=== PATIENT | female | born 1970 | race Caucasian/White ===

== ENCOUNTER 2018-02-02 15:11 | Emergency (ER) | payer BC ==
[~2018-02-02] VITALS: Ht 172.7 cm; Wt 107.0 kg
[2018-02-02] MEDS ORDERED: OMEPRAZOLE20 MG PO (16:21)
[2018-02-02] MEDS ORDERED: COZAAR50 MG PO (16:22)
[2018-02-02] MEDS ORDERED: KEFLEX500 MG PO (19:37)
== END 2018-02-02 19:57 | disposition home or self-care (01) ==
LOC: ED 15:11
PROC: 0H97XZZ Drainage of Abdomen Skin, External Approach (ICD-10-PCS; principal; 2018-02-02)
DX: L02.211 Cutaneous abscess of abdominal wall (principal)
CPT/HCPCS: 10060; 99282

== ENCOUNTER 2018-02-04 07:16 | Emergency (ER) | payer BC ==
[~2018-02-04] VITALS: Ht 172.7 cm; Wt 107.0 kg
--- OUTSIDE RECORDS SUMMARY | ~2018-02-04 | XMS | Encounter Summary ---
Demographics + + + | Address | [address] | | | [place] [address] | + + + | Home Phone | | + + + | Preferred Language | Unknown | + + + | Marital Status | | + + + | Baptist Affiliation | Unknown | + + + | Race | Unknown | + + + | Ethnic Group | Unknown | + + + Author + + + | Author | [facility] | | | and [place] | + + + | Organization | [facility] | | | and [place] | + + + | Address | Unknown | + + + | Phone | Unavailable | + + + Support + + + + + | Name | Relationship | Address | Phone | + + + + + | Tam Lou | ECON | [address] | | | | | [place] [address] | | + + + + + | Cristal Yu | ECON | Unknown | | + + + + + Care Team Providers + +------+ + | Care Third Steel Pourer Name | Role | Phone | + +------+ + | Pcp, Prov Inactive | PCP | | + +------+ + Reason for Visit Auth/Cert +--------+--------+ + + + + | Status | Reason | Specialty | Diagnoses / | Referred By | Referred To | | | | | Procedures | Contact | Contact | +--------+--------+ + + + + | | | | Diagnoses | | | | | | | | | | | | | | INCARCERATED | | | | | | | VENTRAL | | | | | | | HERNIA | | | | | | | Recurrent | | | | | | | incisional | | | | | | | hernia with | | | | | | | incarceratio | | | | | | | n | | | | | | | Procedures | | | | | | | REPAIR | | | | | | | HERNIA | | | | | | | VENTRAL | | | +--------+--------+ + + + + Encounter Details +--------+---------+ + + + | Date | Type | Department | Care Team | Description | +--------+---------+ + + + | 12/21/ | Surgery | [facility] | Miguel Angel Burks MD | ILEOCOLIC RESECTION; | | 2018 | | [facility] | [address] | IMPLANTATION OF | | | | [address] | [place] [address] | BIOLOGIC MESH; | | | | [place] | [phone] | PLACEMENT OF VAC | | | | [address] | | | | | | [phone] | | | +--------+---------+ + + + Social History + + [...] on file | | + + + as of this encounter Last Filed Vital Signs + + + + | Vital Sign | Reading | Time Taken | + + + + | Blood Pressure | 132/80 | 12/25/2017 0800 PDT | + + + + | Pulse | 88 | 12/25/2017 1106 PDT | + + + + | Temperature | 36.8 C (98.2 F) | 12/25/2017 08 PDT | + + + + | Respiratory Rate | 18 | 12/25/20171105 PDT | + + + + | Oxygen Saturation | 83% | 12/25/20171105 PDT | + + + + | Inhaled Oxygen | - | - | | Concentration | | | + + + + | Weight | 115 kg (253 lb 8.5 | 12/21/2017199 PDT | | | oz) | | + + + + | Height | 172.7 cm (5' 8") | 12/21/2017 0200 PDT | + + + + | Body Mass Index | 38.55 | 12/21/2017 0200 PDT | + + + + in this encounter Discharge Summaries Usama Almodovar MD - 12/25/2017 1759 PDTFormatting of this note may be different fr om the original. [facility] Surgery Discharge Summary Patient Name: Katie Lou Patient : 1970 PCP: Prov Inactive Pcp Date of Admission: 12/21/2017 Date of Discharge: 12/25/2017 Primary Discharge Dx: Recurrent incisional hernia with incarceration Secondary Discharge Dx(s): Active Hospital Problems Diagnosis Recurrent incisional hernia with incarceration Acute pulmonary insufficiency following nonthoracic surgery Obesity Hypertension Resolved Hospital Problems Diagnosis No resolved problems to display. Procedures: Repair of incarcerated, multiply recurrent incisional hernia Ileocolic resection including 18 inches of ileum and cecum Implantation of biologic mesh Application of VAC dressing Hospital Course: Uneventfull hospital course. Patient improved without complication. Patient recovered well from procedure. She has a subcutaneous drain in place that will rasheeda in there until seen in Dr. Burks's office in 2 weeks. She also has an incision that was draine d with a wound vac for 5 days and then transitioned to dry dressings prior to discharge. She was discharged home with home assist in stable condition and with all of her questions answ ered to her satisfaction. Condition on Discharge: Improved Discharge Medications: Discharge Medications New Medications Details benzonatate 100 mg capsule Notes to patient: Not given. Take 1 capsule by mouth 3 times daily as needed for Cough. aka: TESSALON nicotine 14 mg/24 hr Notes to patient: Last dose 11/10 at 9:53am. Place 1 patch onto the skin Daily as needed for Nicotine Craving. aka: NICODERM oxyCODONE 5 mg tablet Notes to patient: Last dose 12/25 at 13:25pm. Take 1-3 tablets by mouth every 4 hours as needed for Pain. aka: ROXICODONE Unchanged Medications Details LOSARTAN POTASSIUM PO Notes to patient: Last dose 12/25 at 9:01am. Take 25 mg by mouth Daily. omeprazole 20 mg Tbec Notes to patient: Not given. 1 TABLET by mouth twice daily-LAST REFILL NEED VISIT and LABS aka: priLOSEC PROAIR HFA 90 mcg/puff inhaler Generic drug: albuterol Notes to patient: Last dose 12/21 at 8:03am. 2 puffs every 4-6 hours as needed for asthma Follow-Up: 1. Follow up with Dr. Burks in 2 weeks for wound check and post-op visit.. Electronically Signed by: Usama Almodovar MD, 12/25/2017 17:59 [facility] Associated attestation - Pancho Auguste MD - 12/26/2017 0843 PDTI have seen, interviewed a nd examined the patient. I have reviewed the above note and agree with the assessment and plan as outlined. Any exceptions to that assessment and plan are outlined here. Assessment entered late due to affect down time. Patient seen on date of resident note. Patient is doing well, tolerating diet with good pain control. Discharge home Pancho Auguste MD 12/26/2017 8:43 in this encounter Discharge Instructions The following attachments cannot be sent through Care Everywhere.Abdomen: Incision Care (En glish)Post Op Wound Check, General (Macedonian)in this encounter Medications at Time of Discharge + + +---------+---------+ + + | Medication | Sig. | Disp. | Refills | Start | End Date | | | | | | Date | | + + +---------+---------+ + + | albuterol (PROAIR | 2 puffs every 4-6 | | | 04/23/20 | | | HFA) 90 mcg/puff | hours as needed for | | | 11 | | | inhaler | asthma | | | | | + + +---------+---------+ + + | benzonatate | Take 1 capsule by | 30 | 0 | 12/26/19 | | | (TESSALON) 100 mg | mouth 3 times daily | capsule | | 18 | | | capsule | as needed for Cough. | | | | | + + +---------+---------+ + + | LOSARTAN POTASSIUM | Take 25 mg by mouth | | | | | | PO | Daily. | | | | | + + +---------+---------+ + + | nicotine | Place 1 patch onto | 21 | 0 | 12/26/19 | | | (NICODERM) 14 mg/24 | the skin Daily as | patch | | 18 | | | hr | needed for Nicotine | | | | | | | Craving. | | | | | + + +---------+---------+ + + | omeprazole | 1 TABLET by mouth | | | 04/23/20 | | | (PRILOSEC) 20 mg | twice daily-LAST | | | 12 | | | TBEC | REFILL NEED VISIT | | | | | | | and LABS | | | | | + + +---------+---------+ + + | oxyCODONE | Take 1-3 tablets by | 30 | 0 | 12/26/19 | | | (ROXICODONE) 5 mg | mouth every 4 hours | tablet | | 18 | | | tablet | as needed for Pain. | | | | | + + +---------+---------+ + + as of this encounter Progress Notes Marimar Montenegro, PAINTER HELPER - 12/25/2017 1424 PDTPt DC'd home with [facility] to follow for wound care. Zack rey to transport. Liberty Castorena, RT - 12/25/2017 1117 PDTFormatting of this note may be d ifferent from the original. 12/25/17 1107 Oxygen Therapy Home O2 eval performed? yes Resting on RA (%) 84 Resting on O2 (%)(add L/Min in comment) 93 (on 2L) Exercising on O2 (%)(add L/Min in comment) 94 (on 4L) Pt requiring 2L at rest and 4L with activity (walked all the way around 7S floor. Electronically signed by: Liberty Castorena, RT 12/25/2017 11:18 Bharti Parker RN - 12/25/2017 0922 PDTFormatting of this note may be different from the original. [facility] Wound, Ostomy, & Continence Nursing Note Date of Admission: 12/21/2017 Hospital Day #: LOS: 4 days Procedure: Procedure(s): ILEOCOLIC RESECTION; IMPLANTATION OF BIOLOGIC MESH; PLACEMENT OF VAC PLACEMENT OF VAC IMPLANTATION OF BIOLOIC MESH Procedure date: 12/21/2017 Principal Problem: Recurrent incisional hernia with incarceration Active Problems: Obesity Hypertension Assessment/Evaluation/Interventions: Orders received from Dr. Almodovar for wound VAC dressi ng to be removed and gauze dressing to be applied for patient's discharge today. Removed VAC dressing-base is pink and moist, edges are open-incision is partially open with intermitten t sutures. Elo-wound is intact. Applied gauze island dressing to wound. Primary RN asked me to teach the patient about her CARITO drain. I provided education regarding the milking or stri pping of the tubing, emptying the collection bottle and how to keep the bottle squeezed whil e replacing the drain cover. I also changed the dressing surrounding the tubing with new fen estrated gauze and transparent dressing. I answered any questions they had regarding frequen cy of changing the dressings. Wound VAC was discontinued. 12/25/17 0900 Visit Information Visit Type Discharge Wound 12/23/17 transverse abdomen Placement Date: 12/23/17 Orientation: transverse Location: abdomen Type: (c) Wound WDL WDL Dressing Appearance moist drainage Base pink;moist Periwound Area intact Edges open Dressing gauze (island gauze dressing applied) Negative Pressure discontinued Sponges Removed (Negative Pressure Wound Therapy) 4 Visit Summary Discipline Providing Treatment WOCN Next Wound/Ostomy Visit Date (Pt D/C 12/25) Pertinent labs/data: Lab Results Component Value Date ALBUMIN 2.7 (L) 12/20/2017 TOTALPROTEIN 6.4 (L) 12/20/2017 WBC 13.0 (H) 12/22/2017 HCT 41.7 12/22/2017 HGB 13.0 12/22/2017 Body mass index is 38.55 kg/m. Etiology: Surgical wound Treatment Plan: 1. Wound VAC D/C. 2. Gauze island dressing applied to abdominal wound. 3. CARITO drain dressing changed. 4. Education regarding the above provided to patient and family. Electronically signed by: BLAIR CobianN, RN, CWCN Wound and Ostomy Dept Clair Castro, ELEVATED WORK PLATFORM OPERATOR - 12/24/2017 0555 PDTFormatting of this note may be different from the original. RESPIRATORY PROTOCOL Admitting Diagnosis: INCARCERATED VENTRAL HERNIA Recurrent incisional hernia with incarceration Foundry Molder: None Respiratory History: Asthma Allergies: Allergies Allergen Reactions Sulfa Antibiotics Rash Smoking Hx: Social History Substance Use Topics Smoking status: Current Every Day Smoker Packs/day: 0.50 Years: 25.00 Types: Cigarettes Smokeless tobacco: Never Used Alcohol use Yes Comment: Rare Home Regimen: O2: N/A SVN: N/A MDI: Albuterol Q4 prn CPAP/BiPAP: N/A Home Care Co: None RE-ASSESSMENT Severity Class: 3 Mental Status: Alert Activity Level: Ambulatory with Assistance CHEST EXAM Breath Sounds: Clear and Decreased Resp: 18 Pulse: 80 Rhythm/Pattern (Respiratory): unlabored, no shortness of breath reported SpO2: 93 % on 3 Lpm SECRETIONS: Cough Effectiveness: Good: Amount: None Color: N/A Consistency: N/A Suctioning Needed: No I.S. Pred: IS Predicted Level (mL) : 2600 (30% predicted = 780) Act: IS Level (mL) : 2000 Adequate Breath Hold:Yes ABG: No ABG Chest X-Ray: No CXR CARE PLAN Oxygen Therapy Current Therapy: Keep SpO2 > 90% Change to: No change Respiratory Medication Current Therapy: Duoneb Q 4 hours while awake Change to: No change Bronchial Hygiene Current Therapy: Encourage cough & deep breathing Change to: No change Lung Volume Expansion Current Therapy: IS x 10 Q hour while awake Change to: No change DISPOSITION: Changes Made per Patient Assessment and Plan to reassess patient in 72 hours o r as needed Kell, Liberty E, RT - 12/24/2017 1304 PDTTook patient off EtCO2 monitor; pt not on BONDED STRUCTURES REPAIRER. Electronically signed by: Liberty Castorena, 12/24/2017 13:05 Marimar Montenegro PAINTER HELPER - 12/24/2017 1225 PDTPer rounds, pt may need wound care post DC. Sticky note placed on chart requesting MD enter order if so. Usama Almodovar MD - 12/24/2017 0850 PDTFormatting of this note may be different fr om the original. [facility] General Surgery/Trauma Team Progress Note Admission date: 12/21/2017 2:40 Date of : 1970 Hospital Day: 4 DATE/TIME: 12/24/2017 8:50 History of Present Illness: Katie Granado a 47 y.o.femalewho is Hospital Day: 4F ollowing incarcerated, recurrent incisional hernia. Principal Problem: Recurrent incisional hernia with incarceration Active Problems: Obesity Hypertension Many many years ago she had an umbilical hernia repair. This failed and she had a chronic incisional hernia. This was repaired electively in [place] November 14. On November 15 she had a cough and felt a pop with recurrence of her hernia. She was taken to surgery there and the mesh was removed and a primary repair performed. 2 days following that operation she e viscerated and was taken back to surgery for another repair which was done bilaterally. Nelda page spent a few days in the ICU due to difficulty with ventilation postoperatively but raya barber was discharged. She was seen by a surgeon back in [place] last week with another failur e of her repair and a palpable hernia. The decision was made not to treat it the given her recent history. She then was traveling to [place] and developed another incarcerated herni a with pain and nausea. She was seen by a surgeon there who felt the best operation for he r would be a retro-rectus repair with Stratticewhich was not available at [facility] small hospit [facility]. She has some family in [place] and requested transfer here. On 12/21 she underwent repai r of her incarcerated hernia along with resection of 18 inches of ileum and cecum with impla ntation of biologic mesh. She tolerated the procedure well and has a wound vac in place. Procedures 12/21/17: Repair of incarcerated, multiply recurrent incisional hernia Ileocolic resection including 18 inches of ileum and cecum Implantation of biologic mesh Application of VAC dressing 24 Hour Interval History POD3: The patient is examined. The chart is reviewed. Pain is adequately controlled. She d oes not complain of nausea. Wound vac being changed, minimal serous drainage with good heal ing. Minimal appetite, but taking liquids OK. Denies BM, passing gas. Anxious for discharge planning. Objective Temp: 36.3 C (97.3 F) BP: 151/86 Pulse: 69 Resp: 14 SpO2: 92 % on Min/Max Temp past 24 hours:Temp Av.6 C (97.9 F) Min: 36.3 C (97.3 F) Max: 3 7 C (98.6 F) Intake/Output Summary (Last 24 hours) at 12/24/17 0850 Last data filed at 12/24/17 0535 Gross per 24 hour Intake 2934 ml Output 2140 ml Net 794 ml Wt. Admission: Weight: 115 kg (253 lb 8.5 oz) Wt. Current: Weight: 115 kg (253 lb 8.5 o z) Physical Exam General: Alert, resting comfortably in bed, NAD Cardiovascular:Palpable radial pulse, regular rate and rhythm, no m/r/g. Respiratory:Breathing comfortably on 3L NC. Lungs CTAB Abdomen:Obese, hypoactive bowel tones, nondistended, mild generalized tenderness. RUQ CARITO drain w/ small amount of SS drainage. Central wound vac in place without surrounding erythem a. Psych:Normal mood, affect, behavior. Recent Labs No recent labs. Medications have been reviewed. Please refer to the MAR for details. Antibiotic(s)/duration: None DVT Prophylaxis: SCDs GI Prophylaxis: Pepcid Nutrition: Full liquid diet IMPRESSION / PLAN: 1. Repair of incarcerated, recurrent incisional hernia. Progressing well. Anticipate return of bowel function soon. Good use of IS. -Adv diet to general as tolerated 2. Hypoxia, mild intermittent -Likely secondary to chronic asthma -RT following -Breathing comfortably on 3L NC -Would like to trial pt off O2 resting/walking to anticipate home O2 needs 3. Hypertension -Post-op SBP 180s, treated with IV labetalol 10mg with good effect. BP in good control now. -Cont home HTN meds 4. Smoking cessation referral 5. PT/OT to see, appreciate recommendations 6. Dispo: home or adult foster home TBD based on therapy rec's Electronically Signed by: Usama Almodovar MD, 12/24/2017 8:50 [facility] from 7am-5pm (hospital employees only) Associated attestation - Pancho Auguste MD - 12/24/2017 1521 PDTI have seen, interviewed a nd examined the patient. I have reviewed the above note and agree with the assessment and plan as outlined. Any exceptions to that assessment and plan are outlined here. Patient is progressing well and transitioning to oral diet and oral medications. Continue drain at discharge. Will discuss with Dr. Burks the wound VAC management Pancho Auguste MD 12/24/2017 15:21 Best, Maday Klein RN - 12/23/2017 1259 PDTFormatting of this note may be different from the original. [facility] Wound, Ostomy, & Continence Nursing Note Date of Admission: 12/21/2017 Hospital Day #: LOS: 2 days Procedure: Procedure(s): ILEOCOLIC RESECTION; IMPLANTATION OF BIOLOGIC MESH; PLACEMENT OF VAC PLACEMENT OF VAC IMPLANTATION OF BIOLOIC MESH Procedure date: 12/21/2017 Principal Problem: Recurrent incisional hernia with incarceration Active Problems: Obesity Hypertension Assessment/Evaluation: Transverse abdominal incision w/ sutures in the center. Wound base isn't visible but measurements are 0.4cm x 16.5cm x 7cm. VAC dressing changed and 3 "ana" wrapped w/ Mepitel one and placed into the openings. -125mmHg continuous sx achieved w/o dif ficulty. D/C plans being determined. Will f/u for next VAC change on Sat. Pertinent labs/data: Lab Results Component Value Date ALBUMIN 2.7 (L) 12/20/2017 TOTALPROTEIN 6.4 (L) 12/20/2017 WBC 13.0 (H) 12/22/2017 HCT 41.7 12/22/2017 HGB 13.0 12/22/2017 Body mass index is 38.55 kg/m. Consent for Photo The patient was advised that digital photos will be taken today of Katie Lou.The patie nt verbally consented to having these photos taken for purposes of documenting his/her condi tion. The patient understands that the images will be stored in their medical record. Treatment Plan: 1. VAC change Wed 2. D/C plans pending. Electronically signed by: Maday Arndt RN, CWOCN Wound and Ostomy Services DATE/TIME: 12/23/2017 13:37 Marimar Montenegro MSW - 12/23/2017 1135 PDTPer d/c planning meeting, blue no d/c needs.sUama Almodovar MD - 12/23/2017 0902 PDTFormatting of this note may be different from the o riginal. [facility] General Surgery/Trauma Team Progress Note Admission date: 12/21/2017 2:40 Date of : 1970 Hospital Day: 3 DATE/TIME: 12/23/2017 9:02 History of Present Illness: Katie Lou is a 47 y.o. female who is Hospital Day: 2 Follo wing incarcerated, recurrent incisional hernia. Principal Problem: Recurrent incisional hernia with incarceration Active Problems: Obesity Hypertension Many many years ago she had an umbilical hernia repair. This failed and she had a chronic incisional hernia. This was repaired electively in [place] November 14. On November 15 she had a cough and felt a pop with recurrence of her hernia. She was taken to surgery there and the mesh was removed and a primary repair performed. 2 days following that operation she e viscerated and was taken back to surgery for another repair which was done bilaterally. Nelda page spent a few days in the ICU due to difficulty with ventilation postoperatively but raya barber was discharged. She was seen by a surgeon back in [place] last week with another failur e of her repair and a palpable hernia. The decision was made not to treat it the given her recent history. She then was traveling to [place] and developed another incarcerated herni a with pain and nausea. She was seen by a surgeon there who felt the best operation for he r would be a retro-rectus repair with Stratticewhich was not available at his small hospit ak. She has some family in [place] and requested transfer here. On 12/21 she underwent repai r of her incarcerated hernia along with resection of 18 inches of ileum and cecum with impla ntation of biologic mesh. She tolerated the procedure well and has a wound vac in place. Procedures 12/21/17: Repair of incarcerated, multiply recurrent incisional hernia Ileocolic resection including 18 inches of ileum and cecum Implantation of biologic mesh Application of VAC dressing 24 Hour Interval History POD2: The patient is examined. The chart is reviewed. Pain is adequately controlled. She d oes not complain of nausea. Wound vac being changed, minimal serous drainage with good heal ing. Minimal appetite, but taking liquids OK. Denies BM, flatus. Objective Temp: 36.6 C (97.8 F) BP: 136/74 Pulse: 89 Resp: 20 SpO2: 96 % on Min/Max Temp past 24 hours:Temp Av.6 C (97.9 F) Min: 36.2 C (97.1 F) Max: 3 7.3 C (99.1 F) Intake/Output Summary (Last 24 hours) at 12/23/17 0902 Last data filed at 12/23/17 0600 Gross per 24 hour Intake 2702 ml Output 105 ml Net 2597 ml Wt. Admission: Weight: 115 kg (253 lb 8.5 oz) Wt. Current: Weight: 115 kg (253 lb 8.5 o z) Physical Exam General: Alert, resting comfortably in bed, NAD Cardiovascular: Palpable radial pulse, regular rate and rhythm, no m/r/g. Respiratory: Breathing comfortably on 4L NC. Some scattered wheezes in R lung pedersen. L shaila g pedersen CTA Abdomen: Obese, hypoactive bowel tones, nondistended, mild generalized tenderness. RUQ drai n w/ small amount of blood. Central wound vac in place without surrounding erythema, 150cc i n 48hrs Psych: Normal mood, affect, behavior. Recent Labs No new labs today. IMPRESSION / PLAN: 1. Repair of incarcerated, recurrent incisional hernia. Progressing well. Anticipate return of bowel function soon. Discussed use of IS. DC IVF when adequate intake of liquid diet 2. Hypoxia, mild intermittent -Likely secondary to chronic asthma -RT following -Breathing comfortably on 3-4L NC 3. Hypertension -Post-op SBP 180s, treated with IV labetalol 10mg with good effect -Cont home HTN meds 4. Smoking cessation referral 5. PT/OT to see, appreciate recommendations 6. Dispo: home or adult foster home TBD based on therapy rec's Electronically Signed by: Usama Almodovar MD, 12/23/2017 9:02 [facility] from 7am-5pm (hospital employees only) Associated attestation - Pancho Auguste MD - 12/23/2017 1423 PDTI have seen, interviewed a nd examined the patient. I have reviewed the above note and agree with the assessment and plan as outlined. Any exceptions to that assessment and plan are outlined here. Doing well, but still early in the postoperative period. Minimal evidence of bowel functio n. Drain with serosanguineous output. Wound VAC without surrounding erythema. Pancho Auguste MD 12/23/2017 14:21 Carlos Farr, ELEVATED WORK PLATFORM OPERATOR - 12/22/2017 2259 PDTPt did not tolerate cpap with nasal mask on lo west pressure of 4 cmh2o, stated too much pressure. Also refused to try full face mask. Elec tronically signed by: Carlos Farr RRT 12/22/2017 23:00 Usama Almodovar MD - 12/22/2017 0824 PDTFormatting of this note may be different fr om the original. [facility] General Surgery/Trauma Team Progress Note Admission date: 12/21/2017 2:40 Date of : 1970 Hospital Day: 2 DATE/TIME: 12/22/2017 8:24 History of Present Illness: Katie Lou is a 47 y.o. female who is Hospital Day: 2 Follo wing incarcerated, recurrent incisional hernia. Principal Problem: Recurrent incisional hernia with incarceration Active Problems: Obesity Hypertension Many many years ago she had an umbilical hernia repair. This failed and she had a chronic incisional hernia. This was repaired electively in [place] on November 14. On November 15 she had a c ough and felt a pop with recurrence of her hernia. She was taken to surgery there and the m esh was removed and a primary repair performed. 2 days following that operation she eviscer ated and was taken back to surgery for another repair which was done bilaterally. She spent a few days in the ICU due to difficulty with ventilation postoperatively but eventually was discharged. She was seen by a surgeon back in [place] last week with another failure of her repair and a palpable hernia. The decision was made not to treat it the given her recent h istory. She then was traveling to [place] and developed another incarcerated hernia with jose antonio n and nausea. She was seen by a surgeon there who felt the best operation for her would be a retro-rectus repair with Strattice which was not available at [facility]. She has some family in [place] and requested transfer here. On 12/21 she underwent repair of her inca rcerated hernia along with resection of 18 inches of ileum and cecum with implantation of bi ologic mesh. She tolerated the procedure well and has a wound vac in place. Procedures 12/21/17: Repair of incarcerated, multiply recurrent incisional hernia Ileocolic resection including 18 inches of ileum and cecum Implantation of biologic mesh Application of VAC dressing 24 Hour Interval History POD1: The patient is examined. The chart is reviewed. Pain is adequately controlled. She d oes not complain of nausea. She is tolerating her full liquid diet. She denies return of roger wel function and denies flatus. She is on stool softeners. Objective Temp: 36.3 C (97.3 F) BP: 157/86 Pulse: 75 Resp: 11 SpO2: 92 % on Min/Max Temp past 24 hours:Temp Av.1 C (97 F) Min: 35.6 C (96.1 F) Max: 36. 6 C (97.9 F) Intake/Output Summary (Last 24 hours) at 12/22/17 0824 Last data filed at 12/22/17 0550 Gross per 24 hour Intake 3381 ml Output 1075 ml Net 2306 ml Wt. Admission: Weight: 115 kg (253 lb 8.5 oz) Wt. Current: Weight: 115 kg (253 lb 8.5 o z) Physical Exam General: Alert, resting comfortably in bed, NAD Cardiovascular: Palpable radial pulse, regular rate and rhythm, no m/r/g. Respiratory: Breathing comfortably on 4L NC. Some scattered wheezes in R lung pedersen. L shaila g pedersen CTA Abdomen: Obese, hypoactive bowel tones, nondistended, mild generalized tenderness. RUQ drai n w/ small amount of blood. Central wound vac in place without surrounding erythema. Psych: Normal mood, affect, behavior. Recent Labs Recent Labs Lab 12/22/1731712/20/171923 WBC 13.0* 11.0* HGB 13.0 13.2 HCT 41.7 43.2 PLT 274 282 Recent Labs Lab 12/22/1731712/20/171923 NA 142 136 K 4.3 3.3 CL 109 100 CO2 31* 31 BUN 11 13 CREA 0.77 1.10 GLU 104* 137* No results for input(s): BNP in the last 168 hours. Invalid input(s): CKTOTAL, TROPONINI, CKMBINDEX IMPRESSION / PLAN: 1. Repair of incarcerated, recurrent incisional hernia. Progressing well. Anticipate return of bowel function soon. Discussed use of IS. DC IVF when adequate intake of liquid diet 2. Hypoxia, mild intermittent -Likely secondary to chronic asthma -RT following -Breathing comfortably on 3-4L NC 3. Hypertension -Post-op SBP 180s, treated with IV labetalol 10mg with good effect -Cont home HTN meds 4. Smoking cessation referral 5. Dispo: home or adult foster home TBD Electronically Signed by: Usama Almodovar MD, 12/22/2017 8:24 [facility] from 7am-5pm (hospital employees only) Associated attestation - Gil Shaffer MD - 12/22/20171923 PDTI have seen, interviewed and examined the patient. I have reviewed the above note and agree with the assessment and plan as outlined. Any exceptions to that assessment and plan are outlined here. Pain complaints of improved significantly today. She has a ileus as expected. Working o n out of bed mobilization to help her pulmonary issues. MD Arvind Boyd, Emile Gonzalez RN - 12/21/2017 0631 PDTPt admitted to floor at 0330, came via [facility] from [facility]. Here for lower abd pain/biological mess placement (s/p 3 recent failed hernia repairs). Pt A&Ox4. Ra, denies SOB, n/v. Denies pain at rest, pain only with coughing. Rt side PIV no t patent on admission, pt reports discomfort at site. IV therapy consulted. Electronically s igned by: Emile Samuels RN 12/21/2017 6:44 Aixa Mendoza RN - 12/21/2017 0259 PDTAdmission screen completed by Solange Kruse Report handoff given to 7 [place] RN Imer Narvaez RN has completed admission flow sheet except for shift assessment, fall risk, marga assessment. Solange FISCHER has also completed N/A Information for admission documentation was received from patient Patient is A+Oin this encounter Plan of Treatment + +--------+ + + | Name | Priori | Associated Diagnoses | Order Schedule | | | ty | | | + +--------+ + + | Referral to Home Health - | Routin | Recurrent | Ordered: 12/25/2017 | | OUTPATIENT | e | incisional hernia | | | | | with incarceration | | + +--------+ + + | Referral to Home Health - | Routin | Recurrent | Ordered: 12/25/2017 | | OUTPATIENT | e | incisional hernia | | | | | with incarceration | | + +--------+ + + as of this encounter Procedures + +--------+ + + + | [...] for this | | | e | 2058 PDT | | procedure are in the [...] this | | PANEL | e | 8 PDT | | procedure are in the | | | | | | results section. | + +--------+ + + + | POC GLUCOSE | Routin | 12/21/2017 | | Results for this | | | e | 2000 PDT | | procedure are in the [...] | | + +--------+ + + + in this encounter Results POC Glucose (12/25/201737) + + + + + | Component | Value | Ref Range | Performed At | + + + + + | Glucose, POC | 107 (H)Comment: | 65 - 99 mg/dL | [facility] | | | Performed by [facility] [address] | | [facility] | | | [place] [place] | | [facility]ICAL [facility]ENTER | | | [address] | | LABORATORY | | | | | RADHA | + + + + + + + | Specimen | + + | Blood | + + + + + + + | Performing | Address | City/State/Zipcode | Phone Number | | Organization | | | | + + + + + | [facility] | [address] | [place] [address] | | | [facility] | | | | | LABORATORY CERNER | | | | + + + + + POC Glucose (12/24/20172057) + + + + + | Component | Value | Ref Range | Performed At | + + + + + | Glucose, POC | 147 (H)Comment: | 65 - 99 mg/dL | [facility] | | | Performed by Debi Healy | | [facility] | | | [address] [place] | | [facility] | | | [address] | | LABORATORY | | | | | CERNER | + + + + + + + | Specimen | + + | Blood | + + + + + + + | Performing | Address | City/State/Zipcode | Phone Number | | Organization | | | | + + + + + | [facility] | [address] | [place] [address] | | | [facility] | | | | | LABORATORY CERNER | | | | + + + + + POC Glucose (12/24/2017 1727) + + + + + | Component | Value | Ref Range | Performed At | + + + + + | Glucose, POC | 110 (H)Comment: | 65 - 99 mg/dL | [facility] | | | Performed by [facility] [address] | | [facility] | | | [address], [place] | | MEDICAL CENTER | | | [address] | | LABORATORY | | | | | CERNER | + + + + + + + | Specimen | + + | Blood | + + + + + + + | Performing | Address | City/State/Zipcode | Phone Number | | Organization | | | | + + + + + | [facility] | [address] | [place] [address] | | | [facility] | | | | | NAVEEN GARCIA | | | | + + + + + POC Glucose (12/24/2017 1157) + + + +-------- ---------+ | Component | Value | Ref Range | Perform ed At | + + + +-------- ---------+ | Glucose, POC | 95Comment: Performed by | 65 - 99 mg/dL | [facility] | | | [facility] [address], | | [facility] | | | [place] [address] | | [facility] | | |Performed by [facility] [address], [place] [address] | | LABORAT ORAdrián | | | | | CERNER | + + + +-------- ---------+ + + | Specimen | + + | Blood | + + + + + + + | Performing | Address | City/State/Zipcode | Phone Number | | Organization | | | | + + + + + | [facility] | [address] | [place] [address] | | | [facility] | | | | | LABORATORY CERNER | | | | + + + + + POC Glucose (12/24/201714) + + + + + | Component | Value | Ref Range | Performed At | + + + + + | Glucose, POC | 108 (H)Comment: | 65 - 99 mg/dL | [facility] | | | Performed by [facility] [address] | | [facility] | | | [address], [place] | | [facility] | | | [address] | | LABORATORY | | | | | CERNER | + + + + + + + | Specimen | + + | Blood | + + + + + + + | Performing | Address | City/State/Zipcode | Phone Number | | Organization | | | | + + + + + | [facility] | [address] | [place] [address] | | | [facility] | | | | | LABORATORY RADHA | | | | + + + + + POC Glucose (12/23/20172106) + + + + + | Component | Value | Ref Range | Performed At | + + + + + | Glucose, POC | 118 (H)Comment: | 65 - 99 mg/dL | [facility] | | | Performed by [facility] [address] | | [facility] | | | [address], [place], [place] | | MEDICAL CENTER | | | [address] | | LABORATORY | | | | | CERNER | + + + + + + + | Specimen | + + | Blood | + + + + + + + | Performing | Address | City/State/Zipcode | Phone Number | | Organization | | | | + + + + + | [facility] | [address] | [place] [address] | | | [facility] | | | | | LABORATORY CERNER | | | | + + + + + POC Glucose (12/23/20171810) + + + +-------- ---------+ | Component | Value | Ref Range | Perform ed At | + + + +-------- ---------+ | Glucose, POC | 92Comment: Performed by | 65 - 99 mg/dL | [facility] | | | [facility] [address], | | [facility] | | | [place] [address] | | [facility] | | |Performed by [facility] [address], [place] [address] | | SURJ[facility]AT CHACHA | | | | | CERNER | + + + +-------- ---------+ + + | Specimen | + + | Blood | + + + + + + + | Performing | Address | City/State/Zipcode | Phone Number | | Organization | | | | + + + + + | [facility] | [address] | [place] [address] | | | [facility] | | | | | LABORATORY CERNER | | | | + + + + + POC Glucose (12/23/2017 1157) + + + +-------- ---------+ | Component | Value | Ref Range | Perform ed At | + + + +-------- ---------+ | Glucose, POC | 99Comment: Performed by | 65 - 99 mg/dL | [facility] | | | [facility] [address], | | [facility] | | | [place] [address] | | MEDICAL CENTER | | |Performed by [facility] [address], [place], [place] | | LABORAT ORY | | | | | CERNER | + + + +-------- ---------+ + + | Specimen | + + | Blood | + + + + + + + | Performing | Address | City/State/Zipcode | Phone Number | | Organization | | | | + + + + + | [facility] | [address] | [place] [address] | | | [facility] | | | | | LABORATORY RADHA | | | | + + + + + POC Glucose (12/23/201738) + + + +-------- ---------+ | Component | Value | Ref Range | Perform ed At | + + + +-------- ---------+ | Glucose, POC | 92Comment: Performed by | 65 - 99 mg/dL | [facility] | | | [facility] [address], | | [facility] | | | [place] [address] | | MEDICAL CENTER | | |Performed by [facility] [address], [place] [address] | | LABORAT ORY | | | | | CERNER | + + + +-------- ---------+ + + | Specimen | + + | Blood | + + + + + + + | Performing | Address | City/State/Zipcode | Phone Number | | Organization | | | | + + + + + | [facility] | [address] | [place] [address] | | | [facility] | | | | | LABORATORY CERNER | | | | + + + + + POC Glucose (12/22/20172122) + + + + + | Component | Value | Ref Range | Performed At | + + + + + | Glucose, POC | 113 (H)Comment: | 65 - 99 mg/dL | [facility] | | | Performed by [facility] [address] | | [facility] | | | [address] [place] | | MEDICAL CENTER | | | [address] | | LABORATORY | | | | | BRIANANER | + + + + + + + | Specimen | + + | Blood | + + + + + + + | Performing | Address | City/State/Zipcode | Phone Number | | Organization | | | | + + + + + | [facility] | [address] | [place] [address] | | | [facility] | | | | | LABORATORY CERFRANC | | | | + + + + + POC Glucose (12/22/2017 1732) + + + + + | Component | Value | Ref Range | Performed At | + + + + + | Glucose, POC | 100 (H)Comment: | 65 - 99 mg/dL | [facility] | | | Performed by [facility] [address] | | [facility] | | | [place] | | [facility] | | | [address] | | LABORATORY | | | | | CERNER | + + + + + + + | Specimen | + + | Blood | + + + + + + + | Performing | Address | City/State/Zipcode | Phone Number | | Organization | | | | + + + + + | [facility] | [address] | [place], [place] | | | [facility] | | | | | LABORATORY CERNER | | | | + + + + + POC Glucose (12/22/2017 1200) + + + +-------- ---------+ | Component | Value | Ref Range | Perform ed At | + + + +-------- ---------+ | Glucose, POC | 92Comment: Performed by | 65 - 99 mg/dL | [facility] | | | [facility] [address], | | [facility] | | | [place], [place] | | [facility] | | |Performed by [facility] [address], [place], [place] | | LABORAT ORAdrián | | | | | CERNER | + + + +-------- ---------+ + + | Specimen | + + | Blood | + + + + + + + | Performing | Address | City/State/Zipcode | Phone Number | | Organization | | | | + + + + + | [facility] | [address] | [place] [address] | | | [facility] | | | | | NAVEEN GARCIA | | | | + + + + + POC Glucose (12/22/201745) + + + +-------- ---------+ | Component | Value | Ref Range | Perform ed At | + + + +-------- ---------+ | Glucose, POC | 91Comment: Performed by | 65 - 99 mg/dL | [facility] | | | [facility] [address], | | [facility] | | | [place] [address] | | [facility] | | |Performed by [facility] [address], [place] [address] | | LABORAT ORY | | | | | CERNER | + + + +-------- ---------+ + + | Specimen | + + | Blood | + + + + + + + | Performing | Address | City/State/Zipcode | Phone Number | | Organization | | | | + + + + + | [facility] | [address] | [place] [address] | | | [facility] | | | | | LABORATORY CERNER | | | | + + + + + Basic Metabolic Panel (12/22/2017317) + + + + + | Component | Value | Ref Range | Performed At | + + + + + | NA | 142 | 135 - 145 mmol/L | [facility] | | | | | [facility] [...] | 91Comment: eGFR<60 | >=90 mL/min/1.73m2 | [facility] | | | consistent with impaired | | [facility] | | | kidney | | [facility] | | | function.Performed by | | LABORATORY | | | [facility] [address], | | [place] | | | [place] [address] | | | + + + + + + + | Specimen | + + | Blood | + + + + + + + | Performing | Address | City/State/Zipcode | Phone Number | | Organization | | | | + + + + + | [facility] | [address] | [place] [address] | | | [facility] | | | | | LABORATORY CERNER | | | | + + + + + CBC no Differential (12/22/2017317) + + + +--- + | Component | Value | Ref Range | Pe rformed At | + + + +--- + | WBC | 13.0 (H) | 3.8 - 11.0 K/uL | [facility] | | | | | [facility] | | | | | [facility] | | | | | [place] | | | | | CE RNER | + + + +--- + | RBC | 5.18 (H) | 3.70 - 5.10 M/uL | [facility] | | | | | [facility] | | | | | [facility] | | | | | [place] | | | | | CE RNER | + + + +--- + | Hgb | 13.0 | 11.3 - 15.5 g/dL | [facility] | | | | | [facility] | | | | | [facility] | | | | | [place] [facility] | | | | | CE RNER | + + + +--- + | Hct | 41.7 | 34.0 - 46.0 % | [facility] | | | | | [facility] | | | | | [facility] | | | | | [place] | | | | | CE RNER | + + + +--- + | MCV | 80.5 | 80.0 - 100.0 fL | [facility] | | | | | [facility] | | | | | [facility] | | | | | [place] | | | | | CE RNER | + + + +--- + | MCH | 25.2 (L) | 27.0 - 34.0 pg | [facility] | | | | | [facility] | | | | | [facility] | | | | | [place] | | | | | CE RNER | + + + +--- + | MCHC | 31.2 (L) | 32.0 - 35.5 g/dL | [facility] | | | | | [facility] | | | | | [facility] | | | | | [place] | | | | | CE RNER | + + + +--- + | RDW-CV | 17.5 (H) | 11.0 - 15.5 % | [facility] | | | | | [facility] | | | | | [facility] | | | | | [place] | | | | | CE RNER | + + + +--- + | Platelet Count | 274 | 150 - 400 K/uL | [facility] | | | | | [facility] | | | | | [facility] | | | | | [place] | | | | | CE RNER | + + + +--- + | MPV | 9.4Comment: Performed | 7.5 - 11.2 fL | [facility] | | | by [facility] [address] | | [facility] | | | [place] [address] | | [facility] | | |Performed by [facility] [address], [place] [address] | | [place] | | | | | CE RNER | + + + +--- + + + | Specimen | + + | Blood | + + + + + + + | Performing | Address | City/State/Zipcode | Phone Number | | Organization | | | | + + + + + | [facility] | [address] | [place] [address] | | | [facility] | | | | | LABORATORY BRIANANER | | | | + + + + + POC Glucose (12/21/20172000) + + + + + | Component | Value | Ref Range | Performed At | + + + + + | Glucose, POC | 122 (H)Comment: | 65 - 99 mg/dL | [facility] | | | Performed by [facility] [address] | | [facility] | | | [address], [place] | | MEDICAL CENTER | | | [address] | | LABORATORY | | | | | CERNER | + + + + + + + | Specimen | + + | Blood | + + + + + + + | Performing | Address | City/State/Zipcode | Phone Number | | Organization | | | | + + + + + | [facility] | [address] | [place] [address] | | | [facility] | | | | | LABORATORY CERFRANC | | | | + + + + + POC Glucose (12/21/2017 1812) + + + + + | Component | Value | Ref Range | Performed At | + + + + + | Glucose, POC | 133 (H)Comment: | 65 - 99 mg/dL | [facility] | | | Performed by [facility] Nataly Healy | | [facility] | | | [place] | | [facility] | | | [address] | | LABORATORY | | | | | CERNER | + + + + + + + | Specimen | + + | Blood | + + + + + + + | Performing | Address | City/State/Zipcode | Phone Number | | Organization | | | | + + + + + | [facility] | [address] | [place] [address] | | | [facility] | | | | | LABORATORY CERNER | | | | + + + + + POC Glucose (12/21/2017 1223) + + + + + | Component | Value | Ref Range | Performed At | + + + + + | Glucose, POC | 123 (H)Comment: | 65 - 99 mg/dL | [facility] | | | Performed by [facility] [address] | | [facility] | | | [address], [place] | | MEDICAL CENTER | | | [address] | | LABORATORY | | | | | CERNER | + + + + + + + | Specimen | + + | Blood | + + + + + + + | Performing | Address | City/State/Zipcode | Phone Number | | Organization | | | | + + + + + | [facility] | [address] | [place] [address] | | | [facility] | | | | | LABORATORY RAHDA | | | | + + + + + Tissue Request For Pathology (12/21/2017 0936) + + + | Narrative | Performed At | + + + | | [facility] | | KATIE LOU | [place] | | L : | [facility] | | 1970 AGE: 47 years | LABORATORY | | SEX: Female MRN: | RADHA | | [id number] Acct: [id number] | | | [id number] Location: [facility]; 724; | | | 724-02 Case | | | #: [id number] Ordering: | | | MIGUEL ANGEL BURKS MD | | | W Client: [facility] | | | [facility] Copy | | | To: Printed: 12/24/2017 12:59 | | | PDT | | | SURGICAL PATHOLOGY FINAL | | | REPORTCollected: Receiv | | | ed: Responsible | | | Pathologist:12/21/2017 09:36 PDT 12/21/2017 | | | 10:01 PDT VIGNESH LIVNIGSTON | | | DIAGNOSIS:Ileocolic resection: | | [...] 12/24/2017 12:59 pmPerforming | | | Location: [facility], | | | [facility] [place] [address]YKWADZJ:The clinical and surgical history of a | | | multiply recurring incisional hernia is noted. The histologic | | | findings noted above are compatible with hernia related changes.GROSS | | | DESCRIPTION:The specimen labeled and designated "Dasha- ileocolic | | | resection" is received [...] colonic margin; "A3-A4" random | | | senior outside sales representative sections of small bowel wall.MS/[id number] | | | DESCRIPTION: | | | [...] + + | Performing | Address | City/State/[facility] | Phone Number | | Organization | | | | + + + + + | [facility] | [address] | [place] [address] | | | [facility] | | | | | LABORATORY RADHA | | | | + + + + + ECG 12 lead (12/21/2017802) + + + | Narrative | Performed At | + + + | HEART RATE:77 | [facility] | | bpmRR Interval:779 msAtrial Rate:77 msP-R Interval:180 msP | [facility] | | Duration:184 msP Horizontal [place]:20 degP Front [place]:67 degQ Onset:508 | | | msQRSD Interval:82 msQT Interval:392 msQTcB:444 msQTcF:426 msQRS | | | Horizontal [place]:-33 degQRS [place]:29 degI-40 Horizontal [place]:-2 degI-40 | | | Front [place]:30 degT-40 Horizontal [place]:-48 degT-40 Front [place]:26 degT | | | Horizontal [place]:59 degT Wave [place]:64 degS-T Horizontal [place]:75 degS-T | | | Front [place]:72 degSeverity:- NORMAL ECG -INTERP:SINUS | | | RHYTHMElectronically signed by: Juan Antonio CASTILLO 12-21-2017 15:31:08 | | |QT Interval:392 ms | | |QTcB:444 ms | | |QTcF:426 ms | | |QRS Horizontal [place]:-33 deg | | |QRS [place]:29 deg | | |I-40 Horizontal [place]:-2 deg | | |I-40 Front [place]:30 deg | | |T-40 Horizontal [place]:-48 deg | | |T-40 Front [place]:26 deg | | |T Horizontal [place]:59 deg | | |T Wave [place]:64 deg | | |S-T Horizontal [place]:75 deg | | |S-T Front [place]:72 deg | | |Severity:- NORMAL ECG - | | |INTERP:SINUS RHYTHM | | |Electronically signed by: Juan Antonio CASTILLO 12-21-2017 15:31:08 | | + + + + + + + + | Performing | Address | City/State/Zipcode | Phone Number | | Organization | | | | + + + + + | [facility] | [address] | [place] [address] | [phone] | + + + + + in this encounter Visit Diagnoses Not on filein this encounter Admitting Diagnoses + + | Diagnosis | + + | INCARCERATED VENTRAL HERNIA | + + | Recurrent incisional hernia with incarceration | + + Administered Medications + +--------+ +-------+------+------+ | Medication Order | MAR | Action | Dose | Rate | Site | | | Action | Date | | | | + +--------+ +-------+------+------+ | albuterol-ipratropium (DUONEB) | Given | | 3 mLs | | | | 2.5-0.5 mg/3 mL nebulizer | | 8 19:49 | | | | | solution 3 mL 3 mL, | | PDT | | | | | Nebulization, EVERY 4 HOURS WHILE | | | | | | | AWAKE, First dose on 12/22/17 | | | | | | | at 0915 | | | | | | + +--------+ +-------+------+------+ +-------+ +-------+---+---+ | Given | | 3 mLs | | | | | 8 3:32 | | | | | | PDT | | | | +-------+ +-------+---+---+ | Given | | 3 mLs | | | | | 8 7:33 | | | | | | PDT | | | | +-------+ +-------+---+---+ + +---+ | | | + +---+ | dextrose 50% injection 12.5 g | | | 12.5 g, Intravenous, PRN, Low | | | Blood Sugar, Starting 12/21/17 | | | at 1342 | | + +---+ | | | + +---+ + +-------+ +--------+---+---+ | docusate sodium (COLACE) | Given | | 100 mg | | | | capsule 100 mg 100 mg, Oral, 2 | | 8 9:56 | | | | | TIMES DAILY PRN, Constipation, | | PDT | | | | | Starting 12/21/17 at 0621, | | | | | | | First line agent for constipation | | | | | | + +-------+ +--------+---+---+ +---+---+ | | | +---+---+ + +-------+ +-------+---+---+ | famotidine (PEPCID) tablet 20 | Given | | 20 mg | | | | mg 20 mg, Oral, 2 TIMES DAILY, | | 8 21:24 | | | | | First dose on 12/24/17 at | | PDT | | | | | 2130, Interchanged from IV | | | | | | | formulation to PO per P&T | | | | | | | protocol. | | | | | | + +-------+ +-------+---+---+ +-------+ +-------+---+---+ | Given | | 20 mg | | | | | 8 9:01 | | | | | | PDT | | | | +-------+ +-------+---+---+ +---+---+ | | | +---+---+ + +-------+ +--------+---+---+ | HYDROmorphone (DILAUDID) | Given | 12/22/2017 | 0.5 mg | | | | injection 0.25-1 mg 0.25-1 mg, | | 4:45 | | | | | Intravenous, EVERY 2 HOURS PRN, | | PDT | | | | | Pain, Starting 12/21/17 at | | | | | | | 0621, Slow IV push, not faster | | | | | | | than 0.3 mg/minute. If | | | | | | | ineffective or not tolerated and | | | | | | | unable to take oral opioid - | | | | | | | contact ordering provider | | | | | | + +-------+ +--------+---+---+ +-------+ +--------+---+---+ | Given | 12/22/2017 | 0.5 mg | | | | | 6:43 | | | | | | PDT | | | | +-------+ +--------+---+---+ | Given | 12/22/2017 | 0.5 mg | | | | | 8:23 | | | | | | PDT | | | | +-------+ +--------+---+---+ +---+---+ | | | +---+---+ + +-------+ +-------+---+---+ | labetalol (TRANDATE) 5 mg/mL | Given | 12/21/2017 | 10 mg | | | | injection 10 mg 10 mg, | | 20:09 | | | | | Intravenous, EVERY 4 HOURS PRN, | | PDT | | | | | Give for SBP > 160 mm Hg. Hold | | | | | | | for SBP < 90 mm Hg or HR < 60 | | | | | | | BPM., Starting 12/21/17 at | | | | | | | 0621, May repeat dose x 1 after | | | | | | | 10 minutes. | | | | | | + +-------+ +-------+---+---+ +-------+ +-------+---+---+ | Given | 12/22/2017 | 10 mg | | | | | 0:37 | | | | | | PDT | | | | +-------+ +-------+---+---+ | Given | 12/22/2017 | 10 mg | | | | | 15:54 | | | | | | PDT | | | | +-------+ +-------+---+---+ +---+---+ | | | +---+---+ + +---------+ +---------+-------+---+ | lactated ringers (LR) infusion | New Bag | 12/22/2017 | 100 mLs | 100 | | | at 100 mL/hr, Intravenous, | | 23:58 | | mL/hr | | | CONTINUOUS, Starting 12/21/17 | | PDT | | | | | at 0645 | | | | | | + +---------+ +---------+-------+---+ +---------+ +---+-------+---+ | New Bag | 12/23/2017 | | 100 | | | | 13:22 | | mL/hr | | | | PDT | | | | +---------+ +---+-------+---+ | New Bag | | | 100 | | | | 8 0:34 | | mL/hr | | | | PDT | | | | +---------+ +---+-------+---+ +---+---+ | | | +---+---+ + +-------+ +-------+---+---+ | losartan (COZAAR) tablet 25 mg | Given | 12/23/2017 | 25 mg | | | | 25 mg, Oral, DAILY, First dose | | 8:35 | | | | | on 12/21/17 at 1545 | | PDT | | | | + +-------+ +-------+---+---+ +-------+ +-------+---+---+ | Given | | 25 mg | | | | | 8 9:56 | | | | | | PDT | | | | +-------+ +-------+---+---+ | Given | | 25 mg | | | | | 8 9:01 | | | | | | PDT | | | | +-------+ +-------+---+---+ +---+---+ | | | +---+---+ + +-------+ +------+---+---+ | morphine injection 2-8 mg 2-8 | Given | 12/23/2017 | 6 mg | | | | mg, Intravenous, EVERY 2 HOURS | | 6:52 | | | | | PRN, Pain, Starting 12/21/17 at | | PDT | | | | | 0621, Slow IV push, not faster | | | | | | | than 2 mg/minute. If ineffective | | | | | | | or not tolerated, use | | | | | | | hydromorphone IV if ordered | | | | | | + +-------+ +------+---+---+ +-------+ +------+---+---+ | Given | 12/23/2017 | 4 mg | | | | | 10:35 | | | | | | PDT | | | | +-------+ +------+---+---+ | Given | 12/23/2017 | 4 mg | | | | | 18:23 | | | | | | PDT | | | | +-------+ +------+---+---+ +---+---+ | | | +---+---+ + +---------+ +---------+---+ + | nicotine (NICODERM) 14 mg/24 hr | Patch | | 1 patch | | Arm-Left | | 1 patch 1 patch, Transdermal, | Applied | 8 9:53 | | | Lower | | DAILY PRN, Nicotine Craving, | | PDT | | | | | Starting 12/22/17 at 1331 | | | | | | + +---------+ +---------+---+ + +---+---+ | | | +---+---+ + +---------+ +---------+---+ + | nicotine (NICODERM) 7 mg/24 hr | Patch | 12/22/2017 | 1 patch | | Arm-Left | | 1 patch 1 patch, Transdermal, | Applied | 13:47 | | | Upper | | DAILY PRN, Nicotine Craving, | | PDT | | | | | Starting 12/22/17 at 1331 | | | | | | + +---------+ +---------+---+ + + + +---------+---+ + | Patch Applied | 12/23/2017 | 1 patch | | Deltoid- | | | 13:26 | | | Right | | | PDT | | | | + + +---------+---+ + +---+---+ | | | +---+---+ + +-------+ +------+---+---+ | ondansetron (ZOFRAN) injection | Given | 12/21/2017 | 4 mg | | | | 4 mg 4 mg, Intravenous, EVERY 6 | | 23:41 | | | | | HOURS PRN, Nausea, Vomiting, | | PDT | | | | | Starting 12/21/17 at 0621, | | | | | | | First line agent Use PO option | | | | | | | unless NPO status or unable to | | | | | | | tolerate. | | | | | | + +-------+ +------+---+---+ +---+---+ | | | +---+---+ + +-------+ +-------+---+---+ | oxyCODONE (ROXICODONE) tablet | Given | | 10 mg | | | | 5-20 mg 5-20 mg, Oral, EVERY 4 | | 8 4:38 | | | | | HOURS PRN, Pain, Starting Sun | | PDT | | | | | 12/22/17 at 0803 | | | | | | + +-------+ +-------+---+---+ +-------+ +-------+---+---+ | Given | | 15 mg | | | | | 8 9:01 | | | | | | PDT | | | | +-------+ +-------+---+---+ | Given | | 15 mg | | | | | 8 13:25 | | | | | | PDT | | | | +-------+ +-------+---+---+ +---+---+ | | | +---+---+ + +-------+ +------+---+---+ | polyethylene glycol (MIRALAX) | Given | | 17 g | | | | powder 17 g 17 g, Oral, DAILY | | 8 5:12 | | | | | PRN, Constipation, Starting Sat | | PDT | | | | | 12/21/17 at 0621, If docusate and | | | | | | | senna ineffective or not ordered | | | | | | + +-------+ +------+---+---+ +---+---+ | | | +---+---+ + +-------+ +--------+---+---+ | senna (SENOKOT) tablet 8.6 mg | Given | 12/23/2017 | 8.6 mg | | | | 8.6 mg, Oral, 2 TIMES DAILY PRN, | | 21:32 | | | | | Constipation, Starting 12/21/17 | | PDT | | | | | at 0621, If docusate ineffective | | | | | | | or not ordered | | | | | | + +-------+ +--------+---+---+ +-------+ +--------+---+---+ | Given | | 8.6 mg | | | | | 8 9:56 | | | | | | PDT | | | | +-------+ +--------+---+---+ +---+---+ | | | +---+---+ in this encounter
--- OUTSIDE RECORDS SUMMARY | ~2018-02-04 | XMS | Encounter Summary ---
Demographics + + + | Address | [address] | | | [place] [address] | + + + | Home Phone | | + + + | Preferred Language | Unknown | + + + | Marital Status | | + + + | Latter-Day Affiliation | Unknown | + + + | Race | Unknown | + + + | Ethnic Group | Unknown | + + + Author + + + | Author | [facility] | | | and [place] | + + + | Organization | [facility] | | | and [place] | + + + | Address | Unknown | + + + | Phone | Unavailable | + + + Support + + + + + | Name | Relationship | Address | Phone | + + + + + | Tam Lou | ECON | [address] | | | | | [place] [address] | | + + + + + | Cristal Yu | ECON | Unknown | | + + + + + Care Team Providers + +------+ + | Care Assistant Winemaker Name | Role | Phone | + +------+ + | Pcp, Prov Inactive | PCP | | + +------+ + Encounter Details +--------+ + + + + | Date | Type | Department | Care Team | Description | +--------+ + + + + | 01/09/ | Home Care | [facility] | Marva Sifuentes, | CASE COMMUNICATION | | 2017 | Visit | [address] | [place] | | | | | [place], [place] | | | | | | [address] | | | | | | [phone] | | | +--------+ + + + [...] + + + as of this encounter Plan of Treatment Not on fileas of this encounter Visit Diagnoses Not on filein this encounter"
--- OUTSIDE RECORDS SUMMARY | ~2018-02-04 | XMS | Encounter Summary ---
Demographics + + + | Address | [address] | | | [place] [address] | + + + | Home Phone | | + + + | Preferred Language | Unknown | + + + | Marital Status | | + + + | Yarsanism Affiliation | Unknown | + + + | Race | Unknown | + + + | Ethnic Group | Unknown | + + + Author + + + | Author | [facility] | | | and [place] | + + + | Organization | [facility] | | | and [place] | + + + | Address | Unknown | + + + | Phone | Unavailable | + + + Support + + + + + | Name | Relationship | Address | Phone | + + + + + | Tam Lou | ECON | [address] | | | | | [place] [address] | | + + + + + | Cristal Yu | ECON | Unknown | | + + + + + Care Team Providers + +------+ + | Care Pesticide Control Inspector Name | Role | Phone | + [...] [address] | [place] [address] | [employer]; | | | | [place], [place] | [phone] | PLACEMENT OF VAC | | | | [address] | | | | | | [phone] | | | +--------+---------+ + + + [...] may be different fr om the original. [facility] Surgery Discharge Summary Patient Name: Katie [...] Signed by: Usama Almodovar MD, 12/25/2017 17:59 [facility] Associated attestation - Pancho Auguste MD - [...] Care (En glish)Post Op Wound Check, General (Syriac)in this encounter Medications at Time of Discharge [...] of this encounter Progress Notes Marimar Montenegro, PITCH FILLER - 12/25/2017 1424 PDTPt DC'd home with [...] note may be different from the original. [facility] Wound, Ostomy, & Continence Nursing Note Date [...] [facility] Wound and Ostomy Dept Clair Castro, FUR BLOWER OPERATOR - 12/24/2017 0315 PDTFormatting of this note may be different from the original. 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 Electronically signed by: Liberty Castorena, 12/24/2017 13:05 Marimar Montenegro PITCH FILLER - 12/24/2017 1225 PDTPer rounds, pt may need wound care post DC. Sticky note placed on chart requesting MD enter order if so. Usama Almodovar MD - 12/24/2017 0850 PDTFormatting of this note may be different fr om the original. [facility] General Surgery/Trauma Team Progress Note Admission [...] incisional hernia. This was repaired electively [place] November 14. On November 15 she had [...] was seen by a surgeon back in [place] last week with another failur e of her repair and a palpable hernia. The decision was made not to treat it the given her recent history. She then was traveling to [place] and developed another incarcerated herni a with pain and nausea. She was seen by a surgeon there who felt the best operation for he r would be a retro-rectus repair with Stratticewhich was not available at his small hospit ma. She has some family in [place] and requested transfer here. On 12/21 she [...] Signed by: Usama Almodovar MD, 12/24/2017 8:50 [facility] from 7am-5pm (hospital employees only) Associated attestation [...] management Pancho Auguste MD 12/24/2017 15:21 Best, Maady Klein RN - 12/23/2017 1259 PDTFormatting of this note may be different from the original. [facility] Wound, Ostomy, & Continence Nursing Note Date [...] PDTPer d/c planning meeting, blue no d/c needs.Usama Almodovar MD - 12/23/2017 0902 PDTFormatting of this note may be different from the o riginal. [facility] General Surgery/Trauma Team Progress Note Admission [...] incisional hernia. This was repaired electively [place] November 14. On November 15 she had [...] was seen by a surgeon back in [place] last week with another failur e of her repair and a palpable hernia. The decision was made not to treat it the given her recent history. She then was traveling to [place] and developed another incarcerated herni a with pain and nausea. She was seen by a surgeon there who felt the best operation for he r would be a retro-rectus repair with Stratticewhich was not available at his small hospit ma. She has some family in [place] and requested transfer here. On 12/21 she [...] Signed by: Usama Almodovar MD, 12/23/2017 9:02 [facility] from 7am-5pm (hospital employees only) Associated attestation [...] Pancho Auguste MD 12/23/2017 14:21 Carlos Farr, FUR BLOWER OPERATOR - 12/22/2017 2259 PDTPt did not tolerate cpap with nasal mask on lo west pressure of 4 cmh2o, stated too much pressure. Also refused to try full face mask. Elec tronically signed by: Carlos Farr RRT 12/22/2017 23:00 Usama Almodovar MD - 12/22/2017 0824 PDTFormatting of this note may be different fr om the original. [facility] General Surgery/Trauma Team Progress Note Admission [...] incisional hernia. This was repaired electively in [place] on November 14. On November 15 she [...] was seen by a surgeon back in [place] last week with another failure of her repair and a palpable hernia. The decision was made not to treat it the given her recent h istory. She then was traveling to [place] and developed another incarcerated hernia with jose antonio n and nausea. She was seen by a surgeon there who felt the best operation for her would be a retro-rectus repair with Strattice which was not available at his small hospital. She has some family in [place] and requested transfer here. On 12/21 she [...] Signed by: Usama Almodovar MD, 12/22/2017 8:24 [facility] from 7am-5pm (hospital employees only) Associated attestation [...] admitted to floor at 0330, came via [facility] from [facility]. Here for lower abd pain/biological mess placement [...] Solange Kruse Report handoff given to 7 [place] RN Imer Narvaez RN has completed admission [...] | [facility] | | | Performed by [facility] [address] | | [facility] | | | [address] [place] | | MEDICAL CENTER | | | [address] | | LABORATORY | | | | | RADHA | + + + + + + + | Specimen | + + | Blood | + + + + + + + | Performing | Address | City/State/Zipcode | Phone Number | | Organization | | | | + + + + + | [facility] | [address] | [place] [address] | | | [facility] | | | | | [...] | [facility] | | | [address] [place], [place] | | [facility] | | | [address] | | LABORATORY | | | | | CERNER | + + + + + + + | Specimen | + + | Blood | + + + + + + + | Performing | Address | City/State/Zipcode | Phone Number | | Organization | | | | + + + + + | [facility] | [address] | [place] [address] | | | [facility] | | | | | LABORATORY CERNER | | | | + + + + + POC Glucose (12/24/2017 1727) + + + + + | Component | Value | Ref Range | Performed At | + + + + + | Glucose, POC | 110 (H)Comment: | 65 - 99 mg/dL | [facility] | | | Performed by [facility] [address] | | [facility] | | | [address], [place] | | MEDICAL CENTER | | | [address] | | LABORATORY | | | | | CERNER | + + + + + + + | Specimen | + + | Blood | + + + + + + + | Performing | Address | City/State/Zipcode | Phone Number | | Organization | | | | + + + + + | [facility] | [address] | [place] [address] | | | [facility] | | | | | NAVEEN GARCIA | | | | + + + + + POC Glucose (12/24/2017 1157) + + + +-------- ---------+ | Component | Value | Ref Range | Perform ed At | + + + +-------- ---------+ | Glucose, POC | 95Comment: Performed by | 65 - 99 mg/dL | [facility] | | | [facility] [address], | | [facility] | | | [place] [address] | | [facility] | | |Performed by [facility] [address], [place] [address] | | LABORAT ORAdrián | | | [...] [address] | [place] [address] | | | [facility] | | | | | LABORATORY CERNER | | | | + + + + + POC Glucose (12/24/201714) + + + + + | Component | Value | Ref Range | Performed At | + + + + + | Glucose, POC | 108 (H)Comment: | 65 - 99 mg/dL | JTE | | | Performed by [facility] [address] | | [facility] | | | [address], [place] | | [facility] | | | [address] | | LABORATORY | | | | | CERNER | + + + + + + + | Specimen | + + | Blood | + + + + + + + | Performing | Address | City/State/Zipcode | Phone Number | | Organization | | | | + + + + + | [facility] | [address] | [place] [address] | | | [facility] | | | | | LABORATORY RADHA | | | | + + + + + POC Glucose (12/23/20172106) + + + + + | Component | Value | Ref Range | Performed At | + + + + + | Glucose, POC | 118 (H)Comment: | 65 - 99 mg/dL | [facility] | | | Performed by [facility] [address] | | [facility] | | | [address], [place], [place] | | MEDICAL CENTER | | | [address] | | LABORATORY | | | | | CERNER | + + + + + + + | Specimen | + + | Blood | + + + + + + + | Performing | Address | City/State/Zipcode | Phone Number | | Organization | | | | + + + + + | [facility] | [address] | [place] [address] | | | [facility] | [...] mg/dL | [facility] | | | [facility] [address], | | [facility] | | | [place] [address] | | [facility] | | |Performed by [facility] [address], [place] [address] | | [facility]HA | | | | | CERNER | + + + +-------- ---------+ + + | Specimen | + + | Blood | + + + + + + + | Performing | Address | City/State/Zipcode | Phone Number | | Organization | | | | + + + + + | [facility] | [address] | [place] [address] | | | [facility] | | | | | LABORATORY CERNER | | | | + + + + + POC Glucose (12/23/2017 1157) + + + +-------- ---------+ | Component | Value | Ref Range | Perform ed At | + + + +-------- ---------+ | Glucose, POC | 99Comment: Performed by | 65 - 99 mg/dL | [facility] | | | [facility] [address], | | [facility] | | | [place] [address] | | MEDICAL CENTER | | |Performed by [facility] [address], [place], [place] | | LABORAT ORY | | [...] SACR[facility] | [address] | [place] [address] | | | [facility] | [...] mg/dL | [facility] | | | [facility] [address], | | [facility] | | | [place] [address] | | MEDICAL CENTER | | |Performed by [facility] [address], [place] [address] | | LABORAT ORY | | | | | CERNER | + + + +-------- ---------+ + + | Specimen | + + | Blood | + + + + + + + | Performing | Address | City/State/Zipcode | Phone Number | | Organization | | | | + + + + + | [facility] | [address] | [place] [address] | | | [facility] | | | | | LABORATORY CERNER | | | | + + + + + POC Glucose (12/22/20172122) + + + + + | Component | Value | Ref Range | Performed At | + + + + + | Glucose, POC | 113 (H)Comment: | 65 - 99 mg/dL | [facility] | | | Performed by [facility] [address] | | [facility] | | | [address] [place] | | MEDICAL CENTER | | | [address] | | LABORATORY | | | | | BRI[place]NER | + + + + + + + | Specimen | + + | Blood | + + + + + + + | Performing | Address | City/State/Zipcode | Phone Number | | Organization | | | | + + + + + | [facility] | [address] | [place] [address] | | | [facility] | [...] | [facility] | | | Performed by [facility] [address] | | [facility] | | | [place] | | [facility] | | | [address] | | LABORATORY | | | | | CERNER | + + + + + + + | Specimen | + + | Blood | + + + + + + + | Performing | Address | City/State/Zipcode | Phone Number | | Organization | | | | + + + + + | [facility] | [address] | [place], [place] | | | [facility] | | | | | LABORATORY CERNER | | | | + + + + + POC Glucose (12/22/2017 1200) + + + +-------- ---------+ | Component | Value | Ref Range | Perform ed At | + + + +-------- ---------+ | Glucose, POC | 92Comment: Performed by | 65 - 99 mg/dL | [facility] | | | [facility] [address], | | [facility] | | | [place], [place] | | [facility] | | |Performed by [facility] [address], [place], [place] | | LABORAT ORAdrián | | | | | CERNER | + + + +-------- ---------+ + + | Specimen | + + | Blood | + + + + + + + | Performing | Address | City/State/Zipcode | Phone Number | | Organization | | | | + + + + + | [facility] | [address] | [place] [address] | | | [facility] | | | | | NAVEEN GARCIA | | | | + + + + + POC Glucose (12/22/201745) + + + +-------- ---------+ | Component | Value | Ref Range | Perform ed At | + + + +-------- ---------+ | Glucose, POC | 91Comment: Performed by | 65 - 99 mg/dL | [facility] | | | [facility] [address], | | [facility] | | | [place] [address] | | [facility] | | |Performed by [facility] [address], [place] [address] | | LABORAT ORY | | | | | CERNER | + + + +-------- ---------+ + + | Specimen | + + | Blood | + + + + + + + | Performing | Address | City/State/Zipcode | Phone Number | | Organization | | | | + + + + + | [facility] | [address] | [place] [address] | | | [facility] | | | | | LABORATORY CERNER [...] HEART | | | kidney | | [facility] | | | function.Performed by | | LABORATORY | | | [facility] [address], | | [place] | | | [place] [address] | | | + + + + + + + | Specimen | + + | Blood | + + + + + + + | Performing | Address | City/State/Zipcode | Phone Number | | Organization | | | | + + + + + | [facility] | [address] | [place] [address] | | | [facility] | | | | | LABORATORY CERNER | | | | + + + + + CBC no Differential (12/22/2017317) + + + +--- + | Component | Value | Ref Range | Pe rformed At | + + + +--- + | WBC | 13.0 (H) | 3.8 - 11.0 K/uL | [facility] | | | | | [facility] | | | | | [facility] | | | | | [facility] | | | | | CE RNER | + + + +--- + | RBC | 5.18 (H) | 3.70 - 5.10 M/uL | [facility] | | | | | [facility] | | | | | [facility] | | | | | [facility] | | | | | CE R[facility] | + + + +--- + | Hgb | 13.0 | 11.3 - 15.5 g/dL | [facility] | | | | | [facility] | | | | | [facility] | | | | | [facility] | | | | | CE R[facility] | + + + +--- + | Hct | 41.7 | 34.0 - 46.0 % | [facility] | | | | | [facility] | | | | | [facility] | | | | | [facility] | | | | | CE R[facility] | + + + +--- + | MCV | 80.5 | 80.0 - 100.0 fL | [facility] | | | | | [facility] | | | | | [facility] | | | | | [facility] | | | | | CE RNER | + + + +--- + | MCH | 25.2 (L) | 27.0 - 34.0 pg | [facility] | | | | | [facility] | | | | | [facility] | | | | | [facility] | | | | | CE RNER | + + + +--- + | MCHC | 31.2 (L) | 32.0 - 35.5 g/dL | [facility] | | | | | [facility] | | | | | [facility] | | | | | [facility] | | | | | CE RNER | + + + +--- + | RDW-CV | 17.5 (H) | 11.0 - 15.5 % | [facility] | | | | | [facility] | | | | | [facility] | | | | | [facility] | | | | | CE RNER | + + + +--- + | Platelet Count | 274 | 150 - 400 K/uL | [facility] | | | | | [facility] | | | | | [facility] | | | | | [facility] | | | | | CE RNER | + + + +--- + | MPV | 9.4Comment: Performed | 7.5 - 11.2 fL | [facility] | | | by [facility] [address] | | [facility] | | | [place] [address] | | [facility] | | |Performed by [facility] [address], [place] [address] | | [facility] | | | | | CE RNER | + + + +--- + + + | Specimen | + + | Blood | + + + + + + + | Performing | Address | City/State/Zipcode | Phone Number | | Organization | | | | + + + + + | [facility] | [address] | [place] [address] | | | [facility] | | | | | LABORATORY [place] | | | | + + + + + POC Glucose (12/21/20172000) + + + + + | Component | Value | Ref Range | Performed At | + + + + + | Glucose, POC | 122 (H)Comment: | 65 - 99 mg/dL | [facility] | | | Performed by [facility] [address] | | [facility] | | | [address], [place] | | MEDICAL CENTER | | | [address] | | LABORATORY | | | | | CERNER | + + + + + + + | Specimen | + + | Blood | + + + + + + + | Performing | Address | City/State/Zipcode | Phone Number | | Organization | | | | + + + + + | [facility] | [address] | [place] [address] | | | [facility] | [...] | [facility] | | | Performed by [facility] [address] | | [facility] | | | [place] | | [facility] | | | [address] | | LABORATORY | | | | | CERNER | + + + + + + + | Specimen | + + | Blood | + + + + + + + | Performing | Address | City/State/Zipcode | Phone Number | | Organization | | | | + + + + + | [facility] | [address] | [place] [address] | | | [facility] | | | | | LABORATORY CERNER | | | | + + + + + POC Glucose (12/21/2017 1223) + + + + + | Component | Value | Ref Range | Performed At | + + + + + | Glucose, POC | 123 (H)Comment: | 65 - 99 mg/dL | [facility] | | | Performed by [facility] [address] | | [facility] | | | [address], [place] | | MEDICAL CENTER | | | [address] | | LABORATORY | | | | | CERNER | + + + + + + + | Specimen | + + | Blood | + + + + + + + | Performing | Address | City/State/Zipcode | Phone Number | | Organization | | | | + + + + + | [facility] | [address] | [place] [address] | | | [facility] | | | | | LABORATORY RADHA | | | | + + + + + Tissue Request For Pathology (12/21/2017 0936) + + + | Narrative | Performed At | + + + | | [facility] | | KATIE LOU | [place] | | L : | [facility] | | 1970 AGE: 47 years | LABORATORY | | SEX: Female MRN: | RADHA | | [id number] Acct: [id number] | | | [id number] Location: [facility]; 724; | | | 724-02 Case | | | #: [id number] Ordering: | | | MIGUEL ANGEL BURKS MD | | | W Client: [facility] | | | [facility] Copy | | | To: Printed: 12/24/2017 [...] 12/24/2017 12:59 pmPerforming | | | Location: [facility], | | | [facility] [address]HJFSUQS:The clinical and surgical history of a | [...] colonic margin; "A3-A4" random | | | entry level account representative sections of small bowel wall.MS/SH07MICROSCOPIC | [...] + + | Performing | Address | City/State/[facility] | Phone Number | | Organization | | | | + + + + + | [facility] | [address] | [place] [address] | | | [facility] | | | | | LABORATORY RADHA | | | | + + + + + ECG 12 lead (12/21/2017802) + + + | Narrative | Performed At | + + + | HEART RATE:77 | [facility] | | bpmRR Interval:779 msAtrial Rate:77 msP-R Interval:180 msP | TRACEMASTER | | Duration:184 msP Horizontal [place]:20 degP Front [place]:67 degQ Onset:508 | | | msQRSD Interval:82 msQT Interval:392 msQTcB:444 msQTcF:426 msQRS | | | Horizontal [place]:-33 degQRS [place]:29 degI-40 Horizontal [place]:-2 degI-40 | | | Front [place]:30 degT-40 Horizontal [place]:-48 degT-40 Front [place]:26 degT | | | Horizontal [place]:59 degT Wave [place]:64 degS-T Horizontal [place]:75 degS-T | | | Front [place]:72 degSeverity:- NORMAL ECG -INTERP:SINUS | | | RHYTHMElectronically signed by: Juan Antonio CASTILLO 12-21-2017 15:31:08 | | |QT Interval:392 ms | | |QTcB:444 ms | | |QTcF:426 ms | | |QRS Horizontal Cumma[place]id:-33 deg | | |QRS [place]:29 deg | | |I-40 Horizontal [place]:-2 deg | | |I-40 Front [place]:30 deg | | |T-40 Horizontal [place]:-48 deg | | |T-40 Front [place]:26 deg | | |T Horizontal [place]:59 deg | | |T Wave [place]:64 deg | | |S-T Horizontal [place]:75 deg | | |S-T Front [place]:72 deg | | |Severity:- NORMAL ECG - | | |INTERP:SINUS RHYTHM | | |Electronically signed by: Juan Antonio CASTILLO 12-21-2017 15:31:08 | | + + + + + + + + | Performing | Address | City/State/Zipcode | Phone Number | | Organization | | | | + + + + + | [facility] | [address] | [place] [address] | [phone] | + + + + + in [...]
--- OUTSIDE RECORDS SUMMARY | ~2018-02-04 | XMS | Encounter Summary ---
Demographics + + + | Address | [address] | | | [place] [address] | + + + | Home Phone [...] + | Author | [facility] | | | and [place] | + + + | Organization | [facility] | | | and [place] | + + + | Address | Unknown | + + + | Phone | Unavailable | + + + Support + + + + + | Name | Relationship | Address | Phone | + + + + + | Tam Lou | ECON | [address] | | | | | [place] [address] | | + + + + + | Cristal Yu | ECON | Unknown | | + + + + + Care Team Providers + +------+ + | Care University Internship Name | Role | Phone | + +------+ + | Pcp, Prov Inactive | PCP | | + +------+ + Encounter Details +--------+ + + + + | Date | Type | Department | Care Team | Description | +--------+ + + + + | 01/07/ | Home Care | [facility] | Payal Smith, | SN DISCHARGE ([place]) | | 2018 | Visit | [address] | [facility] | | | | | [place], [place] | | | | | | [address] | | | | | | [phone] | | | +--------+ + + + [...] + + + + | Pulse | - | - | + + + + | Temperature | 36.9 C (98.5 F) | 01/07/2018 1000 PDT | + + + + | Respiratory Rate | 18 | 01/07/2018 1000 PDT | + + + + | Oxygen Saturation | - | - | + + + + | Inhaled Oxygen | - | - | | Concentration | | | + + + + | Weight | - | - | + + + + | Height | - | - | + + + + | Body Mass Index | - | - | + + + + in this encounter Plan of Treatment Not on fileas of this encounter Visit Diagnoses Not on filein this encounter"
--- OUTSIDE RECORDS SUMMARY | ~2018-02-04 | XMS | Encounter Summary ---
Demographics + + + | Address | [address] | | | [place] [address] | + + + | Home Phone | | + + + | Preferred Language | Unknown | + + + | Marital Status | | + + + | Congregation Affiliation | Unknown | + + + | Race | Unknown | + + + | Ethnic Group | Unknown | + + + Author + + + | Author | [facility] | | | and [place] | + + + | Organization | [facility] | | | and [place] | + + + | Address | Unknown | + + + | Phone | Unavailable | + + + Support + + + + + | Name | Relationship | Address | Phone | + + + + + | Tam Lou | ECON | [address] | | | | | [place] [address] | | + + + + + | Cristal Yu | ECON | Unknown | | + + + + + Care Team Providers + +------+ + | Care Torch Cutter Name | Role | Phone | + +------+ + | Pcp, Prov Inactive | PCP | | + +------+ + Encounter Details +--------+ + + + + | Date | Type | Department | Care Team | Description | +--------+ + + + + | 12/26/ | Home Care | [facility] | Marva Sifuentes, | CASE COMMUNICATION | | 2018 | Visit | [address] | [facility] | | | | | [place], [place] | | | | | | [address] | | | | | | [phone] | | | +--------+ + + + [...]
--- OUTSIDE RECORDS SUMMARY | ~2018-02-04 | XMS | Encounter Summary ---
Demographics + + + | Address | [address] | | | [place] [address] | + + + | Home Phone | | + + + | Preferred Language | Unknown | + + + | Marital Status | | + + + | Pentecostal Affiliation | Unknown | + + + | Race | Unknown | + + + | Ethnic Group | Unknown | + + + Author + + + | Author | [facility] | | | and [place] | + + + | Organization | [facility] | | | and [place] | + + + | Address | Unknown | + + + | Phone | Unavailable | + + + Support + + + + + | Name | Relationship | Address | Phone | + + + + + | Tam Lou | ECON | [address] | | | | | [place] [address] | | + + + + + | Cristal Yu | ECON | Unknown | | + + + + + Care Team Providers + +------+ + | Care Unemployment Insurance Director Name | Role | Phone | + +------+ + | Pcp, Prov Inactive | PCP | | + +------+ + Encounter Details +--------+ + + + + | Date | Type | Department | Care Team | Description | +--------+ + + + + | 01/04/ | Home Care | [facility] | Marva Sifuentes, | SN REPEAT VISIT | | 2018 | Visit | [address] | RN | | | | | [place] | | | | | | [address] | | | | | | [phone] | | | +--------+ + + + [...] + + + | Blood Pressure | 138/84 | 01/04/2018 1400 PDT | + + + + | Pulse | 88 | 01/04/20181399 PDT | + + + + | Temperature | 98.9 C (210 F) | 01/04/20181399 PDT | + + + + | Respiratory Rate | 16 | 01/04/20181399 PDT | + + + + | [...]
--- OUTSIDE RECORDS SUMMARY | ~2018-02-04 | XMS | Encounter Summary ---
Demographics + + + | Address | [address] | | | [place] [address] | + + + | Home Phone | | + + + | Preferred Language | Unknown | + + + | Marital Status | | + + + | Christian Affiliation | Unknown | + + + | Race | Unknown | + + + | Ethnic Group | Unknown | + + + Author + + + | Author | [facility] | | | and [place] | + + + | Organization | [facility] | | | and [place] | + + + | Address | Unknown | + + + | Phone | Unavailable | + + + Support + + + + + | Name | Relationship | Address | Phone | + + + + + | Tam Lou | ECON | [address] | | | | | [place] [address] | | + + + + + | Cristal Yu | ECON | Unknown | | + + + + + Care Team Providers + +------+ + | Care Assistant Women'S Basketball Coach Name | Role | Phone | + [...] | [place] | | | | | [place], [place] | | | | | | [address] | | | | | | [phone] | | | +--------+ + + + [...]
--- OUTSIDE RECORDS SUMMARY | ~2018-02-04 | XMS | Encounter Summary ---
Demographics + + + | Address | [address] | | | [place] [address] | + + + | Home Phone | | + + + | Preferred Language | Unknown | + + + | Marital Status | | + + + | Cheondoism Affiliation | Unknown | + + + | Race | Unknown | + + + | Ethnic Group | Unknown | + + + Author + + + | Author | [facility] | | | and [place] | + + + | Organization | [facility] | | | and [place] | + + + | Address | Unknown | + + + | Phone | Unavailable | + + + Support + + + + + | Name | Relationship | Address | Phone | + + + + + | Tam Lou | ECON | [address] | | | | | [place] [address] | | + + + + + | Cristal Yu | ECON | Unknown | | + + + + + Care Team Providers + +------+ + | Care Communication Electronic Technician Name | Role | Phone | + [...] + + + + | 12/21/ | Anesthesia | [facility]EN[facility] SERRANO | [place], | | | 2018 | Event | [facility] | 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 | | | | | OP [address] | | | | | | [place] | | | | | | [address] | | | | | | [phone] | | | +--------+ + + + + Anesthesia Record + + + + + | Procedure Name | Responsible | Anesthesia Start | Anesthesia Stop Time | | | Anesthesiologist | Time | | + + + + + | ILEOCOLIC RESECTION; | Arlyn Sutherland, | 12/21/17 0803 | 12/21/17 1057 | | IMPLANTATION OF | MD | | | | BIOLOGIC MESH; | | | | | PLACEMENT OF VAC | | | | | (N/A Abdomen) | | | | + + + + + +----+---+ + + | Da | T | Event | Comment | | te | i | | | | | m | | | | | e | | | +----+---+ + + | 07 | 0 | An Checkout | Pre-use anesthesia machine/equipment checkout. | | /0 | 7 | | | | 7/ | 3 | | | | 20 | 0 | | | | 18 | | | | +----+---+ + + | | 0 | An Start | Reassessment prior to anesthesia induction/procedure. | | | 8 | | | | | 0 | | | | | 3 | | | +----+---+ + + | | 0 | Preoxygenat | | | | 8 | ed | | | | 1 | | | | | 1 | | | +----+---+ + + | | 0 | An | | | | 8 | Induction | | | | 1 | | | | | 3 | | | +----+---+ + + | | 0 | An | | | | 8 | Intubation | | | | 1 | | | | | 9 | | | +----+---+ + + | | 0 | Pre-Procedu | | | | 8 | ral Timeout | | | | 3 | Completed | | | | 1 | | | +----+---+ + + | | 0 | Mcintosh | | | | 8 | 43-degrees | | | | 3 | | | | | 1 | | | +----+---+ + + | | 0 | First | | | | 8 | Inc/Proc St | | | | 3 | | | | | 3 | | | +----+---+ + + | | 0 | Quick Note | Recruitment breaths | | | 9 | | | | | 0 | | | | | 9 | | | +----+---+ + + | | 0 | Quick Note | ETT suctioned | | | 9 | | | | | 1 | | | | | 7 | | | +----+---+ + + | | 0 | Quick Note | ETT suctioned | | | 9 | | | | | 4 | | | | | 3 | | | +----+---+ + + | | 1 | Mcintosh off | | | | 0 | | | | | 3 | | | | | 3 | | | +----+---+ + + | | 1 | AN No | TOF 4/4 with sustained tetanus. | | | 0 | Residual | | | | 4 | NMB | | | | 5 | | | +----+---+ + + | | 1 | Breathing | | | | 0 | Spontaneous | | | | 4 | ly | | | | 5 | | | +----+---+ + + | | 1 | Oropharynx | | | | 0 | Suctioned | | | | 4 | | | | | 5 | | | +----+---+ + + | | 1 | Extubated | | | | 0 | Awake | | | | 4 | | | | | 5 | | | +----+---+ + + | | 1 | An Stop | Patient handed off to recovery nurse. | | | 5 | | | | | 7 | | | +----+---+ + + +------+ | Meds | +------+ + + + | Name | Total | + + + | fentaNYL injection (2 mL) | 250 mcg | + + + | lidocaine 2% | 100 mg | + + + | propofol (DIPRIVAN) injection | 500 mg | | (bolus) (20 mL) | | + + + | rocuronium | 70 mg | + + + | dexamethasone | 8 mg | + + + | ondansetron | 4 mg | + + + | ketctzvg00 mg/mL | 60 mg | + + + | ceFAZolin | 3 g | + + + | sugammadex (2 mL vial) | 250 mg | + + + | albuterol MDI | 4 puff | + + + | HYDROmorphone | 3.5 mg | + + + | lidocaine 4% | 4 mL | + + + | LR (Infusion) | 1,500 mL | + + + + + | Name | + + | N2O Flow Rate (L/Min) | + + | O2 Flow Rate (L/Min) | + + | Insp O2 | + + | Exp N2O | + + | Exp SEV | + + | Air Flow Rate (L/Min) | + + + + | No blood administrations on file. | + + +--------+ + + + | Type | Details | Placement | Removal | +--------+ + + + | Drain/ | 12/21/17; 1019; #1; Right; upper; | 12/21/17 1019 by | | | Device | abdomen; collapsible closed | Elena Bello RN | | | Site | device; 19 FR | | | +--------+ + + + | Drain/ | 12/21/17; 1030; #2; other (see | 12/21/17 1030 by | | | Device | comments) (MEDIAL TRANSVERSE); | Elena Bello RN | | | Site | abdomen; evacuation tube; WOUND | | | | | VAC | | | +--------+ + + + | Periph | 12/20/17; 6; Right; | 12/20/171925 by | 12/23/17 0013 by | | eral | Antecubital; [id number] | Deobrah Cat RN | Deloris Hsieh, | | IV | catheter system; 20 gauge; | | Respiratory Practitioner | | | Hematology, Chemistry; 0; site | | | | | symptomatic; 12/23/17; 0013 | | | +--------+ + + + | Periph | 12/21/17; 817 (created via | 12/21/17817 by | 12/24/171899 by | | eral | procedure documentation); Right; | Arlyn Sutherland, | Ainsley Spears RN | | IV | Wrist; 18 gauge; other (see | MD | | | | comments) (not present at start | | | | | of shift. Pt stated fell | | | | | out,previous RN removed.); | | | | | 12/24/17; 1899 | | | +--------+ + + + | Airway | Placement Date: 12/21/17; | 12/21/17818 by | 12/21/17 104 by | | | Placement Time: 818 (created via | Tom Cortez CRNA | Tom Cortez CRNA | | | procedure documentation); Mask | | | | | Ventilation: EZ; Airway Grade: 1; | | | | | Successful Technique: video | | | | | scope; Laryngoscope Blade Size: | | | | | 3; Attempts: 1; Airway Type: | | | | | endotracheal; Size: 7; Airway | | | | | Tube Secured At: 21; Trauma: | | | | | none; Other Equipment: stylette; | | | | | Placement Check: exhaled CO2 | | | | | detection device, video | | | | | laryngoscope, bilateral chest | | | | | rise, breath sounds equal | | | | | bilaterally; Removal Date: | | | | | 12/21/17; Removal Time: 1045 | | | +--------+ + + + | Urethr | 12/21/17; 0825; indicated due to | 12/21/17 0825 by | 12/24/17 0700 by | | al | specific surgical procedure; All | Elena Bello RN | Hansa Gregory RN | | Cathet | elements; All elements; All | | | | er | elements; indwelling double lumen | | | | | catheter; latex; 16; None; 1; 5; | | | | | 10; other (see comments) | | | | | (patient under general | | | | | anesthesia); drainage bag to | | | | | dependent drainage; urethral | | | | | catheter removed, tubing intact, | | | | | per protocol/policy; removed | | | | | without difficulty.check void; | | | | | 12/24/17; 0700 | | | +--------+ + + + | Incisi | 12/21/17; 1059; abdomen; changed | 12/21/17 1059 by | 12/23/17 0000 by | | on | to different LDA type; 12/23/17 | Elena Bello RN | Maday Arndt RN | +--------+ + + + in this encounter Social History + + + +--------+------+ | [...] Treatment Not on fileas of this encounter Results Anesthesia Airway Note (12/21/2017 0830) + + [...] Electronically Signed by: | | | Tom Cortez, | | | SWATHI Jolly | | | date/time: 12/21/2017 8:30 | | + + + + + | Procedure Note | + + | Tom Cortez CRNA - 12/21/2017 0830 PDT Anesthesia Airway Placement12/21/2017 [...] provider: TOM CORTEZElectronically Signed by: Tom | | SWATHI Cortez date/time: 12/21/2017 8:30 | |Attempts: 1 | [...] | | | | |Electronically Signed by: SWATHI Galindo date/time: 8:30 | | | + + Anesthesia Peripheral IV Note (12/21/2017 0818) + + + | Narrative | Performed At | + + + | Tmo Cortez CRNA 12/21/2017 8:18 Intravenous Line | [...] ARLYN SUTHERLAND | | ALEJANDRAElectronically Signed by: SWATHI Galindo date/time: | | 12/21/2017 8:18 | |patient was: under GA | |Side: right | |Vein location: wrist | |Size: 18 g | |Localization technique: landmark | |Securement: transparent dressing | |Placed by: ARLYN SUTHERLAND | | | | | |Electronically Signed by: SWATHI Galindo date/time: 12/21/2017 8:18 | + ------+ in this encounter Visit Diagnoses Not on filein this encounter Administered Medications + +--------+ +---------+------+------+ | Medication Order | MAR | Action | Dose | Rate | Site | | | Action | Date | | | | + +--------+ +---------+------+------+ | albuterol 90 mcg/puff inhaler | Given | 12/21/2017 | 4 puffs | | | | Inhalation, PRN, Shortness of | | 8:03 | | | | | Breath, Starting 12/21/17 at | | PDT | | | | | 0803, Anesthesia Intra-op | | | | | | + +--------+ +---------+------+------+ +---+---+ | | | +---+---+ + +-------+ +-----+---+---+ | ceFAZolin (ANCEF, KEFZOL) | Given | 12/21/2017 | 3 g | | | | injection Intravenous, PRN, | | 8:28 | | | | | Starting 12/21/17 at 0828, | | PDT | | | | | Anesthesia Intra-op | | | | | | + +-------+ +-----+---+---+ +---+---+ | | | +---+---+ + +-------+ +------+---+---+ | dexamethasone (DECADRON) 10 | Given | 12/21/2017 | 8 mg | | | | mg/mL injection Intravenous, | | 8:28 | | | | | PRN, Starting 12/21/17 at 0828, | | PDT | | | | | Anesthesia Intra-op | | | | | | + +-------+ +------+---+---+ +---+---+ | | | +---+---+ + +-------+ +--------+---+---+ | fentaNYL (PF) injection | Given | 12/21/2017 | 25 mcg | | | | Intravenous, PRN, Pain, Starting | | 8:54 | | | | | 12/21/17 at 0808, Anesthesia | | PDT | | | | | Intra-op | | | | | | + +-------+ +--------+---+---+ +-------+ +--------+---+---+ | Given | 12/21/2017 | 25 mcg | | | | | 8:59 | | | | | | PDT | | | | +-------+ +--------+---+---+ | Given | 12/21/2017 | 50 mcg | | | | | 9:01 | | | | | | PDT | | | | +-------+ +--------+---+---+ +---+---+ | | | +---+---+ + +-------+ +---------+---+---+ | HYDROmorphone (DILAUDID) 2 | Given | 12/21/2017 | 0.25 mg | | | | mg/mL injection Intravenous, | | 10:09 | | | | | PRN, Pain, Starting 12/21/17 at | | PDT | | | | | 0903, Anesthesia Intra-op | | | | | | + +-------+ +---------+---+---+ +-------+ +---------+---+---+ | Given | 12/21/2017 | 0.25 mg | | | | | 10:29 | | | | | | PDT | | | | +-------+ +---------+---+---+ | Given | 12/21/2017 | 0.5 mg | | | | | 10:51 | | | | | | PDT | | | | +-------+ +---------+---+---+ +---+---+ | | | +---+---+ + +-------+ +-------+---+---+ | ketamine 10 mg/mL injection | Given | 12/21/2017 | 35 mg | | | | Intravenous, PRN, Starting Sat | | 8:20 | | | | | 12/21/17 at 0820, Anesthesia | | PDT | | | | | Intra-op | | | | | | + +-------+ +-------+---+---+ +-------+ +-------+---+---+ | Given | 12/21/2017 | 25 mg | | | | | 9:22 | | | | | | PDT | | | | +-------+ +-------+---+---+ +---+---+ | | | +---+---+ + +---------+ +---+---+---+ | lactated ringers (LR) infusion | New Bag | 12/21/2017 | | | | | Intravenous, CONTINUOUS PRN, | | 8:03 | | | | | Starting 12/21/17 at 0803, | | PDT | | | | | Anesthesia Intra-op | | | | | | + +---------+ +---+---+---+ +---------+ +---+---+---+ | New Bag | 12/21/2017 | | | | | | 9:31 | | | | | | PDT | | | | +---------+ +---+---+---+ +---+---+ | | | +---+---+ + +-------+ +--------+---+---+ | lidocaine (PF) 2% injection | Given | 12/21/2017 | 100 mg | | | | Intravenous, PRN, Starting Sat | | 8:13 | | | | | 12/21/17 at 0813, Anesthesia | | PDT | | | | | Intra-op | | | | | | + +-------+ +--------+---+---+ +---+---+ | | | +---+---+ + +-------+ +-------+---+---+ | lidocaine (PF) 4% injection | Given | 12/21/2017 | 4 mLs | | | | PRN, Starting 12/21/17 at 0819, | | 8:19 | | | | | Anesthesia Intra-op | | PDT | | | | + +-------+ +-------+---+---+ +---+---+ | | | +---+---+ + +-------+ +------+---+---+ | ondansetron (ZOFRAN) injection | Given | 12/21/2017 | 4 mg | | | | Intravenous, PRN, Nausea, | | 10:20 | | | | | Vomiting, Starting 12/21/17 at | | PDT | | | | | 1020, Anesthesia Intra-op | | | | | | + +-------+ +------+---+---+ +---+---+ | | | +---+---+ + +-------+ +-------+---+---+ | propofol (DIPRIVAN) injection | Given | 12/21/2017 | 50 mg | | | | Intravenous, PRN, Starting Sat | | 10:20 | | | | | 12/21/17 at 0813, Anesthesia | | PDT | | | | | Intra-op | | | | | | + +-------+ +-------+---+---+ +-------+ +-------+---+---+ | Given | 12/21/2017 | 50 mg | | | | | 10:25 | | | | | | PDT | | | | +-------+ +-------+---+---+ | Given | 12/21/2017 | 50 mg | | | | | 10:31 | | | | | | PDT | | | | +-------+ +-------+---+---+ +---+---+ | | | +---+---+ + +-------+ +-------+---+---+ | rocuronium (ZEMURON) injection | Given | 12/21/2017 | 10 mg | | | | Intravenous, PRN, Ventilator | | 9:01 | | | | | Dyssynchrony, Starting 12/21/17 | | PDT | | | | | at 0813, Anesthesia Intra-op | | | | | | + +-------+ +-------+---+---+ +-------+ +------+---+---+ | Given | 12/21/2017 | 5 mg | | | | | 9:42 | | | | | | PDT | | | | +-------+ +------+---+---+ | Given | 12/21/2017 | 5 mg | | | | | 10:09 | | | | | | PDT | | | | +-------+ +------+---+---+ +---+---+ | | | +---+---+ + +-------+ +--------+---+---+ | sugammadex (BRIDION) injection | Given | 12/21/2017 | 250 mg | | | | Intravenous, PRN, Starting Sat | | 10:39 | | | | | 12/21/17 at 1039, Anesthesia | | PDT | | | | | Intra-op | | | | | | + +-------+ +--------+---+---+ +---+---+ | | | +---+---+ in this encounter"
--- OUTSIDE RECORDS SUMMARY | ~2018-02-04 | XMS | Encounter Summary ---
Demographics + + + | Address | [address] | | | [place] [address] | + + + | Home Phone | | + + + | Preferred Language | Unknown | + + + | Marital Status | | + + + | Restoration Affiliation | Unknown | + + + | Race | Unknown | + + + | Ethnic Group | Unknown | + + + Author + + + | Author | [facility] | | | and [place] | + + + | Organization | [facility] | | | and [place] | + + + | Address | Unknown | + + + | Phone | Unavailable | + + + Support + + + + + | Name | Relationship | Address | Phone | + + + + + | Tam Lou | ECON | [address] | | | | | [place] [address] | | + + + + + | Cristal Yu | ECON | Unknown | | + + + + + Care Team Providers + +------+ + | Care Summer Child Caregiver Name | Role | Phone | + +------+ + | Pcp, Prov Inactive | PCP | | + +------+ + Encounter Details +--------+ + + + + | Date | Type | Department | Care Team | Description | +--------+ + + + + | 01/03/ | Home Care | [facility] | Marva Sifuentes, | SN REPEAT VISIT | | 2018 | Visit | [address] | RN | | | | | [place] | | | | | | [address] | | | | | | [phone] | | | +--------+ + + + [...] + + + | Blood Pressure | 138/70 | 01/03/20181499 PDT | + + + + | Pulse | 74 | 01/03/2018 1500 PDT | + + + + | Temperature | 98.8 C (209.8 F) | 01/03/20181499 PDT | + + + + | Respiratory Rate | 16 | 01/03/20181499 PDT | + + + + | [...] 1500 PDT | + + + + in this encounter Plan of Treatment Not on fileas of this encounter Visit Diagnoses Not on filein this encounter"
--- OUTSIDE RECORDS SUMMARY | ~2018-02-04 | XMS | Encounter Summary ---
Demographics + + + | Address | [address] | | | [place] [address] | + + + | Home Phone | | + + + | Preferred Language | Unknown | + + + | Marital Status | | + + + | Mormon Affiliation | Unknown | + + + | Race | Unknown | + + + | Ethnic Group | Unknown | + + + Author + + + | Author | [facility] | | | and [place] | + + + | Organization | [facility] | | | and [place] | + + + | Address | Unknown | + + + | Phone | Unavailable | + + + Support + + + + + | Name | Relationship | Address | Phone | + + + + + | Tam Lou | ECON | [address] | | | | | [place] [address] | | + + + + + | Cristal Yu | ECON | Unknown | | + + + + + Care Team Providers + +------+ + | Care Mobile Manager Name | Role | Phone | + +------+ + | Pcp, Prov Inactive | PCP | | + +------+ + Encounter Details +--------+ + + + + | Date | Type | Department | Care Team | Description | +--------+ + + + + | 12/31/ | Home Care | [facility] | Marva Sifuentes, | TELEPHONE ENCOUNTER | | 2018 | Visit | [address] | [place] | | | | | [place], [place] | | | | | | [address] | | | | | | [phone] | | | +--------+ + + + [...]
--- OUTSIDE RECORDS SUMMARY | ~2018-02-04 | XMS | Encounter Summary ---
Demographics + + + | Address | [address] | | | [place] [address] | + + + | Home Phone | | + + + | Preferred Language | Unknown | + + + | Marital Status | | + + + | Druze Affiliation | Unknown | + + + | Race | Unknown | + + + | Ethnic Group | Unknown | + + + Author + + + | Author | [facility] | | | and [place] | + + + | Organization | [facility] | | | and [place] | + + + | Address | Unknown | + + + | Phone | Unavailable | + + + Support + + + + + | Name | Relationship | Address | Phone | + + + + + | Tam Lou | ECON | [address] | | | | | [place] [address] | | + + + + + | Cristal Yu | ECON | Unknown | | + + + + + Care Team Providers + +------+ + | Care Cleaning Maid Name | Role | Phone | + +------+ + | Pcp, Prov Inactive | PCP | | + +------+ + Encounter Details +--------+ + + + + | Date | Type | Department | Care Team | Description | +--------+ + + + + | 01/05/ | Home Care | [facility] | Marva Sifuentes, | SN REPEAT VISIT | | 2018 | Visit | [address] | RN | | | | | [place] | | | | | | [address] | | | | | | [phone] | | | +--------+ + + + [...] + | Blood Pressure | 132/80 | 01/05/20181429 PDT | + + + + | Pulse | 85 | 01/05/20181429 PDT | + + + + | Temperature | 98.1 C (208.6 F) | 01/05/20181429 PDT | + + + + | Respiratory Rate | 16 | 01/05/20181429 PDT | + + + + | [...]
--- OUTSIDE RECORDS SUMMARY | ~2018-02-04 | XMS | Clinical Summary ---
Demographics + + + | Address | [address] | | | [place] [address] | + + + | Home Phone [...] + | Author | [facility] | | | and [place] | + + + | Organization | 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 Student | | +--------+ +---+ + + [...] | | 2017 | Encounter | | BLUEPRINTING AND PHOTOCOPY SUPERVISOR | infection, initial | | | | [...] | + +-------+--------+ +--------+--------+--------+ | Xgrft Strtce [id number] Frm - | Graft | N/A: | ALLERGAN - | | 07/17/ | [id number] | | [id number]: Qty: 1 on | | Abdome | [...] | | | KATIE | | | [id number] | | | [id number] | | | Securi | | | [...] | | | 2018 | | | [place] | | | | | | Region [...] | | | 2018 | | | [place] | | | | | | Region [...] | | al 1 | | | [place] | | | | | | Region [...] | | | EBRA | | | [id number] | | | [id number] | | | This | | | [...] Visits | | | | | | [place] | | | | | | Region [...] | | | 2018 | | | [place] | | | | | | Region [...] | | | [place] | | | [facility], | | | [place] - | [...] | BRENDA | | | Performed by [facility] [address] | | [facility] | | | [address] [place] | | [facility] | | | [address] | | LABORATORY | | | | | RADHA | + + + + + + + | Specimen | + + | Blood | + + + + + + + | Performing | Address | City/State/Zipcode | Phone Number | | Organization | | | | + + + + + | BRENDA SERRANO | [address] | [place] [address] | | | [facility] | | | | | LABORATORY [...] (H) | 3.8 - 11.0 K/uL | [facility] | | | | | [facility] | | | | | [facility] | | | | | [facility] | | | | | [place] | + + + +--- + | RBC | 5.18 (H) | 3.70 - 5.10 M/uL | [facility] | | | | | [facility] | | | | | [facility] | | | | | [facility] | | | | | [facility] | + + + +--- + | Hgb | 13.0 | 11.3 - 15.5 g/dL | [facility] | | | | | [facility] | | | | | [facility] | | | | | [facility] | | | | | [facility] | + + + +--- + | Hct | 41.7 | 34.0 - 46.0 % | [facility] | | | | | [facility] | | | | | [facility] | | | | | [facility] | | | | | [place] | + + + +--- + | MCV | 80.5 | 80.0 - 100.0 fL | [facility] | | | | | [facility] | | | | | [facility] | | | | | [facility] | | | | | [facility] | + + + +--- + | MCH | 25.2 (L) | 27.0 - 34.0 pg | [facility] | | | | | [facility] | | | | | [facility] | | | | | [facility] | | | | | [facility] | + + + +--- + | MCHC | 31.2 (L) | 32.0 - 35.5 g/dL | [facility] | | | | | [facility] | | | | | [facility] | | | | | [facility] | | | | | [place] [facility] | + + + +--- + | RDW-CV | 17.5 (H) | 11.0 - 15.5 % | [facility] | | | | | [facility] | | | | | [facility] | | | | | [facility] | | | | | [facility] | + + + +--- + | Platelet Count | 274 | 150 - 400 K/uL | [facility] | | | | | [facility] | | | | | [facility] | | | | | [facility] | | | | | [facility] | + + + +--- + | MPV | 9.4Comment: Performed | 7.5 - 11.2 fL | [facility] | | | by [facility] [address], | | [facility] | | | [place] [address] | | [facility] | | |Performed by [facility] [address], [place] [address] | | [facility] | | | | | [place] | + + + +--- + + + | Specimen | + + | Blood | + + + + + + + | Performing | Address | City/State/Zipcode | Phone Number | | Organization | | | | + + + + + | BRENDA SERRANO | [address] | [place] [address] | | | [facility] | | | | | LABORATORY [...] by | | LABORATORY | | | [facility] [address], | | [place] | | | [place] [address] | | | + + + + + + + | Specimen | + + | Blood | + + + + + + + | Performing | Address | City/State/Zipcode | Phone Number | | Organization | | | | + + + + + | BRENDA SERRANO | [address] | [place] [address] | | | [facility] | | | | | NAVEEN GARCIA | | | | + + + + + Tissue Request For Pathology (12/21/201736) + + + | Narrative | Performed At | + + + | | [facility] | | KATIE LOU | [place] | | L : | [facility] | | 1970 AGE: 47 years | LABORATORY | | SEX: Female MRN: | RADHA | | [id number] Acct: [id number] | | | [id number] Location: [facility]; 724; | | | 724-02 Case | | | #: [id number] Ordering: | | | MIGUEL ANGEL BURKS MD | | | W Client: [facility] | | | [facility] Copy [...] 12/24/2017 12:59 pmPerforming | | | Location: [facility], | | | [facility] [id number]:The clinical and surgical history of a | [...] colonic margin; "A3-A4" random | | | promotions representative sections of small bowel wall.ND/SH07MICROSCOPIC | | | DESCRIPTION: | | | [...] + + | BRENDA SERRANO | [address] | [place] [address] | | | [facility] | | | | | LABORATORY [...] Note | + + | Tom Cortez RESIDENTIAL SOLAR SALES CONSULTANT - 12/21/2017 0830 PDT Anesthesia Airway Placement12/21/2017 [...] | ALEJANDRAElectronically Signed by: Tom Cortez CRNA [facility] date/time: | | 12/21/2017 8:18 | |patient was: under GA | |Side: right | |Vein location: wrist | |Size: 18 g | |Localization technique: landmark | |Securement: transparent dressing | |Placed by: ARLYN SUTHERLAND | | | | | |Electronically Signed by: Tom Cortez CRNA [facility] date/time: 12/21/2017 8:18 | + ------+ ECG 12 lead (12/21/2017 0803) + + + | Narrative | Performed At | + + + | HEART RATE:77 | [facility] | | bpmRR Interval:779 msAtrial Rate:77 msP-R Interval:180 msP | TRACEMASTER | | Duration:184 msP Horizontal Picher:20 degP Front Picher:67 degQ Onset:508 | | | msQRSD Interval:82 msQT Interval:392 msQTcB:444 msQTcF:426 msQRS | | | Horizontal Picher:-33 degQRS Picher:29 degI-40 Horizontal Picher:-2 degI-40 | | | Front Picher:30 degT-40 Horizontal Picher:-48 degT-40 Front Picher:26 degT | | | Horizontal Picher:59 degT Wave Picher:64 degS-T Horizontal Picher:75 degS-T | | | Front Picher:72 degSeverity:- NORMAL ECG -INTERP:SINUS | | | RHYTHMElectronically signed by: Juan Antonio CASTILLO 12-21-2017 15:31:08 | | |QT Interval:392 ms | | |QTcB:444 ms | | |QTcF:426 ms | | |QRS Horizontal Picher:-33 deg | | |QRS Picher:29 deg | | |I-40 Horizontal Picher:-2 deg | | |I-40 Front Picher:30 deg | | |T-40 Horizontal Picher:-48 deg | | |T-40 Front Picher:26 deg | | |T Horizontal Picher:59 deg | | |T Wave Picher:64 deg | | |S-T Horizontal Picher:75 deg | | |S-T Front Picher:72 deg | | |Severity:- NORMAL ECG - | | |INTERP:SINUS RHYTHM | | |Electronically signed by: Juan Antonio CASTILLO 12-21-2017 15:31:08 | | + + + + + + + + | Performing | Address | City/State/Zipcode | Phone Number | | Organization | | | | + + + + + | [facility] | [address] | [place] [address] | [phone] | + + + + + CT [...] + + | [facility] | [address] | [place] [address] | [phone] | | HOSPITAL LABORATORY | | | [...] + + | [facility] | [address] | [place] [address] | [phone] | | HOSPITAL LABORATORY | | | [...] >=60 mL/min/1.73m2 | [facility] | | [facility] | GLOMERULAR FILTRATION | | HOSPITAL | | | RATE,ESTIMATED mL/min | | LABORATORY | | | /1.97j6Bzgn than 60 | | | | | [...] + + | [facility] | [address] | [place] [address] | [phone] | | HOSPITAL LABORATORY | | | [...] +-------+--------+ +------+-------+---------+ | BCBS | BCBS | [id number] | PPO | | | | | [...] | Self | [birth year] | Home: | [address] | | | al/Fam | | 1969 | [phone] | [place] | | | [place] | | | [phone] | [phone] | + +--------+ +--------+ + + | KATIE LOU | Person | Self | [birth year] | Home: | [address] | | | al/Fam | | 1970 | [phone] | [place] | | | [place] | | | [phone] | [phone] | + +--------+ +--------+ + +
--- OUTSIDE RECORDS SUMMARY | ~2018-02-04 | XMS | Encounter Summary ---
Demographics + + + | Address | [address] | | | [place] [address] | + + + | Home Phone | | + + + | Preferred Language | Unknown | + + + | Marital Status | | + + + | Oriental Orthodox Affiliation | Unknown | + + + | Race | Unknown | + + + | Ethnic Group | Unknown | + + + Author + + + | Author | [facility] | | | and [place] | + + + | Organization | [facility] | | | and [place] | + + + | Address | Unknown | + + + | Phone | Unavailable | + + + Support + + + + + | Name | Relationship | Address | Phone | + + + + + | Tam Lou | ECON | [address] | | | | | [place] [address] | | + + + + + | Cristal Yu | ECON | Unknown | | + + + + + Care Team Providers + +------+ + | Care Public Safety Teacher Name | Role | Phone | + +------+ + | Pcp, Prov Inactive | PCP | | + +------+ + Encounter Details +--------+ + + + + | Date | Type | Department | Care Team | Description | +--------+ + + + + | 01/03/ | Home Care | [facility] | Marva Sifuentes, | CASE COMMUNICATION | | 2017 | Visit | [address] | [place] | | | | | [place], [place] | | | | | | [address] | | | | | | [phone] | | | +--------+ + + + [...]
--- OUTSIDE RECORDS SUMMARY | ~2018-02-04 | XMS | Encounter Summary ---
Demographics + + + | Address | [address] | | | [place] [address] | + + + | Home Phone | | + + + | Preferred Language | Unknown | + + + | Marital Status | | + + + | Protestant Affiliation | Unknown | + + + | Race | Unknown | + + + | Ethnic Group | Unknown | + + + Author + + + | Author | [facility] | | | and [place] | + + + | Organization | [facility] | | | and [place] | + + + | Address | Unknown | + + + | Phone | Unavailable | + + + Support + + + + + | Name | Relationship | Address | Phone | + + + + + | Tam Lou | ECON | [address] | | | | | [place] [address] | | + + + + + | Cristal Yu | ECON | Unknown | | + + + + + Care Team Providers + +------+ + | Care Welfare Investigator Name | Role | Phone | + +------+ + | Pcp, Prov Inactive | PCP | | + +------+ + Encounter Details +--------+ + + + + | Date | Type | Department | Care Team | Description | +--------+ + + + + | 01/05/ | Home Care | [facility] | Marva Sifuentes, | SN REPEAT VISIT | | 2018 | Visit | [address] | RN | | | | | [place] | | | | | | [address] | | | | | | [phone] | | | +--------+ + + + [...]
--- OUTSIDE RECORDS SUMMARY | ~2018-02-04 | XMS | Encounter Summary ---
Demographics + + + | Address | [address] | | | [place] [address] | + + + | Home Phone | | + + + | Preferred Language | Unknown | + + + | Marital Status | | + + + | Yazdanism Affiliation | Unknown | + + + | Race | Unknown | + + + | Ethnic Group | Unknown | + + + Author + + + | Author | [facility] | | | and [place] | + + + | Organization | [facility] | | | and [place] | + + + | Address | Unknown | + + + | Phone | Unavailable | + + + Support + + + + + | Name | Relationship | Address | Phone | + + + + + | Tam Lou | ECON | [address] | | | | | [place] [address] | | + + + + + | Cristal Yu | ECON | Unknown | | + + + + + Care Team Providers + +------+ + | Care Housekeeping Coordinator Name | Role | Phone | + +------+ + | Pcp, Prov Inactive | PCP | | + +------+ + Encounter Details +--------+ + + + + | Date | Type | Department | Care Team | Description | +--------+ + + + + | 12/28/ | Home Care | [facility] [place] | Maxine Pruitt RN | CASE COMMUNICATION | | 2018 | Visit | [address] | | | | | | [place], [place] | | | | | | [address] | | | | | | [phone] | | | +--------+ + + + [...]
--- OUTSIDE RECORDS SUMMARY | ~2018-02-04 | XMS | Encounter Summary ---
Demographics + + + | Address | [address] | | | [place] [address] | + + + | Home Phone | | + + + | Preferred Language | Unknown | + + + | Marital Status | | + + + | Faith Affiliation | Unknown | + + + | Race | Unknown | + + + | Ethnic Group | Unknown | + + + Author + + + | Author | [facility] | | | and [place] | + + + | Organization | [facility] | | | and [place] | + + + | Address | Unknown | + + + | Phone | Unavailable | + + + Support + + + + + | Name | Relationship | Address | Phone | + + + + + | Tam Lou | ECON | [address] | | | | | [place] [address] | | + + + + + | Cristal Yu | ECON | Unknown | | + + + + + Care Team Providers + +------+ + | Care Link Machine Operator Name | Role | Phone | + +------+ + | Pcp, Prov Inactive | PCP | | + +------+ + Reason for Visit Home Health Care (Routine) +--------+ + + + + + | Status | Reason | Specialty | Diagnoses / | Referred By | Referred To | | | | | Procedures | Contact | Contact | +--------+ + + + + + | Closed | Specialty | Home Health | Diagnoses | Gutkarleee, | Prov Hh | | | Services | Services | Recurrent | Sriram Samuel, | [place] [address] | | | Required | | incisional | PA-C [address] | | | | | hernia with | [address] | [place] | | | | | incarceratio | [place], | [place] | | | | | n | [place] [address] | [address] | | | | | | Phone: | Phone: | | | | | | [phone] | [phone] | | | | | | Fax: | Fax: | | | | | | [phone] | [phone] | +--------+ + + + + + Encounter Details +--------+ + + + + | Date | Type | Department | Care Team | Description | +--------+ + + + + | 12/26/ | Home Care | [facility] [place] | Sriram Saldaña | SN SOC (OASIS) | | 2018 | Visit | [address] | VINI Samuel [address] | | | | | [place], [place] | [place] | | | | | [address] | [place] [address] | | | | | [phone] | [phone] | | | | | | | | | | | | Marva Sifuentes, | | | | | | RN | | +--------+ + [...] + + + | Blood Pressure | 148/82 | 12/26/20171099 PDT | + + + + | Pulse | 83 | 12/26/20171099 PDT | + + + + | Temperature | 36.4 C (97.5 F) | 12/26/20171099 PDT | + + + + | Respiratory Rate | 16 | 12/26/20171099 PDT | + + + + | Oxygen Saturation | - | - | + + + + | Inhaled Oxygen | - | - | | Concentration | | | + + + + | Weight | 116.1 kg (256 lb) | 12/26/20171099 PDT | + + + + | Height | 171.5 cm (5' 7.5") | 12/26/20171099 PDT | + + + + | Body Mass Index | 39.5 | 12/26/20171099 PDT | + + + + in this encounter Plan of Treatment Not on fileas of this encounter Visit Diagnoses Not on filein this encounter
--- OUTSIDE RECORDS SUMMARY | ~2018-02-04 | XMS | Encounter Summary ---
Demographics + + + | Address | [address] | | | [place] [address] | + + + | Home Phone | | + + + | Preferred Language | Unknown | + + + | Marital Status | | + + + | Mandaen Affiliation | Unknown | + + + | Race | Unknown | + + + | Ethnic Group | Unknown | + + + Author + + + | Author | [facility] | | | and [place] | + + + | Organization | [facility] | | | and [place] | + + + | Address | Unknown | + + + | Phone | Unavailable | + + + Support + + + + + | Name | Relationship | Address | Phone | + + + + + | Tam Lou | ECON | [address] | | | | | [place] [address] | | + + + + + | Cristal Yu | ECON | Unknown | | + + + + + Care Team Providers + +------+ + | Care Factory Manager Name | Role | Phone | + +------+ + | Pcp, Prov Inactive | PCP | | + +------+ + Encounter Details +--------+ + + + + | Date | Type | Department | Care Team | Description | +--------+ + + + + | 01/03/ | Home Care | [facility] | Marva Sifuentes, | SN REPEAT VISIT | | 2018 | Visit | [address] | RN | | | | | [place] | | | | | | [address] | | | | | | [phone] | | | +--------+ + + + [...]
--- OUTSIDE RECORDS SUMMARY | ~2018-02-04 | XMS | Encounter Summary ---
Demographics + + + | Address | [address] | | | [place] [address] | + + + | Home Phone | | + + + | Preferred Language | Unknown | + + + | Marital Status | | + + + | Zoroastrian Affiliation | Unknown | + + + | Race | Unknown | + + + | Ethnic Group | Unknown | + + + Author + + + | Author | [facility] | | | and [place] | + + + | Organization | [facility] | | | and [place] | + + + | Address | Unknown | + + + | Phone | Unavailable | + + + Support + + + + + | Name | Relationship | Address | Phone | + + + + + | Tam Lou | ECON | [address] | | | | | [place] [address] | | + + + + + | Cristal Yu | ECON | Unknown | | + + + + + Care Team Providers + +------+ + | Care Order Control Clerk Blood Bank Name | Role | Phone | + +------+ + | Pcp, Prov Inactive | PCP | | + +------+ + Encounter Details +--------+ + + + + | Date | Type | Department | Care Team | Description | +--------+ + + + + | 12/21/ | Procedure | [facility] | | | | 2018 | Pass | [facility] | | | | | | OP [address] | | | | | | [place] | | | | | | [address] | | | | | | [phone] | | | +--------+ + + + [...]
--- OUTSIDE RECORDS SUMMARY | ~2018-02-04 | XMS | Encounter Summary ---
Demographics + + + | Address | [address] | | | [place] [address] | + + + | Home Phone | | + + + | Preferred Language | Unknown | + + + | Marital Status | | + + + | Samaritan Affiliation | Unknown | + + + | Race | Unknown | + + + | Ethnic Group | Unknown | + + + Author + + + | Author | [facility] | | | and [place] | + + + | Organization | [facility] | | | and [place] | + + + | Address | Unknown | + + + | Phone | Unavailable | + + + Support + + + + + | Name | Relationship | Address | Phone | + + + + + | Tam Lou | ECON | [address] | | | | | [place] [address] | | + + + + + | Cristal Yu | ECON | Unknown | | + + + + + Care Team Providers + +------+ + | Care Financial Report Service Sales Agent Name | Role | Phone | + [...] Event | [facility] | GIS COORDINATOR Student | | | | | OP [address] | | | | | | [place] | | | | | | [address] | | | | | | [phone] | | | +--------+ + + + [...] +----+---+ + + | | 0 | Wellington | | | | 8 | 43-degrees [...] +----+---+ + + | | 1 | [place] off | | | | 0 | [...] 4 mg | + + + | [id number] mg/mL | 60 mg | + + [...] 0013 by | | eral | Antecubital; [id number] | Deborah Cat RN | Deloris Hsieh, | | IV | catheter system; 20 gauge; | | Measurement Psychologist | | | Hematology, Chemistry; 0; site [...]
--- OUTSIDE RECORDS SUMMARY | ~2018-02-04 | XMS | Encounter Summary ---
Demographics + + + | Address | [address] | | | [place] [address] | + + + | Home Phone | | + + + | Preferred Language | Unknown | + + + | Marital Status | | + + + | Taoist Affiliation | Unknown | + + + | Race | Unknown | + + + | Ethnic Group | Unknown | + + + Author + + + | Author | [facility] | | | and [place] | + + + | Organization | [facility] | | | and [place] | + + + | Address | Unknown | + + + | Phone | Unavailable | + + + Support + + + + + | Name | Relationship | Address | Phone | + + + + + | Tam Lou | ECON | [address] | | | | | [place] [address] | | + + + + + | Cristal Yu | ECON | Unknown | | + + + + + Care Team Providers + +------+ + | Care Document Restorer Name | Role | Phone | + [...] + + | 11/26/ | Hospital | [place] | Jaye Vigil, | Postoperative | | 2018 | Encounter | [facility] | ASSISTANT OFFICE MANAGER [address] | infection, initial | | | | [address] | [place] [address] | encounter (Primary | | | | [place], | [phone] | Dx) | | | | [place] [address] | | | | | | [phone] | | | +--------+ + + + + Social History + + + +--------+------+ | Tobacco Use | Types | Packs/Day | Years | Date | | | | | Used | | + + + +--------+------+ | Current Every Day | Cigarettes | 0.5 | 25 | | | Smoker | | | | | + + + +--------+------+ + + + | Sex Assigned at | Date Recorded | | | | + + + | Not on file | | + + + as of this encounter Last Filed Vital Signs + + + + | Vital Sign | Reading | Time Taken | + + + + | Blood Pressure | 146/91 | 11/26/2017926 PDT | + + + + | Pulse | 75 | 11/26/2017926 PDT | + + + + | Temperature | 36.5 C (97.7 F) | 11/26/2017926 PDT | + + + + | Respiratory Rate | 24 | 11/26/2017926 PDT | + + + + | Oxygen Saturation | 96% | 11/26/2017926 PDT | + + + + | Inhaled Oxygen | - | - | | Concentration | | | + + + + | Weight | 122.5 kg (270 lb) | 11/26/2017926 PDT | + + + + | Height | - | - | + + + + | Body Mass Index | 41.05 | 11/26/2017 0927 PDT | + + + + in this encounter Discharge Instructions Jaye Vigil NP - 11/26/2017Go to: [facility] Reason for referral to ED: post op infection Labs done: none Labs pending: none Medications given: none Method of travel: none in this encounter Medications at Time of Discharge + + +-------+---------+ + + | Medication | Sig. | Disp. | Refills | Start | End Date | | | | | | Date | | + + +-------+---------+ + + | albuterol (PROAIR | 2 puffs every 4-6 | | | 04/23/20 | | | HFA) 90 mcg/puff | hours as needed for | | | 11 | | | inhaler | asthma | | | | | + + +-------+---------+ + + | LOSARTAN POTASSIUM | Take 25 mg by mouth | | | | | | PO | Daily. | | | | | + + +-------+---------+ + + | omeprazole | 1 TABLET by mouth | | | 04/23/20 | | | (PRILOSEC) 20 mg | twice daily-LAST | | | 12 | | | TBEC | REFILL NEED VISIT | | | | | | | and LABS | | | | | + + +-------+---------+ + + | clotrimazole | Apply topically 2 | | | | | | (LOTRIMIN) 1% | times daily. | | | | 8 | | external solution | | | | | | + + +-------+---------+ + + | docusate sodium | Take 100 mg by mouth | | | | | | (COLACE) 100 mg | 2 times daily. | | | | 8 | | capsule | | | | | | + + +-------+---------+ + + | ferrous sulfate | Take 325 mg by mouth | | | | | | 325 mg tablet | 2 times daily (with | | | | 8 | | | breakfast & | | | | | | | dinner). | | | | | + + +-------+---------+ + + | fluticasone | two inhalations | | | 05/04/20 | | | (FLOVENT HFA) 110 | twice daily; rinse | | | 10 | 8 | | mcg/puff inhaler | mouth after each | | | | | | | treatment | | | | | + + +-------+---------+ + + | | 1 TABLET BY MOUTH | | | 02/27/20 | | | hydrochlorothiazide | DAILY FOR BP-LAST | | | 12 | 8 | | 25 mg tablet | REFILL NEED VISIT | | | | | | | and LABS | | | | | + + +-------+---------+ + + | hydrocortisone 1% | Apply to rash twice | | | 09/07/19 | | | cream | daily | | | 12 | 8 | + + +-------+---------+ + + | indomethacin | Take 25 mg by mouth | | | | | | (INDOCIN) 25 mg | 3 times daily (with | | | | 8 | | capsule | meals). | | | | | + + +-------+---------+ + + | melatonin 5 mg | Take 5 mg by mouth | | | | | | tablet | nightly. | | | | 8 | + + +-------+---------+ + + | metoprolol (TOPROL | 1 tablet by mouth | | | 09/17/19 | | | XL) 100 MG 24 hr | daily-Replaces | | | 12 | 8 | | tablet | Propranolol | | | | | + + +-------+---------+ + + | tiZANidine | Take 4 mg by mouth | | | | | | (ZANAFLEX) 4 mg | every 6 hours as | | | | 8 | | tablet | needed. | | | | | + + +-------+---------+ + + | zolpidem (AMBIEN) | Take 10 mg by mouth | | | 04/23/20 | | | 10 mg tablet | nightly as needed. | | | 11 | 8 | + + +-------+---------+ + + as of this encounter Plan of Treatment + +--------+ + + | Name | Priori | Associated Diagnoses | Date/Time | | | ty | | | + +--------+ + + | ED INFORMATION EXCHANGE | Routin | | 11/26/201711 PDT | | | e | | | + +--------+ + + as of this encounter Procedures + +--------+ + + + | Procedure Name | Priori | Date/Time | Associated Diagnosis | Comments | | | ty | | | | + +--------+ + + + | ED INFORMATION | Routin | 11/26/2017 | | | | EXCHANGE | e | 0911 PDT | | | + +--------+ + + + +---+--------+ | | | | | Proced | | | ure | | | Note - | | | [place], | | | Lab In | | | | | | [facility] | | | n - | | | | | | 2017 | | | 911 | | | PDT | | | [...] | | | EBRA | | | [id number] | | | [id number] | | | This | | | [...] | | | 2018 | | | [place] | | | | | | Region [...] Visits | | | | | | [place] | | | [...] | [email or web address] | | | | +---+--------+ in this encounter Visit Diagnoses + + | Diagnosis | + + | Postoperative infection, initial encounter - Primary | + +"
--- OUTSIDE RECORDS SUMMARY | ~2018-02-04 | XMS | Encounter Summary ---
Demographics + + + | Address | [address] | | | [place] [address] | + + + | Home Phone | | + + + | Preferred Language | Unknown | + + + | Marital Status | | + + + | Taoist Affiliation | Unknown | + + + | Race | Unknown | + + + | Ethnic Group | Unknown | + + + Author + + + | Author | [facility] | | | and [place] | + + + | Organization | [facility] | | | and [place] | + + + | Address | Unknown | + + + | Phone | Unavailable | + + + Support + + + + + | Name | Relationship | Address | Phone | + + + + + | Tam Lou | ECON | [address] | | | | | [place] [address] | | + + + + + | Cristal Yu | ECON | Unknown | | + + + + + Care Team Providers + +------+ + | Care Tourist Agent Name | Role | Phone | [...] [address] | | | | | | [place], [place] | | | | | | [address] | | | | | | [phone] | | | +--------+ + + + [...]
--- OUTSIDE RECORDS SUMMARY | ~2018-02-04 | XMS | Encounter Summary ---
Demographics + + + | Address | [address] | | | [place] [address] | + + + | Home Phone | | + + + | Preferred Language | Unknown | + + + | Marital Status | | + + + | Roman Catholic Affiliation | Unknown | + + + | Race | Unknown | + + + | Ethnic Group | Unknown | + + + Author + + + | Author | [facility] | | | and [place] | + + + | Organization | [facility] | | | and [place] | + + + | Address | Unknown | + + + | Phone | Unavailable | + + + Support + + + + + | Name | Relationship | Address | Phone | + + + + + | Tam Lou | ECON | [address] | | | | | [place] [address] | | + + + + + | Cristal Yu | ECON | Unknown | | + + + + + Care Team Providers + +------+ + | Care Dairy Technologist Name | Role | Phone | + +------+ + | Pcp, Prov Inactive | PCP | | + +------+ + Encounter Details +--------+ + + + + | Date | Type | Department | Care Team | Description | +--------+ + + + + | 12/26/ | Home Care | [facility] | Marva Sifuentes, | CASE COMMUNICATION | | 2018 | Visit | [address] | [place] | | | | | [place], [place] | | | | | | [address] | | | | | | [phone] | | | +--------+ + + + [...]
--- OUTSIDE RECORDS SUMMARY | ~2018-02-04 | XMS | Encounter Summary ---
Demographics + + + | Address | [address] | | | [place] [address] | + + + | Home Phone | | + + + | Preferred Language | Unknown | + + + | Marital Status | | + + + | Religion Affiliation | Unknown | + + + | Race | Unknown | + + + | Ethnic Group | Unknown | + + + Author + + + | Author | [facility] | | | and [place] | + + + | Organization | [facility] | | | and [place] | + + + | Address | Unknown | + + + | Phone | Unavailable | + + + Support + + + + + | Name | Relationship | Address | Phone | + + + + + | Tam Lou | ECON | [address] | | | | | [place] [address] | | + + + + + | Cristal Yu | ECON | Unknown | | + + + + + Care Team Providers + +------+ + | Care Bank Teller Name | Role | Phone | + [...] Services | Recurrent | Sriram Samuel, | [place] [address] | | | Required | | incisional | PA-C [address] | | | | | hernia with | [address] | [place] | | | | | incarceratio | [place], | [place] | | | | | n | [place] | [address] | | | | | | Phone: | Phone: | | | | | | [phone] | [phone] | | | | | | Fax: | Fax: | | | | | | [phone] | [phone] | +--------+ + + + + + Evaluate & Treat (Routine) +--------+ + + + + + | Status | Reason | Specialty | Diagnoses / | Referred By | Referred To | | | | | Procedures | Contact | Contact | +--------+ + + + + + | Closed | Specialty | Home Health | Diagnoses | Scooby, | [facility] | | | Services | Services | Recurrent | Usama | [facility] | | | Required | | incisional | MD Jagdish | HEALTH [address] | | | | | hernia with | [address] | [facility] | | | | | incarceratio | AVE | [place] | | | | | n | [place], [place] | [place], [place] | | | | | | [address] | [address] | | | | | | Phone: | Phone: | | | | | | [phone] | [phone] | | | | | | Fax: | Fax: | | | | | | [phone] | [phone] | +--------+ + + + + + [...] + + | 12/21/ | Hospital | [facility] | Miguel Angel Burks MD | Recurrent incisional | | 2018 - | Encounter | [facility] | [address] | hernia with | | | | MEDICAL [address] | [place] [address] | incarceration | | 12/25/ | | Ave [place], [place] | [phone] | (Primary Dx); Acute | | 2018 | | [address] | | pulmonary | | | | [phone] | | insufficiency | | | | | | following | | | | | | nonthoracic surgery | | | | | | (HCC) | +--------+ + + + + Social [...] Temperature | 36.8 C (98.2 F) | 12/25/2017799 PDT | + + + + | [...] Height | 172.7 cm (5' 8") | 12/21/2017199 PDT | + + + + | Body Mass Index | 38.55 | 12/21/2017 0200 PDT | + + + + in this encounter Discharge Summaries Usama Almodovar MD - 12/25/2017 1759 PDTFormatting of this note may be different fr om the original. [facility] Surgery Discharge Summary Patient Name: [...] Signed by: Usama Almodovar MD, 12/25/2017 17:59 [facility] Associated attestation - Pancho Auguste MD - [...] Care (En glish)Post Op Wound Check, General (Estonian)in this encounter Medications at Time of Discharge [...] of this encounter Progress Notes Marimar Montenegro, SECURITY OFFICER SUPERVISOR - 12/25/2017 1424 PDTPt DC'd home with [...] around 7S floor. Electronically signed by: Liberty Castorena RT 12/25/2017 11:18 Bharti Parker RN - 12/25/2017 0922 PDTFormatting of this note may be different from the original. [facility] Wound, Ostomy, & Continence Nursing Note [...] family. Electronically signed by: PRAVEEN Cobian, RN, CWCN Wound and Ostomy Dept Clair Castro, MONUMENT ERECTOR - 12/24/2017 1335 PDTFormatting of this note may be different from the original. RESPIRATORY PROTOCOL Admitting Diagnosis: INCARCERATED VENTRAL HERNIA Recurrent incisional hernia with incarceration Disposal Man: None Respiratory History: Asthma Allergies: Allergies Allergen [...] 72 hours o r as needed Liberty Castorena, RT - 12/24/2017 1304 PDTTook patient off EtCO2 monitor; pt not on CLIENT SUPPORT MANAGER. Electronically signed by: Liberty Castorena, RT 12/24/2017 13:05 Marimar Montenegro SECURITY OFFICER SUPERVISOR - 12/24/2017 1225 PDTPer rounds, pt may need wound care post DC. Sticky note placed on chart requesting MD enter order if so. Usama Almodovar MD - 12/24/2017 0850 PDTFormatting of this note may be different fr om the original. [facility] General Surgery/Trauma Team Progress Note Admission [...] incisional hernia. [place] 15 she had [...] was seen by a surgeon back in [place] last week with another failur e of her repair and a palpable hernia. The decision was made not to treat it the given her recent history. She then was traveling to [place] and developed another incarcerated herni a with pain and nausea. She was seen by a surgeon there who felt the best operation for he r would be a retro-rectus repair with Stratticewhich was not available at his small hospit ct. She has some family in [place] and requested transfer here. On 12/21 she [...] Signed by: Usama Almodovar MD, 12/24/2017 8:50 [facility] from 7am-5pm (hospital employees only) Associated [...] note may be different from the original. [facility] Wound, Ostomy, & Continence Nursing Note [...] and Ostomy Services DATE/TIME: 12/23/2017 13:37 Marimar Montenegro, SECURITY OFFICER SUPERVISOR - 12/23/2017 1135 PDTPer d/c planning meeting, blue no d/c needs.Usama Almodovar MD - 12/23/2017 0902 PDTFormatting of this note may be different from the o riginal. [facility] General Surgery/Trauma Team Progress Note Admission [...] incisional hernia. [place]. On November 15 she had [...] was seen by a surgeon back in [place] last week with another failur e of her repair and a palpable hernia. The decision was made not to treat it the given her recent history. She then was traveling to [place] and developed another incarcerated herni a with pain and nausea. She was seen by a surgeon there who felt the best operation for he r would be a retro-rectus repair with Stratticewhich was not available at his small hospit ct. She has some family in [place] and requested transfer here. On 12/21 she [...] Signed by: Usama Almodovar MD, 12/23/2017 9:02 [facility] from 7am-5pm (hospital employees only) Associated [...] Pancho Auguste MD 12/23/2017 14:21 Carlos Farr, MONUMENT ERECTOR - 12/22/2017 1159 PDTPt did not tolerate cpap with nasal mask on lo west pressure of 4 cmh2o, stated too much pressure. Also refused to try full face mask. Elec tronically signed by: Carlos Farr RRT 12/22/2017 23:00 Usama Almodovra MD - 12/22/2017 0800 PDTFormatting of this note may be different fr om the original. [facility] General Surgery/Trauma Team Progress Note Admission [...] incisional hernia. This was repaired electively in [place] on November 14. On November 15 she [...] was seen by a surgeon back in [place] last week with another failure of her repair and a palpable hernia. The decision was made not to treat it the given her recent h istory. She then was traveling to [place] and developed another incarcerated hernia with jose antonio n and nausea. She was seen by a surgeon there who felt the best operation for her would be a retro-rectus repair with Strattice which was not available at his small hospital. She has some family in [place] and requested transfer here. On 12/21 she [...] affect, behavior. Recent Labs Recent Labs Lab 12/22/17 0318 12/20/17 192 WBC 13.0* 11.0* HGB 13.0 13.2 HCT 41.7 43.2 PLT 274 282 Recent Labs Lab 12/22/178 12/20/171923 NA 142 136 K 4.3 3.3 CL [...] Signed by: Usama Almodovar MD, 12/22/2017 8:24 [facility] from 7am-5pm (hospital employees only) Associated attestation - Gil Shaffer MD - 12/22/2017 1924 PDTI have seen, interviewed and examined the [...] admitted to floor at 0330, came via [facility] from [facility]. Here for lower abd pain/biological mess placement (s/p 3 recent failed hernia repairs). Pt A&Ox4. Ra, denies SOB, n/v. Denies pain at rest, pain only with coughing. Rt side PIV no t patent on admission, pt reports discomfort at site. IV therapy consulted. Electronically s igned by: Emile Samuels RN 12/21/2017 6:44 Aixa Mendoza RN - 12/21/2017 0259 PDTAdmission screen completed by Beeper AMADO CruzAixa Report handoff given to 7 Ward RN Imer Narvaez RN has completed admission [...] + in this encounter Results POC Glucose (12/25/2017 0837) + + + + + | Component | Value | Ref Range | Performed At | + + + + + | Glucose, POC | 107 (H)Comment: | 65 - 99 mg/dL | [facility] | | | Performed by [facility] [address] | | [facility] | | | [address] [place] | | [place] | | | [address] | | LABORATORY | | | | | CERNER | + + + + + + + | Specimen | + + | Blood | + + + + + + + | Performing | Address | City/State/Zipcode | Phone Number | | Organization | | | | + + + + + | [facility] | [address] | [place] [address] | | | [facility] | [...] | [facility] | | | Performed by [facility] [address] | | [facility] | | | [address] [place], [place] | | [facility] | | | [address] | | LABORATORY | | | | | [place] | + + + + + + + | Specimen | + + | Blood | + + + + + + + | Performing | Address | City/State/Zipcode | Phone Number | | Organization | | | | + + + + + | [facility] | [address] | [place] [address] | | | [facility] | | | | | LABORATORY [place] | | | | + + + + + POC Glucose (12/24/2017 1727) + + + + + | Component | Value | Ref Range | Performed At | + + + + + | Glucose, POC | 110 (H)Comment: | 65 - 99 mg/dL | [facility] | | | Performed by [facility] [address] | | [facility] | | | [address], [place] | | [facility] | | | [address] | | LABORATORY | | | | | CERNER | + + + + + + + | Specimen | + + | Blood | + + + + + + + | Performing | Address | City/State/Zipcode | Phone Number | | Organization | | | | + + + + + | [facility] | [address] | [place] [address] | | | [facility] | | | | | [place] | | | | + + + + + POC Glucose (12/24/2017 1157) + + + +-------- ---------+ | Component | Value | Ref Range | Perform ed At | + + + +-------- ---------+ | Glucose, POC | 95Comment: Performed by | 65 - 99 mg/dL | [facility] | | | [facility] [address], | | [facility] | | | [place] [address] | | [facility] | | |Performed by [facility] [address], [place] [address] | | LABORAT ORY | | | | | CERNER | + + + +-------- ---------+ + + | Specimen | + + | Blood | + + + + + + + | Performing | Address | City/State/Zipcode | Phone Number | | Organization | | | | + + + + + | [facility] | [address] | [place] [address] | | | [facility] | | | | | LABORATORY CERNER | | | | + + + + + POC Glucose (12/24/2017813) + + + + + | Component | Value | Ref Range | Performed At | + + + + + | Glucose, POC | 108 (H)Comment: | 65 - 99 mg/dL | [facility] | | | Performed by [facility] [address] | | [facility] | | | [address], [place] | | [facility] | | | [address] | | LABORATORY | | | | | CERNER | + + + + + + + | Specimen | + + | Blood | + + + + + + + | Performing | Address | City/State/Zipcode | Phone Number | | Organization | | | | + + + + + | [facility] | [address] | [place] [address] | | | [facility] | | | | | LABORATORY CERNER | | | | + + + + + POC Glucose (12/23/20172106) + + + + + | Component | Value | Ref Range | Performed At | + + + + + | Glucose, POC | 118 (H)Comment: | 65 - 99 mg/dL | [facility] | | | Performed by [facility] [address] | | [facility] | | | [address], [place] | | MEDICAL CENTER | | | [address] | | LABORATORY | | | | | [place] | + + + + + + + | Specimen | + + | Blood | + + + + + + + | Performing | Address | City/State/Zipcode | Phone Number | | Organization | | | | + + + + + | [facility] | [address] | [place] [address] | | | [facility] | | | | | LABORATORY [place] | | | | + + + + + POC Glucose (12/23/2017 1811) + + + +-------- ---------+ | Component | Value | Ref Range | Perform ed At | + + + +-------- ---------+ | Glucose, POC | 92Comment: Performed by | 65 - 99 mg/dL | [facility] | | | [facility] [address], | | [facility] | | | [place] [address] | | [facility] | | |Performed by [facility] [address], [place] [address] | | LABORAT ORAdrián | | | | | CERNER | + + + +-------- ---------+ + + | Specimen | + + | Blood | + + + + + + + | Performing | Address | City/State/Zipcode | Phone Number | | Organization | | | | + + + + + | [facility] | [address] | [place] [address] | | | [facility] | | | | | [place] | | | | + + + + + POC Glucose (12/23/2017 1157) + + + +-------- ---------+ | Component | Value | Ref Range | Perform ed At | + + + +-------- ---------+ | Glucose, POC | 99Comment: Performed by | 65 - 99 mg/dL | [facility] | | | [facility] [address], | | [facility] | | | [place], [place] | | [facility] | | |Performed by [facility] [address], [place], [place] | | LABORAT ORY | | | | | CERNER | + + + +-------- ---------+ + + | Specimen | + + | Blood | + + + + + + + | Performing | Address | City/State/Zipcode | Phone Number | | Organization | | | | + + + + + | [facility] | [address] | [place], [place] | | | [facility] | | | | | LABORATORY [place] | | | | + + + + + POC Glucose (12/23/2017837) + + + +-------- ---------+ | Component | Value | Ref Range | Perform ed At | + + + +-------- ---------+ | Glucose, POC | 92Comment: Performed by | 65 - 99 mg/dL | [facility] | | | [facility] [address], | | [facility] | | | [place] [address] | | [facility] | | |Performed by [facility] [address], [place] [address] | | SURJ[facility]AT CHACHA | | | | | CERNER | + + + +-------- ---------+ + + | Specimen | + + | Blood | + + + + + + + | Performing | Address | City/State/Zipcode | Phone Number | | Organization | | | | + + + + + | [facility] | [address] | [place] [address] | | | [facility] | | | | | LABORATORY CERNER | | | | + + + + + POC Glucose (12/22/20172122) + + + + + | Component | Value | Ref Range | Performed At | + + + + + | Glucose, POC | 113 (H)Comment: | 65 - 99 mg/dL | [facility] | | | Performed by [facility] [address] | | [facility] | | | [place] | | MEDICAL CENTER | | | [address] | | LABORATORY | | | | | [place] | + + + + + + + | Specimen | + + | Blood | + + + + + + + | Performing | Address | City/State/Zipcode | Phone Number | | Organization | | | | + + + + + | [facility] | [address] | [place] [address] | | | [facility] | | | | | LABORATORY [place] | | | | + + + + + POC Glucose (12/22/2017 1732) + + + + + | Component | Value | Ref Range | Performed At | + + + + + | Glucose, POC | 100 (H)Comment: | 65 - 99 mg/dL | [facility] | | | Performed by [facility] [address] | | [facility] | | | [place] | | [facility] | | | [address] | | LABORATORY | | | | | CERNER | + + + + + + + | Specimen | + + | Blood | + + + + + + + | Performing | Address | City/State/Zipcode | Phone Number | | Organization | | | | + + + + + | [facility] | [address] | [place] | | | [facility] | | | | | LABORATORY [place] | | | | + + + + + POC Glucose (12/22/2017 1200) + + + +-------- ---------+ | Component | Value | Ref Range | Perform ed At | + + + +-------- ---------+ | Glucose, POC | 92Comment: Performed by | 65 - 99 mg/dL | [facility] | | | [facility] [address], | | [facility] | | | [place] | | [facility] | | |Performed by [facility] [address], [place] | | [facility]EL [place] | | | | | [place] | + + + +-------- ---------+ + + | Specimen | + + | Blood | + + + + + + + | Performing | Address | City/State/Zipcode | Phone Number | | Organization | | | | + + + + + | [facility] | [address] | [place] [address] | | | [facility] | | | | | [place] | | | | + + + + + POC Glucose (12/22/2017844) + + + +-------- ---------+ | Component | Value | Ref Range | Perform ed At | + + + +-------- ---------+ | Glucose, POC | 91Comment: Performed by | 65 - 99 mg/dL | [facility] | | | [facility] [address], | | [facility] | | | [place] [address] | | [facility] | | |Performed by [facility] [address], [place] [address] | | LABORAT [place]Y | | | | | CERNER | + + + +-------- ---------+ + + | Specimen | + + | Blood | + + + + + + + | Performing | Address | City/State/Zipcode | Phone Number | | Organization | | | | + + + + + | [facility] | [address] | [place] [address] | | | HEART [facility] | | | | | LABORATORY [...] | 91Comment: eGFR<60 | >=90 mL/min/1.73m2 | JTE | | | consistent with impaired | | [facility] | | | kidney | | MEDICAL CENTER | | | function.Performed by | | LABORATORY | | | [facility] [address], | | [place] | | | [place] [address] | | | + + + + + + + | Specimen | + + | Blood | + + + + + + + | Performing | Address | City/State/Zipcode | Phone Number | | Organization | | | | + + + + + | [facility] | [address] | [place] [address] | | | [facility] | | | | | LABORATORY [place] | | | | + + + + + CBC no Differential (12/22/2017317) + + + +--- + | Component | Value | Ref Range | Pe rformed At | + + + +--- + | WBC | 13.0 (H) | 3.8 - 11.0 K/uL | [facility] | | | | | [facility] | | | | | [facility] | | | | | [facility] | | | | | CE RNER | + + + +--- + | RBC | 5.18 (H) | 3.70 - 5.10 M/uL | [facility] | | | | | [facility] | | | | | [facility] | | | | | [facility] | | | | | CE RNER | + + + +--- + | Hgb | 13.0 | 11.3 - 15.5 g/dL | [facility] | | | | | [facility] | | | | | [facility] | | | | | [facility] | | | | | CE RNER | + + + +--- + | Hct | 41.7 | 34.0 - 46.0 % | [facility] | | | | | [facility] | | | | | [facility] | | | | | [facility] | | | | | CE RNER | + + + +--- + | MCV | 80.5 | 80.0 - 100.0 fL | [facility] | | | | | [facility] | | | | | [facility] | | | | | [facility] | | | | | CE RNER | + + + +--- + | MCH | 25.2 (L) | 27.0 - 34.0 pg | [facility] | | | | | [facility] | | | | | [facility] | | | | | [facility] | | | | | CE RNER | + + + +--- + | MCHC | 31.2 (L) | 32.0 - 35.5 g/dL | [facility] | | | | | [facility] | | | | | [facility] | | | | | [facility] | | | | | CE RNER | + + + +--- + | RDW-CV | 17.5 (H) | 11.0 - 15.5 % | [facility] | | | | | [facility] | | | | | [facility] | | | | | [facility] | | | | | CE RNER | + + + +--- + | Platelet Count | 274 | 150 - 400 K/uL | [facility] | | | | | [facility] | | | | | [facility] | | | | | [facility] | | | | | CE RNER | + + + +--- + | MPV | 9.4Comment: Performed | 7.5 - 11.2 fL | [facility] | | | by [facility] [address], | | [facility] | | | [place] [address] | | [facility] | | |Performed by [facility] [address], [place] [address] | | [facility] | | | | | CE RNER | + + + +--- + + + | Specimen | + + | Blood | + + + + + + + | Performing | Address | City/State/Zipcode | Phone Number | | Organization | | | | + + + + + | [facility] | [address] | [place] [address] | | | [facility] | | | | | LABORATORY [place]ERN[place] | | | | + + + + + POC Glucose (12/21/20172000) + + + + + | Component | Value | Ref Range | Performed At | + + + + + | Glucose, POC | 122 (H)Comment: | 65 - 99 mg/dL | [facility] | | | Performed by [facility] [address] | | [facility] | | | [address], [place], [place] | | MEDICAL CENTER | | | [address] | | LABORATORY | | | | | RAD[place] | + + + + + + + | Specimen | + + | Blood | + + + + + + + | Performing | Address | City/State/Zipcode | Phone Number | | Organization | | | | + + + + + | [facility] | [address] | [place] [address] | | | [facility] | | | | | LABORATORY [place] | | | | + + + + + POC Glucose (12/21/20171811) + + + + + | Component | Value | Ref Range | Performed At | + + + + + | Glucose, POC | 133 (H)Comment: | 65 - 99 mg/dL | [facility] | | | Performed by [facility] [address] | | [facility] | | | [place] | | [facility] | | | [address] | | LABORATORY | | | | | CERNER | + + + + + + + | Specimen | + + | Blood | + + + + + + + | Performing | Address | City/State/Zipcode | Phone Number | | Organization | | | | + + + + + | [facility] | [address] | [place] [address] | | | [facility] | | | | | LABORATORY CERN[place] | | | | + + + + + POC Glucose (12/21/2017 1223) + + + + + | Component | Value | Ref Range | Performed At | + + + + + | Glucose, POC | 123 (H)Comment: | 65 - 99 mg/dL | [facility] | | | Performed by [facility] [address] | | [facility] | | | [address], [place] | | [facility] | | | [address] | | LABORATORY | | | | | CERNER | + + + + + + + | Specimen | + + | Blood | + + + + + + + | Performing | Address | City/State/Zipcode | Phone Number | | Organization | | | | + + + + + | [facility] | [address] | [place] [address] | | | [facility] | | | | | LABORATORY [place] | | | | + + + + + Tissue Request For Pathology (12/21/2017 0936) + + + | Narrative | Performed At | + + + | | [facility] | | KATIE LOU | [place] | | L : | [facility] | | 1970 AGE: 47 years | LABORATORY | | SEX: Female MRN: | RAD[facility] | | [id number] Acct: [id number] | | | [id number] Location: [facility]; 724; | | | 724-02 Case | | | #: [id number] Ordering: | | | MIGUEL ANGEL BURKS MD | | | W Client: [facility] | | | [facility] Copy | | | To: Printed: 12/24/2017 [...] 12/24/2017 12:59 pmPerforming | | | Location: [facility], | | | [facility] [address]OFAOANZ:The clinical and surgical history of a | [...] colonic margin; "A3-A4" random | | | ambulatory services representative sections of small bowel wall.MS/SH07MICROSCOPIC | [...] + + | BRENDA SERRANO | [address] | [place] [address] | | | [facility] | | | | | NAVEEN GARCIA | | | | + + + + + ECG 12 lead (12/21/2017802) + + + | Narrative | Performed At | + + + | HEART RATE:77 | [facility] | | bpmRR Interval:779 msAtrial Rate:77 msP-R Interval:180 msP | [facility] | | Duration:184 msP Horizontal Mccomb:20 degP Front Mccomb:67 degQ Onset:508 | | | msQRSD Interval:82 msQT Interval:392 msQTcB:444 msQTcF:426 msQRS | | | Horizontal Mccomb:-33 degQRS Mccomb:29 degI-40 Horizontal Mccomb:-2 degI-40 | | | Front Mccomb:30 degT-40 Horizontal Mccomb:-48 degT-40 Front Mccomb:26 degT | | | Horizontal Mccomb:59 degT Wave Mccomb:64 degS-T Horizontal Mccomb:75 degS-T | | | Front Mccomb:72 degSeverity:- NORMAL ECG -INTERP:SINUS | | | RHYTHMElectronically signed by: Juan Antonio CASTILLO 12-21-2017 15:31:08 | | |QT Interval:392 ms | | |QTcB:444 ms | | |QTcF:426 ms | | |QRS Horizontal Mccomb:-33 deg | | |QRS Mccomb:29 deg | | |I-40 Horizontal Mccomb:-2 deg | | |I-40 Front Mccomb:30 deg | | |T-40 Horizontal Mccomb:-48 deg | | |T-40 Front Mccomb:26 deg | | |T Horizontal Mccomb:59 deg | | |T Wave Mccomb:64 deg | | |S-T Horizontal Mccomb:75 deg | | |S-T Front Mccomb:72 deg | | |Severity:- NORMAL ECG - | | |INTERP:SINUS RHYTHM | | |Electronically signed by: Juan Antonio CASTILLO 12-21-2017 15:31:08 | | + + + + + + + + | Performing | Address | City/State/Zipcode | Phone Number | | Organization | | | | + + + + + | [facility] | [address] | [place] [address] | [phone] | + + + + + in this encounter Visit Diagnoses + + | Diagnosis | + + | Recurrent incisional hernia with incarceration - Primary | + + | Incisional hernia with obstruction | + + | Acute pulmonary insufficiency following nonthoracic surgery (HCC) | + + | Other pulmonary insufficiency, not elsewhere classified, following trauma and surgery | + + | Obesity | + + | Obesity, unspecified | + + | Hypertension | + + | Unspecified essential hypertension | + + Admitting Diagnoses + + | Diagnosis | [...] bisacodyl (DULCOLAX) EC tablet | Given | 12/21/2017 | 10 mg | | | | 10 mg 10 mg, Oral, EVERY 6 HOURS | | 23:36 | | | | | INTERVAL, First dose on Sun | | PDT | | | | | 12/22/17 at 0000, For 2 doses, Do | | | | | | | not cut or crush. | | | | | | + +-------+ +-------+---+---+ +-------+ +-------+---+---+ | Given | 12/22/2017 | 10 mg | | | | | 5:42 | | | | | | PDT [...] | famotidine (PEPCID) injection | Given | 12/22/2017 | 20 mg | | | | 20 mg 20 mg, Intravenous, 2 | | 20:29 | | | | | TIMES DAILY, First dose on Sat | | PDT | | | [...] | | | | | | | minutes. | | | | | | + +-------+ +-------+---+---+ +-------+ +-------+---+---+ | Given | 12/23/2017 | 20 mg | | | | | 8:39 | | | | | | PDT | | | | +-------+ +-------+---+---+ | Given | 12/23/2017 | 20 mg | | | | | 21:07 | | | | | | PDT | | | | +-------+ +-------+---+---+ +---+---+ | | | +---+---+ + +-------+ +-------+---+---+ | famotidine (PEPCID) tablet 20 | Given | | 20 mg | | | | mg 20 mg, Oral, 2 TIMES DAILY, | | 8 21:24 | | | | | First dose on Sat12/24/17 at | | PDT | | | [...] fentaNYL (PF) injection 25-50 | Push | 12/21/2017 | 50 mcg | | | | mcg 25-50 mcg, Intravenous, | | 12:17 | | | | | EVERY 5 MIN PRN, Pain, Starting | | PDT | | | | [...] | | | | | | | ineffective. | | | | | | + +------+ +--------+---+---+ +------+ +--------+---+---+ | Push | 12/21/2017 | 50 mcg | | | | | 12:34 | | | | | | PDT | | | | +------+ +--------+---+---+ +---+---+ | | | +---+---+ + +-------+ +------+---+---+ | hydrALAZINE (APRESOLINE) | Given | 12/21/2017 | 5 mg | | | | injection 5 mg 5 mg, | | 11:40 | | | | | Intravenous, EVERY 20 MINUTES | | PDT | | | | | PRN, For SBP > 180, DBP > 100, | | | | | | | Starting 12/21/17 at 1055, Hold | | | | | | | if HR > 100. Maximum total dose | | | | | | | 40 mg. Use labetalol first if | | | | | | | available. | | | | | | + +-------+ +------+---+---+ +-------+ +------+---+---+ | Given | 12/21/2017 | 5 mg | | | | | 12:00 | | | | | | PDT | | | | +-------+ +------+---+---+ | Given | 12/21/2017 | 5 mg | | | | | 12:18 | | | | | | PDT [...]
--- OUTSIDE RECORDS SUMMARY | ~2018-02-04 | XMS | Encounter Summary ---
Demographics + + + | Address | [address] | | | [place] [address] | + + + | Home Phone | | + + + | Preferred Language | Unknown | + + + | Marital Status | | + + + | Sikh Affiliation | Unknown | + + + | Race | Unknown | + + + | Ethnic Group | Unknown | + + + Author + + + | Author | [facility] | | | and [place] | + + + | Organization | [facility] | | | and [place] | + + + | Address | Unknown | + + + | Phone | Unavailable | + + + Support + + + + + | Name | Relationship | Address | Phone | + + + + + | Tam Lou | ECON | [address] | | | | | [place] [address] | | + + + + + | Cristal Yu | ECON | Unknown | | + + + + + Care Team Providers + +------+ + | Care Radial Arm Saw Operator Name | Role | Phone | [...] [place] | | | | | | [address] | | | | | | [phone] | | | +--------+ + + + [...]
--- OUTSIDE RECORDS SUMMARY | ~2018-02-04 | XMS | Encounter Summary ---
Demographics + + + | Address | [address] | | | [place] [address] | + + + | Home Phone | | + + + | Preferred Language | Unknown | + + + | Marital Status | | + + + | Judaism Affiliation | Unknown | + + + | Race | Unknown | + + + | Ethnic Group | Unknown | + + + Author + + + | Author | [facility] | | | and [place] | + + + | Organization | [facility] | | | and [place] | + + + | Address | Unknown | + + + | Phone | Unavailable | + + + Support + + + + + | Name | Relationship | Address | Phone | + + + + + | Tam Lou | ECON | [address] | | | | | [place] [address] | | + + + + + | Cristal Yu | ECON | Unknown | | + + + + + Care Team Providers + +------+ + | Care Production Supervisor Off Shift Name | Role | Phone | + [...] [address] | | | | | | [place], [place] | | | | | | [address] | | | | | | [phone] | | | +--------+ + + + [...]
--- OUTSIDE RECORDS SUMMARY | ~2018-02-04 | XMS | Encounter Summary ---
Demographics + + + | Address | [address] | | | [place] [address] | + + + | Home Phone | | + + + | Preferred Language | Unknown | + + + | Marital Status | | + + + | Pentecostalism Affiliation | Unknown | + + + | Race | Unknown | + + + | Ethnic Group | Unknown | + + + Author + + + | Author | [facility] | | | and [place] | + + + | Organization | [facility] | | | and [place] | + + + | Address | Unknown | + + + | Phone | Unavailable | + + + Support + + + + + | Name | Relationship | Address | Phone | + + + + + | Tam Lou | ECON | [address] | | | | | [place] [address] | | + + + + + | Cristal Yu | ECON | Unknown | | + + + + + Care Team Providers + +------+ + | Care Wash Tub Machine Operator Name | Role | Phone | + +------+ + | Pcp, Prov Inactive | PCP | | + +------+ + Encounter Details +--------+ + + + + | Date | Type | Department | Care Team | Description | +--------+ + + + + | 01/04/ | Home Care | [facility] | Marva Sifuentes, | SN REPEAT VISIT | | 2018 | Visit | [address] | RN | | | | | [place] | | | | | | [address] | | | | | | [phone] | | | +--------+ + + + [...]
--- OUTSIDE RECORDS SUMMARY | ~2018-02-04 | XMS | Encounter Summary ---
Demographics + + + | Address | [address] | | | [place] [address] | + + + | Home Phone | | + + + | Preferred Language | Unknown | + + + | Marital Status | | + + + | Lutheran Affiliation | Unknown | + + + | Race | Unknown | + + + | Ethnic Group | Unknown | + + + Author + + + | Author | [facility] | | | and [place] | + + + | Organization | [facility] | | | and [place] | + + + | Address | Unknown | + + + | Phone | Unavailable | + + + Support + + + + + | Name | Relationship | Address | Phone | + + + + + | Tam Luo | ECON | [address] | | | | | [place] [address] | | + + + + + | Cristal Yu | ECON | Unknown | | + + + + + Care Team Providers + +------+ + | Care Receptionist Name | Role | Phone | + [...] 12/21/ | | [address] [place], [place] | [place] [address] | | | 2017 | | [address] | [phone] | | | | | [phone] | | | +--------+ + + + [...] + | Blood Pressure | 150/92 | 12/21/2017100 PDT | + + + + | Pulse | 88 | 12/21/2017100 PDT | + + + + | Temperature | 36.7 C (98.1 F) | 12/20/20171847 PDT | + + + + | Respiratory Rate | 16 | 12/20/20171847 PDT | + + + + | Oxygen Saturation | 92% | 12/21/2017100 PDT | + + + + | Inhaled Oxygen | - | - | | Concentration | | | + + + + | Weight | 114.3 kg (252 lb) | 12/20/20171847 PDT | + + + + | Height | 172.7 cm (5' 8") | 12/20/20171847 PDT | + + + + | Body Mass Index | 38.32 | 12/20/20171847 PDT | + + + + in this encounter Medications at Time of [...] +---------+---------+ + + as of this encounter Plan of Treatment + +--------+ + + | Name | Priori | Associated Diagnoses | Date/Time | | | ty | | | + +--------+ + + | ED INFORMATION EXCHANGE | Routin | | 12/20/2017 1837 PDT | | | e | | [...] for this | | CONTRAST | | 5 PDT | | procedure are in the [...] | | | 2017 | | | 1838 | | | [...] | | | [place]ATIE | | | [id number] | | | [id number] | | | Sec[place] | | | [...] | | | 2018 | | | [place] | | | | | | Region [...] | | | +---+--------+ in this encounter Results IMAGING REPORT - EXTERNAL SCAN (12/24/2017) + + + | Narrative | Performed At | + + + | Ordered by an | | | unspecified provider. | | + + + IMAGING REPORT - EXTERNAL SCAN (12/24/2017) + + + | Narrative | Performed [...] | | + +---------+ + + Lipase (12/20/20171923) + +-------+ + [...] + + | [facility] | [address] | [place] [address] | [phone] | | [facility] | | | | + + + + + Comprehensive Metabolic Panel (12/20/20171923) + + + + + | Component | Value | Ref Range | Performed At | + + + + + | NA | 136 | 132 - 143 mmol/L | [facility] | | | | [...] | 70 - 110 mg/dL | [facility] | | | | | H[facility] | | | | | LABORATORY | + + + + + | BUN | 13 | 5 - 26 mg/dL | [facility] | | | [...] >=60 mL/min/1.73m2 | [facility] | | [facility] | GLOMERULAR FILTRATION | | HOSPITAL | | | RATE,ESTIMATED mL/min | | LABORATORY | | | /1.85y6Rrpe than 60 | | | | | [...] | 8.3 - 10.0 mg/dL | [facility] | | | [...] | 46 - 116 U/L | [facility] | | | | | [facility] | | | | | LABORATORY | + + + + + | GLOBULIN | 3.7 | g/dL | [facility] | | | | | [facility] | | | | | LABORATORY | + + + + + | Albumin/Globulin | 0.7 | | [facility] | | ratio | | | HOSPITAL [...] + + | [facility] | [address] | [place] [address] | [phone] | | H[facility]PITAL [facility] | | | | + + + + + CBC with Differential (12/20/20171923) + + + + + | Component | Value | Ref Range | Performed At | + + + + + | WBC | 11.0 (H) | 4.3 - 10.4 K/uL | [facility] | | | | | [facility]OSP[facility] | | | | | LABORATORY | + + + + + | RBC | 5.32 (H) | 4.12 - 5.30 M/uL | [facility] | | | | [...] + + | [facility] | [address] | [place] [address] | [phone] | | HOSPITAL [facility] | | | | + + + + + in this encounter Visit Diagnoses + + | Diagnosis | + + | Incarcerated ventral hernia - Primary | + + | Ventral hernia, unspecified, with obstruction | + + Administered Medications + +--------+ +---------+------+------+ | Medication Order | MAR | Action | Dose | Rate | Site | | | Action | Date | | | | + +--------+ +---------+------+------+ | iopamidol (ISOVUE-300) 300 | Given | 12/20/2017 | 100 mLs | | | | mg/mL injection 100 mL 100 mL, | | 19:56 | | | | | Intravenous, ONCE PRN, Other, | | PDT | | | | | Starting 12/20/17 at 1956, For | | | | | | | 1 dose, Cat Scanner | | | | | | + +--------+ +---------+------+------+ +---+---+ | | | +---+---+ in this encounter
--- OUTSIDE RECORDS SUMMARY | ~2018-02-04 | XMS | Encounter Summary ---
Demographics + + + | Address | [address] | | | [place] [address] | + + + | Home Phone | | + + + | Preferred Language | Unknown | + + + | Marital Status | | + + + | Restorationist Affiliation | Unknown | + + + | Race | Unknown | + + + | Ethnic Group | Unknown | + + + Author + + + | Author | [facility] | | | and [place] | + + + | Organization | [facility] | | | and [place] | + + + | Address | Unknown | + + + | Phone | Unavailable | + + + Support + + + + + | Name | Relationship | Address | Phone | + + + + + | Tam Lou | ECON | [address] | | | | | [place] [address] | | + + + + + | Cristal Yu | ECON | Unknown | | + + + + + Care Team Providers + +------+ + | Care Production Planner Name | Role | Phone | + +------+ + | Pcp, Prov Inactive | PCP | | + +------+ + Encounter Details +--------+ + + + + | Date | Type | Department | Care Team | Description | +--------+ + + + + | 01/03/ | Home Care | [facility] | Marva Sifuentes, | CASE COMMUNICATION | | 2017 | Visit | [address] | [place] | | | | | [place], [place] | | | | | | [address] | | | | | | [phone] | | | +--------+ + + + [...]
--- OUTSIDE RECORDS SUMMARY | ~2018-02-04 | XMS | Encounter Summary ---
Demographics + + + | Address | [address] | | | [place] [address] | + + + | Home Phone [...] | Author | [facility] | | | and [place] | + + + | Organization | [facility] | | | and [place] | + + + | Address | Unknown | + + + | Phone | Unavailable | + + + Support + + + + + | Name | Relationship | Address | Phone | + + + + + | Tam Lou | ECON | [address] | | | | | [place] [address] | | + + + + + | Cristal Yu | ECON | Unknown | | + + + + + Care Team Providers + +------+ + | Care Shipyard Laborer Name | Role | Phone | + +------+ + | Pcp, Prov Inactive | PCP | | + +------+ + Encounter Details +--------+ + + + + | Date | Type | Department | Care Team | Description | +--------+ + + + + | 01/09/ | Home Care | [facility] | Marva Sifuentes, | CASE COMMUNICATION | | 2017 | Visit | [address] | [place] | | | | | [place], [place] | | | | | | [address] | | | | | | [phone] | | | +--------+ + + + [...]
--- OUTSIDE RECORDS SUMMARY | ~2018-02-04 | XMS | Encounter Summary ---
Demographics + + + | Address | [address] | | | [place] [address] | + + + | Home Phone | | + + + | Preferred Language | Unknown | + + + | Marital Status | | + + + | Yazdanism Affiliation | Unknown | + + + | Race | Unknown | + + + | Ethnic Group | Unknown | + + + Author + + + | Author | [facility] | | | and [place] | + + + | Organization | [facility] | | | and [place] | + + + | Address | Unknown | + + + | Phone | Unavailable | + + + Support + + + + + | Name | Relationship | Address | Phone | + + + + + | Tam Lou | ECON | [address] | | | | | [place] [address] | | + + + + + | Cristal Yu | ECON | Unknown | | + + + + + Care Team Providers + +------+ + | Care Bellman Captain Name | Role | Phone | + [...] [address] | | | | | | [place], [place] | | | | | | [address] | | | | | | [phone] | | | +--------+ + + + [...]
--- OUTSIDE RECORDS SUMMARY | ~2018-02-04 | XMS | Encounter Summary ---
Demographics + + + | Address | [address] | | | [place] [address] | + + + | Home Phone | | + + + | Preferred Language | Unknown | + + + | Marital Status | | + + + | Gnosticist Affiliation | Unknown | + + + | Race | Unknown | + + + | Ethnic Group | Unknown | + + + Author + + + | Author | [facility] | | | and [place] | + + + | Organization | [facility] | | | and [place] | + + + | Address | Unknown | + + + | Phone | Unavailable | + + + Support + + + + + | Name | Relationship | Address | Phone | + + + + + | Tam Lou | ECON | [address] | | | | | [place] [address] | | + + + + + | Cristal Yu | ECON | Unknown | | + + + + + Care Team Providers + +------+ + | Care Private Client Advisor Name | Role | Phone | + [...] Services | Recurrent | Sriram Samuel, | [address] | | | Required | | incisional | PA-C [address] [place] | | | | | hernia with | [address] | [place] | | | | | incarceratio | [place], | [place] | | | | | n | [place] [address] | [address] | | | | | | Phone: | Phone: | | | | | | [phone] | [phone] | | | | | | Fax: | Fax: | | | | | | [phone] | [phone] | +--------+ + + + + + Encounter Details +--------+ + + + + | Date | Type | Department | Care Team | Description | +--------+ + + + + | 12/26/ | Home Care | [facility] [place] | Sriram Saldaña | SN SOC ([place]) | | 2018 | Visit | [address] | VINI [address] | | | | | [place], [place] | [place] | | | | | [address] | [place] [address] | | | | | [phone] | [phone] | | | | | | | [...]
--- OUTSIDE RECORDS SUMMARY | ~2018-02-04 | XMS | Encounter Summary ---
Demographics + + + | Address | [address] | | | [place] [address] | + + + | Home Phone | | + + + | Preferred Language | Unknown | + + + | Marital Status | | + + + | Islam Affiliation | Unknown | + + + | Race | Unknown | + + + | Ethnic Group | Unknown | + + + Author + + + | Author | [facility] | | | and [place] | + + + | Organization | [facility] | | | and [place] | + + + | Address | Unknown | + + + | Phone | Unavailable | + + + Support + + + + + | Name | Relationship | Address | Phone | + + + + + | Tam Lou | ECON | [address] | | | | | [place] [address] | | + + + + + | Cristal Yu | ECON | Unknown | | + + + + + Care Team Providers + +------+ + | Care Green Feed Attendant Name | Role | Phone | + [...] + + | 11/26/ | Hospital | [facility] | Jaye Vigil, | Postoperative | | 2018 | Encounter | [facility] | P[facility]ER [address] | infection, initial | | | | Care [address] | [place] [address] | encounter (Primary | | | | [place], | [phone] | Dx) | | | | [place] [address] | | | | | | [phone] | | | +--------+ + + + [...] | | | EBRA | | | [id number] | | | [id number] | | | This | | | [...] | | | 2018 | | | [place] | | | | | | Region [...]
--- OUTSIDE RECORDS SUMMARY | ~2018-02-04 | XMS | Encounter Summary ---
Demographics + + + | Address | [address] | | | [place] [address] | + + + | Home Phone | | + + + | Preferred Language | Unknown | + + + | Marital Status | | + + + | Evangelical Affiliation | Unknown | + + + | Race | Unknown | + + + | Ethnic Group | Unknown | + + + Author + + + | Author | [facility] | | | and [place] | + + + | Organization | [facility] | | | and [place] | + + + | Address | Unknown | + + + | Phone | Unavailable | + + + Support + + + + + | Name | Relationship | Address | Phone | + + + + + | Tam Lou | ECON | [address] | | | | | [place] [address] | | + + + + + | Cristal Yu | ECON | Unknown | | + + + + + Care Team Providers + +------+ + | Care Air Moving Technician Name | Role | Phone | [...] Services | Recurrent | Sriram Samuel, | [place] [address] | | | Required | | incisional | PA-C [address] | | | | | hernia with | [address] | [place] | | | | | incarceratio | [place], | [place] | | | | | n | [place] | [address] | | | | | | Phone: | Phone: | | | | | | [phone] | [phone] | | | | | | Fax: | Fax: | | | | | | [phone] | [phone] | +--------+ + + + + + [...] | [address] | [facility] | | | | | incarceratio | AVE | [place] | | | | | n | [place], [place] | [place], [place] | | | | | | [address] | [address] | | | | | | Phone: | Phone: | | | | | | [phone] | [phone] | | | | | | Fax: | Fax: | | | | | | [phone] | [phone] | +--------+ + + + + + [...] + + | 12/21/ | Hospital | [facility] | Miguel Angel Burks MD | Recurrent incisional | | 2018 - | Encounter | [facility] | [address] | hernia with | | | | MEDICAL [address] | [place] [address] | incarceration | | 12/25/ | | Ave [place], [place] | [phone] | (Primary Dx); Acute | | 2018 | | [address] | | pulmonary | | | | [phone] | | insufficiency | | | | [...] may be different fr om the original. [facility] Surgery Discharge Summary Patient Name: Katie [...] Signed by: Usama Almodovar MD, 12/25/2017 17:59 [facility] Associated attestation - Pancho Auguste MD [...] Care (En glish)Post Op Wound Check, General (Slovak)in this encounter Medications at Time of Discharge [...] of this encounter Progress Notes Marimar Montenegro, HYDROTEL OPERATOR - 12/25/2017 1424 PDTPt DC'd home with [...] note may be different from the original. [facility] Wound, Ostomy, & Continence Nursing Note [...] [facility] Wound and Ostomy Dept Clair Castro, SWITCH MAKER - 12/24/2017 1335 PDTFormatting of this note may be different from the original. 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 Electronically signed by: Liberty Castorena, RT 12/24/2017 13:05 Marimar Montenegro HYDROTEL OPERATOR - 12/24/2017 1225 PDTPer rounds, pt may need wound care post DC. Sticky note placed on chart requesting MD enter order if so. Usama Almodovar MD - 12/24/2017 0850 PDTFormatting of this note may be different fr om the original. [facility] General Surgery/Trauma Team Progress Note Admission [...] incisional hernia. This [place]. On November 15 she had [...] was seen by a surgeon back in [place] last week with another failur e of her repair and a palpable hernia. The decision was made not to treat it the given her recent history. She then was traveling to [place] and developed another incarcerated herni a with pain and nausea. She was seen by a surgeon there who felt the best operation for he r would be a retro-rectus repair with Stratticewhich was not available at his small hospit ar. She has some family in [place] and requested transfer here. On 12/21 she [...] Signed by: Usama Almodovar MD, 12/24/2017 8:50 [facility] from 7am-5pm (hospital employees only) Associated [...] note may be different from the original. [facility] Wound, Ostomy, & Continence Nursing Note [...] Ostomy Services DATE/TIME: 12/23/2017 13:37 Marimar Montenegro, HYDROTEL OPERATOR - 12/23/2017 1135 PDTPer d/c planning meeting, blue no d/c needs.Usama Almodovar MD - 12/23/2017 0902 PDTFormatting of this note may be different from the o riginal. [facility] General Surgery/Trauma Team Progress Note Admission [...] incisional hernia. This [place]. On November 15 she had [...] was seen by a surgeon back in [place] last week with another failur e of her repair and a palpable hernia. The decision was made not to treat it the given her recent history. She then was traveling to [place] and developed another incarcerated herni a with pain and nausea. She was seen by a surgeon there who felt the best operation for he r would be a retro-rectus repair with Stratticewhich was not available at his small hospit ar. She has some family in [place] and requested transfer here. On 12/21 she [...] Signed by: Usama Almodovar MD, 12/23/2017 9:02 [facility] from 7am-5pm (hospital employees only) Associated [...] Pancho Auguste MD 12/23/2017 14:21 Carlos Farr, SWITCH MAKER - 12/22/2017 9469 PDTPt did not tolerate cpap with nasal mask on lo west pressure of 4 cmh2o, stated too much pressure. Also refused to try full face mask. Elec tronically signed by: Carlos Farr RRT 12/22/2017 23:00 Usama Almodovar MD - 12/22/2017 0836 PDTFormatting of this note may be different fr om the original. [facility] General Surgery/Trauma Team Progress Note Admission [...] incisional hernia. This was repaired electively in [place] on November 14. On November 15 she [...] was seen by a surgeon back in [place] last week with another failure of her repair and a palpable hernia. The decision was made not to treat it the given her recent h istory. She then was traveling to [place] and developed another incarcerated hernia with jose antonio n and nausea. She was seen by a surgeon there who felt the best operation for her would be a retro-rectus repair with Strattice which was not available at his small hospital. She has some family in [place] and requested transfer here. On 12/21 she [...] Signed by: Usama Almodovar MD, 12/22/2017 8:24 [facility] from 7am-5pm (hospital employees only) Associated [...] admitted to floor at 0330, came via [employer] from [facility]. Here for lower abd pain/biological [...] | [facility] | | | Performed by [facility] [address] | | [facility] | | | [address] [place] | | [facility] [place] | | | [address] | | LABORATORY | | | | | CERNER | + + + + + + + | Specimen | + + | Blood | + + + + + + + | Performing | Address | City/State/Zipcode | Phone Number | | Organization | | | | + + + + + | [facility] | [address] | [place] [address] | | | [facility] | [...] | [facility] | | | Performed by [facility] [address] | | [facility] | | | [address] [place], [place] | | [facility] | | | [address] | | LABORATORY | | | | | [place] | + + + + + + + | Specimen | + + | Blood | + + + + + + + | Performing | Address | City/State/Zipcode | Phone Number | | Organization | | | | + + + + + | [facility] | [address] | [place] [address] | | | [facility] | | | | | LABORATORY CERNER | | | | + + + + + POC Glucose (12/24/2017 1727) + + + + + | Component | Value | Ref Range | Performed At | + + + + + | Glucose, POC | 110 (H)Comment: | 65 - 99 mg/dL | [facility] | | | Performed by [facility] [address] | | [facility] | | | [address], [place] | | [facility] | | | [address] | | LABORATORY | | | | | CERNER | + + + + + + + | Specimen | + + | Blood | + + + + + + + | Performing | Address | City/State/Zipcode | Phone Number | | Organization | | | | + + + + + | [facility] | [address] | [place] [address] | | | [facility] | | | | | NAVEEN GARCIA | | | | + + + + + POC Glucose (12/24/2017 1157) + + + +-------- ---------+ | Component | Value | Ref Range | Perform ed At | + + + +-------- ---------+ | Glucose, POC | 95Comment: Performed by | 65 - 99 mg/dL | [facility] | | | [facility] [address], | | [facility] | | | [place] [address] | | [facility] | | |Performed by [facility] [address], [place] [address] | | LABORAT ORY | | | | | CERNER | + + + +-------- ---------+ + + | Specimen | + + | Blood | + + + + + + + | Performing | Address | City/State/Zipcode | Phone Number | | Organization | | | | + + + + + | [facility] | [address] | [place] [address] | | | [facility] | | | | | LABORATORY CERNER | | | | + + + + + POC Glucose (12/24/2017813) + + + + + | Component | Value | Ref Range | Performed At | + + + + + | Glucose, POC | 108 (H)Comment: | 65 - 99 mg/dL | [facility] | | | Performed by [facility] [address] | | [facility] | | | [address], [place] | | [facility] | | | [address] | | LABORATORY | | | | | CERNER | + + + + + + + | Specimen | + + | Blood | + + + + + + + | Performing | Address | City/State/Zipcode | Phone Number | | Organization | | | | + + + + + | [facility] | [address] | [place] [address] | | | [facility] | | | | | LABORATORY CERNER | | | | + + + + + POC Glucose (12/23/20172106) + + + + + | Component | Value | Ref Range | Performed At | + + + + + | Glucose, POC | 118 (H)Comment: | 65 - 99 mg/dL | [facility] | | | Performed by [facility] [address] | | [facility] | | | [address], [place] | | MEDICAL CENTER | | | [address] | | LABORATORY | | | | | [place] | + + + + + + + | Specimen | + + | Blood | + + + + + + + | Performing | Address | City/State/Zipcode | Phone Number | | Organization | | | | + + + + + | [facility] | [address] | [place] [address] | | | [facility] | [...] mg/dL | [facility] | | | [facility] [address], | | [facility] | | | [place] [address] | | [facility] | | |Performed by [facility] [address], [place] [address] | | LABORAT ORAdrián | | | | | CERNER | + + + +-------- ---------+ + + | Specimen | + + | Blood | + + + + + + + | Performing | Address | City/State/Zipcode | Phone Number | | Organization | | | | + + + + + | [facility] | [address] | [place] [address] | | | [facility] | | | | | NAVEEN GARCIA | | | | + + + + + POC Glucose (12/23/2017 1157) + + + +-------- ---------+ | Component | Value | Ref Range | Perform ed At | + + + +-------- ---------+ | Glucose, POC | 99Comment: Performed by | 65 - 99 mg/dL | [facility] | | | [facility] [address], | | [facility] | | | [place], [place] | | [facility] | | |Performed by [facility] [address], [place], [place] | | LABORAT ORY | | | | | CERNER | + + + +-------- ---------+ + + | Specimen | + + | Blood | + + + + + + + | Performing | Address | City/State/Zipcode | Phone Number | | Organization | | | | + + + + + | [facility] | [address] | [place], [place] | | | [facility] | | | | | LABORATORY CERNER | | | | + + + + + POC Glucose (12/23/2017837) + + + +-------- ---------+ | Component | Value | Ref Range | Perform ed At | + + + +-------- ---------+ | Glucose, POC | 92Comment: Performed by | 65 - 99 mg/dL | [facility] | | | [facility] [address], | | [facility] | | | [place] [address] | | [facility] | | |Performed by [facility] [address], [place] [address] | | SURJ[facility]AT CHACHA | | | | | CERNER | + + + +-------- ---------+ + + | Specimen | + + | Blood | + + + + + + + | Performing | Address | City/State/Zipcode | Phone Number | | Organization | | | | + + + + + | [facility] | [address] | [place] [address] | | | [facility] | | | | | LABORATORY CERNER | | | | + + + + + POC Glucose (12/22/20172122) + + + + + | Component | Value | Ref Range | Performed At | + + + + + | Glucose, POC | 113 (H)Comment: | 65 - 99 mg/dL | [facility] | | | Performed by [facility] [address] | | [facility] | | | [place] | | MEDICAL CENTER | | | [address] | | LABORATORY | | | | | RADHA | + + + + + + + | Specimen | + + | Blood | + + + + + + + | Performing | Address | City/State/Zipcode | Phone Number | | Organization | | | | + + + + + | [facility] | [address] | [place] [address] | | | [facility] | | | | | LABORATORY RADHA | | | | + + + + + POC Glucose (12/22/2017 1732) + + + + + | Component | Value | Ref Range | Performed At | + + + + + | Glucose, POC | 100 (H)Comment: | 65 - 99 mg/dL | [facility] | | | Performed by [facility] Nataly Healy | | [facility] | | | [place] | | [facility] | | | [address] | | LABORATORY | | | | | CERNER | + + + + + + + | Specimen | + + | Blood | + + + + + + + | Performing | Address | City/State/Zipcode | Phone Number | | Organization | | | | + + + + + | [facility] | [address] | [place] | | | [facility] | | | | | LABORATORY RADHA | | | | + + + + + POC Glucose (12/22/2017 1200) + + + +-------- ---------+ | Component | Value | Ref Range | Perform ed At | + + + +-------- ---------+ | Glucose, POC | 92Comment: Performed by | 65 - 99 mg/dL | [facility] | | | [facility] [address], | | [facility] | | | [place] | | [facility] | | |Performed by [facility] [address], [place] | | [facility]EL [facility]NH[facility] | | | | | [place] | + + + +-------- ---------+ + + | Specimen | + + | Blood | + + + + + + + | Performing | Address | City/State/Zipcode | Phone Number | | Organization | | | | + + + + + | [facility] | [address] | [place] [address] | | | [facility] | | | | | NAVEEN GARCIA | | | | + + + + + POC Glucose (12/22/2017844) + + + +-------- ---------+ | Component | Value | Ref Range | Perform ed At | + + + +-------- ---------+ | Glucose, POC | 91Comment: Performed by | 65 - 99 mg/dL | [facility] | | | [facility] [address], | | [facility] | | | [place] [address] | | [facility] | | |Performed by [facility] [address], [place] [address] | | LABORAT ORY | | | | | CERNER | + + + +-------- ---------+ + + | Specimen | + + | Blood | + + + + + + + | Performing | Address | City/State/Zipcode | Phone Number | | Organization | | | | + + + + + | [facility] | [address] | [place] [address] | | | [facility]ART [facility] | | | | | LABORATORY [...] by | | LABORATORY | | | [facility] [address], | | RAD[place] | | | [place] [address] | | | + + + + + + + | Specimen | + + | Blood | + + + + + + + | Performing | Address | City/State/Zipcode | Phone Number | | Organization | | | | + + + + + | [facility] | [address] | [place] [address] | | | [facility] | | | | [...] | [place] [facility] | | | by [facility] [address], | | [facility] | | | [place] [address] | | [facility] | | |Performed by [facility] [address], [place] [address] | | [place] [facility] | | | | | CE [place] | + + + +--- + + + | Specimen | + + | Blood | + + + + + + + | Performing | Address | City/State/Zipcode | Phone Number | | Organization | | | | + + + + + | [facility] | [address] | [place] [address] | | | [facility] | | | | | LABORATORY CERNER | | | | + + + + + POC Glucose (12/21/20172000) + + + + + | Component | Value | Ref Range | Performed At | + + + + + | Glucose, POC | 122 (H)Comment: | 65 - 99 mg/dL | [facility] | | | Performed by [facility] [address] | | [facility] | | | [address], [place], [place] | | MEDICAL CENTER | | | [address] | | LABORATORY | | | | | [place] | + + + + + + + | Specimen | + + | Blood | + + + + + + + | Performing | Address | City/State/Zipcode | Phone Number | | Organization | | | | + + + + + | [facility] | [address] | [place] [address] | | | [facility] | | | | | LABORATORY RADHA | | | | + + + + + POC Glucose (12/21/20171811) + + + + + | Component | Value | Ref Range | Performed At | + + + + + | Glucose, POC | 133 (H)Comment: | 65 - 99 mg/dL | [facility] | | | Performed by [facility] [address] | | [facility] | | | [place] | | [facility] | | | [address] | | LABORATORY | | | | | CERNER | + + + + + + + | Specimen | + + | Blood | + + + + + + + | Performing | Address | City/State/Zipcode | Phone Number | | Organization | | | | + + + + + | [facility] | [address] | [place] [address] | | | [facility] | | | | | LABORATORY CERNER | | | | + + + + + POC Glucose (12/21/2017 1223) + + + + + | Component | Value | Ref Range | Performed At | + + + + + | Glucose, POC | 123 (H)Comment: | 65 - 99 mg/dL | [facility] | | | Performed by [facility] [address] | | [facility] | | | [address], [place] | | [facility] | | | [address] | | LABORATORY | | | | | CERNER | + + + + + + + | Specimen | + + | Blood | + + + + + + + | Performing | Address | City/State/Zipcode | Phone Number | | Organization | | | | + + + + + | [facility] | [address] | [place] [address] | | | [facility] | | | | | LABORATORY RADHA | | | | + + + + + Tissue Request For Pathology (12/21/2017 0936) + + + | Narrative | Performed At | + + + | | [facility] | | KATIE LOU | [place] | | L : | [facility] | | 1970 AGE: 47 years | LABORATORY | | SEX: Female MRN: | RADHA | | [id number] Acct: [id number] | | | [id number] Location: [facility]; 724; | | | 724-02 Case | | | #: [id number] Ordering: | | | MIGUEL ANGEL BURKS MD | | | W Client: [facility] | | | [facility] | | | To: Printed: 12/24/2017 [...] [address], | | | [facility] [address]GZHBULX:The clinical and surgical history of a | [...] colonic margin; "A3-A4" random | | | payable representative sections of small bowel wall.MS/SH07MICROSCOPIC | [...] + + | [facility] | [address] | [place] [address] | | | [facility] | | | | | NAVEEN GARCIA | | | | + + + + + ECG 12 lead (12/21/2017802) + + + | Narrative | Performed At | + + + | HEART RATE:77 | [facility] | | bpmRR Interval:779 msAtrial Rate:77 msP-R Interval:180 msP | TRACEMASTER | | Duration:184 msP Horizontal [place]:20 degP Front [place]:67 degQ Onset:508 | | | msQRSD Interval:82 msQT Interval:392 msQTcB:444 msQTcF:426 msQRS | | | Horizontal [place]:-33 degQRS [place]:29 degI-40 Horizontal [place]:-2 degI-40 | | | Front [place]:30 degT-40 Horizontal [place]:-48 degT-40 Front [place]:26 degT | | | Horizontal [place]:59 degT Wave [place]:64 degS-T Horizontal [place]:75 degS-T | | | Front [place]:72 degSeverity:- NORMAL ECG -INTERP:SINUS | | | RHYTHMElectronically signed by: Juan Antonio CASTILLO 12-21-2017 15:31:08 | | |QT Interval:392 ms | | |QTcB:444 ms | | |QTcF:426 ms | | |QRS Horizontal [place]:-33 deg | | |QRS [place]:29 deg | | |I-40 Horizontal [place]:-2 deg | | |I-40 Front [place]:30 deg | | |T-40 Horizontal [place]:-48 deg | | |T-40 Front [place]:26 deg | | |T Horizontal [place]:59 deg | | |T Wave [place]:64 deg | | |S-T Horizontal [place]:75 deg | | |S-T Front [place]:72 deg | | |Severity:- NORMAL ECG - | | |INTERP:SINUS RHYTHM | | |Electronically signed by: Juan Antonio CASTILLO 12-21-2017 15:31:08 | | + + + + + + + + | Performing | Address | City/State/Zipcode | Phone Number | | Organization | | | | + + + + + | [facility] | [address] | [place] [address] | [phone] | + + + + + in [...]
--- OUTSIDE RECORDS SUMMARY | ~2018-02-04 | XMS | Encounter Summary ---
Demographics + + + | Address | [address] | | | [place] [address] | + + + | Home Phone [...] Author | [facility] | | | and [place] | + + + | Organization | [facility] | | | and [place] | + + + | Address | Unknown | + + + | Phone | Unavailable | + + + Support + + + + + | Name | Relationship | Address | Phone | + + + + + | Tam Lou | ECON | [address] | | | | | [place] [address] | | + + + + + | Cristal Yu | ECON | Unknown | | + + + + + Care Team Providers + +------+ + | Care Insurance Sales Representative Name | Role | Phone | + +------+ + | Pcp, Prov Inactive | PCP | | + +------+ + Encounter Details +--------+ + + + + | Date | Type | Department | Care Team | Description | +--------+ + + + + | 12/31/ | Home Care | [facility] | Marva Sifuentes, | TELEPHONE ENCOUNTER | | 2018 | Visit | [address] | [place] | | | | | [place], [place] | | | | | | [address] | | | | | | [phone] | | | +--------+ + + + [...]
--- OUTSIDE RECORDS SUMMARY | ~2018-02-04 | XMS | Encounter Summary ---
Demographics + + + | Address | [address] | | | [place] [address] | + + + | Home Phone | | + + + | Preferred Language | Unknown | + + + | Marital Status | | + + + | Hindu Affiliation | Unknown | + + + | Race | Unknown | + + + | Ethnic Group | Unknown | + + + Author + + + | Author | [facility] | | | and [place] | + + + | Organization | [facility] | | | and [place] | + + + | Address | Unknown | + + + | Phone | Unavailable | + + + Support + + + + + | Name | Relationship | Address | Phone | + + + + + | Tam Lou | ECON | [address] | | | | | [place] [address] | | + + + + + | Cristal Yu | ECON | Unknown | | + + + + + Care Team Providers + +------+ + | Care S Iron Worker Name | Role | Phone | [...] | [address], [place] | [place] [address] | | | 2017 | | [address] | [phone] | | | | | [phone] | | | +--------+ + + + [...] | | | [place] | | | [id number] | | | [id number] | | | Securi | | | [...] | | | 2018 | | | [place] | | | | | | Region [...] | | | [place] | | | [place] | | | City, | | | [...] + + | [facility] | [address] | [place] [address] | [phone] | | HOSPITAL LABORATORY | | | [...] >=60 mL/min/1.73m2 | [facility] | | SPANISH | GLOMERULAR FILTRATION | | HOSPITAL | | | RATE,ESTIMATED mL/min | | LABORATORY | | | /1.20e3Vduv than 60 | | | | | [...] + + | [facility] | [address] | [place] [address] | [phone] | | HOSPITAL LABORATORY | | | [...] + + | [facility] | [address] | [place] [address] | [phone] | | HOSPITAL LABORATORY | | | [...]
[~2018-02-04 07:16] MED LIST: COZAAR50 MG PO; KEFLEX500 MG PO; OMEPRAZOLE20 MG PO
--- OUTSIDE RECORDS SUMMARY | 2018-02-04 08:49 | XMS | Clinical Summary ---
Demographics + + + | Address | [address] | | | [place] [address] | + + + | Home Phone | | + + + | Preferred Language | Unknown | + + + | Marital Status | | + + + | Uatsdin Affiliation | Unknown | + + + | Race | Unknown | + + + | Ethnic Group | Unknown | + + + Author + + + | Author | [facility] | | | and [place] | + + + | Organization | [facility] | | | and [place] | + + + | Address | Unknown | + + + | Phone | Unavailable | + + + Support + + + + + | Name | Relationship | Address | Phone | + + + + + | Tam Lou | ECON | [address] | | | | | [place] [address] | | + + + + + | Cristal Yu | ECON | Unknown | | + + + + + Care Team Providers + +------+ + | Care Quality Assurance Monitor Chassis Name | Role | Phone | + +------+ + | Pcp, Prov Inactive | PP | | + +------+ + Allergies + + + + + + | Active Allergy | Reactions | Severity | Noted | Comments | | | | | Date | | + + + + + + | Sulfa Antibiotics | Rash | Low | 09/26/19 | | | | | | 11 | | + + + + + + Current Medications + + +---------+---------+------+------+-------+ | Prescription | Sig. | Disp. | Refills | Star | End | Statu | | | | | | t | Date | s | | | | | | Date | | | + + +---------+---------+------+------+-------+ | omeprazole | 1 TABLET by mouth | | | 11/0 | | Activ | | (PRILOSEC) 20 mg | twice daily-LAST | | | 01/03 | | e | | TBEC | REFILL NEED VISIT | | | 12 | | | | | and LABS | | | | | | + + +---------+---------+------+------+-------+ | albuterol (PROAIR | 2 puffs every 4-6 | | | 11/0 | | Activ | | HFA) 90 mcg/puff | hours as needed for | | | 7/20 | | e | | inhaler | asthma | | | 11 | | | + + +---------+---------+------+------+-------+ | LOSARTAN POTASSIUM | Take 25 mg by mouth | | | | | Activ | | PO | Daily. | | | | | e | + + +---------+---------+------+------+-------+ | oxyCODONE | Take 1-3 tablets by | 30 | 0 | 07/1 | | Activ | | (ROXICODONE) 5 mg | mouth every 4 hours | tablet | | 1/20 | | e | | tablet | as needed for Pain. | | | 18 | | | + + +---------+---------+------+------+-------+ | benzonatate | Take 1 capsule by | 30 | 0 | 07/1 | | Activ | | (TESSALON) 100 mg | mouth 3 times daily | capsule | | 1/20 | | e | | capsule | as needed for Cough. | | | 18 | | | + + +---------+---------+------+------+-------+ | nicotine | Place 1 patch onto | 21 | 0 | 07/1 | | Activ | | (NICODERM) 14 mg/24 | the skin Daily as | patch | | 1/20 | | e | | hr | needed for Nicotine | | | 18 | | | | | Craving. | | | | | | + + +---------+---------+------+------+-------+ | docusate sodium | Take 100 mg by mouth | | | 07/1 | | Activ | | (COLACE) 100 mg | Twice daily as | | | 2/20 | | e | | capsule | needed for | | | 18 | | | | | Constipation. 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) | 12/25/2017 | + + + | Recurrent incisional hernia with incarceration | 12/21/2017 | + + + | OBESITY, MORBID | 05/09/2011 | + + + | PRURITUS, EARS | 05/09/2011 | + + + | Obesity | 04/23/2011 | + + + + + | Overview: RAFAEL [id number] Decision | + + + + + | MARCUS HENSON RIGHT | 04/23/2011 | + + + | EUSTACHIAN TUBE DYSFUNCTION, BILATERAL | 04/23/2011 | + + + | HYPERCHOLESTEROLEMIA | 01/11/2010 | + + + | ASTHMA | 02/28/2009 | + + + | PROTEINURIA | 02/03/2009 | + + + | Hypertension | 01/12/2008 | + + + | Tobacco abuse | | + + + Encounters +--------+ + + + + | Date | Type | Specialty | Care Team | Description | +--------+ + + + + | 01/09/ | Home Care | | Marva Sifuentes, | CASE COMMUNICATION | | 2017 | Visit | | RN | | +--------+ + + + + | 01/07/ | Home Care | | Payal Smith, | SN DISCHARGE ([place]) | | 2017 | Visit | | RN | | +--------+ + + + + | 01/05/ | Home Care | | Marva Sifuentes, | SN REPEAT VISIT | | 2018 | Visit | | RN | | +--------+ + + + + | 01/04/ | Home Care | | Marva Sifuentes, | SN REPEAT VISIT | | 2018 | Visit | | RN | | +--------+ + + + + | 01/03/ | Home Care | | Marva Sifuentes, | SN REPEAT VISIT | | 2018 | Visit | | RN | | +--------+ + + + + | 01/03/ | Home Care | | Marva Sifuentes, | CASE COMMUNICATION | | 2018 | Visit | | RN | | +--------+ + + + + | 12/31/ | Home Care | | Marva Sifuentes, | TELEPHONE ENCOUNTER | | 2018 | Visit | | RN | | +--------+ + + + + | 12/28/ | Home Care | | Maxine Pruitt RN | CASE COMMUNICATION | | 2017 | Visit | | | | +--------+ + + + + | 12/28/ | Home Care | | Maxine Pruitt RN | CASE COMMUNICATION | | 2017 | Visit | | | | +--------+ + + + + | 12/26/ | Home Care | | Sriram Saldaña | SN SOC ([place]ASIS) | | 2017 | Visit | | VINI Samuel, | | | | | | Marva Samuel RN | | +--------+ + + + + | 12/26/ | Home Care | | Marva Sifuentes | CASE COMMUNICATION | | 2017 | Anthony | | AMADO | | +--------+ + + + + | 12/21/ | Hospital | | Miguel Angel Burks MD | Recurrent incisional | | 2018 - | Encounter | | | hernia with | | | | | | incarceration | | 12/25/ | | | | (Primary Dx); Acute | | 2018 | | | | pulmonary | | | | | | insufficiency | | | | | | following | | | | | | nonthoracic surgery | | | | | | (HCC) | +--------+ + + + + +---+ + | | Discharge | | | Summaries | | | - Scooby, | | | Usama | | | MD Jagdish | | | - | | | 12/25/2017 | | | 1759 PDT | | | Formatting | | | of this | | | note may be | | | different | | | from the | | | original. | | | [facility] | | | ral [facility] | | | Discharge | | | SummaryPati | | | ent Name: | | | Katie Workman | | | Dasha | | | Patient | | | : | | | 1970PC | | | P: Prov | | | Inactive | | | PcpDate of | | | Admission: | | | 12/21/2017 | | | Date | | | of | | | Discharge: | | | 12/25/2017 | | | Primary | | | Discharge | | | Dx: | | | Recurrent | | | incisional | | | hernia with | | | | | | incarcerati | | | onSecondary | | | Discharge | | | Dx(s): | | | Active | | | Hospital | | | Problems | | | Diagnosis | | | | | | Recurrent | | | incisional | | | hernia | | | with | | | incarcerati | | | on | | | Acute | | | pulmonary | | | insufficien | | | cy | | | following | | | nonthoracic | | | surgery | | | | | | Obesity | | | | | | | | | Hypertensio | | | n Resolved | | | Hospital | | | Problems | | | Diagnosis | | | No resolved | | | problems | | | to display. | | | | | | Procedures: | | | Repair of | | | incarcerate | | | d, multiply | | | recurrent | | | incisional | | | hernia | | | | | | | | | Ileocolic | | | resection | | | including | | | 18 inches | | | of ileum | | | and cecum | | | | | | | | | Implantatio | | | n of | | | biologic | | | mesh | | | | | | | | | Application | | | of VAC | | | dressingHos | | | pital | | | Course: | | | Uneventfull | | | hospital | | | course. | | | Patient | | | improved | | | without | | | complicatio | | | n.Patient | | | recovered | | | well from | | | procedure. | | | She has a | | | subcutaneou | | | s drain in | | | place that | | | will remain | | | there | | | until seen | | | in Dr. | | | Bax's | | | office in 2 | | | weeks. She | | | also has | | | an incision | | | that was | | | drained | | | with a | | | wound vac | | | for 5 days | | | and then | | | transitione | | | d to dry | | | dressings | | | prior to | | | discharge. | | | She was | | | discharged | | | home with | | | home assist | | | in stable | | | condition | | | and with | | | all of her | | | questions | | | answered to | | | her | | | satisfactio | | | n.Condition | | | on | | | Discharge: | | | ImprovedDis | | | charge | | | Medications | | | : Discharge | | | | | | Medications | | | New | | | Medications | | | Details | | | | | | benzonatate | | | 100 mg | | | capsuleNote | | | s to | | | patient: | | | Not given. | | | Take 1 | | | capsule by | | | mouth 3 | | | times daily | | | as needed | | | for | | | Cough.aka: | | | TESSALON | | | nicotine 14 | | | mg/24 | | | hrNotes to | | | patient: | | | Last dose | | | 11/10 at | | | 9:53am. | | | Place 1 | | | patch onto | | | the skin | | | Daily as | | | needed for | | | Nicotine | | | Craving.aka | | | : NICODERM | | | oxyCODONE | | | 5 mg | | | tabletNotes | | | to | | | patient: | | | Last dose | | | 7/11 at | | | 13:25pm. | | | Take 1-3 | | | tablets by | | | mouth every | | | 4 hours as | | | needed for | | | Pain.aka: | | | ROXICODONE | | | Unchanged | | | | | | Medications | | | Details | | | LOSARTAN | | | POTASSIUM | | | PONotes to | | | patient: | | | Last dose | | | 7/11 at | | | 9:01am. | | | Take 25 mg | | | by mouth | | | Daily. | | | omeprazole | | | 20 mg | | | TbecNotes | | | to patient: | | | Not | | | given. 1 | | | TABLET by | | | mouth twice | | | daily-LAST | | | REFILL | | | NEED VISIT | | | and | | | LABSaka: | | | priLOSEC | | | PROAIR HFA | | | 90 mcg/puff | | | | | | inhalerGene | | | momo drug: | | | albuterolNo | | | tammie to | | | patient: | | | Last dose | | | 12/21 at | | | 8:03am. 2 | | | puffs every | | | 4-6 hours | | | as needed | | | for asthma | | | | | | Follow-Up: | | | 1. | | | Follow up | | | with | | | Jamel in 2 | | | weeks for | | | wound check | | | and | | | post-op | | | visit.. | | | Electronica | | | lly Signed | | | by: Usama | | | Latoya. 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 | | +--------+ +---+ + + | 12/21/ | Procedure | | | | | 2018 | Pass | | | | +--------+ +---+ + + | 12/21/ | Surgery | | Miguel Angel Burks MD | ILEOCOLIC RESECTION; | | 2017 | | | | IMPLANTATION OF | | | | | | BIOLOGIC MESH; | | | | | | PLACEMENT OF VAC | +--------+ +---+ + + | 12/20/ | Emergency | | Jayden Sow | Incarcerated ventral | | 2018 - | | | MD Mert | hernia (Primary Dx) | | | | | | | | 12/21/ | | | | | | 2017 | | | | | +--------+ +---+ + + | 11/26/ | Hospital | | Jaye Vigil, | Postoperative | | 2017 | Encounter | | GRADUATION COACH | infection, initial | | | | | | encounter (Primary | | | | | | Dx) | +--------+ +---+ + + from Last 3 Months Social History + + + +--------+------+ | Tobacco Use | Types | Packs/Day | Years | Date | | | | | Used | | + + + +--------+------+ | Current Every Day | Cigarettes | 0.5 | 25 | | | Smoker | | | | | + + + +--------+------+ + +---+---+---+ | Smokeless Tobacco: | | | | | Never Used | | | | + +---+---+---+ + + +---------+ + | Alcohol Use | Drinks/We | oz/Week | Comments | | | ek | | | + + +---------+ + | Yes | | | Rare | + + +---------+ + + + + | Sex Assigned at | Date Recorded | | | | + + + | Not on file | | + + + Last Filed Vital Signs + + + + | Vital Sign | Reading | Time Taken | + + + + | Blood Pressure | 154/92 | 01/07/2018 1000 PDT | + + + + | Pulse | 85 | 01/05/2018 1430 PDT | + + + + | Temperature | 36.9 C (98.5 F) | 01/07/2018 1000 PDT | + + + + | Respiratory Rate | 18 | 01/07/2018 1000 PDT | + + + + | Oxygen Saturation | 83% | 12/25/2017 1106 PDT | + + + + | Inhaled Oxygen | - | - | | Concentration | | | + + + + | Weight | 112.5 kg (248 lb) | 01/03/2018 1500 PDT | + + + + | Height | 171.5 cm (5' 7.5") | 12/26/2017 1100 PDT | + + + + | Body Mass Index | 38.27 | 01/03/2018 1500 PDT | + + + + Plan of Treatment + + + + + | Health Maintenance | Due Date | Last Done | Comments | + + + + + | Vaccine: | | | | | Dtap/Tdap/Td (1 - | 7 | | | | Tdap) | | | | + + + + + | Vaccine: | | | | | Pneumococcal 19-64 | 7 | | | | (PPSV23 only) Medium | | | | | Risk (1 of 1 - | | | | | PPSV23) | | | | + + + + + | Cervical Cancer | | 12/26/2010 | | | Screening (Pap) | 6 | | | + + + + + | BREAST CANCER | | | | | SCREENING (MAMM Q2 | 8 | | | | YEARS 50-74) | | | | + + + + + | Colorectal Cancer | | | | | Screening | 8 | | | | (Colonoscopy) | | | | + + + + + | Vaccine: Influenza | | | | | (#1) | 8 | | | + + + + + Implants + +-------+--------+ +--------+--------+--------+ | Implanted | Type | Area | Manufacture | Device | Expira | Model | | | | | r | | tion | / | | | | | | Identi | Date | Serial | | | | | | fier | | / Lot | + +-------+--------+ +--------+--------+--------+ | Xgrft Strtce [id number] Frm - | Graft | N/A: | ALLERGAN - | | 07/17/ | [id number] | | [id number]: Qty: 1 on | | Abdome | ALLG | | 2020 | 2P | | 12/21/2017 by Miguel Angel Burks | | n | | | | /[id number] | | [address] | | | | | | [address] / | + +-------+--------+ +--------+--------+--------+ Procedures + +--------+ + + + | Procedure Name | Priori | Date/Time | Associated Diagnosis | Comments | | | ty | | | | + +--------+ + + + | PERFORM HOME O2 | Routin | 12/25/2017 | | | | EVALUATION | e | 1017 PDT | | | + +--------+ + + + | POC GLUCOSE | Routin | 12/25/2017 | | Results for this | | | e | 0837 PDT | | procedure are in the | | | | | | results section. | + +--------+ + + + | POC GLUCOSE | Routin | 12/24/2017 | | Results for this | | | e | 8 PDT | | procedure are in the | | | | | | results section. | + +--------+ + + + | POC GLUCOSE | Routin | 12/24/2017 | | Results for this | | | e | 1727 PDT | | procedure are in the | | | | | | results section. | + +--------+ + + + | POC GLUCOSE | Routin | 12/24/2017 | | Results for this | | | e | 1157 PDT | | procedure are in the | | | | | | results section. | + +--------+ + + + | POC GLUCOSE | Routin | 12/24/2017 | | Results for this | | | e | 0814 PDT | | procedure are in the | | | | | | results section. | + +--------+ + + + | IMAGING REPORT - | | 12/24/2017 | | Results for this | | EXTERNAL SCAN | | 0000 PDT | | procedure are in the | | | | | | results section. | + +--------+ + + + | IMAGING REPORT - | | 12/24/2017 | | Results for this | | EXTERNAL SCAN | | 0000 PDT | | procedure are in the | | | | | | results section. | + +--------+ + + + | POC GLUCOSE | Routin | 12/23/2017 | | Results for this | | | e | 2107 PDT | | procedure are in the | | | | | | results section. | + +--------+ + + + | POC GLUCOSE | Routin | 12/23/2017 | | Results for this | | | e | 1811 PDT | | procedure are in the | | | | | | results section. | + +--------+ + + + | POC GLUCOSE | Routin | 12/23/2017 | | Results for this | | | e | 1157 PDT | | procedure are in the | | | | | | results section. | + +--------+ + + + | POC GLUCOSE | Routin | 12/23/2017 | | Results for this | | | e | 0838 PDT | | procedure are in the | | | | | | results section. | + +--------+ + + + | POC GLUCOSE | Routin | 12/22/2017 | | Results for this | | | e | 2123 PDT | | procedure are in the | | | | | | results section. | + +--------+ + + + | POC GLUCOSE | Routin | 12/22/2017 | | Results for this | | | e | 1732 PDT | | procedure are in the | | | | | | results section. | + +--------+ + + + | POC GLUCOSE | Routin | 12/22/2017 | | Results for this | | | e | 1200 PDT | | procedure are in the | | | | | | results section. | + +--------+ + + + | POC GLUCOSE | Routin | 12/22/2017 | | Results for this | | | e | 0845 PDT | | procedure are in the | | | | | | results section. | + +--------+ + + + | BASIC METABOLIC | Routin | 12/22/2017 | | Results for this | | PANEL | e | 0318 PDT | | procedure are in the | | | | | | results section. | + +--------+ + + + | CBC NO DIFFERENTIAL | Routin | 12/22/2017 | | Results for this | | | e | 0318 PDT | | procedure are in the | | | | | | results section. | + +--------+ + + + | POC GLUCOSE | Routin | 12/21/2017 | | Results for this | | | e | 2001 PDT | | procedure are in the | | | | | | results section. | + +--------+ + + + | POC GLUCOSE | Routin | 12/21/2017 | | Results for this | | | e | 1812 PDT | | procedure are in the | | | | | | results section. | + +--------+ + + + | POC GLUCOSE | Routin | 12/21/2017 | | Results for this | | | e | 1223 PDT | | procedure are in the | | | | | | results section. | + +--------+ + + + | TISSUE REQUEST FOR | Routin | 12/21/2017 | | Results for this | | PATHOLOGY (NON-ORD) | e | 0936 PDT | | procedure are in the | | | | | | results section. | + +--------+ + + + | ANE AIRWAY NOTE | Routin | 12/21/2017 | | Results for this | | | e | 0830 PDT | | procedure are in the | | | | | | results section. | + +--------+ + + + | ANE PERIPHERAL IV | Routin | 12/21/2017 | | Results for this | | LINE NOTE | e | 0818 PDT | | procedure are in the | | | | | | results section. | + +--------+ + + + | ECG 12 LEAD | Routin | 12/21/2017 | | Results for this | | | e | 0803 PDT | | procedure are in the | | | | | | results section. | + +--------+ + + + | REPAIR HERNIA | | 12/21/2017 | Recurrent | | | VENTRAL / INCISIONAL | | 0800 PDT | incisional hernia | | | | | | with incarceration | | + +--------+ + + + | APPLICATION WOUND | | 12/21/2017 | Recurrent | | | VAC | | 0800 PDT | incisional hernia | | | | | | with incarceration | | + +--------+ + + + | RESECTION COLON | | 12/21/2017 | Recurrent | | | | | 0800 PDT | incisional hernia | | | | | | with incarceration | | + +--------+ + + + | CT ABDOMEN PELVIS W | STAT | 12/20/2017 | | Results for this | | CONTRAST | | 1955 PDT | | procedure are in the | | | | | | results section. | + +--------+ + + + | LIPASE | STAT | 12/20/2017 | | Results for this | | | | 1924 PDT | | procedure are in the | | | | | | results section. | + +--------+ + + + | COMPREHENSIVE | STAT | 12/20/2017 | | Results for this | | METABOLIC PANEL | | 1924 PDT | | procedure are in the | | | | | | results section. | + +--------+ + + + | CBC WITH | STAT | 12/20/2017 | | Results for this | | DIFFERENTIAL | | 1924 PDT | | procedure are in the | | | | | | results section. | + +--------+ + + + | ED INFORMATION | Routin | 12/20/2017 | | | | EXCHANGE | e | 1837 PDT | | | + +--------+ + + + +---+--------+ | | | | | Proced | | | ure | | | Note - | | | Maico, | | | Lab In | | | | | | Hlseve | | | n - | | | 12/20/ | | | 2018 | | | 1838 | | | PDT | | | Format | | | ting | | | of | | | this | | | note | | | may be | | | | | | differ | | | ent | | | from | | | the | | | origin | | | al.MAICO | | | [id number] | | | KATIE | | | [id number] | | | [id number] | | | Securi | | | ty | | | Events | | | No | | | recent | | | | | | Securi | | | ty | | | Events | | | | | | curren | | | tly on | | | | | | fileED | | | Care | | | Guidel | | | inesTh | | | ere | | | are | | | curren | | | tly no | | | ED | | | Care | | | Guidel | | | alessandro | | | in | | | PHOEBE | | | for | | | this | | | patien | | | t. | | | Please | | | check | | | your | | | facili | | | ty's | | | medica | | | l | | | record | | | s | | | system | | | .Crite | | | ivett | | | met 2 | | | | | | Facili | | | ties | | | In 90 | | | DaysCa | | | re | | | Provid | | | ersEDI | | | E has | | | no | | | care | | | provid | | | ers on | | | | | | record | | | at | | | this | | | time. | | | Recent | | | | | | Emerge | | | ncy | | | Depart | | | ment | | | Visit | | | [facility] | | | yAdmit | | | Date | | | Facili | | | ty | | | City | | | State | | | Type | | | Major | | | Type | | | Diagno | | | ses or | | | Chief | | | | | | Compla | | | int | | | Michael 6, | | | 2018 | | | [facility] | | | [place] | | | [place] | | | [place] | | | [place] | | | Emerge | | | ncy | | | Emerge | | | ncy | | | | | | Abdomi | | | nal | | | pain | | | [place] | | | 12, | | | 2018 | | | [facility] | | ess | | | [facility] | | | [place] | | | [place] | | | Emerge | | | ncy | | | Emerge | | | ncy | | | [place] | | | 12, | | | 2018 | | | [facility] | | | [facility] | | | rne | | | Urgent | | | Care | | | [place] | | | Urgent | | | Care | | | | | | Outpat | | | ient | | | | | | surger | | | y site | | | | | | draina | | | ge | | | Post-o | | | p | | | Proble | | | m | | | Infect | | | ion | | | follow | | | ing a | | | proced | | | ure, | | | initia | | | l | | | encoun | | | ter | | | El[place] 2, | | | 2018 | | | [facility] | | | | | | [facility] | | | al | | | [facility] | | | [place] | | | [place] | | | Emerge | | | ncy | | | Emerge | | | ncy | | | Chief | | | Compla | | | int: | | | BLEEDI | | | NG | | | POST | | | OP | | | Recent | | | | | | Inpati | | | ent | | | Visit | | | [facility] | | | yAdmit | | | Date | | | Facili | | | ty | | | City | | | State | | | Type | | | Major | | | Type | | | Diagno | | | ses or | | | Chief | | | | | | Compla | | | int | | | Eleno 2, | | | 2018 | | | [facility] | | | | | | Region | | | al | | | [facility] | | | [place] | | | [place] | | | Surger | | | y | | | Inpati | | | ent | | | | | | Allerg | | | y | | | status | | | to | | | sulfon | | | amides | | | | | | status | | | | | | Sleep | | | apnea, | | | | | | unspec | | | ified | | | | | | Body | | | mass | | | index | | | (BMI) | | | 40.0-4 | | | 4.9, | | | adult | | | | | | Essent | | | ial | | | (prima | | | ry) | | | hypert | | | ension | | | | | | Morbid | | | | | | (sever | | | e) | | | obesit | | | y due | | | to | | | excess | | | | | | calori | | | es | | | Acute | | | respir | | | atory | | | failur | | | e, | | | unspec | | | ified | | | whethe | | | r with | | | | | | hypoxi | | | a or | | | hyperc | | | apnia | | | | | | Cellul | | | itis | | | of | | | abdomi | | | nal | | | wall | | | | | | Other | | | ascite | | | s | | | Gastro | | | -esoph | | | ageal | | | reflux | | | | | | diseas | | | e | | | withou | | | t | | | esopha | | | gitis | | | | | | Incisi | | | onal | | | hernia | | | with | | | obstru | | | ction, | | | | | | withou | | | t | | | gangre | | | ne | | | E.D. | | | Visit | | | Count | | | (12 | | | mo.)Fa | | | cility | | | | | | Visits | | | | | | [facility] | | | ess | | | Medica | | | l | | | Center | | | 1 | | | [facility] | | | [facility] | [facility] | | | al 1 | | | [facility] | | | | | | Region | | | al | | | Medica | | | l | | | Center | | | 1 | | | Total | | | 3 | | | Note: | | | Visits | | | | | | indica | | | te | | | total | | | known | | | visits | | | . | | | PDMP | | | Report | | | PDMP | | | query | | | found | | | no | | | report | | | .The | | | above | | | inform | | | ation | | | is | | | provid | | | ed for | | | the | | | sole | | | purpos | | | e of | | | patien | | | t | | | treatm | | | ent. | | | Use of | | | this | | | inform | | | ation | | | beyond | | | the | | | terms | | | of | | | Data | | | Sharin | | | g | | | Memora | | | ndum | | | of | | | Unders | | | tandin | | | g and | | | Licens | | | e | | | Agreem | | | ent is | | | | | | prohib | | | ited. | | | In | | | certai | | | n | | | cases | | | not | | | all | | | visits | | | may | | | be | | | repres | | | ented. | | | | | | Consul | | | t the | | | aforem | | | ention | | | ed | | | facili | | | ties | | | for | | | additi | | | onal | | | inform | | | ation. | | | 2018 | | | [facility] | | | tive | | | [employer] | | | l | | | [employer] | | | logies | | | [employer] | | | - | | | [place] | | | [place] | | | [place], | | | [place] - | | | [email or web address] | | | ollect | | | ivemed | | | icalte | | | [email or web address] | | | | +---+--------+ + +--------+ +---+---+ | ED INFORMATION | Routin | 11/26/2017 | | | | EXCHANGE | e | 0911 PDT | | | + +--------+ +---+---+ +---+--------+ | | | | | Proced | | | ure | | | Note - | | | [place], | | | Lab In | | | | | | Hlseve | | | n - | | | 11/26/ | | | 2017 | | | 0912 | | | PDT | | | Format | | | ting | | | of | | | this | | | note | | | may be | | | | | | differ | | | ent | | | from | | | the | | | origin | | | al.Pre | | | Manage | | | 09:09D | | | EBRA | | | [id number] | | | [id number] | | | This | | | patien | | | t has | | | regist | | | ered | | | at the | | | [facility] | | | [facility] | | | rne | | | Urgent | | | Care | | | Emerge | | | ncy | | | Depart | | | ment | | | For | | | more | | | inform | | | ation | | | visit: | | | | | | https: | | | //prov | | | .[email or web address] | | | arepla | | | [email or web address] | | | patien | | | [id number] | | | [id number] | | | [id number] | | | [id number] | | | [phone] | | | [id number] | | | [id number] | | | Securi | | | ty | | | Events | | | No | | | recent | | | | | | Securi | | | ty | | | Events | | | | | | curren | | | tly on | | | | | | fileED | | | Care | | | Guidel | | | inesTh | | | ere | | | are | | | curren | | | tly no | | | ED | | | Care | | | Guidel | | | alessandro | | | in | | | PreMan | | | age | | | for | | | this | | | patien | | | t. | | | Please | | | check | | | your | | | facili | | | ty's | | | medica | | | l | | | record | | | s | | | system | | | .Recen | | | t | | | Emerge | | | ncy | | | Depart | | | ment | | | Visit | | | [place] | | | yAdmit | | | Date | | | Facili | | | ty | | | City | | | State | | | Type | | | Major | | | Type | | | Diagno | | | ses or | | | Chief | | | | | | Compla | | | int | | | Eleno | | | 12, | | | 2018 | | | [facility] | | | [place] | | | rne | | | Urgent | | | Care | | | [place] | | | Urgent | | | Care | | | | | | Outpat | | | ient | | | | | | surger | | | y site | | | | | | draina | | | ge | | | Eleno 2, | | | 2018 | | | [place] | | | | | | Region | | | al | | | M.C. | | | [place] | | | [place] | | | Emerge | | | ncy | | | Emerge | | | ncy | | | Chief | | | Compla | | | int: | | | BLEEDI | | | NG | | | POST | | | OP | | | E.D. | | | Visit | | | Count | | | (12 | | | mo.)Fa | | | cility | | | | | | Visits | | | | | | [facility] | | | | | | Region | | | al | | | Medica | | | l | | | Center | | | 1 | | | Total | | | 1 | | | Note: | | | Visits | | | | | | indica | | | te | | | total | | | known | | | visits | | | . | | | Recent | | | | | | Inpati | | | ent | | | Visit | | | Summar | | | yAdmit | | | Date | | | Facili | | | ty | | | City | | | State | | | Type | | | Major | | | Type | | | Diagno | | | ses or | | | Chief | | | | | | Compla | | | int | | | Eleno 2, | | | 2018 | | | [facility] | | | | | | Region | | | al | | | [facility] | | | [place] | | | [place] | | | Surger | | | y | | | Inpati | | | ent | | | | | | Allerg | | | y | | | status | | | to | | | sulfon | | | amides | | | | | | status | | | | | | Sleep | | | apnea, | | | | | | unspec | | | ified | | | | | | Body | | | mass | | | index | | | (BMI) | | | 40.0-4 | | | 4.9, | | | adult | | | | | | Essent | | | ial | | | (prima | | | ry) | | | hypert | | | ension | | | | | | Morbid | | | | | | (sever | | | e) | | | obesit | | | y due | | | to | | | excess | | | | | | calori | | | es | | | Acute | | | respir | | | atory | | | failur | | | e, | | | unspec | | | ified | | | whethe | | | r with | | | | | | hypoxi | | | a or | | | hyperc | | | apnia | | | | | | Cellul | | | itis | | | of | | | abdomi | | | nal | | | wall | | | | | | Other | | | ascite | | | s | | | Gastro | | | -esoph | | | ageal | | | reflux | | | | | | diseas | | | e | | | withou | | | t | | | esopha | | | gitis | | | | | | Incisi | | | onal | | | hernia | | | with | | | obstru | | | ction, | | | | | | withou | | | t | | | gangre | | | ne | | | Care | | | Provid | | | ersPre | | | Manage | | | has | | | no | | | care | | | provid | | | ers on | | | | | | record | | | at | | | this | | | time. | | | Criter | | | ia met | | | 5 in | | | 60 3 | | | in | | | 60Know | | | n | | | Aliase | | | sNo | | | known | | | aliase | | | s. The | | | above | | | | | | inform | | | ation | | | is | | | provid | | | ed for | | | the | | | sole | | | purpos | | | e of | | | patien | | | t | | | treatm | | | ent. | | | Use of | | | this | | | inform | | | ation | | | beyond | | | the | | | terms | | | of | | | Data | | | Sharin | | | g | | | Memora | | | ndum | | | of | | | Unders | | | tandin | | | g and | | | Licens | | | e | | | Agreem | | | ent is | | | | | | prohib | | | ited. | | | In | | | certai | | | n | | | cases | | | not | | | all | | | visits | | | may | | | be | | | repres | | | ented. | | | | | | Consul | | | t the | | | aforem | | | ention | | | ed | | | facili | | | ties | | | for | | | additi | | | onal | | | inform | | | ation. | | | 2017 | | | Collec | | | tive | | | Medica | | | l | | | Techn[employer] | | | logies | | | , Inc[employer] | | | - | | | Salt | | | [employer] | | | [facility], | | | [place] - | | | info@c | | | ollect | | | ivemed | | | icalte | | | [email or web address] | | | | +---+--------+ from Last 3 Months Results POC Glucose (12/25/2017 0837)Only the most recent of 16 results within the time period is i ncluded. + + + + + | Component | Value | Ref Range | Performed At | + + + + + | Glucose, POC | 107 (H)Comment: | 65 - 99 mg/dL | [facility] | | | Performed by [facility] [address] | | [facility] | | | [address] [place] | | [facility] | | | [address] | | LABORATORY | | | | | [facility] | + + + + + + + | Specimen | + + | Blood | + + + + + + + | Performing | Address | City/State/Zipcode | Phone Number | | Organization | | | | + + + + + | [facility] | [address] | [place] [address] | | | [facility] | | | | | LABORAT[facility] | | | | + + + + + IMAGING REPORT - EXTERNAL SCAN (12/24/2017)Only the most recent of 2 results within the period is included. + + + | Narrative | Performed At | + + + | Ordered by an | | | unspecified provider. | | + + + CBC no Differential (12/22/2017317) + + + +--- + | Component | Value | Ref Range | Pe rformed At | + + + +--- + | WBC | 13.0 (H) | 3.8 - 11.0 K/uL | [facility] | | | | | [facility] | | | | | [facility] | | | | | [facility] | | | | | [facility] | + + + +--- + | RBC | 5.18 (H) | 3.70 - 5.10 M/uL | [facility] | | | | | [facility] | | | | | [facility] | | | | | [facility] | | | | | [facility] | + + + +--- + | Hgb | 13.0 | 11.3 - 15.5 g/dL | [facility] | | | | | [facility] | | | | | [facility] | | | | | [facility] | | | | | [facility] | + + + +--- + | Hct | 41.7 | 34.0 - 46.0 % | [facility] | | | | | [facility] | | | | | [facility] | | | | | [facility] | | | | | [facility] | + + + +--- + | MCV | 80.5 | 80.0 - 100.0 fL | [facility] | | | | | [facility] | | [facility] | | [facility] | | | | | [facility] | | | | | [facility] | + + + +--- + | MCH | 25.2 (L) | 27.0 - 34.0 pg | [facility] | | | | | [facility] | | | | | [facility] | | | | | [facility] | | | | | [facility] | + + + +--- + | MCHC | 31.2 (L) | 32.0 - 35.5 g/dL | [facility] | | | | | [facility] | [facility] | | | [facility] | | | | | [facility] | | | | | [facility] | + + + +--- + | RDW-CV | 17.5 (H) | 11.0 - 15.5 % | [facility] | | | | | [facility] | | | | | [facility] | | | | | [facility] | | | | | [facility] | + + + +--- + | Platelet Count | 274 | 150 - 400 K/uL | [facility] | | | | | [facility] | | | | | [facility] | | | | | [facility] | | | | | [facility] | + + + +--- + | MPV | 9.4Comment: Performed | 7.5 - 11.2 fL | [facility] | | | by [facility] [address] | | [facility] | | | [place] [address] | | [facility] | | |Performed by [facility] [address], [place] [address] | | [facility] | | | | | [facility] | + + + +--- + + + | Specimen | + + | Blood | + + + + + + + | Performing | Address | City/State/Zipcode | Phone Number | | Organization | | | | + + + + + | [facility] | [address] | [place] [address] | | | [facility] | | | | | [facility] | | | | + + + + + Basic Metabolic Panel (12/22/2017317) + + + + + | Component | Value | Ref Range | Performed At | + + + + + | NA | 142 | 135 - 145 mmol/L | [facility] | | | | | [facility] | | [facility] | | | | | [facility] | | | | | [facility] | + + + + + | K | 4.3 | 3.5 - 5.0 mmol/L | [facility] | | | | | [facility] | | | | [facility] | | | | | LAB[facility] | | | | | [facility] | + + + + + | CL | 109 | 99 - 109 mmol/L | [facility] | | | | | [facility] | | [facility] | | | | | LAB[facility]ATORY | | | | | [facility] | + + + + + | CO2 | 31 (H) | 21 - 28 mmol/L | [facility] | | | | | [facility] | | [facility] | | | | | [facility] | | | | | [facility] | + + + + + | ANION GAP | 2 (L) | 5 - 16 mmol/L | [facility] | | | | | [facility] | | [facility] | | | | | [facility] | | | | | [facility] | + + + + + | CALCIUM | 8.7 | 8.5 - 10.2 mg/dL | [facility] | | | | | [facility] | | | [facility] | | | | | LAB[facility] | | | | | [facility] | + + + + + | BUN | 11 | 8 - 25 mg/dL | [facility] | | | | | [facility] | | | [facility] | | | | | [facility] | | | | | [facility] | + + + + + | Creatinine, | 0.77 | 0.50 - 1.00 mg/dL | [facility] | | Serum/Plasma | | | [facility] | | | | | [facility] | | | | | LAB[facility]ORY | | | | | [facility] | + + + + + | GLUCOSE | 104 (H) | 65 - 99 mg/dL | [facility] | | | | | [facility] | | | | | [facility] | | | | | LAB[facility]ATORY | | | | | [facility] | + + + + + | Estimated GFR | 91Comment: eGFR<60 | >=90 mL/min/1.73m2 | [facility] | | | consistent with impaired | | [facility] | | | kidney | | [facility] | | | function.Performed by | | LABORATORY | | | [facility] [address], | | [facility] | | | [place] [address] | | | + + + + + + + | Specimen | + + | Blood | + + + + + + + | Performing | Address | City/State/Zipcode | Phone Number | | Organization | | | | + + + + + | [facility] | [address] | [place] [address] | | | [facility] | | | | | NAVEEN GARCIA | | | | + + + + + Tissue Request For Pathology (12/21/201736) + + + | Narrative | Performed At | + + + | | [facility] | | KATIE LOU | [facility] | | L : | [facility] | | 1970 AGE: 47 years | LABORATORY | | SEX: Female MRN: | RADHA | | [id number] Acct: [id number] | | | [id number] Location: [facility]; 724; | | | 724-02 Case | | | #: [id number] Ordering: | | | MIGUEL ANGEL BURKS MD | | | W Client: [facility] | | | [facility] Copy | | | To: Printed: 12/24/2017 12:59 | | | PDT | | | SURGICAL PATHOLOGY FINAL | | | REPORTCollected: Receiv | | | ed: Responsible | | | Pathologist:12/21/2017 09:36 PDT 12/21/2017 | | | 10:01 PDT VIGNESH LIVINGSTON | | | DIAGNOSIS:Ileocolic resection: | | | Portion of ileum and colon with edema and acute and chronic | | | serositis, associated with focal dense | | | adhesions. | | | Portion of benign appendix, with acute and chronic serositis and | | | fibrous adhesions. | | | Negative for malignancy.0CJT/RF 12/24/17 09:31 amVerified by: | | | VIGNESH LIVINGSTON MDVerify Date: 12/24/2017 12:59 pmPerforming | | | Location: [facility], | | | [facility] [address]OXROLDZ:The clinical and surgical history of a | | | multiply recurring incisional hernia is noted. The histologic | | | findings noted above are compatible with hernia related changes.GROSS | | | DESCRIPTION:The specimen labeled and designated "Lou- ileocolic | | | resection" is received in formalin and consists of an approximately | | | 60.0 cm in length segment of small bowel with contiguous segment of | | | cecum and ascending bowel measuring 3.0 cm in length. The serosa is | | | marked by dense adhesions adhering the small bowel unto itself. | | | Additional abundant soft tissue is also adherent to the bowel wall. An | | | attached vermiform appendix measures 3.8 cm in length and up to 1.0 | | | cm in diameter. The opened specimen shows soft, folded, gomez mucosa | | | with no exophytic or ulcerative lesions seen. The wall has an | | | edematous appearance. No diverticular are found.SUMMARY OF SECTIONS: | | | "A1" appendix; "A2" tissue adjacent to stapled small bowel margin; | | | "A3" tissue adjacent to stapled colonic margin; "A3-A4" random | | | exhibit display representative sections of small bowel wall.MA/SH07MICROSCOPIC | | | DESCRIPTION: | | | SURGICAL PATHOLOGY FINAL | | | REPORTCollected: Receiv | | | ed: Responsible | | | Pathologist:12/21/2017 09:36 PDT 12/21/2017 | | | 10:01 PDT VIGNESH LIVINGSTON | | | JAHANMICROSCOPIC DESCRIPTION:Histologic sections of all submitted | | | blocks are examined by light microscopy. Thesefindings, together with | | | the gross examination, support the pathologic diagnosis. | | + + + + + + + + | Performing | Address | City/State/Zipcode | Phone Number | | Organization | | | | + + + + + | [facility] SERRAN[facility] | [address] | [place] [address] | | | [facility] | | | | | LABORATORY [facility] | | | | + + + + + Anesthesia Airway Note (12/21/2017 0830) + + + | Narrative | Performed At | + + + | Tom Cortez CRNA 12/21/2017 8:30 Anesthesia Airway | | | Placement 12/21/2017 8:19 Preprocedure check: patient identified, | | | oxygen, airway assessed, suction, airway equipment checked and | | | patient reassessment prior to induction Rapid Sequence Induction: no | | | Mask ventilation: easy Successful technique: videoscope | | | Laryngoscope blade size: 3 Airway grade: 1 (Full view of glottis) | | | Other equipment: stylette Attempts: 1 Airway type: endotracheal | | | Size: 7 Cuffed: cuffed Route, reference point: right side of mouth | | | Tube depth: 21 cm Tube secured with: adhesive tape Trauma: none | | | Tube placement verification: bilateral chest rise, equal bilateral | | | breath sounds, carbon dioxide detection and video laryngoscope | | | Performing provider: TOM CORTEZ Electronically Signed by: | | | Tom Cortez | | | SWATHI Jolly | | | date/time: 12/21/2017 8:30 | | + + + + + | Procedure Note | + + | Tom Cortez SENIOR PHP SOFTWARE DEVELOPER - 12/21/2017 0830 PDT Anesthesia Airway Placement12/21/2017 | | 8:19Preprocedure check: patient identified, oxygen, airway assessed, suction, airway | | equipment checked and patient reassessment prior to inductionRapid Sequence Induction: | | noMask ventilation: easySuccessful technique: videoscopeLaryngoscope blade size: 3 | | Airway grade: 1 (Full view of glottis)Other equipment: styletteAttempts: 1Airway type: | | endotrachealSize: 7Cuffed: cuffedRoute, reference point: right side of mouthTube depth: | | 21 cmTube secured with: adhesive tapeTrauma: noneTube placement verification: bilateral | | chest rise, equal bilateral breath sounds, carbon dioxide detection and video | | laryngoscopePerforming provider: TOM CORTEZElectronically Signed by: Tom | Jesus Cortez CRNA ESi date/time: 12/21/2017 8:30 | |Attempts: 1 | |Airway type: endotracheal | |Size: 7 | |Cuffed: cuffed | |Route, reference point: right side of mouth | |Tube depth: 21 cm | |Tube secured with: adhesive tape | |Trauma: none | |Tube placement verification: bilateral chest rise, equal bilateral breath sounds, carbon di oxide detection and video laryngoscope | |Performing provider: TOM CORTEZ | | | | | |Electronically Signed by: Tom Cortez CRNA ESi date/time: 8:30 | | | + + Anesthesia Peripheral IV Note (12/21/2017817) + + + | Narrative | Performed At | + + + | Tom Cortez CRNA 12/21/2017 8:18 Intravenous Line | | | Placement 12/21/2017 8:18 Indication: routine patient was: under | | | GA Side: right Vein location: wrist Size: 18 g Localization | | | technique: landmark Securement: transparent dressing Placed | | | by: ARLYN SUTHERLAND Electronically Signed by: Tom | | | SWATHI Cortez ESig | | | date/time: 12/21/2017 8:18 | | + + + + ------+ | Procedure Note | + ------+ | Tom Cortez CRNA - 12/21/2017 0818 PDT Intravenous Line Placement12/21/2017 | | 8:18Indication: routinepatient was: under GASide: rightVein location: wristSize: 18 g | | Localization technique: landmarkSecurement: transparent dressingPlaced by: ARLYN SUTHERLAND | | ALEJANDRAElectronically Signed by: Tom Cortez CRNA [facility] date/time: | | 12/21/2017 8:18 | |patient was: under GA | |Side: right | |Vein location: wrist | |Size: 18 g | |Localization technique: landmark | |Securement: transparent dressing | |Placed by: ARLYN SUTHERLAND | | | | | |Electronically Signed by: Tom Cortez CRNA [facility] date/time: 12/21/2017 8:18 | + ------+ ECG 12 lead (12/21/2017 0803) + + + | Narrative | Performed At | + + + | HEART RATE:77 | [facility] | | bpmRR Interval:779 msAtrial Rate:77 msP-R Interval:180 msP | [facility] | | Duration:184 msP Horizontal Hydro:20 degP Front Hydro:67 degQ Onset:508 | | | msQRSD Interval:82 msQT Interval:392 msQTcB:444 msQTcF:426 msQRS | | | Horizontal Hydro:-33 degQRS Hydro:29 degI-40 Horizontal Hydro:-2 degI-40 | | | Front Hydro:30 degT-40 Horizontal Hydro:-48 degT-40 Front Hydro:26 degT | | | Horizontal Hydro:59 degT Wave Hydro:64 degS-T Horizontal Hydro:75 degS-T | | | Front Hydro:72 degSeverity:- NORMAL ECG -INTERP:SINUS | | | RHYTHMElectronically signed by: Juan Antonio CASTILLO 12-21-2017 15:31:08 | | |QT Interval:392 ms | | |QTcB:444 ms | | |QTcF:426 ms | | |QRS Horizontal Hydro:-33 deg | | |QRS Hydro:29 deg | | |I-40 Horizontal Hydro:-2 deg | | |I-40 Front Hydro:30 deg | | |T-40 Horizontal Hydro:-48 deg | | |T-40 Front Hydro:26 deg | | |T Horizontal Hydro:59 deg | | |T Wave Hydro:64 deg | | |S-T Horizontal Hydro:75 deg | | |S-T Front Hydro:72 deg | | |Severity:- NORMAL ECG - | | |INTERP:SINUS RHYTHM | | |Electronically signed by: Juan Antonio CASTILLO 12-21-2017 15:31:08 | | + + + + + + + + | Performing | Address | City/State/Zipcode | Phone Number | | Organization | | | | + + + + + | [facility] | [address] | [place] [address] | [phone] | + + + + + CT Abdomen Pelvis w Contrast (12/20/20171954) + + + | Impressions | Performed At | + + + | IMPRESSION: 1. Ventral wall hernia containing nondilated small | [facility] | | bowel loops. The small-bowel loops do demonstrate wall thickening | | | with adjacent edema. This finding could relate to infectious, | | | inflammatory, and/or ischemic process. Surgical consult | | | recommended. Hemorrhage within this bowel could result in similar | | | appearance. 2. Bilateral hip joint degenerative changes. 3. Facet | | | degenerative changes lower lumbar spine. 4. Atherosclerosis coronary | | | arteries. 5. Incompletely imaged soft tissue attenuation right | | | breast. This finding could relate to unremarkable breast parenchyma | | | however breast lesion not excluded. Diagnostic mammogram | | | recommended. 6. Bilateral adrenal nodules. Findings are | | | nonspecific but most commonly associated with adenoma. Recommend CT | | | abdomen without and with contrast to further characterize the | | | lesions. . Dictated by: Jose Jeronimo | | + + + + + + | Narrative | Performed At | + + + | EXAMINATION: CT ABDOMEN PELVIS W CONTRAST HISTORY: ABDOMINAL | [facility] | | PAIN; POST-OP PROBLEM COMPARISON STUDY: No comparison. | | | TECHNIQUE: 5 mm axial slices were acquired through the abdomen and | | | pelvis with contrast. DOSE REPORT: CTDIvol: 29.4 mGy. DLP: 1645 | | | mGy-cm. Automated exposure control was utilized. FINDINGS: | | | Genitourinary: The kidneys enhance symmetrically. No solid | | | enhancing renal lesion, hydronephrosis, or calcified collecting system | | | calculi are seen. No focal bladder wall thickening. The uterus | | | is present and appears within normal volume. A radiopaque | | | structure is present in the region of the right fallopian | | | to. Ovaries appear within normal volume.. Gastrointestinal: A | | | ventral wall hernia is present with origin of approximately 18 | | | cm. Loops of distal small bowel into the hernia defect. Bowel | | | wall thickening is present with adjacent edema. Maximal caliber of | | | bowel loops is approximately 2.3 cm. Distinct twisting/volvulus | | | appearance involving the loops of bowel not clearly demonstrated. | | | A few colonic diverticula present without CT finding and | | | diverticulitis. The liver, gallbladder, spleen, and pancreas appear | | | within normal limits. At the left adrenal gland a hypoattenuating | | | 11 mm nodule is noted with attenuation of 18. At the right | | | adrenal gland a 1.7 cm hypoattenuating nodule is noted with | | | attenuation of 45. Also present is additional approximate 8 mm | | | nodule. Musculoskeletal: Facet degenerative changes | | | L5-S1. Endplate degenerative spurring lower thoracic spine. At | | | the left acetabulum approximate 8 mm sclerotic nodules noted too small | | | to characterize but most typically associated benign process such as | | | bone island. Subchondral cyst formation present at the acetabulum | | | bilaterally.. Retroperitoneum: Normal aorta. No adenopathy.. | | | Lung base: Heart size normal. No lobar consolidation or | | | nodule.. Atherosclerosis coronary arteries. Partially imaged | | | asymmetric soft tissue of approximately 7 mm noted lateral right | | | breast incompletely imaged. | | + + + + + | Procedure Note | + + | Maico, Rad Results In - 12/21/2017 0755 PDT EXAMINATION: CT ABDOMEN PELVIS W | | CONTRASTHISTORY:ABDOMINAL PAIN; POST-OP PROBLEMCOMPARISON STUDY:No | | comparison.TECHNIQUE:5 mm axial slices were acquired through the abdomen and pelvis with | | contrast.DOSE REPORT:CTDIvol: 29.4 mGy. DLP: 1645 mGy-cm. Automated exposure control | | was utilized.FINDINGS:Genitourinary: The kidneys enhance symmetrically. No solid | | enhancing renal lesion, hydronephrosis, or calcified collecting system calculi are seen. | | No focal bladder wall thickening. The uterus is present and appears within normal | | volume. A radiopaque structure is present in the region of the right fallopian to. | | Ovaries appear within normal volume..Gastrointestinal: A ventral wall hernia is present | | with origin of approximately 18 cm. Loops of distal small bowel into the hernia defect. | | Bowel wall thickening is present with adjacent edema. Maximal caliber of bowel loops | | is approximately 2.3 cm. Distinct twisting/volvulus appearance involving the loops of | | bowel not clearly demonstrated.A few colonic diverticula present without CT finding and | | diverticulitis. The liver, gallbladder, spleen, and pancreas appear within normal | | limits. At the left adrenal gland a hypoattenuating 11 mm nodule is noted with | | attenuation of 18. At the right adrenal gland a 1.7 cm hypoattenuating nodule is noted | | with attenuation of 45. Also present is additional approximate 8 mm | | nodule.Musculoskeletal: Facet degenerative changes L5-S1. Endplate degenerative | | spurring lower thoracic spine. At the left acetabulum approximate 8 mm sclerotic | | nodules noted too small to characterize but most typically associated benign process | | such as bone island. Subchondral cyst formation present at the acetabulum | | bilaterally..Retroperitoneum: Normal aorta. No adenopathy..Lung base: Heart size | | normal. No lobar consolidation or nodule.. Atherosclerosis coronary arteries. | | Partially imaged asymmetric soft tissue of approximately 7 mm noted lateral right breast | | incompletely imaged.IMPRESSION: IMPRESSION:1. Ventral wall hernia containing nondilated | | small bowel loops. The small-bowel loops do demonstrate wall thickening with adjacent | | edema. This finding could relate to infectious, inflammatory, and/or ischemic process. | | Surgical consult recommended. Hemorrhage within this bowel could result in similar | | appearance.2. Bilateral hip joint degenerative changes.3. Facet degenerative changes | | lower lumbar spine.4. Atherosclerosis coronary arteries.5. Incompletely imaged soft | | tissue attenuation right breast. This finding could relate to unremarkable breast | | parenchyma however breast lesion not excluded. Diagnostic mammogram recommended.6. | | Bilateral adrenal nodules. Findings are nonspecific but most commonly associated with | | adenoma. Recommend CT abdomen without and with contrast to further characterize the | | lesions..Dictated by: Jose Jeronimo | | 7:52 AM | |IMPRESSION: | |IMPRESSION: | |1. Ventral wall hernia containing nondilated small bowel loops. The small-bowel loops do d emonstrate wall thickening with adjacent edema. This finding could relate to infectious, in flammatory, and/or ischemic process. Surgical consult recommended. | |Hemorrhage within this bowel could result in similar appearance. | |2. Bilateral hip joint degenerative changes. | |3. Facet degenerative changes lower lumbar spine. | |4. Atherosclerosis coronary arteries. | |5. Incompletely imaged soft tissue attenuation right breast. This finding could relate to unremarkable breast parenchyma however breast lesion not excluded. Diagnostic mammogram rec ommended. | |6. Bilateral adrenal nodules. Findings are nonspecific but most commonly associated with a denoma. Recommend CT abdomen without and with contrast to further characterize the lesions. | |. | | | |Dictated by: Jose Jeronimo | | | | | + + + +---------+ + + | Performing | Address | City/State/Zipcode | Phone Number | | Organization | | | | + +---------+ + + | [facility] | | | | + +---------+ + + CBC with Differential (12/20/20171923) + + + + + | Component | Value | Ref Range | Performed At | + + + + + | WBC | 11.0 (H) | 4.3 - 10.4 K/uL | [facility] | | | | | [facility] | + + + + + | RBC | 5.32 (H) | 4.12 - 5.30 M/uL | [facility] | [facility] | | | [facility] | + + + + + | Hgb | 13.2 | 12.4 - 15.7 g/dL | [facility] | [facility] | | | [facility] | + + + + + | Hct | 43.2 | 37.7 - 47.0 % | [facility] | [facility] | | | [facility] | + + + + + | MCV | 81.2 (L) | 82.0 - 97.0 fL | [facility] | [facility] | | | [facility] | + + + + + | MCH | 24.8 (L) | 27.1 - 32.3 pg | [facility] | | | [facility] | + + + + + | MCHC | 30.6 (L) | 32.0 - 36.9 g/dL | [facility] | [facility] | | | [facility] | + + + + + | RDW-CV | 16.5 | 0.0 - 17.0 % | [facility] | [facility] | | | [facility] | + + + + + | Platelet Count | 282 | 150 - 450 K/uL | [facility] | | [facility] | + + + + + | MPV | 11.0 | 9.4 - 12.3 fL | [facility] | [facility] | | | [facility] | + + + + + | % Neutrophils | 66.2 | 42.0 - 76.0 % | [facility] | | | | [facility] | + + + + + | % Lymphocytes | 22.4 | 20.0 - 40.0 % | [facility] | | | | | [facility] | + + + + + | % Monocytes | 6.0 | 3.0 - 13.0 % | [facility] | | | | [facility] | + + + + + | % Eosinophils | 4.5 | 0.0 - 7.0 % | [facility] | | | | | [facility] | + + + + + | % Basophils | 0.5 | 0.0 - 2.0 % | [facility] | | | | | [facility] | + + + + + | % Immature | 0.4 | 0.0 - 0.5 % | [facility] | | granulocytes | | | [facility] | | | | | [facility]ORY | + + + + + | Absolute Neutrophils | 7.27 | 2.50 - 8.50 K/uL | [facility] | | | | | [facility] | + + + + + | Absolute Lymphocytes | 2.45 | 1.00 - 3.80 K/uL | [facility] | | | | | [facility] | + + + + + | Absolute Monocytes | 0.66 | 0.00 - 0.80 K/uL | [facility] | | | | | [facility] | + + + + + | Absolute Eosinophils | 0.49 | 0.00 - 0.70 K/uL | [facility] | | | | | [facility] | + + + + + | Absolute Basophils | 0.05 | 0.00 - 0.20 K/uL | [facility] | | | | | [facility] | + + + + + | Absolute Imm. | 0.04 | 0.00 - 0.15 K/UL | [facility] | | Granulocytes | | | [facility] | | | | | [facility] | + + + + + | nRBC | 0 | 0 - 0 per 100 WBC's | [facility] | | | | | [facility] | + + + + + | NRBC ABS | 0.00 | 0.00 - 0.01 K/UL | [facility] | [facility] | | | | | [facility] | + + + + + + + | Specimen | + + | Blood | + + + + + + + | Performing | Address | City/State/Zipcode | Phone Number | | Organization | | | | + + + + + | [facility] | [address] | [place] [address] | [phone] | | [facility] | | | | + + + + + Lipase (12/20/20171923) + +-------+ + + | Component | Value | Ref Range | Performed At | + +-------+ + + | LIPASE | 144 | 73 - 393 U/L | [facility] | | | | | [facility] | + +-------+ + + + + | Specimen | + + | Blood | + + + + + + + | Performing | Address | City/State/Zipcode | Phone Number | | Organization | | | | + + + + + | [facility] | [address] | [place] [address] | [phone] | | [facility] | | | | + + + + + Comprehensive Metabolic Panel (12/20/20171923) + + + + + | Component | Value | Ref Range | Performed At | + + + + + | NA | 136 | 132 - 143 mmol/L | [facility] | | | | | [facility] | + + + + + | K | 3.3 | 3.3 - 4.9 mmol/L | [facility] | | | | | [facility] | + + + + + | CL | 100 | 95 - 108 mmol/L | [facility] | | | | | [facility] | + + + + + | CO2 | 31 | 23 - 34 mmol/L | [facility] | | | | | [facility] | + + + + + | ANION GAP | 5 (L) | 7 - 16 mmol/L | [facility] | [facility] | | | | | [facility] | + + + + + | GLUCOSE | 137 (H) | 70 - 110 mg/dL | [facility] | [facility] | | | | | [facility] | + + + + + | BUN | 13 | 5 - 26 mg/dL | [facility] | | | | | [facility] | + + + + + | Creatinine, | 1.10 | 0.60 - 1.30 mg/dL | [facility] | | Serum/Plasma | | | [facility] | | | | | [facility] | + + + + + | eGFR if not | 53 (L)Comment: | >=60 mL/min/1.73m2 | [facility] | | [place] | GLOMERULAR FILTRATION | | [facility] | | | RATE,ESTIMATED mL/min | | LABORATORY | | | /1.71r2Hhxn than 60 | | | | | Chronic kidney | | | | | disease,if found over a | | | | | 3-month period.Less than | | | | | 15 Kidney | | | | | failureFor | | | | | Americans,multiply the | | | | | calculated GFR by 1.21. | | | | | | | | + + + + + | CALCIUM | 8.5 | 8.3 - 10.0 mg/dL | [facility] | | | | [facility] | | | | | [facility] | + + + + + | ALBUMIN | 2.7 (L) | 3.0 - 4.5 g/dL | [facility] | [facility] | | | | | [facility] | + + + + + | Bilirubin Total | 0.2 | 0.0 - 1.2 mg/dL | [facility] | [facility] | [facility] | | | | | [facility] | + + + + + | Total protein | 6.4 (L) | 6.6 - 8.5 g/dL | [facility] | [facility] | | | | | [facility] | + + + + + | AST | 14 | 0 - 38 U/L | [facility] | | | | | [facility] | + + + + + | ALT | 18 | 14 - 59 U/L | [facility] | | | | | [facility] | + + + + + | ALK PHOS | 22 (L) | 46 - 116 U/L | [facility] | | | | | [facility] | + + + + + | GLOBULIN | 3.7 | g/dL | [facility] | [facility] | | | | | [facility] | + + + + + | Albumin/Globulin | 0.7 | | [facility] | | ratio | | | [facility] | | | | | [facility]ORY | + + + + + | BUN/CREA | 11.8 | 7.0 - 24.0 | [facility] | | | | [facility] | | | | | [facility] | + + + + + + + | Specimen | + + | Blood | + + + + + + + | Performing | Address | City/State/Zipcode | Phone Number | | Organization | | | | + + + + + | [facility] | [address] | [place] [address] | [phone] | | [facility] | | | | + + + + + from Last 3 Months Insurance +-------+--------+ +------+-------+---------+ | Payer | Benefi | Subscriber | Type | Phone | Address | | | t Plan | ID | | | | | | / | | | | | | | Group | | | | | +-------+--------+ +------+-------+---------+ | [employer] | [employer] | [id number] | PPO | | | | | OUT OF | [id number] | | | | | | STATE | | | | | | | PPO | | | | | +-------+--------+ +------+-------+---------+ + +--------+ +--------+ + + | Guarantor Name | Accoun | Relation to | Date | Phone | Billing Address | | | t Type | Patient | of | | | | | | | | | | + +--------+ +--------+ + + | KATIE LOU | Person | Self [birth year] Home: | [address] | | | al/Fam | | [phone] | [phone] [place] | | | [place] | | | [phone] | + +--------+ +--------+ + + | KATIE LOU | Person | Self | [birth year] | Home: | [address] | | | al/Fam | | [phone] | [phone] | [place] | | | [place] | | | [phone] | [phone] | + +--------+ +--------+ + +
--- NOTE | 2018-02-05 09:44 | CONS ---
[facility] [address], [place] [address] Signed DATE OF CONSULTATION: 02/04/2018 CONSULTING PHYSICIAN: Sumaya Velásquez MD. REQUESTING PHYSICIAN: Dr. Guilherme Hinojosa. PROBLEM: Recently drained recurrent periumbilical wound infection. HISTORY OF PRESENT ILLNESS: This 48-year-old white woman presented to the emergency room today having been seen two days ago in the emergency room at [facility] and evaluated by Dr. Guilherme Stout at that time. At that time, she was noted to have a wound infection from recurrent operation in the region of the umbilicus. At that time, he drained at least a cupful of purulent material. The wound was packed with Nu Gauze. She was prescribed cephalexin antibiotic and asked to return for followup. She has returned and she has been doing much better. With a fair amount of effort and I believe reasonable accuracy, her problems started as follows: The patient was living in [place] where she underwent an umbilical hernia repair. She was markedly obese at that time and remained 107.5 kg currently and 40 pounds heavier at that time. Her operation performed in [place] included repair of the umbilical hernia with implantation of mesh. The patient travels on behalf of [facility]. 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 Sometime after her operation in [place], she was in [place], [place] in her work capacity where she was noted to have purulent drainage from the wound. While in [place], [place], she underwent exploration of the abdominal wall where as she describes an infected mesh was noted. This was explanted. I am not sure what remedy was provided for this problem. She had local wound care of some sort and then travel to [place] where she has family members and was recuperating. She returned to [place] where she did not see her operating surgeon from the original operation, but rather that surgeon's partner a female. She was noted to have a wound that was healing, but another hernia was noted lateral to the wound, but no additional management of that hernia was anticipated at that time. She then found herself in [facility] on yet another assignment where she began having worsening pain in the area. She was evaluated by a surgeon in [facility] who identified probable incarcerated hernia with bowel loops presumably by both clinical and radiographic evidence and was transferred to [place]. Her transport to [place] was by a [employer] costing $68,000 according to her . We felt then incapable of managing the problem in [facility]. While Electronically Signed By: SUMAYA VELÁSQUEZ MD 02/05/18 0944 PATIENT NAME: WALE SILVERIO CONSULTATION DATE OF : 66 REPORT #: [id number] PHYSICIAN: SUMAYA VELÁSQUEZ MD PCP: OTHER PCP REPORT IS CONFIDENTIAL AND NOT TO BE RELEASED WITHOUT AUTHORIZATION [facility] [address] [place] [id number] Signed in [place], she underwent operation at [facility] from what I gather, which showed a segment of bowel that was incarcerated in the secondary hernia which required segmental resection. Implantation of a biologic mesh was undertaken and a wound VAC applied. She had continued healing and recovery though she was apparently reasonably toxic at the initial evaluation. 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 It is her intention to return to the [facility] where she intends to set up her household in a more permanent status. She noted erythema and pain and presented to the emergency room 2 days ago where she was evaluated by Dr. Stout who as I described and performed an incision and drainage and packing of the wound. I talked with Dr. Hinojosa and gram stain and cultures were obtained, but for some reason not appropriately labeled through the computer and were not done at that time. His evaluation today of the wound allowed for additional culturing of the wound though she has been on cephalexin for at least 48 hours. The patient today is doing markedly better according to herself and her as well as Dr. Hinojosa who saw her two days ago. Her white count is now normal at 7.0, hematocrit 40.8 and Chem profile is considered normal as well. Her urinalysis was normal. She is having no nausea or vomiting. No particular pain in the abdomen and no significant drainage. PAST MEDICAL HISTORY: Includes smoking on a daily basis and morbid obesity. She does not have diabetes. SOCIAL HISTORY: She is . She has lived in various places as previously described. 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 REVIEW OF SYSTEMS: She denies any shortness of breath or chest pains. She had no wound drainage lately. Denies abdominal pain. PHYSICAL EXAMINATION: GENERAL: A morbidly obese white woman. She is accompanied by her . NECK: Trachea is midline. Mucous membranes are moist. CHEST: Clear. HEART: Regular. ABDOMEN: Quite obese. Examination shows a relatively long transverse incision near the umbilicus. There is an area of previous incision and drainage for which a Nu Gauze packing is noted. There is no erythema or fluctuance. There is no tenderness Electronically Signed By: SUMAYA VELÁSQUEZ MD 02/05/18 0944 PATIENT NAME: WALE SILVERIO CONSULTATION DATE OF : 66 REPORT #: [id number] PHYSICIAN: SUMAYA VELÁSQUEZ MD PCP: OTHER PCP REPORT IS CONFIDENTIAL AND NOT TO BE RELEASED WITHOUT AUTHORIZATION [facility] [address], [place] [address] Signed particularly. EXTREMITIES: No clubbing, cyanosis, or edema. LABORATORY DATA: Show white count of 7.0, hematocrit 40.8, and platelets 304,000 as described. I have reviewed the CT scan in detail with the radiologist. I had recommended a CT scan with enteric contrast and IV contrast which was accomplished. There appears to be no obvious sign of fistula. The fascial edge appears to be well approximated. There are changes of inflammation in the deep subcutaneous space, but no sign of undrained fluid collections that can be seen. There are some air pockets in the area of recent drainage. She does not have an appearance of necrotizing fasciitis. ASSESSMENT: She has had a litany of complications related to umbilical hernia repair initially performed in [place], [place] and various points of treatment to include [place], [place]; [facility] and [place] [place]. She is now here and likely to be here for some amount of time. I have recommended her to continue with her cephalexin as previously prescribed. The culture from today will be sought. I advised her to discontinue smoking. I advised her that she is highly probable to have an incisional hernia by the end of all of this related to the infection and so forth. The mesh that was implanted was absorbable presumably and although useful in bridging the defect will not be a durable hernia repair most likely. It is not in variable of course, but it is probable. I would like to see her back in my office in about 2 weeks. Have recently been presented with some of the medical notes from her various hospitalizations, which I will review and put into context with her current situation. If she should have increasing pain, drainage, erythema, or other issues, she is to return to the emergency room or to call me if I am available at that time. She may require additional surgical intervention including wide opening of the wound, wound VAC application, and so forth. It is unlikely though not impossible that there remains a foreign body within the wound that may have accounted for most recent infection, but her obesity and ongoing smoking pose a greatest risk to her actually. Sumaya Velásquez MD Electronically Signed By: SUMAYA VELÁSQUEZ MD 02/05/18 0944 PATIENT NAME: WALE SILVERIO CONSULTATION DATE OF : 66 REPORT #: [id number] PHYSICIAN: SUMAYA VELÁSQUEZ MD PCP: OTHER PCP REPORT IS CONFIDENTIAL AND NOT TO BE RELEASED WITHOUT AUTHORIZATION [facility] [address], [place] [address] Signed KELLY/HOSSEIN /[id number] cc: Guilherme Hinojosa MD [facility] Copies: GUILHERME HINOJOSA MD ~ Electronically Signed By: SUMAYA VELÁSQUEZ MD 02/05/18 0944 PATIENT NAME: WALE SILVERIO CONSULTATION DATE OF : 66 REPORT #: [id number] PHYSICIAN: SUMAYA VELÁSQUEZ MD PCP: OTHER PCP REPORT IS CONFIDENTIAL AND NOT TO BE RELEASED WITHOUT AUTHORIZATION
== END 2018-02-04 12:27 | disposition home or self-care (01) ==
LOC: ED 07:16
DX: L02.211 Cutaneous abscess of abdominal wall (principal); I10 Essential (primary) hypertension; F17.200 Nicotine dependence, unspecified, uncomplicated; Z88.2 Allergy status to sulfonamides; Z79.899 Other long term (current) drug therapy
CPT/HCPCS: 74178; 80053; 81001; 83690; 85025; 99283; Q9967

== ENCOUNTER 2019-12-23 13:17 | Emergency (ER) | payer OTHER ==
[~2019-12-23] VITALS: Ht 172.7 cm; Wt 112.0 kg
--- OUTSIDE RECORDS SUMMARY | ~2019-12-23 | XMS | Encounter Summary ---
Demographics + + + | Address | [address] | | | [place] [address] | + + + | Home Phone | | + + + | Preferred Language | Unknown | + + + | Marital Status | | + + + | Episcopalian Affiliation | Unknown | + + + | Race | Unknown | + + + | Ethnic Group | Unknown | + + + Author + + + | Author | [facility] [place] | | | and [place] | + + + | Organization | [facility] [place] | | | and [place] | + + + | Address | Unknown | + + + | Phone | Unavailable | + + + Support + + + + + | Name | Relationship | Address | Phone | + + + + + | Tam Lou | ECON | [address] | | | | | [place] [address] | | + + + + + | Cristal Yu | ECON | Unknown | | + + + + + Care Team Providers + +------+ + | Care Metal Grinder Name | Role | Phone | + +------+ + PCP | Unavailable | + +------+ + Encounter Details +--------+ + + + + | Date | Type | Department | Care Team | Description | +--------+ + + + + | 07/22/ | Hospital | [facility] | Severiano Kay MD | | | 2001 - | Encounter | FAMILY EMERGENCY | [address] | | | | | CENTER [address] [place], [place] | | | 07/23/ | | [address] | [address] | | | 2001 | | [place], [place] | | | | | | [address] | | | | | | [phone] | | | +--------+ + + + + Social History + +-------+ +--------+------+ | Tobacco Use | Types | Packs/Day | Years | Date | | | | | Used | | + +-------+ +--------+------+ | Never Assessed | | | | | + +-------+ +--------+------+ + + + | Sex Assigned at | Date Recorded | | | | + + + | Not on file | | + + + documented as of this encounter Plan of Treatment +--------+---------+ + + + | Date | Type | Specialty | Care Team | Description | +--------+---------+ + + + | 12/30/ | Office | Pulmonology | [place], | | | 2020 | Visit | | Daphne Angelo, | | | | | | MD [address] | | | | | | [place], | | | | | | [place] [address] | | | | | | [phone] | | | | | | | | +--------+---------+ + + + documented as of this encounter Visit Diagnoses Not on filedocumented in this encounter"
--- OUTSIDE RECORDS SUMMARY | ~2019-12-23 | XMS | Encounter Summary ---
Demographics + + + | Address | [address] | | | [place] [address] | + + + | Home Phone | | + + + | Preferred Language | Unknown | + + + | Marital Status | | + + + | Pentecostal Affiliation | Unknown | + + + | Race | Unknown | + + + | Ethnic Group | Unknown | + + + Author + + + | Author | [facility] [place] | | | and [place] | + + + | Organization | [facility] [place] | | | and [place] | + + + | Address | Unknown | + + + | Phone | Unavailable | + + + Support + + + + + | Name | Relationship | Address | Phone | + + + + + | Tam Lou | ECON | [address] | | | | | [place] [address] | | + + + + + | Cristal Yu | ECON | Unknown | | + + + + + Care Team Providers + +------+ + | Care Tack Picker Name | Role | Phone | + +------+ + PCP | Unavailable | + +------+ + Encounter Details +--------+ + + + + | Date | Type | Department | Care Team | Description | +--------+ + + + + | 05/23/ | Hospital | [facility] | Girish Rodriguez MD | | | 2005 | Encounter | [facility] | [address] | | | | | [address] | [address] [place] | | | | | [place] | [address] | | | | | [address] | [phone] | | | | | [phone] | | | +--------+ + + + [...] | Pulmonology | [place], | | | 2019 | Visit | | Daphne Angelo, | | | | | | MD [address] | | | | | | [place], | | | | | | [place] [address] | | | | | | [phone] | | | | | | | | +--------+---------+ + + + documented as of this encounter Visit Diagnoses Not on filedocumented in this encounter"
--- OUTSIDE RECORDS SUMMARY | ~2019-12-23 | XMS | Encounter Summary ---
Demographics + + + | Address | [address] | | | [place] [address] | + + + | Home Phone | | + + + | Preferred Language | Unknown | + + + | Marital Status | | + + + | Yazidism Affiliation | Unknown | + + + | Race | Unknown | + + + | Ethnic Group | Unknown | + + + Author + + + | Author | [facility] [place] | | | and [place] | + + + | Organization | [facility] | | | and [place] | + + + | Address | Unknown | + + + | Phone | Unavailable | + + + Support + + + + + | Name | Relationship | Address | Phone | + + + + + | Tam Lou | ECON | [address] | | | | | [place] [address] | | + + + + + | Cristal Yu | ECON | Unknown | | + + + + + Care Team Providers + +------+ + | Care Tools Administrator Name | Role | Phone | + +------+ + PCP | Unavailable | + +------+ + Encounter Details +--------+ + + + + | Date | Type | Department | Care Team | Description | +--------+ + + + + | 08/16/ | Hospital | [facility] | Jose Maria Murphy, | | | 2001 | Encounter | FAMILY EMERGENCY | [address] | | | | [address] | [facility] | | | | | [facility] | [place] [address] | | | | | [place] | [phone] | | | | | [address] | | | | | | [phone] | | | +--------+ + + + [...] | | | | | | [place] [address] | | | | | | [phone] | | | | | | | | +--------+---------+ + + + documented as of this encounter Visit Diagnoses Not on filedocumented in this encounter"
--- OUTSIDE RECORDS SUMMARY | ~2019-12-23 | XMS | Encounter Summary ---
Demographics + + + | Address | [address] | | | [place] [address] | + + + | Home Phone | | + + + | Preferred Language | Unknown | + + + | Marital Status | | + + + | Shinto Affiliation | Unknown | + + + | Race | Unknown | + + + | Ethnic Group | Unknown | + + + Author + + + | Author | [facility] [place] | | | and [place] | + + + | Organization | [facility] [place] | | | and [place] | + + + | Address | Unknown | + + + | Phone | Unavailable | + + + Support + + + + + | Name | Relationship | Address | Phone | + + + + + | Tam Lou | ECON | [address] | | | | | [place] [address] | | + + + + + | Cristal Yu | ECON | Unknown | | + + + + + Care Team Providers + +------+ + | Care Service Center Representative Name | Role | Phone | + +------+ + | Pcp, Prov Inactive | PCP | | + +------+ + Encounter Details +--------+ + + + + | Date | Type | Department | Care Team | Description | +--------+ + + + + | 01/09/ | Home Care | [facility] | Marva Sifuentes, | CASE COMMUNICATION | | 2018 | Visit | [address] | [place] | | | | | [place], [place] | | | | | | [address] | | | | | | [phone] | | | +--------+ + + + + Social History + + + +--------+------+ | [...] + +---------+ + | Alcohol Use | Drinks/Week | oz/Week | Comments | + + +---------+ + | Yes [...] | | | | | | [place] [address] | | | | | | [phone] | | | | | | | | +--------+---------+ + + + documented as of this encounter Visit Diagnoses Not on filedocumented in this encounter"
--- OUTSIDE RECORDS SUMMARY | ~2019-12-23 | XMS | Encounter Summary ---
Demographics + + + | Address | [address] | | | [place] [address] | + + + | Home Phone | | + + + | Preferred Language | Unknown | + + + | Marital Status | | + + + | Sikh Affiliation | Unknown | + + + | Race | Unknown | + + + | Ethnic Group | Unknown | + + + Author + + + | Author | [facility] | | | and [place] | + + + | Organization | [facility] | | | and [place] | + + + | Address | Unknown | + + + | Phone | Unavailable | + + + Support + + + + + | Name | Relationship | Address | Phone | + + + + + | Tam Lou | ECON | [address] | | | | | [place] [address] | | + + + + + | Cristal Yu | ECON | Unknown | | + + + + + Care Team Providers + +------+ + | Care Journeyman Glazier Name | Role | Phone | + +------+ + | Pcp, Prov Inactive | PCP | | + +------+ + Reason for Referral Home Health Care (Routine) +--------+ + + + + + | Status | Reason | Specialty | Diagnoses / | Referred By | Referred To | | | | | Procedures | Contact | Contact | +--------+ + + + + + | Closed | Specialty | Home Health | Diagnoses | Gutsche, | Prov Hh | | | Services | Services | Recurrent | Sriram J, | [place] [address] | | | Required | | incisional | PA-C [address] | | | | | hernia with | [address] | [place] | | | | | incarceratio | [place], | [place], [place] | | | | | n | [place] | [address] | | | | | | Phone: | Phone: | | | | | | [phone] | [phone] | | | | | | Fax: | Fax: | | | | | | [phone] | [phone] | +--------+ + + + + + Evaluate & Treat (Routine) +--------+ + + + + + | Status | Reason | Specialty | Diagnoses / | Referred By | Referred To | | | | | Procedures | Contact | Contact | +--------+ + + + + + | Closed | Specialty | Home Health | Diagnoses | Roehrig, | DO NOT USE | | | Services | Services | Recurrent | Usama | - HH | | | Required | | incisional | MD Jagdish | [facility] | | | | | hernia with | [address] | [facility] | | | | | incarceratio | [address]VE | [address] | | | | | n | [place], [place] | [address] | | | | | | [address] | [place] | | | | | | Phone: | [place] | | | | | | [phone] | [address] | | | | | | Fax: | Phone: | | | | | | [phone] | [phone] | | | | | | | Fax: | | | | | | | [phone] | +--------+ + + + + + Reason for Visit Auth/Cert +--------+--------+ + [...] +--------+--------+ + + + + Encounter Details +--------+ + + + + | Date | Type | Department | Care Team | Description | +--------+ + + + + | 12/21/ | Hospital | [facility] | Dorian Burks MD | Recurrent incisional | | 2018 - | Encounter | [facility] | [address] | hernia with | | | | MEDICAL [address] | [place] [address] | incarceration | | 12/25/ | | [address] [place], [place] | [phone] | (Primary Dx); Acute | | 2018 | | [address] | | pulmonary | | | | [phone] | | insufficiency | | | | | | following | | | | | | nonthoracic surgery | | | | | | ([facility]) | +--------+ + + + + Social [...] + + documented as of this encounter Last Filed Vital Signs + + + + + | Vital Sign | Reading | Time Taken | Comments | + + + + + | Blood Pressure | 132/80 | 12/25/2017 8:00 AM | | | | | PDT | | + + + + + | Pulse | 88 | 12/25/2017 11:06 AM | | | | | PDT | | + + + + + | Temperature | 36.8 C (98.2 F) | 12/25/2017 8:00 AM | | | | | PDT | | + + + + + | Respiratory Rate | 18 | 12/25/2017 11:06 AM | | | | | PDT | | + + + + + | Oxygen Saturation | 83% | 12/25/2017 11:06 AM | | | | | PDT | | + + + + + | Inhaled Oxygen | - | - | | | Concentration | | | | + + + + + | Weight | 115 kg (253 lb 8.5 | 12/21/2017 2:00 AM | | | | oz) | PDT | | + + + + + | Height | 172.7 cm (5' 8") | 12/21/2017 2:00 AM | | | | | PDT | | + + + + + | Body Mass Index | 38.55 | 12/21/2017 2:00 AM | | | | | PDT | | + + + + + documented in this encounter Discharge Summaries Usama Almodovar MD - 12/25/2017 5:59 PM PDTFormatting of this note might be differ ent from the original. [facility] Surgery Discharge Summary Patient Name: Wale Lou Patient : 1970 PCP: Prov Inactive [...] mg/24 hr Notes to patient: Last dose 04/26 at 9:53am. Place 1 patch onto the [...] Signed by: Usama Almodovar MD, 12/25/2017 17:59 [facility] 8: 43 AM PDT Associated attestation - Pancho Auguste MD - 12/26/2017 8:43 AM PDTI have seen, interview ed and examined the patient. I have reviewed the above note and agree with the assessment and plan as outlined. Any exceptions to that assessment and plan are outlined here. Assessment entered late due to affect down time. Patient seen on date of resident note. Patient is doing well, tolerating diet with good pain control. Discharge home Pancho Auguste MD 12/26/2017 8:43 documented in this encounter Discharge Instructions AttachmentsThe following attachments cannot be sent through Care Everywhere.Abdomen: Incisi on Care (British)Post Op Wound Check, General (British)documented in this encounter Medications at Time of Discharge + + + +---------+ + + | Medication | Sig | Dispensed | Refills | Start | End Date | | | | | | Date | | + + + +---------+ + + | albuterol (PROAIR | 2 puffs every 4-6 | | 0 | 04/23/20 | | | HFA) 90 mcg/puff | hours as needed for | | | 11 | | | inhaler | asthma | | | | | + + + +---------+ + + | benzonatate | Take 1 capsule by | 30 | 0 | 12/26/19 | | | (TESSALON) 100 mg | mouth 3 times daily | capsule | | 18 | | | capsule | as needed for Cough. | | | | | + + + +---------+ + + | LOSARTAN POTASSIUM | Take 25 mg by mouth | | 0 | | | | PO | Daily. | | | | | + + + +---------+ + + | nicotine | Place 1 patch onto | 21 | 0 | 12/26/19 | | | (NICODERM) 14 mg/24 | the skin Daily as | patch | | 18 | | | hr | needed for Nicotine | | | | | | | Craving. | | | | | + + + +---------+ + + | omeprazole | 1 TABLET by mouth | | 0 | 04/23/20 | | | (PRILOSEC) 20 mg | twice daily-LAST | | | 12 | | | TBEC | REFILL NEED VISIT | | | | | | | and LABS | | | | | + + + +---------+ + + | oxyCODONE | Take 1-3 tablets by | 30 | 0 | 12/26/19 | | | (ROXICODONE) 5 mg | mouth every 4 hours | tablet | | 18 | | | tablet | as needed for Pain. | | | | | + + + +---------+ + + documented as of this encounter Progress Notes Marimar Montenegro MSW - 12/25/2017 2:24 PM PDTPt DC'd home with VNA to follow for wound care. Family to transport. Liberty Brooks RT - 12/25/2017 11:17 AM PDT 12/25/17 1107 Oxygen Therapy Home O2 eval performed? yes Resting on RA (%) 84 Resting on O2 (%)(add L/Min in comment) 93 (on 2L) Exercising on O2 (%)(add L/Min in comment) 94 (on 4L) Pt requiring 2L at rest and 4L with activity (walked all the way around 7S floor. Electronically signed by: RT Aroldo 12/25/2017 11:18 Bharti Huffman RN - 12/25/2017 9:22 AM PDT [facility] Wound, Ostomy, & Continence Nursing Note Date [...] to patient and family. 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 Electronically signed by: RT Aroldo 12/24/2017 13:05 Marimar Hall MSW - 0 12/24/2017 12:25 PM PDTPer rounds, pt may need wound care post DC. Sticky note placed on олег rt requesting MD enter order if so. Usama Nascimento MD - 12/24/2017 8:50 AM PDT [facility] General Surgery/Trauma Team Progress Note Admission date: 12/21/2017 2:40 Date of : 1970 Hospital Day: 4 DATE/TIME: 12/24/2017 8:50 History of Present Illness: Wale Granado a 47 y.o.femalewho is Hospital Day: 4F ollowing incarcerated, recurrent incisional hernia. Principal Problem: Recurrent incisional hernia with incarceration Active Problems: Obesity Hypertension Many many years ago she had an umbilical hernia repair. This failed and she had a chronic incisional hernia. [place] On November 15 she had [...] was seen by a surgeon back in [place] last week with another failur e of her repair and a palpable hernia. The decision was made not to treat it the given her recent history. She then was traveling to [place] and developed another incarcerated herni a with pain and nausea. She was seen by a surgeon there who felt the best operation for he r would be a retro-rectus repair with Stratticewhich was not available at his small hospit tn. She has some family in [place] and requested transfer here. On 12/21 she [...] Signed by: Usama Almodovar MD, 12/24/2017 8:50 [facility] from 7am-5pm (hospital employees only) Associated attestation - Pancho Auguste MD - 12/24/2017 3:21 PM PDTI have seen, interview ed and examined the patient. I have reviewed the above note and agree with the assessment and plan as outlined. Any exceptions to that assessment and plan are outlined here. Patient is progressing well and transitioning to oral diet and oral medications. Continue drain at discharge. Will discuss with Dr. Burks the wound VAC management Pancho Auguste MD 12/24/2017 15:21 Maday Arndt RN - 12/23/2017 12:59 PM PDTFormatting of this note might be different fr om the original. [facility] Wound, Ostomy, & Continence Nursing Note Date [...] digital photos will be taken today of Wale Lou.The patie nt verbally consented to having these photos taken for purposes of documenting his/her condi tion. The patient understands that the images will be stored in their medical record. Treatment Plan: 1. VAC change Sat 2. D/C plans pending. Electronically signed by: Maday Arndt RN, CWOCN Wound [facility] Ostomy Services DATE/TIME: 12/23/2017 13:37 Marimar Hall MSW - 12/23/2017 11:35 AM PDTPer d/c planning meeting, blue no d/c needs. Usama Nascimento MD - 12/23/2017 9:02 A M PDT [facility] General Surgery/Trauma Team Progress Note Admission date: 12/21/2017 2:40 Date of : 1970 Hospital Day: 3 DATE/TIME: 12/23/2017 9:02 History of Present Illness: Wale Lou is a 47 y.o. female who is Hospital Day: 2 Follo wing incarcerated, recurrent incisional hernia. Principal Problem: Recurrent incisional hernia with incarceration Active Problems: Obesity Hypertension Many many years ago she had an umbilical hernia repair. This failed and she had a chronic incisional hernia. [place]. On November 15 she had [...] was seen by a surgeon back in [place] last week with another failur e of her repair and a palpable hernia. The decision was made not to treat it the given her recent history. She then was traveling to [place] and developed another incarcerated herni a with pain and nausea. She was seen by a surgeon there who felt the best operation for he r would be a retro-rectus repair with Stratticewhich was not available at his small hospit tn. She has some family in [place] and requested transfer here. On 12/21 she [...] Signed by: Usama Almodovar MD, 12/23/2017 9:02 [facility] from 7am-5pm (hospital employees only) Associated attestation - Pancho Auguste MD - 12/23/2017 2:23 PM PDTI have seen, interview ed and examined the patient. I have reviewed the above note and agree with the assessment and plan as outlined. Any exceptions to that assessment and plan are outlined here. Doing well, but still early in the postoperative period. Minimal evidence of bowel functio n. Drain with serosanguineous output. Wound VAC without surrounding erythema. Pancho Auguste MD 12/23/2017 14:21 Carlos Farr, CHILO - 12/22/2017 10:59 PM PDTPt did not tolerate cpap with nasal mask o n lowest pressure of 4 cmh2o, stated too much pressure. Also refused to try full face mask. Electronically signed by: Carlos Farr RRT 12/22/2017 23:00 Usama Nascimento MD - 12/22/2017 8:24 AM PDTFormatting of this note might be different from the origi nal. [facility] General Surgery/Trauma Team Progress Note Admission date: 12/21/2017 2:40 Date of : 1970 Hospital Day: 2 DATE/TIME: 12/22/2017 8:24 History of Present Illness: Wale Lou is a 47 y.o. female who is Hospital Day: 2 Follo wing incarcerated, recurrent incisional hernia. Principal Problem: Recurrent incisional hernia with incarceration Active Problems: Obesity Hypertension Many many years ago she had an umbilical hernia repair. This failed and she had a chronic incisional hernia. This was repaired electively in [place] on November 14. On November 15 she [...] was seen by a surgeon back in [place] last week with another failure of her repair and a palpable hernia. The decision was made not to treat it the given her recent h istory. She then was traveling to [place] and developed another incarcerated hernia with jose antonio n and nausea. She was seen by a surgeon there who felt the best operation for her would be a retro-rectus repair with Strattice which was not available at his small hospital. She has some family in [place] and requested transfer here. On 12/21 she [...] Signed by: Usama Almodovar MD, 12/22/2017 8:24 [facility] from 7am-5pm (hospital employees only) Associated attestation - Gil Shaffer MD - 12/22/2017 7:24 PM PDTI have seen, intervi ewed and examined the patient. I have reviewed the above note and agree with the assessment and plan as outlined. Any exceptions to that assessment and plan are outlined here. Pain complaints of improved significantly today. She has a ileus as expected. Working o n out of bed mobilization to help her pulmonary issues. MD Arvind Boyd Valeriy V, RN - 12/21/2017 6:31 AM PDTPt admitted to floor at 0330, came via [facility]. Here for lower abd pain/biological mess placement (s/p 3 recent katherine led hernia repairs). Pt A&Ox4. Ra, denies SOB, n/v. Denies pain at rest, pain only with coughing. Rt side PIV no t patent on admission, pt reports discomfort at site. IV therapy consulted. Electronically s igned by: Emile Samuels RN 12/21/2017 6:44 ood, Aixa Samuel RN - 12/21/2017 2:59 AM PDTAdmission screen completed by Solange Kruse Report handoff given to [address] [place] [address] AMADO Narvaez RN has completed admission flow sheet except for shift assessment, fall risk, marga assessment. Solange FISCHER has also completed N/A Information for admission documentation was received from patient Patient is A+O harley dean in this encounter H&P Notes Dorian Burks MD - 12/21/2017 7:59 AM PDT [facility] ADMIT HISTORY AND PHYSICAL Primary Care Physician: Michael Asher Pcp PATIENT NAME: Wale Lou : 1970 TODAY'S DATE: 12/21/2017 IMPRESSION: 47 y.o. female with the following: Present on Admission: Obesity Hypertension Recurrent incisional hernia with incarceration Impression: 1. Incarcerated, recurrent incisional hernia 2. Obesity 3. Tobacco use 4. Diet controlled diabetes mellitus Plan: 1. Repair of incarcerated, recurrent incisional hernia 2. Smoking cessation referral I expect this patient will be hospitalized for greater than 2-midnights and expect the post -hospital plan to be discharge to home or to an adult foster home. History OF PRESENT ILLNESS: Wale Lou is a 47 y.o. female a complex recent history. Many many years ago she had a n umbilical hernia repair. This failed and she had a chronic incisional hernia. This was r epaired electively in [place] on November 14. With the permission of her surgery and she left the following day to head to [place] for some vacation with her family. When she was in [facility] on November 15 she had a cough and felt a pop with recurrence of her hernia. She was taken to surgery there and the mesh was removed and a primary repair performed. 2 days following that operation she eviscerated and was taken back to surgery for another repair w arnoldh I believe was done bilaterally. She spent a few days in the ICU due to difficulty with ventilation postoperatively but eventually was discharged. She was seen by a surgeon back in [place] last week with another failure of her repair and a palpable hernia. The decision was made not to treat it the given her recent history. She then was traveling to [place] and developed another incarcerated hernia with pain and nausea. She was seen by a surgeon faye page who felt the best operation for her would be a retro-rectus repair with Strattice which wa s not available at his small hospital. She has some family in [place] and requested transfe r here. At the time of my evaluation early this morning she's complaining of pain in the abdomen at her hernia site. This pain is mild at rest but with any palpation is more severe. She has nausea but no vomiting. She continues to smoke up until yesterday about 1 pack a day. She has brought with her weight and her current BMI is 39. She tells me that she has been diag nosed with prediabetes. She is not on any medication and rarely checks her blood sugar but she didn't check her sugar a few days ago after a meal and it was 159. PAST MEDICAL HISTORY Past Medical History: Diagnosis Date Asthma Gastroesophageal reflux Hypertension Obesity Prediabetes PAST SURGICAL HISTORY Past Surgical History: Procedure Laterality Date CARPAL TUNNEL RELEASE Bilateral TUBAL LIGATION UMBILICAL HERNIA REPAIR Done 4 times MEDICATIONS Prior to Admission medications Medication Sig Start Date End Date Taking? Authorizing Provider albuterol (PROAIR HFA) 90 mcg/puff inhaler 2 puffs every 4-6 hours as needed for asthma LOSARTAN POTASSIUM PO Take 25 mg by mouth Daily. omeprazole (PRILOSEC) 20 mg TBEC 1 TABLET by mouth twice daily-LAST REFILL NEED VISIT and L ABS ALLERGIES Allergies Allergen Reactions Sulfa Antibiotics Rash PHYSICAL EXAM Temp: 36.3 C (97.4 F) BP: (!) 159/95 Pulse: 82 Resp: 20 SpO2: 94 % on Wt. Admission: Weight: 115 kg (253 lb 8.5 oz) Constitutional: alert, appears stated age and cooperative HEENT: Eyes: Sclera clear. Pupils equal. Respiratory: Clear to auscultation bilaterally Cardiovascular: Regular rate and rhythm Gastrointestinal: Soft, obese. Central hernia is easily palpable and tender. The remainde r of the abdomen is nontender. She has a generous transverse incision just above her umbili cus. Musuloskeletal: Upper and lower extremities with out deformity, no cyanosis, no edema. Vascular: palpable carotid and femoral pulses. Normal capillary refill. Integument: Skin color and texture normal. No lesions or rashes. Neurologic: Alert and Oriented. Moves all extremities. Sensation intact to light touch. Lymphatic: No cervical or supraclavicular adenopathy Psychiatric: Speech and behavior appropriate DIAGNOSTIC STUDIES: Laboratory studies and imaging were personally reviewed by me. Chemistry: Lab Results Component Value Date NA 136 12/20/2017 K 3.3 12/20/2017 CO2 31 12/20/2017 BUN 13 12/20/2017 CREA 1.10 12/20/2017 GLU 137 12/20/2017 Hematology: Lab Results Component Value Date HGB 13.2 12/20/2017 HCT 43.2 12/20/2017 WBC 11.0 12/20/2017 Imaging: CT scan done in [place] I was able to review. This shows an 11 cm fascial defect a bout a 20 cm hernia containing small bowel which is a bit thickened. There is mildly dilate d small bowel loops proximal to this but no complete obstruction visible. Electronically Signed by: Dorian Burks MD, 12/21/2017 7:59 [facility] 8: 06 AM PDTdocumented in this encounter Miscellaneous Notes Plan of Care - Marimar Montenegro MSW - 12/25/2017 2:25 PM PDTProblem: Patient Care Overview ( Adult) Goal: Care Team Goals & Evaluation PROBLEM-RELATED GOALS: Pain, Acute. Patient will achieve acceptable level of pain by 12/27/2017. Fall Risk Goal: Patient will A: Use call light or ask for help when out of bed or unstable on their feet and B. Will remain free from fall through anticipated discharge date of 12/27. Resp: Patient will maintain adequate lung expansion; Patient oxygen saturation level will b e titrated to keep sats >90%; Patient will achieve/maintain baseline respiratory status by STRATEGY TO ACHIEVE GOALS: Pain: 1) Assess pain with hourly rounding. 2) Repositioning 3) Educate pt to use pillow wh ile repositioning/coughing. Fall) 1) Pt to use non-skid socks when OOB. 2) Assess pt for dizziness or lightheadedness. 3) Pt to ask for help when OOB. Resp: Will encourage patient to deep breathe and cough; Will wean oxygen as tolerated keepi ng sats >90%; Will give breathing treatments as needed for shortness of breath and/or whe ezing RESTRAINT-RELATED GOALS: STRATEGIES TO ACHIEVE RESTRAINT GOALS: Goal Evaluation: DC home with VNA lan of Rosamaria Ospina RN - 12/25/2017 2:04 PM PDTA+O. VSS. RA. Up independently. 2L per NC w/rest and 4L w/activity. Home oxygen at bedside. Taking PO w/o difficulty. Voiding. Denies n/v. Denie s difficulty w/constipation. States was on a clear liquid diet prior to admit. States passin g gas. Abd binder in place. Wound care completed abdominal wound care and CARITO education. Refu sed additional wound care education. Discussed oxygen orders w/patient, expressed understand ing. Discharge instructions explained and given to the patient, expressed understanding. VNA to follow. Belongings packed. Ride at bedside. WC transport notified for transport to [facility] pharmacy and then to main doors for discharge to [facility]. 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 Electronically signed by Rosamaria Boucher RN at 12/25 2:24 PM PDTPlan of Rosamaria Ospina RN - 12/25/2017 1:17 PM Agustin Hanks calling in nicotine patch order to outpatient pharmacy. O2 at bedside. Medications deli blake to room except nicotine patches. 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 Electronical ly signed by Rosamaria Boucher RN at 12/25/2017 1:22 PM PDTPlan Rosamaria Coburn RN - 12/25/2017 12:49 PM Agustin BEST called for home health orders to f/u w/ abd w ound. Provider to write orders. lan of Care - Ainsley Spears RN - 12/25/2017 5:45 AM PDT Problem: Patient Care Overview (Adult) Goal: Care Team Goals & Evaluation PROBLEM-RELATED GOALS: Pain, Acute. Patient will achieve acceptable level of pain by 12/27/2017. Fall Risk Goal: Patient will A: Use call light or ask for help when out of bed or unstable on their feet and B. Will remain free from fall through anticipated discharge date of 12/27. Resp: Patient will maintain adequate lung expansion; Patient oxygen saturation level will b e titrated to keep sats >90%; Patient will achieve/maintain baseline respiratory status by STRATEGY TO ACHIEVE GOALS: Pain: 1) Assess pain with hourly rounding. 2) Repositioning 3) Educate pt to use pillow wh ile repositioning/coughing. Fall) 1) Pt to use non-skid socks when OOB. 2) Assess pt for dizziness or lightheadedness. 3) Pt to ask for help when OOB. Resp: Will encourage patient to deep breathe and cough; Will wean oxygen as tolerated keepi ng sats >90%; Will give breathing treatments as needed for shortness of breath and/or whe ezing RESTRAINT-RELATED GOALS: STRATEGIES TO ACHIEVE RESTRAINT GOALS: Outcome: Improving Goal Evaluation: 7N Nursing Progress Note Room #724/724-02 ISO: None Item for recovery agent Comments Shift Summary Ashlee is a/o. CARITO to right abd, midline drsg to wound vac. Drsgs c/d/i. Carito drained 30 mL serosanguinous drainage. Woundvac 250 mL total serosanguinous drainage, marked on output cartridge. Pt calls appropriately to go to the bathroom. Up to bathroom many times this shift, still w aiting to have BM. Needs assistance with woundvac, otherwise SBA. Pt's pain has been well controlled with marilyn-15. Pt denies pain at rest, only has pain when she coughs or moves. Went down to marilyn-10 this AM with good relief per pt. Pt is down from 3L to 2L NC. Did not wear CPAP, pt does not like it. Will hopefully d/c today if she does no t desaturate on RA. Has been compliant with wearing NC. Dx/Tx: Recurrent incisional hernia with incarceration; Recurrent incisional hernia with i ncarceration Code Status: Full Code NAC Turn [] Incontinent [] 1:1 Feeding [] Oxygen Delivery RA [] NC [x] Open Mask [] Non-Rebreather [] cpa p/bipap [] HHFNC [] V60/Vision [] Vent [] 2 liters concentration Pain Management:: [id number] IV Access: PIV [] PICC [] Port [] CVC [] HD [] Drains/Devices/Skin Marga Score: 19 Active Drains Drain Drain/Device Site 12/21/17 1019 #1 Right upper abdomen 3 days Drain/Device Site 12/21/17 1030 #2 other (see comments) abdomen 3 days Active Wounds/Incisions/Pressure Ulcers Wound Wound 12/23/17 transverse abdomen 2 days [] N/A [] Chest Tube [] NG [] CARITO [] Pigtail [] WV [] HV Safety: TeleSitter Yes: [] No: [] Sitter Yes: [] No: [] Restraints Yes: [] No: [] Grubbs: [] Voiding [] BU Insert Date: D/C Date: Active Urinary Caths No matching active lines, drains, or airways Last bowel movement: Stool Occurrence: 1 (12/21/17 0700) Last Bowel Movement : (prior to admission 12/21) (12/24/17 0130) Active Gtt: lactated ringers 100 mL/hr at 12/24/17 0034 Mentation/CAM +/- CAM Score: no Diet: Active Orders Diet Diet general; thin liquids allowed; Effective Now NG/OG/PEG Active NG/OG/PEGs No matching active lines, drains, or airways Therapy Involved? (PT/OT/ST/RT) Yes: [] No: [] Type: PT [] OT [] ST [] RT [] Vitals: 12/24/17 1810 12/24/17 1949 12/25/17 0000 12/25/17 0332 BP: 124/74 145/75 Pulse: 118 101 80 70 Resp: Temp: 36.6 C (97.8 F) TempSrc: Oral SpO2: 90% 90% 98% 97% Weight: Height: Component Value Date/Time POCGLU 147 (H) 12/24/2017 2058 POCGLU 110 (H) 12/24/2017 1727 POCGLU 95 12/24/2017 1157 POCGLU 108 (H) 12/24/2017 0814 Items to address 1:1 at bedside report: 1. Anticipated needs next 1-2 hours: ? Time sensitive labs next draw? ? PTT for heparin? ? Critical lab results to be called on? ? Gtt rate and adjustment times 2. Goals to progress towards discharge 3. MD Communication (pending/call needed?) lan of Care - Heather Rodgers, CHILO - 12/24/2017 7:57 PM PDTProblem: Patient Care Overview (Adult) Goal: Care Team Goals & Evaluation PROBLEM-RELATED GOALS: Pain, Acute. Patient will achieve acceptable level of pain by 12/25/2017. Fall Risk Goal: Patient will A: Use call light or ask for help when out of bed or unstable on their feet and B. Will remain free from fall through anticipated discharge date of 12/25. Resp: Patient will maintain adequate lung expansion; Patient oxygen saturation level will b e titrated to keep sats >90%; Patient will achieve/maintain baseline respiratory status by STRATEGY TO ACHIEVE GOALS: Pain: 1) Assess pain with hourly rounding. 2) Repositioning 3) Educate pt to use pillow wh ile repositioning/coughing. Fall) 1) Pt to use non-skid socks when OOB. 2) Assess pt for dizziness or lightheadedness. 3) Pt to ask for help when OOB. Resp: Will encourage patient to deep breathe and cough; Will wean oxygen as tolerated keepi ng sats >90%; Will give breathing treatments as needed for shortness of breath and/or whe ezing RESTRAINT-RELATED GOALS: STRATEGIES TO ACHIEVE RESTRAINT GOALS: Outcome: Unchanged Goal Evaluation: Patient assessed with respiratory therapy. Stable on 3L/min nasal cannula, unlabored at r est. Inhaled meds given as ordered, pulmonary hygiene performed via deep breathing & coughi ng. Plan to continue current therapy. lan of Care - Jannette Juárez, RN NEUROLOGY - 12/24/2017 4:13 PM PDTProblem: Patient Care Overview (Adult) Goal: Care Team Goals & Evaluation PROBLEM-RELATED GOALS: Pain, Acute. Patient will achieve acceptable level of pain by 12/25/2017. Fall Risk Goal: Patient will A: Use call light or ask for help when out of bed or unstable on their feet and B. Will remain free from fall through anticipated discharge date of 12/25. Resp: Patient will maintain adequate lung expansion; Patient oxygen saturation level will b e titrated to keep sats >90%; Patient will achieve/maintain baseline respiratory status by STRATEGY TO ACHIEVE GOALS: Pain: 1) Assess pain with hourly rounding. 2) Repositioning 3) Educate pt to use pillow wh ile repositioning/coughing. Fall) 1) Pt to use non-skid socks when OOB. 2) Assess pt for dizziness or lightheadedness. 3) Pt to ask for help when OOB. Resp: Will encourage patient to deep breathe and cough; Will wean oxygen as tolerated keepi ng sats >90%; Will give breathing treatments as needed for shortness of breath and/or whe ezing RESTRAINT-RELATED GOALS: STRATEGIES TO ACHIEVE RESTRAINT GOALS: Outcome: Improving Goal Evaluation: Physical Therapy Plan of Care Treatment Note Summary: Pt presents to PT supine in bed, pleasant and agreeable to therappy, c/o's 3/10 p ain in abd. Currenlty on 3L satting in the 90's. Pt required verbal cues for recall of abd p recautions and requires cues to maintain them with activity. Pt does not seem to have good i nsight into the importance of maintaining precautions. She states that she is very "cautious " this time, but is aloof to mention of therapists concerns, I.e., sleeping on a blowup roman ress in a tent. Therapy session: pt is SBA for bed mobility and transfers, and CGA with ambu lation with use of FWW. Pt required cues to remind her to use log roll technique in and out of bed.Placed pt O2 at 2L for activity. Amb 150ft with moderated fabiola and step through ga it pattern. Pt O2 levels maintaining in the 90's at 2L, decreased to 1L and pt O2 decreased to 83%, increased O2 to 1.5L and pt able to maintain 93% with activity. BTB at end of sessio n. Concerned that pt is really not being as diligent with her precautions as she should be, requiring consistent cueing to maintain. Recommend home at d/c with assist from family. Physical Therapy will follow Wale Lou 5 times/wk until discharge from therapy or dis charged from the hospital. Planned Interventions include bed mobility training, gait trainin g, stair training, strengthening, transfer training, other (see comments) . Predicted Durat ion of Therapy Intervention (days): 7 . Physical Therapy Discharge Recommendations are: Recommended discharge disposition: home with assist Post discharge physical therapy recommendation: no further PT Equipment Recommendations: (cont to assess) Equipment Issued: Onset of Illness/Injury: 12/21/17 Pertinent History of Current Problem: mult episodes of incisional hernia re-opening. with i ncarceration of bowel. Repair 12/21/17. wound vac. Hx obesity,HTN,prior hernia repairs 11/14/17 with subsequent re-opening Impairments Found: aerobic capacity/endurance, gait, locomotion, and balance, ventilation a nd respiration/gas exchange General Information: Precautions: abdominal LUE WB status: full weight-bearing RUE WB status: full weight-bearing LLE WB status: full weight-bearing RLE WB status: full weight-bearing General Observations: In bed, HOB elevated to max. Agreeable to therapy Social History: Lives With: child(johnnie), dependent, spouse Living Arrangements: (living in a travel trailer, to live in a tent in [facility]) # of Stairs to Enter Home: 3 ; Rail: ; # of Stairs Within Home: 0 Additional Information: Currently living in travel trailer. Reports she can stay at parent s' for a week or two. Parent's home is handicap accessible; no conerns. To return to living in [facility] in [facility] and use outhouse/public restrooms. Prior level of function: indep without AD Current Pain: complains of pain/discomfort Pain Body Location - Side: Bilateral abdomen At Rest: 3 ; With Activity: 3 Patient Status/Goals: Reflects last filed data of patient status; may be from multiple contributors. Bed Mobility Comments: Utilizes: HOB elevated, bed rails Roll L: Roll R: Scoot/Bridge: Supine to Sit: stand by assist Sit to Supine: stand by assist Sidelying to Sit: Sit to Sidelying: Goal Status: continued, progressing Level of Mcgill: independent Transfers Comments: Bed to Chair: minimal assist (75% patient effort) Chair to Bed: minimal assist (75% patient effort) Utilizing: none Sit to Stand: stand by assist Stand to Sit: stand by assist Utilizin wheeled walker (FWW) Status: continued, progressing Mcgill Level: independent Gait Comments: Level of Assist: contact guard assist Utilizes: 2 wheeled walker (FWW) Distance: 150ft Goal Status: continued, progressing Goal: independent Device: none Distance: 200' Stairs Comments: nt on eval # of stairs: Handrail Location: Level of Mcgill: Utilizes: Technique: Maintain WB Status: STG Status: not addressed Level of Mcgill: modified independent # of stairs: 3 Utilizes: 1 rail Therapeutic Exercises Comments - Bed Exercises: Repetitions: Seated Exercises: Repetitions: Standing Exercises: Repetitions: Balance Exercises: Repetitions: Posture Exercises: Repetitions: ATA Exercises: Repetitions: TKA Exercises: Repetitions: Shoulder Exercises: Repetitions: Spine Exercises: Repetitions: Amputee Exercises: Repetitions: Functional Exercises Repetitions: Other Exercises: Repetitions: Neuromuscular Re-ed: Additional Goals: Goal #1: Pt will score in the Low Fall Risk Category on the DGI Status: not addressed Goal #2: Status: Goal #3: Status: Electronically signed by: Jannette Amanda PTA 12/24/2017 16:13 Thank you for requesting Acute Care Therapy Services to participate in the care of Wale Lou . We appreciate the opportunity to be of assistance. lan of Care - As Idalia jasmine RN - 12/24/2017 3:04 PM PDTFormatting of this note might be different from t judith original. Problem: Patient Care Overview (Adult) Goal: Care Team Goals & Evaluation PROBLEM-RELATED GOALS: Pain, Acute. Patient will achieve acceptable level of pain by 12/25/2017. Fall Risk Goal: Patient will A: Use call light or ask for help when out of bed or unstable on their feet and B. Will remain free from fall through anticipated discharge date of 12/25. Resp: Patient will maintain adequate lung expansion; Patient oxygen saturation level will b e titrated to keep sats >90%; Patient will achieve/maintain baseline respiratory status by STRATEGY TO ACHIEVE GOALS: Pain: 1) Assess pain with hourly rounding. 2) Repositioning 3) Educate pt to use pillow wh ile repositioning/coughing. Fall) 1) Pt to use non-skid socks when OOB. 2) Assess pt for dizziness or lightheadedness. 3) Pt to ask for help when OOB. Resp: Will encourage patient to deep breathe and cough; Will wean oxygen as tolerated keepi ng sats >90%; Will give breathing treatments as needed for shortness of breath and/or whe ezing RESTRAINT-RELATED GOALS: STRATEGIES TO ACHIEVE RESTRAINT GOALS: Goal Evaluation: 7N Nursing Progress Note Room #724/724-02 ISO: None Item for recovery agent Comments Shift Summary A/O x4. WOUNDS VAC TO TRANSVERSE ABD SURGICAL SITE C/D/I. WOUND CARE TO ОЛЕГ NGE DRESSING/ACCESS ON Saturday. TRANS TO ORAL PAIN MEDS. PAIN WELL MANAGED 15MG OXYCODONE Q4. ENCOURAGING OOG/ IN CHAIR FOR MEALS. DURING ROUNDS NOTED NC OFF. PERFORMED SATS; FOUND TO BE 41%. PATIENT STATED THAT THE DOCTOR TOLD HER SHE HAD TO WEAN OFF O2 , SO SHE TOOK IT OFF. GAVE EDUCATION REGARDING THE TECHNIQU E OF WEANING. Dx/Tx: Recurrent incisional hernia with incarceration; Recurrent incisional hernia with i ncarceration Code Status: Full Code NAC Turn [] Incontinent [] 1:1 Feeding [] Oxygen Delivery RA [] NC [] Open Mask [] Non-Rebreather [] cpap /bipap [] HHFNC [] V60/Vision [] Vent [] 1 liters concentration Pain Management:: OXYCODONE Q4 IV Access: PIV [x] PICC [] Port [] CVC [] HD [] Drains/Devices/Skin Marga Score: (P) 20 Active Drains Drain Drain/Device Site 12/21/17 1019 #1 Right upper abdomen 3 days Drain/Device Site 12/21/17 1030 #2 other (see comments) abdomen 3 days Active Wounds/Incisions/Pressure Ulcers Wound Wound 12/23/17 transverse abdomen 1 day [] N/A [] Chest Tube [] NG [] CARITO [] Pigtail [] WV [] HV Safety: TeleSitter Yes: [] No: [] Sitter Yes: [] No: [] Restraints Yes: [] No: [] Grubbs: [] Voiding [] BU Insert Date: D/C Date: Active Urinary Caths No matching active lines, drains, or airways Last bowel movement: Stool Occurrence: 1 (12/21/17 0700) Last Bowel Movement : (prior to admission 12/21) (12/24/17 0130) Active Gtt: lactated ringers 100 mL/hr at 12/24/17 0034 Mentation/CAM +/- CAM Score: (P) no Diet: Active Orders Diet Diet general; thin liquids allowed; Effective Now NG/OG/PEG Active NG/OG/PEGs No matching active lines, drains, or airways Therapy Involved? (PT/OT/ST/RT) Yes: [x] No: [] Type: PT [x] OT [x] ST [] RT [] Vitals: 12/24/17 0806 12/24/17 0808 12/24/17 1242 12/24/17 1255 BP: 151/86 Pulse: 74 69 80 80 Resp: 14 14 16 18 Temp: 36.3 C (97.3 F) TempSrc: Temporal SpO2: 98% 92% 95% Weight: Height: Component Value Date/Time POCGLU 95 12/24/2017 1157 POCGLU 108 (H) 12/24/2017 0814 POCGLU 118 (H) 12/23/2017 2107 POCGLU 92 12/23/2017 1811 Items to address 1:1 at bedside report: 1. Anticipated needs next 1-2 hours: ? Time sensitive labs next draw? ? PTT for heparin? ? Critical lab results to be called on? ? Gtt rate and adjustment times 2. Goals to progress towards discharge 3. MD Communication (pending/call needed?) lan of Care - Yvette Shabazz OT Student - 12/24/2017 10:30 AM PDT Occupational Therapy Plan of Care Initial Evaluation, Treatment Note Patient Name: Wale Lou Onset of Illness/Injury: 12/21/17 Start of Care/Start of Certification Date: 12/25/2017 End of Certification Date: 01/24/2018 Summary: Pt presents with impaired ADLs 2/2 decreased activity tolerance, increased O2 nee ds, and pain. Throughout session, pt intermittently wincing in pain, reporting acute pain in abdomen with coughing. Sat up in bed to don socks with SBA and no adaptive equipment. Supin e>sit CGA with HOB elevated and guardrails up. O2 sats 95% on 3L O2. Walked to bathroom with CGA and FWW; O2 sats remained low 90s on 3L. Toilet transfer, shower transfer CGA. Stood at sink for 5 min grooming with SBA. Removed n/c for approx. 30 seconds to wash face; desatted to 84% O2. Recovered to 90s when returned to 3L O2. Returned to chair with CGA. Given hando ut on abdominal precautions; pt verbalized understanding. Discussed living situation and equ ipment needs. Pt unable to tolerate laying down, must have HOB elevated. Pt plans on sleepin g in recliner during recovery. Pt to initially stay with parents, who own all necessary equi pment in a w/c accessible home (mother in w/c). Pt reports needing to return to work in [employer], will stay in tent. Pt currently unsafe to return to tent, but able to safely d/c to p arent's home with home health OT. Treatment completed 10:18-10:28 with focus on dressing and grooming techniques with abdominal precautions education. Occupational Therapy Discharge Recommendations are: Recommended discharge disposition: home with assist Post discharge occupational therapy recommendation: home health Equipment Recommendations: Equipment Issued: Occupational Therapy will follow Wale Lou 5 times/wk until discharge from therapy or discharged from the hospital. Planned Interventions include ADL retraining, IADL retraining, bed mobility training, transfer training. Pertinent History of Current Problem: mult episodes of incisional hernia re-opening. with i ncarceration of bowel. Repair 12/21/17. wound vac. Hx obesity,HTN,prior hernia repairs 11/14/17 with subsequent re-opening General Information: General Observations: In bed, HOB elevated to max. Agreeable to therapy Precautions: abdominal LUE WB status: full weight-bearing RUE WB status: full weight-bearing LLE WB status: full weight-bearing RLE WB status: full weight-bearing Social History: Lives With: child(johnnie), dependent, spouse in (living in a travel trailer, to live in a ten t in [facility]) Home Accessibility: ; Equipment used at home: no; Additional Information: Currently living in travel trailer. Reports she can stay at parents' for a week or two. Parent's home is [facility] accessible; no conerns. To return to living in tent in [facility] and use outhouse/pub lic restrooms. Prior level of function: indep without AD Cognition: Orientation: oriented x 4 Attention: Arousal level: opens eyes spontaneously Behavior: cooperative Follows instruction and answers questions: Personal Safety: Short Term/[facility] Memory: Vision Vision Comments: ROM Comments: LUE ROM: WFL RUE ROM: WFL Strength General information: LUE: WFL RUE: WFL Sensation General Information: LUE light touch: RUE light touch: Coordination BUE: RUE Coordination: LUE Coordination: Binu: Patient Status/Goals: Reflects last filed data of patient status; may be from multiple contributors. Bed Mobility Supine to Sit Level of Mcgill: stand by assist Assistive Device: HOB elevated, bed rails Sit to Supine Level of Mcgill: stand by assist Assistive Device: HOB elevated, bed rails Transfers Sit to Stand Level of independence: stand by assist Assistive Device: 2 wheeled walker (FWW) Stand to Sit Level of independence: stand by assist Assistive Device: 2 wheeled walker (FWW) Toilet Level of Mcgill: supervised Assistive Device: 2 wheeled walker (FWW) Walk-in Shower Level of Mcgill: contact guard assist Assistive Device: 2 wheeled walker (FWW) Tub Transfer Level of Mcgill: Assistive Device: ADL Comments: Bathing Level of Mcgill: Assistive Device: Position: . Upper body dressing Level of Mcgill: Assistive Device: Position: Lower body dressing Level of Mcgill: stand by assist Assistive Device: none Position: supported sitting (in bed, HOB elevated) Toilet training Level of Mcgill: contact guard assist Assistive Device: none Position: Grooming Level of Mcgill: stand by assist Assistive Device: none Position: standing Eating/self-feeding Level of Mcgill: Assistive Device: Position: IADL: Activity Tolerance: poor Patient Goals: OT Goal Review Date Most Recent Value STG Review Date 12/31/17 at 12/24/2017 1028 Additional Goals #1 OT Most Recent Value STG Status new at 12/24/2017 1028 STG Pt will tolerate 20 min standing ADLs without O2 sats below 90% or c/o fatigue over . at 12/24/2017 1028 Additional Goals #2 OT Most Recent Value STG Status new at 12/24/2017 1028 STG Pt will tolerate lying down in bed with HOB elevated <30 degrees. at 12/24/2017 1028 Electronically signed by: Yvette Shabazz OT Student 12/25/2017 10:47 I have reviewed the above occupational therapy plan of care and agree with the plan. lan of Care - Josh in, Hansa Pearce RN - 12/24/2017 5:16 AM PDT Problem: Patient Care Overview (Adult) Goal: Care Team Goals & Evaluation PROBLEM-RELATED GOALS: Pain, Acute. Patient will achieve acceptable level of pain by 12/25/2017. Fall Risk Goal: Patient will A: Use call light or ask for help when out of bed or unstable on their feet and B. Will remain free from fall through anticipated discharge date of 12/25. STRATEGY TO ACHIEVE GOALS: Pain: 1) Assess pain with hourly rounding. 2) Repositioning 3) Educate pt to use pillow wh ile repositioning/coughing. Fall) 1) Pt to use non-skid socks when OOB. 2) Assess pt for dizziness or lightheadedness. 3) Pt to ask for help when OOB. RESTRAINT-RELATED GOALS: STRATEGIES TO ACHIEVE RESTRAINT GOALS: Outcome: Unchanged Goal Evaluation: 7N Nursing Progress Note Room #724/724-02 ISO: None Item for recovery agent Comments Shift Summary Pt remains A&O, has significant hx surgeries x4 last being 12/21 for repair o f incarcerated hernia at which time 1 inches of her ileum and cecum were removed and had sun cementn of a biologic mesh, and wound vac was placed. She has been taking oxycdone 15 mg q4h and morphine 4 mg iv for breakthrough pain. I offered Morphine at shift start, not wanting at that time, reminded to call if at any point she needs it, was medicated with oxycodone la st at 0130.Up to the bsc, no BM at that time, medicated with miralax at this time.bu will be removed by me. Dx/Tx: Recurrent incisional hernia with incarceration; Recurrent incisional hernia with i ncarceration Code Status: Full Code NAC Turn [] Incontinent [] 1:1 Feeding [] Oxygen Delivery RA [] NC [x] Open Mask [] Non-Rebreather [] cpa p/bipap [] HHFNC [] V60/Vision [] Vent [] liters concentration Pain Management:: Oxycodone 15 mg q2h morphine for breakthrough pain IV Access: PIV [x] PICC [] Port [] CVC [] HD [] Drains/Devices/Skin Marga Score: (!) 17 Active Drains Drain Drain/Device Site 12/21/17 1019 #1 Right upper abdomen 2 days Drain/Device Site 12/21/17 1030 #2 other (see comments) abdomen 2 days Active Wounds/Incisions/Pressure Ulcers Wound Wound 12/23/17 transverse abdomen 1 day [] N/A [] Chest Tube [] NG [x] CARITO [] Pigtail [x] WV [] HV Safety: TeleSitter Yes: [] No: [x] Sitter Yes: [] No: [x] Restraints Yes: [] No: [x] Grubbs: [] Voiding [x] BU Insert Date: D/C Date: Active Urinary Caths Urinary Catheter Urethral Catheter 12/21/17 0825 latex 16 5 10 2 days Last bowel movement: Stool Occurrence: 1 (12/21/17 0700) Last Bowel Movement : (prior to admission 12/21) (12/24/17 0130) Active Gtt: lactated ringers 100 mL/hr at 12/24/17 0034 Mentation/CAM +/- CAM Score: no Diet: Active Orders Diet Diet fiber restricted; full liquid; Effective Now NG/OG/PEG Active NG/OG/PEGs No matching active lines, drains, or airways Therapy Involved? (PT/OT/ST/RT) Yes: [] No: [x] Type: PT [] OT [] ST [] RT [] Vitals: 12/23/17 1936 12/24/17 0016 12/24/17 0108 12/24/17 0421 BP: 135/79 Pulse: 84 76 94 76 Resp: 16 13 14 13 Temp: 36.6 C (97.9 F) TempSrc: Temporal SpO2: 92% 99% 97% 96% Weight: Height: Component Value Date/Time POCGLU 118 (H) 12/23/2017 2107 POCGLU 92 12/23/2017 1811 POCGLU 99 12/23/2017 1157 POCGLU 92 12/23/2017 0838 Items to address 1:1 at bedside report: 1. Anticipated needs next 1-2 hours: ? Time sensitive labs next draw? ? PTT for heparin? ? Critical lab results to be called on? ? Gtt rate and adjustment times 2. Goals to progress towards discharge 3. MD Communication (pending/call needed?) [facility], Carlos Huynh RRT - 12/24/2017 12:26 AM PDTProblem: Patient Care Overview (Adult) Goal: Care Team Goals & Evaluation PROBLEM-RELATED GOALS: Pain, Acute. Patient will achieve acceptable level of pain by 12/25/2017. Fall Risk Goal: Patient will A: Use call light or ask for help when out of bed or unstable on their feet and B. Will remain free from fall through anticipated discharge date of 12/25. STRATEGY TO ACHIEVE GOALS: Pain: 1) Assess pain with hourly rounding. 2) Repositioning 3) Educate pt to use pillow wh ile repositioning/coughing. Fall) 1) Pt to use non-skid socks when OOB. 2) Assess pt for dizziness or lightheadedness. 3) Pt to ask for help when OOB. RESTRAINT-RELATED GOALS: STRATEGIES TO ACHIEVE RESTRAINT GOALS: Patient assessed with respiratory therapy. stable on high flow O2, no respiratory distress . Inhaled meds given as ordered, pulmonary hygiene performed via deep breathing & coughing. Plan to continue current therapy. Goal Evaluation: lan [facility] Luisa Coreas RN - 12/23/2017 10:24 PM PDTFormatting of this note might be different fr om the original. Problem: Patient Care Overview (Adult) Goal: Care Team Goals & Evaluation PROBLEM-RELATED GOALS: Pain, Acute. Patient will achieve acceptable level of pain by 12/25/2017. Fall Risk Goal: Patient will A: Use call light or ask for help when out of bed or unstable on their feet and B. Will remain free from fall through anticipated discharge date of 12/25. STRATEGY TO ACHIEVE GOALS: Pain: 1) Assess pain with hourly rounding. 2) Repositioning 3) Educate pt to use pillow wh ile repositioning/coughing. Fall) 1) Pt to use non-skid socks when OOB. 2) Assess pt for dizziness or lightheadedness. 3) Pt to ask for help when OOB. RESTRAINT-RELATED GOALS: STRATEGIES TO ACHIEVE RESTRAINT GOALS: Outcome: Improving Goal Evaluation: 7N Nursing Progress Note Room #724/724-02 ISO: None Item for recovery agent Comments Shift Summary A/O X4. Minimum assist. Came in d/t recurrent incisional hernia. Wound vac along periumbilical region, C/D/I, minimal serosanguinous output noted. CARITO drain to R flank draining serosanginous fluid, outut 50mL this shift. Complains of abd pain managed with oxy 15mg Q 4hrs, and IV morphine 4mg, pt willing to try prolonging admin of morphine as it is af fecting her respiratory status. BS with rhonchi throughout, on 4L NC, EtCO2 monitoring in pl [place], has frequent alarming, but has improved through the night. RRR. Grubbs in place until tm , per AM RN note, draining cristian colored urine. R wrist PIV infusing LR @ 100mL/hr. Pt anxio us at times when talking with family, informed RN they are currently living in a tent/traile r at her moms house and her has medical problems as well. Dx/Tx: Recurrent incisional hernia with incarceration; Recurrent incisional hernia with i ncarceration Code Status: Full Code NAC Turn [] Incontinent [] 1:1 Feeding [] Oxygen Delivery RA [] NC [x] Open Mask [] Non-Rebreather [] cpa p/bipap [] HHFNC [] V60/Vision [] Vent [] 4 liters concentration Pain Management:: IV Access: PIV [x] PICC [] Port [] CVC [] HD [] Drains/Devices/Skin Marga Score: (!) 17 Active Drains Drain Drain/Device Site 12/21/17 1019 #1 Right upper abdomen 2 days Drain/Device Site 12/21/17 1030 #2 other (see comments) abdomen 2 days Active Wounds/Incisions/Pressure Ulcers Wound Wound 12/23/17 transverse abdomen less than 1 day [] N/A [] Chest Tube [] NG [x] CARITO [] Pigtail [] [place] [] HV Safety: TeleSitter Yes: [] No: [] Sitter Yes: [] No: [] Restraints Yes: [] No: [] Grubbs: [] Voiding [x] BU Insert Date: D/C Date: Active Urinary Caths Urinary Catheter Urethral Catheter 12/21/17 0825 latex 16 5 10 2 days Last bowel movement: Stool Occurrence: 1 (12/21/17 0700) Last Bowel Movement : (Prior to admit 12/21/17 per pt) (12/23/17 1552) Active Gtt: lactated ringers 100 mL/hr at 12/23/17 1322 Mentation/CAM +/- CAM Score: no Diet: Active Orders Diet Diet fiber restricted; full liquid; Effective Now NG/OG/PEG Active NG/OG/PEGs No matching active lines, drains, or airways Therapy Involved? (PT/OT/ST/RT) Yes: [x] No: [] Type: PT [] OT [] ST [] RT [x] Vitals: 12/23/17 1239 12/23/17 1600 12/23/17 1706 12/23/17 1936 BP: 148/77 Pulse: 88 75 89 84 Resp: 18 20 16 16 Temp: 37 C (98.6 F) TempSrc: Temporal SpO2: 97% 95% 97% 92% Weight: Height: Component Value Date/Time POCGLU 118 (H) 12/23/2017 2107 POCGLU 92 12/23/2017 1811 POCGLU 99 12/23/2017 1157 POCGLU 92 12/23/2017 0838 Items to address 1:1 at bedside report: 1. Anticipated needs next 1-2 hours: ? Time sensitive labs next draw? ? PTT for heparin? ? Critical lab results to be called on? ? Gtt rate and adjustment times 2. Goals to progress towards discharge 3. MD Communication (pending/call needed?) Goal: Personalization Needs & Preferences Outcome: Improving lan of Care - Puma Gonzalez RN - 12/23/2017 1:19 PM PDT Problem: Patient Care Overview (Adult) Goal: Care Team Goals & Evaluation PROBLEM-RELATED GOALS: Pain, Acute. Patient will achieve acceptable level of pain by 12/25/2017. Fall Risk Goal: Patient will A: Use call light or ask for help when out of bed or unstable on their feet and B. Will remain free from fall through anticipated discharge date of 12/25. STRATEGY TO ACHIEVE GOALS: Pain: 1) Assess pain with hourly rounding. 2) Repositioning 3) Educate pt to use pillow wh ile repositioning/coughing. Fall) 1) Pt to use non-skid socks when OOB. 2) Assess pt for dizziness or lightheadedness. 3) Pt to ask for help when OOB. RESTRAINT-RELATED GOALS: STRATEGIES TO ACHIEVE RESTRAINT GOALS: Outcome: Unchanged Goal Evaluation: 7N Nursing Progress Note Room #724/724-02 ISO: None Item for recovery agent Comments Shift Summary Pt A&O, needs assistance when OOB. Pt worked with pt today and stated "mayb e a abd binder might be good". Sticky note to surgeon. Wound vac C/D/I, CARITO drain with minima l output. Grubbs patent and in place, to be removed tomorrow per surgeon. Passing flatus. On ECo2 and cont O2 monitoring. C/O abd pain oxycodone 15mg given with IV morphine 4mg given fo r break through pain, this seems to be effective. PIV patent. LR 100ml/hr. Calls with needs. Dx/Tx: Recurrent incisional hernia with incarceration; Recurrent incisional hernia with i ncarceration Code Status: Full Code NAC Turn [] Incontinent [] 1:1 Feeding [] Oxygen Delivery RA [] NC [] Open Mask [] Non-Rebreather [] cpap /bipap [] HHFNC [] V60/Vision [] Vent [] liters concentration Pain Management:: IV Access: PIV [] PICC [] Port [] CVC [] HD [] Drains/Devices/Skin Marga Score: (!) 16 Active Drains Drain Drain/Device Site 12/21/17 1019 #1 Right upper abdomen 2 days Drain/Device Site 12/21/17 1030 #2 other (see comments) abdomen 2 days Active Wounds/Incisions/Pressure Ulcers Wound Wound 12/23/17 transverse abdomen less than 1 day [] N/A [] Chest Tube [] NG [] CARITO [] Pigtail [] [place] [] HV Safety: TeleSitter Yes: [] No: [] Sitter Yes: [] No: [] Restraints Yes: [] No: [] Grubbs: [] Voiding [] BU Insert Date: D/C Date: Active Urinary Caths Urinary Catheter Urethral Catheter 12/21/17 0825 latex 16 5 10 2 days Last bowel movement: Stool Occurrence: 1 (12/21/17 0700) Active Gtt: lactated ringers 100 mL (12/22/17 2358) Mentation/CAM +/- CAM Score: no Diet: Active Orders Diet Diet fiber restricted; full liquid; Effective Now NG/OG/PEG Active NG/OG/PEGs No matching active lines, drains, or airways Therapy Involved? (PT/OT/ST/RT) Yes: [] No: [] Type: PT [] OT [] ST [] RT [] Vitals: 12/23/17 0352 12/23/17 0700 12/23/17 0816 12/23/17 1239 BP: 136/74 Pulse: 74 80 89 88 Resp: 20 20 20 18 Temp: 36.6 C (97.8 F) TempSrc: Oral SpO2: 96% 95% 96% 97% Weight: Height: Component Value Date/Time POCGLU 99 12/23/2017 1157 POCGLU 92 12/23/2017 0838 POCGLU 113 (H) 12/22/2017 2123 POCGLU 100 (H) 12/22/2017 1732 Items to address 1:1 at bedside report: 1. Anticipated needs next 1-2 hours: ? Time sensitive labs next draw? ? PTT for heparin? ? Critical lab results to be called on? ? Gtt rate and adjustment times 2. Goals to progress towards discharge 3. MD Communication (pending/call needed?) lan of Care - Angélica Long, PT - 12/23/2017 12:16 PM PDTProblem: Patient Care Overview (Adult) Goal: Care Team Goals & Evaluation PROBLEM-RELATED GOALS: STRATEGY TO ACHIEVE GOALS: RESTRAINT-RELATED GOALS: STRATEGIES TO ACHIEVE RESTRAINT GOALS: Physical Therapy Plan of Care Initial Evaluation Note Summary: admit with mult dehisence of hernia surgeries. wound vac,grubbs,ivs,carito,sat monitor , Left message for binder and notified RN. HOB max elevated,mod assist to get to EOB sitting . Discussed rolling with sidelying to sit but initially used bed for support. Slow movement s with pillow for support. stood,transferred to/from chair. kamran in chair for approx 10 minut es. Pain 6/10 abd. Currently in trailer but may prefer tent.Discussed needig high surface so not to strain incision. Physical Therapy will follow Wale Lou 5 times/wk until discharge from therapy or dis charged from the hospital. Planned Interventions include bed mobility training, gait trainin g, stair training, strengthening, transfer training, other (see comments) . Predicted Durat ion of Therapy Intervention (days): 7 . Physical Therapy Discharge Recommendations are: Recommended discharge disposition: home with assist Post discharge physical therapy recommendation: no further PT Equipment Recommendations: (cont to assess) Equipment Issued: Onset of Illness/Injury: 12/21/17 Pertinent History of Current Problem: mult episodes of incisional hernia re-opening. with i ncarceration of bowel. Repair 12/21/17. wound vac. Hx obesity,HTN,prior hernia repairs 11/14/17 with subsequent re-opening Impairments Found: aerobic capacity/endurance, gait, locomotion, and balance General Information: Precautions Comment: Precautions: abdominal (multiple lines) LUE WB status: full weight-bearing RUE WB status: full weight-bearing LLE WB status: full weight-bearing RLE WB status: full weight-bearing General Observations: sup in bed with carito,wound vac, iv,grubbs,sat monitor, abd dressing Social History: Lives With: child(johnnie), dependent, spouse Living Arrangements: (travel trailer) # of Stairs to Enter Home: 3 ; Rail: ; # of Stairs Within Home: 0 Additional Information: travel trailer Prior level of function: indep without AD Current Pain: complains of pain/discomfort Pain Body Location - Side: Bilateral abdomen At Rest: 5 ; With Activity: 6 Cognitive Exam: Comments: Speech: clear Orientation: oriented x 4 Attention: Arousal level: arouses to voice, opens eyes spontaneously Behavior: cooperative Follows instruction and answers questions: Personal Safety and Judgment: Patient Status/Goals: Reflects last filed data of patient status; may be from multiple contributors. ROM ROM Comments: ROM Testing Results: LUE ROM: RUE ROM: LLE ROM: wfl RLE ROM: wfl Neck ROM: Trunk ROM: Strength Strength Comments: LUE: RUE: LLE: 4/5 RLE: 4/5 Neck Strength: Trunk Strength: Status: Strength Goal: Sensation (Light Touch) Comments: LUE: RUE: LLE: WNL RLE: WNL Bed Mobility Comments: Utilizes: HOB elevated, bed rails Roll L: Roll R: Scoot/Bridge: Supine to Sit: moderate assist (50% patient effort) Sit to Supine: moderate assist (50% patient effort) Sidelying to Sit: Sit to Sidelying: Goal Status: new Level of Mcgill: supv Transfers Comments: Bed to Chair: minimal assist (75% patient effort) Chair to Bed: minimal assist (75% patient effort) Utilizing: none Sit to Stand: minimal assist (75% patient effort) Stand to Sit: minimal assist (75% patient effort) Utilizing: (rail and pillow in chair) Status: new Mcgill Level: supv Gait Comments: Level of Assist: minimal assist (75% patient effort) Utilizes: none Distance: 3 Goal Status: new Goal: gait without AD Device: none Distance: 250 Stairs Comments: nt on eval # of stairs: Handrail Location: Level of Mcgill: Utilizes: Technique: Maintain WB Status: STG Status: new Level of Mcgill: supv # of stairs: 3 Utilizes: rail Balance Comments: Sitting Balance Static: fair balance Dynamic: fair balance Standing Balance Static: fair balance Dynamic: fair balance Additional Goals: Goal #1: bed mob with supv,good body mech Status: new Goal #2: transfers with supv Status: new Goal #3: gait 250 ft without AD Status: new Electronically signed by: Angélica Cooney, PT 12/23/2017 12:12 Thank you for requesting Acute Care Therapy Services to participate in the care of Wale Lou . We appreciate the opportunity to be of assistance. lan of Care - Deloris Hsieh RN - 12/23/2017 6:31 AM PDT Problem: Patient Care Overview (Adult) Goal: Care Team Goals & Evaluation PROBLEM-RELATED GOALS: STRATEGY TO ACHIEVE GOALS: RESTRAINT-RELATED GOALS: STRATEGIES TO ACHIEVE RESTRAINT GOALS: Outcome: Improving Goal Evaluation: 7N Nursing Progress Note Room #724/724-02 ISO: None Item for recovery agent Comments Shift Summary Pt continually wanted Morphine to stay ahead of the pain. Pt appeared to be very uncomfortable this morning. Pt is due to have grubbs taken out today. Pt needed bed at a full 90 degrees to find comfort. Pt having difficulty coughing and clearing congestion. Dx/Tx: Recurrent incisional hernia with incarceration; Recurrent incisional hernia with i ncarceration Code Status: Full Code NAC Turn [] Incontinent [] 1:1 Feeding [] Oxygen Delivery RA [] NC [x] Open Mask [] Non-Rebreather [] cpa p/bipap [] HHFNC [] V60/Vision [] Vent [] 4 liters concentration; Co2 monitor Pain Management:: Morphine IV Access: PIV [x] PICC [] Port [] CVC [] HD [] Drains/Devices/Skin Marga Score: (!) 15 Active Drains Drain Drain/Device Site 12/21/17 1019 #1 Right upper abdomen 1 day Drain/Device Site 12/21/17 1030 #2 other (see comments) abdomen 1 day Active Wounds/Incisions/Pressure Ulcers Wound Incision 12/21/17 1059 abdomen 1 day [] N/A [] Chest Tube [] NG [] CARITO [] Pigtail [] [place] [] HV Safety: TeleSitter Yes: [] No: [x] Sitter Yes: [] No: [x] Restraints Yes: [] No: [x] Grubbs: [] Voiding [] BU Insert Date: D/C Date: 12/23/17 Active Urinary Caths Urinary Catheter Urethral Catheter 12/21/17 0825 latex 16 5 10 1 day Last bowel movement: Stool Occurrence: 1 (12/21/17 0700) Active Gtt: lactated ringers 100 mL (12/22/17 2358) Mentation/CAM +/- CAM Score: no Diet: Active Orders Diet Diet fiber restricted; full liquid; Effective Now NG/OG/PEG Active NG/OG/PEGs No matching active lines, drains, or airways Therapy Involved? (PT/OT/ST/RT) Yes: [x] No: [] Type: PT [] OT [] ST [] RT [x] Vitals: 12/22/17 2242 12/23/17 0022 12/23/17 0350 12/23/17 0352 BP: 133/77 Pulse: 78 79 56 74 Resp: 20 20 20 20 Temp: 36.2 C (97.1 F) TempSrc: Axillary SpO2: 92% 98% 96% Weight: Height: Component Value Date/Time POCGLU 113 (H) 12/22/2017 2123 POCGLU 100 (H) 12/22/2017 1732 POCGLU 92 12/22/2017 1200 POCGLU 91 12/22/2017 0845 Items to address 1:1 at bedside report: 1. Anticipated needs next 1-2 hours: ? Time sensitive labs next draw? ? PTT for heparin? ? Critical lab results to be called on? ? Gtt rate and adjustment times 2. Goals to progress towards discharge 3. MD Communication (pending/call needed?) lan of Care - Carlos Daniel, CHILO - 12/22/2017 10:56 PM PDTProblem: Patient Care Overview (Adult) Goal: Care Team Goals & Evaluation PROBLEM-RELATED GOALS: STRATEGY TO ACHIEVE GOALS: RESTRAINT-RELATED GOALS: STRATEGIES TO ACHIEVE RESTRAINT GOALS: Patient assessed with respiratory therapy. stable on low flow O2, mild wob noted. Inhaled meds given as ordered, pulmonary hygiene performed via deep breathing & coughing. Plan to continue current therapy. Goal Evaluation: lan of Care - Darby Clarke RN - 12/22/2017 4:14 PM PDT Problem: Patient Care Overview (Adult) Goal: Care Team Goals & Evaluation PROBLEM-RELATED GOALS: STRATEGY TO ACHIEVE GOALS: RESTRAINT-RELATED GOALS: STRATEGIES TO ACHIEVE RESTRAINT GOALS: Outcome: Unchanged Goal Evaluation: 7N Nursing Progress Note Room #724/724-02 ISO: None Item for recovery agent Comments Shift Summary Still having issues with pain especially when she tries to move or cough, p t is better at baseline if pt resting and not moving. Trying oral pain medication with IV fo r breakthrough pain. Pt did sit on the edge of bed for a few seconds with assistance today b ut had severe pain with this activity. Grubbs still in place, to be removed tomorrow AM. CARITO in place with minimal output, wound va c CDI. Still requiring a significant amount of O2, is on RA at baseline but requiring 5L/NC to nkia ntain sats at >90% especially while sleeping. Encouraging pt to use IS, Cough and deep breat h. Started on nebs and going to try CPAP with naps and at NOC. On Eco2 and continuis O2 kaylee toring. RR also decreasing at times during sleep. Denies any nausea, belching but not passin g flatus yet. Poor appetite. Encouraging fluids. Electronically signed by: Darby whitaker RN 12/22/2017 16:14 Dx/Tx: Recurrent incisional hernia with incarceration; Recurrent incisional hernia with i ncarceration Code Status: Full Code NAC Turn [] Incontinent [] 1:1 Feeding [] Oxygen Delivery RA [] NC [x] Open Mask [] Non-Rebreather [] cpa p/bipap [] HHFNC [] V60/Vision [] Vent [] 5 liters concentration Pain Management:: RTC PRNs IV Access: PIV [x] PICC [] Port [] CVC [] HD [] Drains/Devices/Skin Marga Score: (!) 15 Active Drains Drain Drain/Device Site 12/21/17 1019 #1 Right upper abdomen 1 day Drain/Device Site 12/21/17 1030 #2 other (see comments) abdomen 1 day Active Wounds/Incisions/Pressure Ulcers Wound Incision 12/21/17 1059 abdomen 1 day [] N/A [] Chest Tube [] NG [x] CARITO [] Pigtail [x] [place] [] HV Safety: TeleSitter Yes: [] No: [x] Sitter Yes: [] No: [x] Restraints Yes: [] No: [x] Grubbs: [] Voiding [x] BU Insert Date: D/C Date: Active Urinary Caths Urinary Catheter Urethral Catheter 12/21/17 0825 latex 16 5 10 1 day Last bowel movement: Stool Occurrence: 1 (12/21/17 0700) Active Gtt: lactated ringers 75 mL/hr at 12/22/17 1347 Mentation/CAM +/- CAM Score: no Diet: Active Orders Diet Diet fiber restricted; full liquid; Effective Now NG/OG/PEG Active NG/OG/PEGs No matching active lines, drains, or airways Therapy Involved? (PT/OT/ST/RT) Yes: [x] No: [] Type: PT [] OT [] ST [] RT [x] Vitals: 12/22/17 0842 12/22/17 1009 12/22/17 1504 12/22/17 1548 BP: 185/84 Pulse: 74 80 98 84 Resp: 14 Temp: 36.5 C (97.7 F) TempSrc: Oral SpO2: 93% 97% 96% 93% Weight: Height: Component Value Date/Time POCGLU 92 12/22/2017 1200 POCGLU 91 12/22/2017 0845 POCGLU 122 (H) 12/21/2017 2001 POCGLU 133 (H) 12/21/2017 1812 Items to address 1:1 at bedside report: 1. Anticipated needs next 1-2 hours: ? Time sensitive labs next draw? ? PTT for heparin? ? Critical lab results to be called on? ? Gtt rate and adjustment times 2. Goals to progress towards discharge 3. MD Communication (pending/call needed?) lan of Ramin - Rowan Knight ADMEASURER - 12/22/2017 8:43 AM PDTFormatting of this note might be different f rom the original. 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 Pred: IS Predicted Level (mL) : 2600 (780cc=30%) Act: IS Level (mL) : 1500 Adequate Breath Hold:Yes Chest X-Ray: None taken CARE PLAN Oxygen Therapy Current Therapy: Fio2 to keep sats >92% Change to: Fio2 to keep sats >90% Respiratory Medication Current Therapy: None Change to: Duoneb q4 w/a Bronchial Hygiene Current Therapy: None Change to: Encourage to deep breath and cough Lung Volume Expansion Current Therapy: None Change to: IS q1 w/a DISPOSITION: Therapy Initiated per Protocol, Changes Made per Patient Assessment and Plan t o continue current care and reassess daily or as needed lan of Care - Jered Stover RN - 12/22/2017 1:15 AM PDT Problem: Patient Care Overview (Adult) Goal: Care Team Goals & Evaluation PROBLEM-RELATED GOALS: STRATEGY TO ACHIEVE GOALS: RESTRAINT-RELATED GOALS: STRATEGIES TO ACHIEVE RESTRAINT GOALS: Outcome: Unchanged Goal Evaluation: 7N Nursing Progress Note Room #724/724-02 ISO: None Item for recovery agent Comments Shift Summary Pt alert and oriented. Had surgery yesterday for hernia incarceration. Has midline inc with wound vac and RUQ incision with CARITO. Receiving morphine sulfate 4 mg alterna ting with dilaudid 0.6 mg prn every hour. Pt sensitive with dilaudid and had decrease in res piratory status on days. Has EcO2 monitor on. BU patent. Needs to be dc'd this am. Receiving labetalol for elevated SBP in the 180's. Dx/Tx: Recurrent incisional hernia with incarceration; Recurrent incisional hernia with i ncarceration Code Status: Full Code NAC Turn [] Incontinent [] 1:1 Feeding [] Oxygen Delivery RA [] NC [x] Open Mask [] Non-Rebreather [] cpa p/bipap [] HHFNC [] V60/Vision [] Vent [] 3 liters concentration Pain Management:: Morphine sulfate and dilaudid prn. IV Access: PIV [x] PICC [] Port [] CVC [] HD [] Drains/Devices/Skin Marga Score: (!) 17 Active Drains Drain Drain/Device Site 12/21/17 1019 #1 Right upper abdomen less than 1 day Drain/Device Site 12/21/17 1030 #2 other (see comments) abdomen less than 1 day Active Wounds/Incisions/Pressure Ulcers Wound Incision 12/21/17 1059 abdomen less than 1 day [] N/A [] Chest Tube [] NG [x] CARITO [] Pigtail [x] [place] [] HV Safety: TeleSitter Yes: [] No: [x] Sitter Yes: [] No: [x] Restraints Yes: [] No: [x] Grubbs: [] Voiding [x] BU Insert Date: D/C Date: Active Urinary Caths Urinary Catheter Urethral Catheter 12/21/17 0825 latex 16 5 10 less than 1 day Last bowel movement: Stool Occurrence: 1 (12/21/17 0700) Active Gtt: lactated ringers 100 mL/hr at 12/22/17 0049 Mentation/CAM +/- CAM Score: no Diet: Active Orders Diet Diet fiber restricted; full liquid; Effective Now NG/OG/PEG Active NG/OG/PEGs No matching active lines, drains, or airways Therapy Involved? (PT/OT/ST/RT) Yes: [x] No: [] Type: PT [] OT [] ST [] RT [x] Vitals: 12/21/17 2013 12/21/17 2323 12/22/17 0002 12/22/17 0037 BP: (!) 181/100 (!) 181/100 Pulse: 80 84 73 Resp: 21 13 16 Temp: 36.6 C (97.9 F) TempSrc: Oral SpO2: 91% 95% 92% Weight: Height: Component Value Date/Time POCGLU 122 (H) 12/21/20172000 POCGLU 133 (H) 12/21/2017 181 POCGLU 123 (H) 12/21/2017 1223 Items to address 1:1 at bedside report: 1. Anticipated needs next 1-2 hours: ? Time sensitive labs next draw? ? PTT for heparin? ? Critical lab results to be called on? ? Gtt rate and adjustment times 2. Goals to progress towards discharge 3. MD Communication (pending/call needed?) lan of Care - Darby Appiah RN - 12/21/2017 4:54 PM PDTFormatting of this note might be different from t he original. Problem: Patient Care Overview (Adult) Goal: Care Team Goals & Evaluation PROBLEM-RELATED GOALS: STRATEGY TO ACHIEVE GOALS: RESTRAINT-RELATED GOALS: STRATEGIES TO ACHIEVE RESTRAINT GOALS: Outcome: Unchanged Goal Evaluation: 7N Nursing Progress Note Room #724/724-02 ISO: None Item for recovery agent Comments Shift Summary Surgery today to repair hernia, wound vac and CARITO drain placed in surgery. F oley in placed, to be removed tomorrow AM. Pt with lots of pain post operatively, increased pain with any movement, and pt describing pain as crampy pain in lower ABD. Multiple dose of IV morphine given with minimal effect. Dose of IV dilaudid given with slightly better resul ts but caused pt's respiratory rate to decrease significantly. Pt placed on EcO2 monitoring and continuous pulse ox monitoring d/t respiratory depression from pain meds and anesthesia. Encouraging pt to deep breath as able, and to splint abd when she has to cough/move/deep br eath. Monitoring closely. BP also significantly high post operatively, multiple doses of lab etalol given with minimal results, MD notified and pt restarted on home BP medication. Will monitor closely. Electronically signed by: Darby Linton RN 12/21/2017 16:54 Dx/Tx: Recurrent incisional hernia with incarceration; Recurrent incisional hernia with i ncarceration Code Status: Full Code NAC Turn [] Incontinent [] 1:1 Feeding [] Oxygen Delivery RA [] NC [x] Open Mask [] Non-Rebreather [] cpa p/bipap [] HHFNC [] V60/Vision [] Vent [] 3 liters concentration Pain Management:: IV PRN pain medication RTC IV Access: PIV [x] PICC [] Port [] CVC [] HD [] Drains/Devices/Skin Marga Score: (!) 17 Active Drains Drain Drain/Device Site 12/21/17 1019 #1 Right upper abdomen less than 1 day Drain/Device Site 12/21/17 1030 #2 other (see comments) abdomen less than 1 day Active Wounds/Incisions/Pressure Ulcers Wound Incision 12/21/17 1059 abdomen less than 1 day [] N/A [] Chest Tube [] NG [x] CARITO [] Pigtail [x] [place] [] HV Safety: TeleSitter Yes: [] No: [x] Sitter Yes: [] No: [x] Restraints Yes: [] No: [x] Grubbs: [] Voiding [x] BU Insert Date: D/C Date: Active Urinary Caths Urinary Catheter Urethral Catheter 12/21/17 0825 latex 16 5 10 less than 1 day Last bowel movement: Stool Occurrence: 1 (12/21/17 0700) Active Gtt: lactated ringers 100 mL/hr at 12/21/17 1446 Mentation/CAM +/- CAM Score: no Diet: Active Orders Diet Diet fiber restricted; full liquid; Effective Now NG/OG/PEG Active NG/OG/PEGs No matching active lines, drains, or airways Therapy Involved? (PT/OT/ST/RT) Yes: [] No: [x] Type: PT [] OT [] ST [] RT [] Vitals: 12/21/17 1438 12/21/17 1449 12/21/17 1500 12/21/17 1556 BP: (!) 179/103 (!) 175/92 (!) 174/99 (!) 168/96 Pulse: 89 92 93 Resp: 16 16 Temp: 36.1 C (97 F) 36 C (96.8 F) TempSrc: Temporal Temporal SpO2: 93% 92% Weight: Height: Component Value Date/Time POCGLU 123 (H) 12/21/2017 1223 Items to address 1:1 at bedside report: 1. Anticipated needs next 1-2 hours: ? Time sensitive labs next draw? ? PTT for heparin? ? Critical lab results to be called on? ? Gtt rate and adjustment times 2. Goals to progress towards discharge 3. MD Communication (pending/call needed?) p Note - Dorian Burks MD - 12/21/2017 10:50 AM [facility] Operative Note Pt. Name/Age/: Wale Lou 47 y.o. 1970 [facility]. Record Number: [id number] Date of admission: 12/21/2017 Date of Operation/Procedure: 12/21/2017 Preoperative Diagnosis: Multiply recurrent incisional hernia with incarceration Morbid obesity Tobacco use Postoperative Diagnosis: Same Procedure: Repair of incarcerated, multiply recurrent incisional hernia Ileocolic resection including 18 inches of ileum and cecum Implantation of biologic mesh Application of VAC dressing Surgeon: Dorian Burks MD Anesthesia Provider(s): Anesthesiologist: Everardo Beard MD HR MANAGER (Medically Directed): Jennie Miller CRNA; Janak Harmon CRNA Anesthesia Type: Gen. endotracheal Operative Findings: The fascial defect was approximately 11-12 cm. There were multiple loo ps of incarcerated terminal ileum including the appendix but not the cecum. These are chron ically obstructed and thickened. A small amount of omentum was incarcerated as well. The h ernia sac was made up primarily of subcutaneous fat rather than peritoneum. All of this was excised. An ileocolic resection was performed. Partial omentectomy was done as well. The hernia was then repaired primarily in the midline with interrupted ynazox-tl-zgyxe #1 PDS s uture and a 10 x 16 cm piece of thick Strattice was placed beneath the fascia and held in pl omayra with multiple transfacial sutures circumferentially. The skin was then loosely closed w ith interrupted nylon suture with VAC sponges packed down between the stitches in the simult aneous tissues and a VAC over the surface of the skin placed. A CARITO drain was also placed in the subfascial plane right on top of the Strattice. Operation: The patient was probably identified, taken to the operating room and general en dotracheal anesthesia was induced. A fully catheter was placed and the abdomen was prepped and draped in the usual sterile fashion. Her previous transverse incision was reopened exci sing the scar from the previous operation. The underlying cause I hernia sac was encountere d and circumferentially dissected down to fascia. The abdominal cavity was entered and I wa s able to circumferentially excise the fibula sac that contained the small bowel and omentum as well as the appendix. The above findings were noted. A segmental resection was perform ed including the terminal ileum and cecum. The mesentery was divided with Altagracia plus ties on major vessels. A stapled ileocolic anastomosis was made between the mid ileum and the a scending colon. The mesenteric defect was closed with 2-0 Vicryl suture. All the bowel was returned to the abdominal cavity and attention was turned to wound closure. A 10 x 16 cm p iece of Strattice mesh was placed subfascial and secured circumferentially with trans-fascia l 0 Prolene horizontal mattress sutures. The midline was then closed vertically with #1 PDS drhuvt-uz-agdet sutures. It appeared that previously the hernia and closed transversely. The semitendinous tissues were then irrigated and all air and removed. Hemostasis was ensur ed. A few loose stitches were placed in the subtalar tissues to take some of the tension of f of the wound. Several interrupted vertical mattress 2-0 nylon sutures were placed in the skin at about 1 inch intervals. 3 inch pieces of VAC sponge were cut to about 1 x 1 cm and passed down the simultaneous tissues deeply in the wound between the stitches. There are 3 such ana placement of the subcutaneous tissues. Another strip of sponge was placed over t op of all these and over top of the incision and suction applied appropriately. Prior to cl osing the fascia and CARITO drain was entered through the right upper quadrant and placed in the subfascial space between the mesh and the fascia. This was secured to the skin with 3-0 ny jasmine suture. The patient was then awakened extubated and taken to the recovery room in stabl e condition. Estimated Blood Loss: 100 cc Specimen (s): Portion of ileum and cecum including appendix Complications: None Electronically Signed by: Dorian Burks MD, 12/21/2017 10:50 [facility] documented in this enc ounter Plan of Treatment +--------+---------+ + + + | Date | Type | Specialty | Care Team | Description | +--------+---------+ + + + | 12/30/ | Office | Pulmonology | Leo, | | | 2019 | Visit | | Daphne Angelo, | | | | | | [address] | | | | | | [place], | | | | | | [place] [address] | | | | | | [phone] | | | | | | | | +--------+---------+ + + + + +------+--------+ + + | Name | Type | Priori | Associated Diagnoses | Order Schedule | | | | ty | | | + +------+--------+ + + | DME: Oxygen Therapy | DME | Routin | Acute pulmonary | DME 1 Time for 1 | | | | e | insufficiency | Occurrences starting | | | | | following | 12/25/2017 until | | | | | nonthoracic surgery | 12/25/2017 | | | | | (HCC) | | + +------+--------+ + + + + +--------+ + + | Name | Type | Priori | Associated Diagnoses | Order Schedule | | | | ty | | | + + +--------+ + + | Referral to Home | Outpatient | Routin | Recurrent | Ordered: 12/25/2017 | | Health - OUTPATIENT | Referral | e | incisional hernia | | | | | | with incarceration | | + + +--------+ + + | Referral to Home | Outpatient | Routin | Recurrent | Ordered: 12/25/2017 | | Health - OUTPATIENT | Referral | e | incisional hernia | | | | | | with incarceration | | + + +--------+ + + documented as of this encounter Procedures + +--------+ + + + | Procedure Name | Priori | Date/Time | Associated Diagnosis | Comments | | | ty | | | | + +--------+ + + + | PERFORM HOME O2 | Routin | 12/25/2017 | | | | EVALUATION | e | 10:17 AM | | | | | | PDT | | | + +--------+ + + + | POC GLUCOSE | Routin | 12/25/2017 | | Results for this | | | e | 8:37 AM | | procedure are in the | | | | PDT | | results section. | + +--------+ + + + | POC GLUCOSE | Routin | 12/24/2017 | | Results for this | | | e | 8:58 PM | | procedure are in the | | | | PDT | | results section. | + +--------+ + + + | POC GLUCOSE | Routin | 12/24/2017 | | Results for this | | | e | 5:27 PM | | procedure are in the | | | | PDT | | results section. | + +--------+ + + + | POC GLUCOSE | Routin | 12/24/2017 | | Results for this | | | e | 11:57 AM | | procedure are in the | | | | PDT | | results section. | + +--------+ + + + | POC GLUCOSE | Routin | 12/24/2017 | | Results for this | | | e | 8:14 AM | | procedure are in the | | | | PDT | | results section. | + +--------+ + + + | POC GLUCOSE | Routin | 12/23/2017 | | Results for this | | | e | 9:07 PM | | procedure are in the | | | | PDT | | results section. | + +--------+ + + + | POC GLUCOSE | Routin | 12/23/2017 | | Results for this | | | e | 6:11 PM | | procedure are in the | | | | PDT | | results section. | + +--------+ + + + | POC GLUCOSE | Routin | 12/23/2017 | | Results for this | | | e | 11:57 AM | | procedure are in the | | | | PDT | | results section. | + +--------+ + + + | POC GLUCOSE | Routin | 12/23/2017 | | Results for this | | | e | 8:38 AM | | procedure are in the | | | | PDT | | results section. | + +--------+ + + + | POC GLUCOSE | Routin | 12/22/2017 | | Results for this | | | e | 9:23 PM | | procedure are in the | | | | PDT | | results section. | + +--------+ + + + | POC GLUCOSE | Routin | 12/22/2017 | | Results for this | | | e | 5:32 PM | | procedure are in the | | | | PDT | | results section. | + +--------+ + + + | POC GLUCOSE | Routin | 12/22/2017 | | Results for this | | | e | 12:00 PM | | procedure are in the | | | | PDT | | results section. | + +--------+ + + + | POC GLUCOSE | Routin | 12/22/2017 | | Results for this | | | e | 8:45 AM | | procedure are in the | | | | PDT | | results section. | + +--------+ + + + | CBC NO DIFFERENTIAL | Routin | 12/22/2017 | | Results for this | | | e | 3:18 AM | | procedure are in the | | | | PDT | | results section. | + +--------+ + + + | BASIC METABOLIC | Routin | 12/22/2017 | | Results for this | | PANEL | e | 3:18 AM | | procedure are in the | | | | PDT | | results section. | + +--------+ + + + | POC GLUCOSE | Routin | 12/21/2017 | | Results for this | | | e | 8:01 PM | | procedure are in the | | | | PDT | | results section. | + +--------+ + + + | POC GLUCOSE | Routin | 12/21/2017 | | Results for this | | | e | 6:12 PM | | procedure are in the | | | | PDT | | results section. | + +--------+ + + + | POC GLUCOSE | Routin | 12/21/2017 | | Results for this | | | e | 12:23 PM | | procedure are in the | | | | PDT | | results section. | + +--------+ + + + | TISSUE REQUEST FOR | Routin | 12/21/2017 | | Results for this | | PATHOLOGY (NON-ORD) | e | 9:36 AM | | procedure are in the | | | | PDT | | results section. | + +--------+ + + + | REPAIR HERNIA | | 12/21/2017 | Recurrent | | | VENTRAL / INCISIONAL | | 8:09 AM | incisional hernia | | | | | PDT | with incarceration | | + +--------+ + + + | APPLICATION WOUND | | 12/21/2017 | Recurrent | | | VAC | | 8:09 AM | incisional hernia | | | | | PDT | with incarceration | | + +--------+ + + + | RESECTION COLON | | 12/21/2017 | Recurrent | | | | | 8:09 AM | incisional hernia | | | | | PDT | with incarceration | | + +--------+ + + + | ECG 12 LEAD | Routin | 12/21/2017 | | Results for this | | | e | 8:03 AM | | procedure are in the | | | | PDT | | results section. | + +--------+ + + + documented in this encounter Results POC Glucose (12/25/2017 8:37 AM PDT) + + + + + + | Component | Value | Ref Range | Performed | Pathologist | | | | | At | Signature | + + + + + + | Glucose, | 107 (H)Comment: | 65 - 99 mg/dL | [facility] | | | POC | Performed by [facility] [address] | | SACRED | | | | [address] [place], [place] | | HEART | | | | [address] | | MEDICAL | | | | | | CENTER | | | | | | LABORATORY | | | | | | [place] | | + + + + + + + + | Specimen | + + | Blood specimen | | (specimen) | + + + + + + + | Performing | Address | City/State/Zipcode | Phone Number | | Organization | | | | + + + + + | [facility] | [address] | [place] [address] | | | [facility] | | | | | [place] | | | | + + + + + POC Glucose (12/24/2017 8:58 PM PDT) + + + + + + | Component | Value | Ref Range | Performed | Pathologist | | | | | At | Signature | + + + + + + | Glucose, | 147 (H)Comment: | 65 - 99 mg/dL | [facility] | | | POC | Performed by [facility] [address] | | [address] | | | | [place] | | HEART | | | | [address] | | MEDICAL | | | | | | CENTER | | | | | | LABORATORY | | | | | | [facility] | | + + + + + + + + | Specimen | + + | Blood specimen | | (specimen) | + + + + + + + | Performing | Address | City/State/Zipcode | Phone Number | | Organization | | | | + + + + + | [facility] | [address] | [place] [address] | | | [facility] | | | | | [place] | | | | + + + + + POC Glucose (12/24/2017 5:27 PM PDT) + + + + + + | Component | Value | Ref Range | Performed | Pathologist | | | | | At | Signature | + + + + + + | Glucose, | 110 (H)Comment: | 65 - 99 mg/dL | [facility] | | | POC | Performed by [facility] [address] | | SACRED | | | | [address] [place], [place] | | HEART | | | | [address] | | MEDICAL | | | | | | CENTER | | | | | | LABORATORY | | | | | | [place]ERN[place] | | + + + + + + + + | Specimen | + + | Blood specimen | | (specimen) | + + + + + + + | Performing | Address | City/State/Zipcode | Phone Number | | Organization | | | | + + + + + | [facility] | [address] | [place] [address] | | | [facility] | | | | | LABORATORY [facility] | | | | + + + + + POC Glucose (12/24/2017 11:57 AM PDT) + + + + --+ + | Component | Value | Ref Range | Performed | Pathologist | | | | | At | Signature | + + + + --+ + | Glucose, | 95Comment: Performed by | 65 - 99 mg/dL | [facility] | | | POC | [facility] [address], | | SACRED | | | | [place] [address] | | HEART | | | |Performed by [facility] [address], [place] [address] | | MEDICAL | | | | | | CENTER | | | | | | LABORATORY | | | | | | [place] | | + + + + --+ + + + | Specimen | + + | Blood specimen | | (specimen) | + + + + + + + | Performing | Address | City/State/Zipcode | Phone Number | | Organization | | | | + + + + + | [facility] | [address] | [place] [address] | | | [facility] | | | | | LABORATORY [place] | | | | + + + + + POC Glucose (12/24/2017 8:14 AM PDT) + + + + + + | Component | Value | Ref Range | Performed | Pathologist | | | | | At | Signature | + + + + + + | Glucose, | 108 (H)Comment: | 65 - 99 mg/dL | [facility] | | | POC | Performed by [facility] [address] | | SACRED | | | | [address] [place] | | HEART | | | | [address] | | MEDICAL | | | | | | CENTER | | | | | | LABORATORY | | | | | | [place] | | + + + + + + + + | Specimen | + + | Blood specimen | | (specimen) | + + + + + + + | Performing | Address | City/State/Zipcode | Phone Number | | Organization | | | | + + + + + | [facility] | [address] | [place] [address] | | | [facility] | | | | | LABORATORY [place] | | | | + + + + + POC Glucose (12/23/2017 9:07 PM PDT) + + + + + + | Component | Value | Ref Range | Performed | Pathologist | | | | | At | Signature | + + + + + + | Glucose, | 118 (H)Comment: | 65 - 99 mg/dL | [facility] | | | POC | Performed by [facility] [address] | | [address]CR[address] | | | | [address], [place] | | HEART | | | | [address] | | MEDICAL | | | | | | CENTER | | | | | | LABORATORY | | | | | | [place] | | + + + + + + + + | Specimen | + + | Blood specimen | | (specimen) | + + + + + + + | Performing | Address | City/State/Zipcode | Phone Number | | Organization | | | | + + + + + | [facility] | [address] | [place], [place] | | | [facility] | | | | | LABORATORY [place] | | | | + + + + + POC Glucose (12/23/2017 6:11 PM PDT) + + + + --+ + | Component | Value | Ref Range | Performed | Pathologist | | | | | At | Signature | + + + + --+ + | Glucose, | 92Comment: Performed by | 65 - 99 mg/dL | [facility] | | | POC | [facility] [address], | | SACRED | | | | [place] | | HEART | | | |Performed by [facility] [address], [place], [place] | | MEDICAL | | | | | | CENTER | | | | | | LABORATORY | | | | | | [place] | | + + + + --+ + + + | Specimen | + + | Blood specimen | | (specimen) | + + + + + + + | Performing | Address | City/State/Zipcode | Phone Number | | Organization | | | | + + + + + | [facility] | [address] | [place] [address] | | | [facility] | | | | | LABORATORY [facility] | | | | + + + + + POC Glucose (12/23/2017 11:57 AM PDT) + + + + --+ + | Component | Value | Ref Range | Performed | Pathologist | | | | | At | Signature | + + + + --+ + | Glucose, | 99Comment: Performed by | 65 - 99 mg/dL | [facility] | | | POC | [facility] [address], | | SACRED | | | | [place] [address] | | HEART | | | |Performed by [facility] [address] [place] [address] | | MEDICAL | | | | | | CENTER | | | | | | LABORATORY | | | | | | [facility] | | + + + + --+ + + + | Specimen | + + | Blood specimen | | (specimen) | + + + + + + + | Performing | Address | City/State/Zipcode | Phone Number | | Organization | | | | + + + + + | [facility] | [address] | [place] [address] | | | [facility] | | | | | LABORATORY [place] | | | | + + + + + POC Glucose (12/23/2017 8:38 AM PDT) + + + + --+ + | Component | Value | Ref Range | Performed | Pathologist | | | | | At | Signature | + + + + --+ + | Glucose, | 92Comment: Performed by | 65 - 99 mg/dL | [facility] | | | POC | [facility] [address], | | SACRED | | | | [place] [address] | | HEART | | | |Performed by [facility] [address], [place] [address] | | MEDICAL | | | | | | CENTER | | | | | | LABORATORY | | | | | | [facility] | | + + + + --+ + + + | Specimen | + + | Blood specimen | | (specimen) | + + + + + + + | Performing | Address | City/State/Zipcode | Phone Number | | Organization | | | | + + + + + | [facility] | [address] | [place] [address] | | | [facility] | | | | | LABORATORY [facility] | | | | + + + + + POC Glucose (12/22/2017 9:23 PM PDT) + + + + + + | Component | Value | Ref Range | Performed | Pathologist | | | | | At | Signature | + + + + + + | Glucose, | 113 (H)Comment: | 65 - 99 mg/dL | [facility] | | | POC | Performed by [facility] [address] | | [address] | | | | [address] [place], [place] | | HEART | | | | [address] | | MEDICAL | | | | | | CENTER | | | | | | LABORATORY | | | | | | [place] | | + + + + + + + + | Specimen | + + | Blood specimen | | (specimen) | + + + + + + + | Performing | Address | City/State/Zipcode | Phone Number | | Organization | | | | + + + + + | [facility] | [address] | [place] [address] | | | [facility] | | | | | [place] | | | | + + + + + POC Glucose (12/22/2017 5:32 PM PDT) + + + + + + | Component | Value | Ref Range | Performed | Pathologist | | | | | At | Signature | + + + + + + | Glucose, | 100 (H)Comment: | 65 - 99 mg/dL | [facility] | | | POC | Performed by [facility] [address] | | SACRED | | | | [address] [place] | | HEART | | | | [address] | | MEDICAL | | | | | | CENTER | | | | | | LABORATORY | | | | | | [place] | | + + + + + + + + | Specimen | + + | Blood specimen | | (specimen) | + + + + + + + | Performing | Address | City/State/Zipcode | Phone Number | | Organization | | | | + + + + + | [facility] | [address] | [place] | | | [facility] | | | | | LABORATORY [place] | | | | + + + + + POC Glucose (12/22/2017 12:00 PM PDT) + + + + --+ + | Component | Value | Ref Range | Performed | Pathologist | | | | | At | Signature | + + + + --+ + | Glucose, | 92Comment: Performed by | 65 - 99 mg/dL | [facility] | | | POC | [facility] [address], | | SACRED | | | | [place] | | HEART | | | |Performed by [facility] [address], [place] | | MEDICAL | | | | | | CENTER | | | | | | LABORATORY | | | | | | [place] | | + + + + --+ + + + | Specimen | + + | Blood specimen | | (specimen) | + + + + + + + | Performing | Address | City/State/Zipcode | Phone Number | | Organization | | | | + + + + + | [facility] | [address] | [place] [address] | | | [facility] | | | | | LABORATORY [place] | | | | + + + + + POC Glucose (12/22/2017 8:45 AM PDT) + + + + --+ + | Component | Value | Ref Range | Performed | Pathologist | | | | | At | Signature | + + + + --+ + | Glucose, | 91Comment: Performed by | 65 - 99 mg/dL | [facility] | | | POC | [facility] [address], | | SACRED | | | | [place] [address] | | HEART | | | |Performed by [facility] [address], [place] [address] | | MEDICAL | | | | | | CENTER | | | | | | LABORATORY | | | | | | [facility] | | + + + + --+ + + + | Specimen | + + | Blood specimen | | (specimen) | + + + + + + + | Performing | Address | City/State/Zipcode | Phone Number | | Organization | | | | + + + + + | [facility] | [address] | [place] [address] | | | [facility] | | | | | LABORATORY [facility] | | | | + + + + + Basic Metabolic Panel (12/22/2017 3:18 AM PDT) + + + + + + | Component | Value | Ref Range | Performed | Pathologist | | | | | At | Signature | + + + + + + | Na | 142 | 135 - 145 | [facility] | | | | | mmol/L | SACRED | | | | | | HEART | | | | | | MEDICAL | | | | | | CENTER | | | | | | LABORATORY | | | | | | [facility] | | + + + + + + | K | 4.3 | 3.5 - 5.0 | [facility] | | | | | mmol/L | [facility] | | | | | | HEART | | | | | | MEDICAL | | | | | | CENTER | | | | | | LABORATORY | | | | | | [facility] | | + + + + + + | Cl | 109 | 99 - 109 mmol/L | [facility] | | | | | | [facility] | | | | | | HEART | | | | | | MEDICAL | | | | | | CENTER | | | | | | LABORATORY | | | | | | [facility] | | + + + + + + | CO2 | 31 (H) | 21 - 28 mmol/L | [facility] | | | | | | [facility]CR[facility] | | | | | | HEART | | | | | | MEDICAL | | | | | | CENTER | | | | | | LABORATORY | | | | | | [place] | | + + + + + + | Anion Gap | 2 (L) | 5 - 16 mmol/L | [facility] | | | | | | [facility] | | | | | | HEART | | | | | | MEDICAL | | | | | | CENTER | | | | | | LABORATORY | | | | | | [place] | | + + + + + + | Calcium | 8.7 | 8.5 - 10.2 | [facility] | | | | | mg/dL | [facility] | | | | | | HEART | | | | | | MEDICAL | | | | | | CENTER | | | | | | LABORATORY | | | | | | [facility] | | + + + + + + | BUN | 11 | 8 - 25 mg/dL | [facility] | | | | | | [facility]CR[facility] | | | | | | HEART | | | | | | MEDICAL | | | | | | CENTER | | | | | | LABORATORY | | | | | | [place] | | + + + + + + | Creatinine | 0.77 | 0.50 - 1.00 | [facility] | | | | | mg/dL | [facility] | | | | | | HEART | | | | | | MEDICAL | | | | | | CENTER | | | | | | LABORATORY | | | | | | [facility] | | + + + + + + | Glucose | 104 (H) | 65 - 99 mg/dL | [facility] | | | | | | [facility] | | | | | | HEART | | | | | | MEDICAL | | | | | | CENTER | | | | | | LABORATORY | | | | | | [facility] | | + + + + + + | Estimated | 91Comment: eGFR<60 | >=90 | [facility] | | | GFR | consistent with impaired | mL/min/1.73m2 | [facility] | | | | kidney | | HEART | | | | function.Performed by | | MEDICAL | | | | [facility] [address], | | CENTER | | | | [place] [address] | | LABORATORY | | | | | | [place] | | + + + + + + + + | Specimen | + + | Blood specimen | | (specimen) | + + + + + + + | Performing | Address | City/State/Zipcode | Phone Number | | Organization | | | | + + + + + | [facility] | [address] | [place] [address] | | | [facility] | | | | | LABORATORY [facility] | | | | + + + + + CBC no Differential (12/22/2017 3:18 AM PDT) + + + +------- ------+ + | Component | Value | Ref Range | Perfor med | Pathologist | | | | | At | Signature | + + + +------- ------+ + | White Blood | 13.0 (H) | 3.8 - 11.0 K/uL | [facility] | | | Cells | | | [facility] | | | | | | HEART | | | | | | MEDICA L | | | | | | CENTER | | | | | | LABORA TORY | | | | | | [facility] | | + + + +------- ------+ + | Red Blood | 5.18 (H) | 3.70 - 5.10 | [facility] | | | Cells | | M/uL | [facility] | | | | | | HEART | | | | | | MEDICA L | | | | | | CENTER | | | | | | LABORA TORY | | | | | | [facility] | | + + + +------- ------+ + | Hemoglobin | 13.0 | 11.3 - 15.5 | [facility] | | | | | g/dL | [facility] | | | | | | HEART | | | | | | MEDICA L | | | | | | CENTER | | | | | | LABORA TORY | | | | | | [facility] | | + + + +------- ------+ + | Hct | 41.7 | 34.0 - 46.0 % | [facility] | | | | | | [facility] | | | | | | HEART | | | | | | MEDICA L | | | | | | CENTER | | | | | | LABORA TORY | | | | | | [place] | | + + + +------- ------+ + | MCV | 80.5 | 80.0 - 100.0 fL | [facility] | | | | | | [facility] | | | | | | HEART | | | | | | MEDICA L | | | | | | CENTER | | | | | | LABORA TORY | | | | | | [place] | | + + + +------- ------+ + | MCH | 25.2 (L) | 27.0 - 34.0 pg | [facility] | | | | | | [facility] | | | | | | HEART | | | | | | MEDICA L | | | | | | CENTER | | | | | | LABORA TORY | | | | | | [facility] | | + + + +------- ------+ + | MCHC | 31.2 (L) | 32.0 - 35.5 | [facility] | | | | | g/dL | [facility] | | | | | | HEART | | | | | | MEDICA L | | | | | | CENTER | | | | | | LABORA TORY | | | | | | [facility] | | + + + +------- ------+ + | RDW-CV | 17.5 (H) | 11.0 - 15.5 % | [facility] | | | | | | [facility] | | | | | | HEART | | | | | | MEDICA L | | | | | | CENTER | | | | | | LABORA TORY | | | | | | [facility] | | + + + +------- ------+ + | Platelet | 274 | 150 - 400 K/uL | [facility] | | | Count | | | [facility] | | | | | | HEART | | | | | | MEDICA L | | | | | | CENTER | | | | | | LABORA TORY | | | | | | CERNER | | + + + +------- ------+ + | MPV | 9.4Comment: Performed | 7.5 - 11.2 fL | [facility] | | | | by [facility] [address], | | SACRED | | | | [place] [id number] | | HEART | | | |Performed by [facility] [address], [place] [address] | | MEDICA L | | | | | | CENTER | | | | | | [facility] | | | | | | CERNER | | + + + +------- ------+ + + + | Specimen | + + | Blood specimen | | (specimen) | + + + + + + + | Performing | Address | City/State/Zipcode | Phone Number | | Organization | | | | + + + + + | BRENDA SERRANO | [address] | [place] [address] | | | [facility] | | | | | LABORATORY RADHA | | | | + + + + + POC Glucose (12/21/2017 8:01 PM PDT) + + + + + + | Component | Value | Ref Range | Performed | Pathologist | | | | | At | Signature | + + + + + + | Glucose, | 122 (H)Comment: | 65 - 99 mg/dL | [facility] | | | POC | Performed by [facility] [address] | | [facility]CR[facility] | | | | [address] [place] | | HEART | | | | [id number] | | MEDICAL | | | | | | CENTER | | | | | | LABORATORY | | | | | | CERNER | | + + + + + + + + | Specimen | + + | Blood specimen | | (specimen) | + + + + + + + | Performing | Address | City/State/Zipcode | Phone Number | | Organization | | | | + + + + + | BRENDA SERRANO | [address] | [place] [address] | | | [facility] | | | | | LABORATORY CERNER | | | | + + + + + POC Glucose (12/21/2017 6:12 PM PDT) + + + + + + | Component | Value | Ref Range | Performed | Pathologist | | | | | At | Signature | + + + + + + | Glucose, | 133 (H)Comment: | 65 - 99 mg/dL | [facility] | | | POC | Performed by [facility] [address] | | [address]CR[address] | | | | [address], [place] | | HEART | | | | [id number] | | MEDICAL | | | | | | CENTER | | | | | | LABORATORY | | | | | | CERNER | | + + + + + + + + | Specimen | + + | Blood specimen | | (specimen) | + + + + + + + | Performing | Address | City/State/Zipcode | Phone Number | | Organization | | | | + + + + + | BRENDA [facility]CRED | [address] | [place] [address] | | | HE[facility] | | | | | LABORATORY CERNER | | | | + + + + + POC Glucose (12/21/2017 12:23 PM PDT) + + + + + + | Component | Value | Ref Range | Performed | Pathologist | | | | | At | Signature | + + + + + + | Glucose, | 123 (H)Comment: | 65 - 99 mg/dL | [facility] | | | POC | Performed by [facility] [address] | | [place]CRED | | | | [address] [place] [place] | | HEART | | | | [address] | | MEDICAL | | | | | | CENTER | | | | | | LABORATORY | | | | | | CERNER | | + + + + + + + + | Specimen | + + | Blood specimen | | (specimen) | + + + + + + + | Performing | Address | City/State/Zipcode | Phone Number | | Organization | | | | + + + + + | BRENDA SERRANO | [address] | [place] [address] | | | [facility] | | | | | LABORATORY [facility] | | | | + + + + + Tissue Request For Pathology (12/21/2017 9:36 AM PDT) + + | Specimen | + + | | + + + +--------- --------+ | Narrative | [facility] | + +--------- --------+ | | [facility] | | [facility] | [facility] | | : 1970 AGE: 47 years SEX: Female | MEDICAL CENTER | | | LABORATO RY | | Acct: [id number] Location: | [facility] | | [facility]; 724; [id number] Case #: | | | [id number] Ordering: DORIAN BURKS MD | | | Client: [facility] | | | Copy To: Printed: | | | 12/24/2017 12:59 PDT | | | SURGICAL PATHOLOGY FINAL REPORTCollected: | | | Received: | | | Responsible Pathologist:12/21/2017 09:36 PDT | | | 12/21/2017 10:01 PDT VIGNESH LIVINGSTON | | | DIAGNOSIS:Ileocolic resection: | | | Portion of ileum and colon with edema and acute and chronic | | | serositis, associated with focal dense adhesions. | | | Portion of benign appendix, with acute and chronic serositis and | | | fibrous adhesions. | | | Negative for malignancy.0CJT/RF 12/24/17 09:31 amVerified by: | | | VIGNESH LIVINGSTON MDVerify Date: 12/24/2017 12:59 pmPerforming | | | Location: 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 Thesefindings, together with the gross | | | examination, support the pathologic diagnosis. | | |findings, together with the gross examination, support the pathologic diagnosis. | | + +--------- --------+ + + + + + | Performing | Address | City/State/Zipcode | Phone Number | | Organization | | | | + + + + + | BRENDA SERRANO | [address] | [place] [address] | | | [facility] | | | | | LABORATORY RADHA | | | | + + + + + ECG 12 lead (12/21/2017 8:03 AM PDT) + + | Specimen | + + | | + + + + + | Narrative | Performed At | + + + | HEART RATE:77 | [facility] | | bpmRR Interval:779 msAtrial Rate:77 msP-R Interval:180 msP | [facility] | | Duration:184 msP Horizontal [place]:20 degP Front [place]:67 degQ Onset:508 | | | msQRSD Interval:82 msQT Interval:392 msQTcB:444 msQTcF:426 msQRS | | | Horizontal [place]:-33 degQRS [place]:29 degI-40 Horizontal [place]:-2 degI-40 | | | Front [place]:30 degT-40 Horizontal [place]:-48 degT-40 Front [place]:26 degT | | | Horizontal [place]:59 degT Wave [place]:64 degS-T Horizontal [place]:75 degS-T | | | Front [place]:72 degSeverity:- NORMAL ECG -INTERP:SINUS | | | RHYTHMElectronically signed by: Juan Antonio CASTILLO 12-21-2017 15:31:08 | | |QT Interval:392 ms | | |QTcB:444 ms | | |QTcF:426 ms | | |QRS Horizontal [place]:-33 deg | | |QRS [place]:29 deg | | |I-40 Horizontal [place]:-2 deg | | |I-40 Front [place]:30 deg | | |T-40 Horizontal [place]:-48 deg | | |T-40 Front [place]:26 deg | | |T Horizontal [place]:59 deg | | |T Wave [place]:64 deg | | |S-T Horizontal [place]:75 deg | | |S-T Front [place]:72 deg | | |Severity:- NORMAL ECG - | | |INTERP:SINUS RHYTHM | | |Electronically signed by: Juan Antonio CASTILLO 12-21-2017 15:31:08 | | + + + + + + + + | Performing | Address | City/State/Zipcode | Phone Number | | Organization | | | | + + + + + | YUNIOR DORETHA | [address] | [place] [address] | [phone] | + + + + + documented in this encounter Visit Diagnoses + + | Diagnosis | + + | Recurrent incisional hernia with incarceration - Primary Incisional hernia with | | obstruction | + + | Acute pulmonary insufficiency following nonthoracic surgery (HCC) Other pulmonary | | insufficiency, not elsewhere classified, following trauma and surgery | + + | Obesity Obesity, unspecified | + + | Hypertension Unspecified essential hypertension | + + documented in this encounter Administered Medications + +--------+ +-------+------+------+ | Medication Order | MAR | Action | Dose | Rate | Site | | | Action | Date | | | | + +--------+ +-------+------+------+ | albuterol-ipratropium (DUONEB) | Given | 12/26/19 | 3 mLs | | | | 2.5-0.5 mg/3 mL nebulizer | | 18 7:33 | | | | | solution 3 mL 3 mL, | | AM PDT | | | | | Nebulization, EVERY 4 HOURS WHILE | | | | | | | AWAKE, First dose on 12/22/17 | | | | | | | at 0915 | | | | | | + +--------+ +-------+------+------+ +-------+ +-------+---+---+ | Given | 12/26/19 | 3 mLs | | | | | 18 3:32 | | | | | | AM PDT | | | | +-------+ +-------+---+---+ | Given | 12/25/19 | 3 mLs | | | | | 18 7:49 | | | | | | PM PDT | | | | +-------+ +-------+---+---+ +---+---+ | | | +---+---+ + +-------+ +-------+---+---+ | bisacodyl (DULCOLAX) EC tablet | Given | 12/23/19 | 10 mg | | | | 10 mg 10 mg, Oral, EVERY 6 HOURS | | 18 5:42 | | | | | INTERVAL, First dose on Sun | | AM PDT | | | | | 12/22/17 at 0000, For 2 doses, Do | | | | | | | not cut or crush., | | | | | | + +-------+ +-------+---+---+ +-------+ +-------+---+---+ | Given | 12/22/19 | 10 mg | | | | | 18 11:36 | | | | | | PM PDT | | | | +-------+ +-------+---+---+ + +---+ | | | + +---+ | dextrose 50% injection 12.5 g | | | 12.5 g, Intravenous, PRN, Low | | | Blood Sugar, Starting 12/21/17 | | | at 1342 | | + +---+ | | | + +---+ + +-------+ +--------+---+---+ | docusate sodium (COLACE) | Given | 12/25/19 | 100 mg | | | | capsule 100 mg 100 mg, Oral, 2 | | 18 9:56 | | | | | TIMES DAILY PRN, Constipation, | | AM PDT | | | | | Starting 12/21/17 at 0621, | | | | | | | First line agent for | | | | | | | constipation, | | | | | | + +-------+ +--------+---+---+ +---+---+ | | | +---+---+ + +-------+ +-------+---+---+ | famotidine (PEPCID) injection | Given | 12/24/19 | 20 mg | | | | 20 mg 20 mg, Intravenous, 2 | | 18 9:07 | | | | | TIMES DAILY, First dose on Sat | | PM PDT | | | | | 12/21/17 at 0900, Dilute 2 mL of | | | | | | | famotidine with 8 mL of normal | | | | | | | saline to a final concentration | | | | | | | of 2 mg/mL. Administer ordered | | | | | | | dose over a period of at least 2 | | | | | | | minutes., | | | | | | + +-------+ +-------+---+---+ +-------+ +-------+---+---+ | Given | 12/24/19 | 20 mg | | | | | 18 8:39 | | | | | | AM PDT | | | | +-------+ +-------+---+---+ | Given | 12/23/19 | 20 mg | | | | | 18 8:29 | | | | | | PM PDT | | | | +-------+ +-------+---+---+ +---+---+ | | | +---+---+ + +-------+ +-------+---+---+ | famotidine (PEPCID) tablet 20 | Given | 12/26/19 | 20 mg | | | | mg 20 mg, Oral, 2 TIMES DAILY, | | 18 9:01 | | | | | First dose on Sat12/24/17 at | | AM PDT | | | | | 2130, Interchanged from IV | | | | | | | formulation to PO per P&T | | | | | | | protocol., | | | | | | + +-------+ +-------+---+---+ +-------+ +-------+---+---+ | Given | 12/25/19 | 20 mg | | | | | 18 9:24 | | | | | | PM PDT | | | | +-------+ +-------+---+---+ +---+---+ | | | +---+---+ + +------+ +--------+---+---+ | fentaNYL (PF) injection 25-50 | Push | 12/22/19 | 50 mcg | | | | mcg 25-50 mcg, Intravenous, | | 18 12:34 | | | | | EVERY 5 MIN PRN, Pain, Starting | | PM PDT | | | | | 12/21/17 at 1055, Maximum total | | | | | | | dose 250 mcg. PACU IV Narcotic | | | | | | | Priority: Only use fentanyl for | | | | | | | immediate post-op pain (one dose) | | | | | | | or breakthrough pain when any | | | | | | | other IV narcotics ordered have | | | | | | | been ineffective (if ordered). | | | | | | | If both morphine and | | | | | | | hydromorphone are ordered, use | | | | | | | morphine first, and use | | | | | | | hydromorphone if morphine | | | | | | | ineffective., Recovery/Phase I | | | | | | + +------+ +--------+---+---+ +------+ +--------+---+---+ | Push | 12/22/19 | 50 mcg | | | | | 18 12:17 | | | | | | PM PDT | | | | +------+ +--------+---+---+ +---+---+ | | | +---+---+ + +-------+ +------+---+---+ | hydrALAZINE (APRESOLINE) | Given | 12/22/19 | 5 mg | | | | injection 5 mg 5 mg, | | 18 12:18 | | | | | Intravenous, EVERY 20 MINUTES | | PM PDT | | | | | PRN, For SBP > 180, DBP > 100, | | | | | | | Starting 12/21/17 at 1055, Hold | | | | | | | if HR > 100. Maximum total dose | | | | | | | 40 mg. Use labetalol first if | | | | | | | available., Recovery/Phase I | | | | | | + +-------+ +------+---+---+ +-------+ +------+---+---+ | Given | 12/22/19 | 5 mg | | | | | 18 12:00 | | | | | | PM PDT | | | | +-------+ +------+---+---+ | Given | 12/22/19 | 5 mg | | | | | 18 11:40 | | | | | | AM PDT | | | | +-------+ +------+---+---+ +---+---+ | | | +---+---+ + +-------+ +--------+---+---+ | HYDROmorphone (DILAUDID) | Given | 12/23/19 | 0.5 mg | | | | injection 0.25-1 mg 0.25-1 mg, | | 18 8:23 | | | | | Intravenous, EVERY 2 HOURS PRN, | | AM PDT | | | | | Pain, [...] | | | | | contact ordering provider, | | | | | | + +-------+ +--------+---+---+ +-------+ +--------+---+---+ | Given | 12/23/19 | 0.5 mg | | | | | 18 6:43 | | | | | | AM PDT | | | | +-------+ +--------+---+---+ | Given | 12/23/19 | 0.5 mg | | | | | 18 4:45 | | | | | | AM PDT | | | | +-------+ +--------+---+---+ +---+---+ | | | +---+---+ + +-------+ +-------+---+---+ | labetalol (TRANDATE) 5 mg/mL | Given | 12/23/19 | 10 mg | | | | injection 10 mg 10 mg, | | 18 3:54 | | | | | Intravenous, EVERY 4 HOURS PRN, | | PM PDT | | | | | Give [...] | | | | | | 10 minutes., | | | | | | + +-------+ +-------+---+---+ +-------+ +-------+---+---+ | Given | 12/23/19 | 10 mg | | | | | 18 12:37 | | | | | | AM PDT | | | | +-------+ +-------+---+---+ | Given | 12/22/19 | 10 mg | | | | | 18 8:09 | | | | | | PM PDT | | | | +-------+ +-------+---+---+ +---+---+ | | | +---+---+ + +---------+ +---+-------+---+ | lactated ringers (LR) infusion | New Bag | 12/25/19 | | 100 | | | at 100 mL/hr, Intravenous, | | 18 12:34 | | mL/hr | | | CONTINUOUS, Starting 12/21/17 | | AM PDT | | | | | at 0645 | | | | | | + +---------+ +---+-------+---+ +---------+ +---------+-------+---+ | New Bag | 12/24/19 | | 100 | | | | 18 1:22 | | mL/hr | | | | PM PDT | | | | +---------+ +---------+-------+---+ | New Bag | 12/23/19 | 100 mLs | 100 | | | | 18 11:58 | | mL/hr | | | | PM PDT | | | | +---------+ +---------+-------+---+ +---+---+ | | | +---+---+ + +-------+ +-------+---+---+ | losartan (COZAAR) tablet 25 mg | Given | 12/26/19 | 25 mg | | | | 25 mg, Oral, DAILY, First dose | | 18 9:01 | | | | | on 12/21/17 at 1545 | | AM PDT | | | | + +-------+ +-------+---+---+ +-------+ +-------+---+---+ | Given | 12/25/19 | 25 mg | | | | | 18 9:56 | | | | | | AM PDT | | | | +-------+ +-------+---+---+ | Given | 12/24/19 | 25 mg | | | | | 18 8:35 | | | | | | AM PDT | | | | +-------+ +-------+---+---+ +---+---+ | | | +---+---+ + +-------+ +------+---+---+ | morphine injection 2-8 mg 2-8 | Given | 12/24/19 | 4 mg | | | | mg, Intravenous, EVERY 2 HOURS | | 18 6:23 | | | | | PRN, Pain, Starting 12/21/17 at | | PM PDT | | | | | 0621, Slow IV push, not faster | | | | | | | than 2 mg/minute. If ineffective | | | | | | | or not tolerated, use | | | | | | | hydromorphone IV if ordered, | | | | | | + +-------+ +------+---+---+ +-------+ +------+---+---+ | Given | 12/24/19 | 4 mg | | | | | 18 10:35 | | | | | | AM PDT | | | | +-------+ +------+---+---+ | Given | 12/24/19 | 6 mg | | | | | 18 6:52 | | | | | | AM PDT | | | | +-------+ +------+---+---+ +---+---+ | | | +---+---+ + +---------+ +---------+---+ + | nicotine (NICODERM) 14 mg/24 hr | Patch | 12/25/19 | 1 patch | | Arm-Left | | 1 patch 1 patch, Transdermal, | Applied | 18 9:53 | | | Lower | | DAILY PRN, Nicotine Craving, | | AM PDT | | | | | Starting 12/22/17 at 1331 | | | | | | + +---------+ +---------+---+ + +---+---+ | | | +---+---+ + +---------+ +---------+---+ + | nicotine (NICODERM) 7 mg/24 hr | Patch | 12/24/19 | 1 patch | | Deltoid- | | 1 patch 1 patch, Transdermal, | Applied | 18 1:26 | | | Right | | DAILY PRN, Nicotine Craving, | | PM PDT | | | | | Starting 12/22/17 at 1331 | | | | | | + +---------+ +---------+---+ + + + +---------+---+ + | Patch Applied | 12/23/19 | 1 patch | | Arm-Left | | | 18 1:47 | | | Upper | | | PM PDT | | | | + + +---------+---+ + +---+---+ | | | +---+---+ + +-------+ +------+---+---+ | ondansetron (ZOFRAN) injection | Given | 12/22/19 | 4 mg | | | | 4 mg 4 mg, Intravenous, EVERY 6 | | 18 11:41 | | | | | HOURS PRN, Nausea, Vomiting, | | PM PDT | | | | | Starting 12/21/17 at 0621, | | | | | | | First line agent Use PO option | | | | | | | unless NPO status or unable to | | | | | | | tolerate., | | | | | | + +-------+ +------+---+---+ +---+---+ | | | +---+---+ + +-------+ +-------+---+---+ | oxyCODONE (ROXICODONE) tablet | Given | 12/26/19 | 15 mg | | | | 5-20 mg 5-20 mg, Oral, EVERY 4 | | 18 1:25 | | | | | HOURS PRN, Pain, Starting Sun | | PM PDT | | | | | 12/22/17 at 0803 | | | | | | + +-------+ +-------+---+---+ +-------+ +-------+---+---+ | Given | 12/26/19 | 15 mg | | | | | 18 9:01 | | | | | | AM PDT | | | | +-------+ +-------+---+---+ | Given | 12/26/19 | 10 mg | | | | | 18 4:38 | | | | | | AM PDT | | | | +-------+ +-------+---+---+ +---+---+ | | | +---+---+ + +-------+ +------+---+---+ | polyethylene glycol (MIRALAX) | Given | 12/25/19 | 17 g | | | | powder 17 g 17 g, Oral, DAILY | | 18 5:12 | | | | | PRN, Constipation, Starting Sat | | AM PDT | | | | | 12/21/17 at 0621, If docusate and | | | | | | | senna ineffective or not ordered, | | | | | | | | | | | | | + +-------+ +------+---+---+ +---+---+ | | | +---+---+ + +-------+ +--------+---+---+ | senna (SENOKOT) tablet 8.6 mg | Given | 12/25/19 | 8.6 mg | | | | 8.6 mg, Oral, 2 TIMES DAILY PRN, | | 18 9:56 | | | | | Constipation, Starting 12/21/17 | | AM PDT | | | | | at 0621, If docusate ineffective | | | | | | | or not ordered, | | | | | | + +-------+ +--------+---+---+ +-------+ +--------+---+---+ | Given | 12/24/19 | 8.6 mg | | | | | 18 9:32 | | | | | | PM PDT | | | | +-------+ +--------+---+---+ +---+---+ | | | +---+---+ documented in this encounter
--- OUTSIDE RECORDS SUMMARY | ~2019-12-23 | XMS | Encounter Summary ---
Demographics + + + | Address | [address] | | | [place] [address] | + + + | Home Phone | | + + + | Preferred Language | Unknown | + + + | Marital Status | | + + + | Catholic Affiliation | Unknown | + + + | Race | Unknown | + + + | Ethnic Group | Unknown | + + + Author + + + | Author | [facility] | | | and [place] | + + + | Organization | [facility] | | | and [place] | + + + | Address | Unknown | + + + | Phone | Unavailable | + + + Support + + + + + | Name | Relationship | Address | Phone | + + + + + | Tam Lou | ECON | [address] | | | | | [place] [address] | | + + + + + | Cristal Yu | ECON | Unknown | | + + + + + Care Team Providers + +------+ + | Care Mds Coordinator Name | Role | Phone | + +------+ + | Pcp, Prov Inactive | PCP | | + +------+ + Encounter Details +--------+ + + + + | Date | Type | Department | Care Team | Description | +--------+ + + + + | 01/05/ | Home Care | [facility] | Marva Sifuentes, | SN REPEAT VISIT | | 2018 | Visit | [address] | [place] | | | | | [place], [place] | | | | | | [address] | | | | | | [phone] | | | +--------+ + + + [...] + | Blood Pressure | 132/80 | 01/05/2018 2:30 PM | | | | | PDT | | + + + + + | Pulse | 85 | 01/05/2018 2:30 PM | | | | | PDT | | + + + + + | Temperature | 98.1 C (208.6 F) | 01/05/2018 2:30 PM | | | | | PDT | | + + + + + | Respiratory Rate | 16 | 01/05/2018 2:30 PM | | | | | PDT | | + + + + + | Oxygen Saturation | - | - | | + + + + + | Inhaled Oxygen | - | - | | | Concentration | | | | + + + + + | Weight | - | - | | + + + + + | Height | - | - | | + + + + + | Body Mass Index | - | - | | + + + + + documented in this encounter Plan of Treatment +--------+---------+ + [...] [place], | | | | | | [place] [address] | | | | | | [phone] | | | | | | | | +--------+---------+ + + + documented as of this encounter Visit Diagnoses Not on filedocumented in this encounter Home Health Visit - Care Plan + + | Visit Type - SN - REPEAT VISIT | | Discipline - Correction | + + + + +--------+--------+-------+ + | Problem | Description | Start | Status | Goals | Interventio | | | | Date | | | ns | + + +--------+--------+-------+ + | HH PULSE OXIMETRY | | | | - | 1 problem | | Disciplines: | | | Active | | | | Correction | | 018 | | | interventio | | | | | | | n | | | | | | | scheduled/d | | | | | | | ocumented | | | | | | | in this | | | | | | | visit | + + +--------+--------+-------+ + | HH SHARED DIABETIC | Diabetic foot care | | | - | 1 problem | | FOOT CARE | | | Active | | | | Disciplines: | | 018 | | | interventio | | Correction | | | | | n | | | | | | | scheduled/d | | | | | | | ocumented | | | | | | | in this | | | | | | | visit | + + +--------+--------+-------+ + | HH SHARED PAIN | Pain | | | - | 1 problem | | Disciplines: | | | Active | | | | Correction | | 018 | | | interventio | | | | | | | n | | | | | | | scheduled/d | | | | | | | ocumented | | | | | | | in this | | | | | | | visit | + + +--------+--------+-------+ + | Respiratory Status | Respiratory Status | | | - | 2 problem | | Disciplines: | | | Active | | | | Correction | | 018 | | | interventio | | | | | | | ns | | | | | | | scheduled/d | | | | | | | ocumented | | | | | | | in this | | | | | | | visit | + + +--------+--------+-------+ + | Wound Management | Wound Management | | | - | 6 problem | | Disciplines: | | | Active | | | | Correction | | 018 | | | interventio | | | | | | | ns | | | | | | | scheduled/d | | | | | | | ocumented | | | | | | | in this | | | | | | | visit | + + +--------+--------+-------+ + + + +--------+--------+ + | Intervention | Associated | Status | Varian | Visit Notes | | | Problem/Goal | | ce | | + + +--------+--------+ + | HH PULSE OXIMETRY | Problem: PULSE | | | | | Description: | OXIMETRY | Comple | | | | VS/O2 sats | | jermaine | | | + + +--------+--------+ + | Diabetic Foot | Problem: SHARED | | | | | Assessment | DIABETIC FOOT CARE | Comple | | | | Description: | | jermaine | | | | Assess lower | | | | | | extremities for | | | | | | lesions/skin | | | | | | integrity, instruct | | | | | | patient and/or | | | | | | caregiver in proper | | | | | | diabetic foot care, | | | | | | and provide written | | | | | | information | | | | | | regarding diabetic | | | | | | foot care. | | | | | + + +--------+--------+ + | Monitor and | Problem: SHARED | | | | | Address Pain | PAIN | Comple | | | | Description: | | jermaine | | | | Monitor and address | | | | | | pain through all ADL | | | | | + + +--------+--------+ + | Assess respiratory | Problem: Respiratory | | | See clinical | | status | Status | Comple | | assessment in today's | | Description: | | jermaine | | contact. | | Assess the patient's | | | | | | respiratory status | | | | | | and for respiratory | | | | | | complications. | | | | | + + +--------+--------+ + | HH PULSE OXIMETRY | Problem: Respiratory | | | | | Description: | Status | Comple | | | | Assess oxygen | | jermaine | | | | saturation via pulse | | | | | | oximetry: Frequency | | | | | | every visit, | | | | | | Reason: SOB Notify | | | | | | physician if | | | | | | saturation level is | | | | | | less than 90% at | | | | | | rest and after | | | | | | ambulation. | | | | | + + +--------+--------+ + | Wound care | Problem: Wound | | | | | Description: | Management | Comple | | | | Cleanse edmund wound | | jermaine | | | | bed and dehisced | | | | | | region with NS, pat | | | | | | dry. Okay to pack | | | | | | lightly depth of | | | | | | wound bed with | | | | | | /4-1/2 in packing | | | | | | strip per Cover | | | | | | with clean dry | | | | | | dressing and secure. | | | | | | Change daily and | | | | | | PRN. Erika/ | | | | | | Jamel/Marva Sifuentes | | | | | | [place] [facility]NA | | | | | + + +--------+--------+ + | HH WOUND TYPE | Problem: Wound | | | | | Description: Wound | Management | Comple | | | | type:surgical. | | jermaine | | | + + +--------+--------+ + | HH Assess And | Problem: Wound | | | | | Instruct Nutritional | Management | Comple | | | | Needs For Wound | | jermaine | | | | Description: | | | | | | Assess and instruct | | | | | | in nutritional needs | | | | | | for wound healing. | | | | | + + +--------+--------+ + | HH Measure Wound | Problem: Wound | | | | | Description: | Management | Comple | | | | Measure wound | | jermaine | | | | weekly. | | | | | + + +--------+--------+ + | Wound care | Problem: Wound | | | Dressing change to | | Description: | Management | Comple | | abdomen performed by SN. | | -Wound Type:Surgical | | jermaine | | Old dressing removed. | | ABD wound. Wound | | | | Well tolerated by | | care:Assess daily, | | | | patient.. Site Irrigate | | keep dry | | | | with, aseptic cleanser. | | dressing.(Dressing | | | | Patted dry. Applied | | supplies may | | | | Other: packing strip to | | increase or decrease | | | | depth of wound, covered | | per wound needs) | | | | with 4x4 ADAPT dressing, | | | | | | rolled kerlix for | | | | | | packing and covered with | | | | | | Exudry. Secured with | | | | | | Other: Medfix tape.. See | | | | | | Wound Assessment form | | | | | | for measurements and | | | | | | status of wound. | + + +--------+--------+ + | Skilled assessment | Problem: Wound | | | | | pain Description: | Management | Schedu | | | | Assess location, | | led | | | | intensity on 1-10 | | | | | | pain scale and | | | | | | quality of pain | | | | | | every visit. | | | | | + + +--------+--------+ + documented in this encounter"
--- OUTSIDE RECORDS SUMMARY | ~2019-12-23 | XMS | Encounter Summary ---
Demographics + + + | Address | [address] | | | [place] [address] | + + + | Home Phone | | + + + | Preferred Language | Unknown | + + + | Marital Status | | + + + | Congregation Affiliation | Unknown | + + + | Race | Unknown | + + + | Ethnic Group | Unknown | + + + Author + + + | Author | [facility] | | | and [place] | + + + | Organization | [facility] | | | and [place] | + + + | Address | Unknown | + + + | Phone | Unavailable | + + + Support + + + + + | Name | Relationship | Address | Phone | + + + + + | Tam Lou | ECON | [address] | | | | | [place] [address] | | + + + + + | Cristal Yu | ECON | Unknown | | + + + + + Care Team Providers + +------+ + | Care Plastics Sheet Finishing Press Operator Name | Role | Phone | + +------+ + | Pcp, Prov Inactive | PCP | | + +------+ + Reason for Visit + + + | Reason | Comments | + + + | Post-op Problem | | + + + Encounter Details +--------+ + + + + | Date | Type | Department | Care Team | Description | +--------+ + + + + | 11/26/ | Hospital | [place] [facility] | Jaye Vigil, | Postoperative | | 2018 | Encounter | [facility] | 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 [address] | infection, initial | | | | [address] | [place] [address] | encounter (Primary | | | | [facility] [place], | [phone] | Dx) | | | | [place] [address] | | | | | | [phone] | | | +--------+ + + + + Social History + + + +--------+------+ | Tobacco Use | Types | Packs/Day | Years | Date | | | | | Used | | + + + +--------+------+ | Current Every Day | Cigarettes | 0.5 | 25 | | | Smoker | | | | | + + + +--------+------+ + + +---------+ + | Alcohol Use | Drinks/Week | oz/Week | Comments | + + +---------+ + | Not Asked | | | | + + +---------+ + + + [...] + + + | Blood Pressure | 146/91 | 11/26/2017 9:27 AM | | | | | PDT | | + + + + + | Pulse | 75 | 11/26/2017 9:27 AM | | | | | PDT | | + + + + + | Temperature | 36.5 C (97.7 F) | 11/26/2017 9:27 AM | | | | | PDT | | + + + + + | Respiratory Rate | 24 | 11/26/2017 9:27 AM | | | | | PDT | | + + + + + | Oxygen Saturation | 96% | 11/26/2017 9:27 AM | | | | | PDT | | + + + + + | Inhaled Oxygen | - | - | | | Concentration | | | | + + + + + | Weight | 122.5 kg (270 lb) | 11/26/2017 9:27 AM | | | | | PDT | | + + + + + | Height | - | - | | + + + + + | Body Mass Index | 41.05 | 12/10/2012 10:42 AM | | | | | PDT | | + + + + + documented in this encounter Discharge Instructions Instructions Jaye Vigil NP - 11/26/2017Go to: [facility] Reason for referral to ED: post op infection Labs done: none Labs pending: none Medications given: none Method of travel: none documented in this encounter Medications at Time of [...] + + + +---------+ + + | clotrimazole | Apply topically 2 | | 0 | | | | (LOTRIMIN) 1% | times daily. | | | | 8 | | external solution | | | | | | + + + +---------+ + + | docusate sodium | Take 100 mg by mouth | | 0 | | | | (COLACE) 100 mg | 2 times daily. | | | | 8 | | capsule | | | | | | + + + +---------+ + + | ferrous sulfate | Take 325 mg by mouth | | 0 | | | | 325 mg tablet | 2 times daily (with | | | | 8 | | | breakfast & | | | | | | | dinner). | | | | | + + + +---------+ + + | fluticasone | two inhalations | | 0 | 05/04/20 | | | (FLOVENT HFA) 110 | twice daily; rinse | | | 10 | 8 | | mcg/puff inhaler | mouth after each | | | | | | | treatment | | | | | + + + +---------+ + + | | 1 TABLET BY MOUTH | | 0 | 02/27/20 | | | hydrochlorothiazide | DAILY FOR BP-LAST | | | 12 | 8 | | 25 mg tablet | REFILL NEED VISIT | | | | | | | and LABS | | | | | + + + +---------+ + + | hydrocortisone 1% | Apply to rash twice | | 0 | 09/07/19 | | | cream | daily | | | 12 | 8 | + + + +---------+ + + | indomethacin | Take 25 mg by mouth | | 0 | | | | (INDOCIN) 25 mg | 3 times daily (with | | | | 8 | | capsule | meals). | | | | | + + + +---------+ + + | melatonin 5 mg | Take 5 mg by mouth | | 0 | | | | tablet | nightly. | | | | 8 | + + + +---------+ + + | metoprolol (TOPROL | 1 tablet by mouth | | 0 | 09/17/19 | | | XL) 100 MG 24 hr | daily-Replaces | | | 12 | 8 | | tablet | Propranolol | | | | | + + + +---------+ + + | tiZANidine | Take 4 mg by mouth | | 0 | | | | (ZANAFLEX) 4 mg | every 6 hours as | | | | 8 | | tablet | needed. | | | | | + + + +---------+ + + | zolpidem (AMBIEN) | Take 10 mg by mouth | | 0 | 04/23/20 | | | 10 mg tablet | nightly as needed. | | | 11 | 8 | + + + +---------+ + + documented as of this encounter Miscellaneous Notes Provider Notes - Jaye Vigil NP - 11/26/2017 9:43 AM PDT [facility] FINAL IMPRESSION 1. Postoperative infection, initial encounter PLAN Discharge Instructions Go to: [facility] Reason for referral to ED: post op infection Labs done: none Labs pending: none Medications given: none Method of travel: none Discharge Medication List as of 11/26/2017 9:51 Discharge Medication List as of 11/26/2017 9:51 CHIEF COMPLAINT Chief Complaint Patient presents with Post-op Problem HPI This is a 47 y.o. female who presents to the Urgent Care complaining of postop infection. Patient states that she had hernia surgery on 11/14/2017 in [place], on November 15, she had emerge ncy surgery in [facility] due to complications. She states that last Saturday she hav e surgery again in [facility] for more complications and new wire was put in to fix the hernia repair. Patient states that she is here in [place] recovering at her parent's ho use. She does not have an appointment next week with the surgeon back down in [place]. She states that she's had no fevers, however she has felt hot, no chills. She denies any body a ches. She states that she is soaking through 2 bandages a day with copious amounts of yello w discharge. She does not have any draining tubes. She states she has several janina acro ss her lower abdomen. She is here today to rule out infection. Patient states that she's h ad diarrhea, no nausea or vomiting. She denies any chest pain, shortness of breath. PAST MEDICAL HISTORY History reviewed. No pertinent past medical history. SURGICAL HISTORY History reviewed. No pertinent surgical history. CURRENT MEDICATIONS Discharge Medication List as of 11/26/2017 9:51 CONTINUE these medications which have NOT CHANGED Details albuterol (PROAIR HFA) 90 mcg/puff inhaler 2 puffs every 4-6 hours as needed for asthma clotrimazole (LOTRIMIN) 1% external solution Apply topically 2 times daily.Historical Med docusate sodium (COLACE) 100 mg capsule Take 100 mg by mouth 2 times daily.Historical Med ferrous sulfate 325 mg tablet Take 325 mg by mouth 2 times daily (with breakfast & dinner). Historical MedEach 325 mg ferrous sulfate tablet contains 65 mg elemental iron. fluticasone (FLOVENT HFA) 110 mcg/puff inhaler two inhalations twice daily; rinse mouth aft er each treatment hydrochlorothiazide 25 mg tablet 1 TABLET BY MOUTH DAILY FOR BP-LAST REFILL NEED VISIT and LABS hydrocortisone 1% cream Apply to rash twice daily indomethacin (INDOCIN) 25 mg capsule Take 25 mg by mouth 3 times daily (with meals).Histori frank Med LOSARTAN POTASSIUM PO Take by mouth.Historical Med melatonin 5 mg tablet Take 5 mg by mouth nightly.Historical Med metoprolol (TOPROL XL) 100 MG 24 hr tablet 1 tablet by mouth daily-Replaces Propranolol omeprazole (PRILOSEC) 20 mg TBEC 1 TABLET by mouth twice daily-LAST REFILL NEED VISIT and L ABS tiZANidine (ZANAFLEX) 4 mg tablet Take 4 mg by mouth every 6 hours as needed.Historical Med zolpidem (AMBIEN) 10 mg tablet Take 10 mg by mouth nightly as needed. ALLERGIES Allergies Allergen Reactions Sulfa Antibiotics FAMILY HISTORY History reviewed. No pertinent family history. SOCIAL HISTORY Social History Social History Marital status: Spouse name: N/A Number of children: N/A Years of education: N/A Social History Main Topics Smoking status: Current Every Day Smoker Packs/day: 0.50 Years: 25.00 Types: Cigarettes Smokeless tobacco: None Alcohol use None Drug use: Unknown Sexual activity: Not Asked Other Topics Concern None Social History Narrative None REVIEW OF SYSTEMS Review of Systems Constitutional: Negative. HENT: Negative. Respiratory: Negative. Cardiovascular: Negative. Gastrointestinal: Positive for abdominal pain and diarrhea. Negative for blood in stool, na usea and vomiting. Genitourinary: Negative. Musculoskeletal: Negative. Skin: Positive for color change and wound. PHYSICAL EXAM VITAL SIGNS: Temp: 36.5 C (97.7 F) Pulse: 75 Resp: 24 SpO2: 96 % BP: (!) 146/91 Body mass index is 41.05 kg/m. Constitutional: Well-nourished, well-developed female is in no acute distress. Abdomen: Soft, tender with palpation across the entire abdomen. Patient does have a horizo ntal incision, with multiple janina across her lower abdomen. There is some erythema surro unding the janina, it is not hot to the touch. There is a copious amount of yellow drainag e on the abdominal pad that she has covering the wound. Bowel sounds are auscultated which are normal. Musk: Gait normal, no abnormalities noted. Neuro: A & O X 3, gait/coordination intact/normal, responses are appropriate. Skin: Warm and pink without rashes URGENT CARE COURSE & MEDICAL DECISION MAKING Nursing notes were reviewed. Patient examined, postop infection site has been discussed wit h patient and her today. I have recommended that she be seen in the emergency room for further evaluation and treatment as this is the fourth complication she's had from surge ry. Patient is amenable to the plan outlined above and has decided to go to [facility] for further evaluation. 11/26/17 9:43 Jaye Vigil NP This note has been dictated using [employer] voice recognition software. It will be review ed for major content but may contain mistakes due to difficulties with voice recognition sof shahram. Jaye Vigil NP 11/26/17 0[facility] Triage Notes - B Taty lr RN - 11/26/2017 9:24 AM PDTPt states she had a hernia repair on 11/14, then s he had another surgery on 11/15, and a 3rd surgery on 11/18. She states she is having a yellow, runny drainage from the incision site.Electronically signed by Taty Sykes RN at 018 9:25 AM PDTdocumented in this encounter Plan of Treatment +--------+---------+ + + + | Date | Type | Specialty | Care Team | Description | +--------+---------+ + + + | 12/30/ | Office | Pulmonology | [facility], | | | 2019 | Visit | | Daphne Angelo, | | | | | | MD [address] | | | | | | [place], | | | | | | [place] [address] | | | | | | [phone] | | | | | | | | +--------+---------+ + + + + +------+--------+ + + | Name | Type | Priori | Associated Diagnoses | Date/Time | | | | ty | | | + +------+--------+ + + | ED INFORMATION | PHOEBE | Routin | | 11/26/2017 9:11 AM | | EXCHANGE | | e | | PDT | + +------+--------+ + + documented as of this encounter Procedures + +--------+ + + + | Procedure Name | Priori | Date/Time | Associated Diagnosis | Comments | | | ty | | | | + +--------+ + + + | ED INFORMATION | Routin | 11/26/2017 | | | | EXCHANGE | e | 9:11 AM | | | | | | PDT | | | + +--------+ + + + +---+--------+ | | | | | Proced | | | ure | | | Note - | | | Kalen, | | | Lab In | | | | | | Hlseve | | | n - | | | 06/12/ | | | 2018 | | | 9:12 | | | AM PDT | | | | | | Format | | | ting | | | of | | | this | | | note | | | might | | | be | | | differ | | | ent | | | from | | | the | | | origin | | | al.Pre | | | Manage | | | ?NOTIF | | | ICATIO | | | N?06/1 | | | 07/2017 | | | | | | 09:09? | | | LOU | | | , | | | KATIE | | | L?MRN: | | | | | | [id number] | | | [id number] | | | his | | | patien | | | [...] Visits | | | | | | [place] | | | | | [place] [...] | | | 2018 | | | [place] | | | | | | [place] [...] | | | ation. | | | ? | | | 2018 | | | [...] | [email or web address] | | | | +---+--------+ documented in this encounter Visit Diagnoses + + | Diagnosis | + + | Postoperative infection, initial encounter - Primary | + + documented in this encounter"
--- OUTSIDE RECORDS SUMMARY | ~2019-12-23 | XMS | Encounter Summary ---
Demographics + + + | Address | [address] | | | [place] [address] | + + + | Home Phone | | + + + | Preferred Language | Unknown | + + + | Marital Status | | + + + | Worship Affiliation | Unknown | + + + | Race | Unknown | + + + | Ethnic Group | Unknown | + + + Author + + + | Author | [facility] | | | and [place] | + + + | Organization | [facility] | | | and [place] | + + + | Address | Unknown | + + + | Phone | Unavailable | + + + Support + + + + + | Name | Relationship | Address | Phone | + + + + + | Tam Luo | ECON | [address] | | | | | [place] [address] | | + + + + + | Cristal Yu | ECON | Unknown | | + + + + + Care Team Providers + +------+ + | Care Class A Truck Driver Name | Role | Phone | + +------+ + PCP | Unavailable | + +------+ + Encounter Details +--------+ + + + + | Date | Type | Department | Care Team | Description | +--------+ + + + + | 09/20/ | Hospital | [facility] | Efrem Hurley MD | | | 2010 | Encounter | [facility] | [address] | | | | | CENTER [address] [place], [place] | | | | [address] | [address] | | | | | [place], [place] | | | | | | [address] | | | | | | [phone] | | | +--------+ + + + [...] + + documented as of this encounter Medications at Time of Discharge [...] + + documented as of this encounter ED Notes Chris Painting PA-C - 04/22/2013 2:02 AM PST DATE OF EMERGENCY CENTER EVALUATION: 09/20/2010 CHIEF COMPLAINT: Ear pain. HISTORY OF PRESENT ILLNESS: This 40-year-old female presents with right ear pain for the p ast 2 days. Has had some itching to the ear canal. She has decreased hearing to both ears. She denies any drainage from the ears. The patient was seen here in the emergency room on 0 09/16/2010 for a sinusitis and prescribed Zithromax. PAST MEDICAL HISTORY: Significant for ovarian cyst, tubal ligation, carpal tunnel, elbow s urgery x2, abnormal creatinine level. ALLERGIES: SULFA. MEDICATIONS: Ibuprofen, azithromycin, hydrochlorothiazide, Prilosec. PHYSICAL EXAM: VITAL SIGNS: Temperature 97.8, respirations 20, pulse 90, blood pressure 142/87, O2 satura tion 97% on room air, within normal limits. GENERAL: The patient sitting on exam bed in no acute distress. HEENT: Ears there is no tragal tenderness. The ear canal was inspected. The re was cerumen impacted in the ear canal and I removed most of the cerumen with an otic cu rette. The tympanic membrane is erythremic on the anterior rim. The canal is tender to touc h with otic speculum. No drainage to the ear canal. No signs of perforation. The left tympa joseluis membrane has some scarring and retracted, otherwise normal. Mouth and throat exam: No r edness or exudates. NECK: No cervical lymphadenopathy. CHEST: Lung pedersen clear to auscultation. CARDIAC: Regular rate and rhythm. No murmur. DIAGNOSIS: Right otitis externa. PLAN: Cortisporin Otic suspension prescribed. The patient to follow up with primary care belgica paiz in one week if not better or sooner if symptoms worsen. [place] 7.5 mg, #15. Chris Painting PA-C AM:[facility] Job ID:[id number] Doc ID:[id number] cc: Electronically Signed 09/23/102003 SHELBI WatsonNESIRAJ : 66 | Signed MR# [id number] ACCT# [id number] | ADM 09/20/10 DS 09/20/10 DEP ER | SHELBI Watson | [facility] ES: Nghia Romano pt [phone] | EMERGENCY CENTER THIS REPORT IS CONFID ENTIAL AND NOT TO BE RELEASED WITHOUT PROPER AUTHORIZATION. documented in this encounter Plan of Treatment [...] [place], | | | | | | [place] [address] | | | | | | [phone] | | | | | | | | +--------+---------+ + + + documented as of this encounter Visit Diagnoses Not on filedocumented in this encounter"
--- OUTSIDE RECORDS SUMMARY | ~2019-12-23 | XMS | Encounter Summary ---
Demographics + + + | Address | [address] | | | [place] [address] | + + + | Home Phone | | + + + | Preferred Language | Unknown | + + + | Marital Status | | + + + | Methodist Affiliation | Unknown | + + + | Race | Unknown | + + + | Ethnic Group | Unknown | + + + Author + + + | Author | [facility] | | | and [place] | + + + | Organization | [facility] | | | and [place] | + + + | Address | Unknown | + + + | Phone | Unavailable | + + + Support + + + + + | Name | Relationship | Address | Phone | + + + + + | Tam oLu | ECON | [address] | | | | | [place] [address] | | + + + + + | Cristal Yu | ECON | Unknown | | + + + + + Care Team Providers + +------+ + | Care Music Worker Name | Role | Phone | + +------+ + PCP | Unavailable | + +------+ + Encounter Details +--------+ + + + + | Date | Type | Department | Care Team | Description | +--------+ + + + + | 09/20/ | Hospital | [facility] | Zeus Iqbal MD | | | 2000 | Encounter | FAMILY EMERGENCY | [address] | | | | | C[address] | [place], [place] | | | | | [place] | [phone] | | | | | [place], [place] | | | | | | [address] | | | | | | [phone] | | | +--------+ + + + [...] | | | | | | [place] [address] | | | | | | [phone] | | | | | | | | +--------+---------+ + + + documented as of this encounter Visit Diagnoses Not on filedocumented in this encounter"
--- OUTSIDE RECORDS SUMMARY | ~2019-12-23 | XMS | Encounter Summary ---
Demographics + + + | Address | [address] | | | [place] [address] | + + + | Home Phone | | + + + | Preferred Language | Unknown | + + + | Marital Status | | + + + | Uatsdin Affiliation | Unknown | + + + | Race | Unknown | + + + | Ethnic Group | Unknown | + + + Author + + + | Author | [facility] | | | and [place] | + + + | Organization | [facility] | | | and [place] | + + + | Address | Unknown | + + + | Phone | Unavailable | + + + Support + + + + + | Name | Relationship | Address | Phone | + + + + + | Tam Lou | ECON | [address] | | | | | [place] [address] | | + + + + + | Cristal Yu | ECON | Unknown | | + + + + + Care Team Providers + +------+ + | Care Maintenance Trainer Name | Role | Phone | + +------+ + PCP | Unavailable | + +------+ + Encounter Details +--------+ + + + + | Date | Type | Department | Care Team | Description | +--------+ + + + + | 04/07/ | Hospital | [facility] | Efrem Hurley MD | | | 2004 | Encounter | FAMILY EMERGENCY | [address] | | | | | CENTER [address] [place], [place] | | | | | [address] | [address] | | | | | [place], [place] | | | | | | [address] | | | | | | [phone] | | | +--------+ + + + [...] | | | | | | [place] [address] | | | | | | [phone] | | | | | | | | +--------+---------+ + + + documented as of this encounter Visit Diagnoses Not on filedocumented in this encounter"
--- OUTSIDE RECORDS SUMMARY | ~2019-12-23 | XMS | Encounter Summary ---
Demographics + + + | Address | [address] | | | [place] [address] | + + + | Home Phone | | + + + | Preferred Language | Unknown | + + + | Marital Status | | + + + | Christianity Affiliation | Unknown | + + + | Race | Unknown | + + + | Ethnic Group | Unknown | + + + Author + + + | Author | [facility] | | | and [place] | + + + | Organization | [facility] | | | and [place] | + + + | Address | Unknown | + + + | Phone | Unavailable | + + + Support + + + + + | Name | Relationship | Address | Phone | + + + + + | Tam Lou | ECON | [address] | | | | | [place] [address] | | + + + + + | Cristal Yu | ECON | Unknown | | + + + + + Care Team Providers + +------+ + | Care Software Programmer Name | Role | Phone | + +------+ + PCP | Unavailable | + +------+ + Encounter Details +--------+ + + + + | Date | Type | Department | Care Team | Description | +--------+ + + + + | 02/09/ | Hospital | [facility] | Abdulaziz Michel MD | | | 1996 | Encounter | FAMILY EMERGENCY | [address] | | | | | CENTER [address] [place], [place] | | | | | [address] | [address] | | | | | [place], [place] | | | | | | [address] | | | | | | [phone] | | | +--------+ + + + [...] | | | | | | [place] [address] | | | | | | [phone] | | | | | | | | +--------+---------+ + + + documented as of this encounter Visit Diagnoses Not on filedocumented in this encounter"
--- OUTSIDE RECORDS SUMMARY | ~2019-12-23 | XMS | Encounter Summary ---
Demographics + + + | Address | [address] | | | [place] [address] | + + + | Home Phone | | + + + | Preferred Language | Unknown | + + + | Marital Status | | + + + | Quaker Affiliation | Unknown | + + + | Race | Unknown | + + + | Ethnic Group | Unknown | + + + Author + + + | Author | [facility] | | | and [place] | + + + | Organization | [facility] | | | and [place] | + + + | Address | Unknown | + + + | Phone | Unavailable | + + + Support + + + + + | Name | Relationship | Address | Phone | + + + + + | Tam Lou | ECON | [address] | | | | | [place] [address] | | + + + + + | Cristal Yu | ECON | Unknown | | + + + + + Care Team Providers + +------+ + | Care Director Pediatric Name | Role | Phone | + +------+ + PCP | Unavailable | + +------+ + Encounter Details +--------+ + + + + | Date | Type | Department | Care Team | Description | +--------+ + + + + | 12/30/ | Hospital | [facility] | Murphy Moise, | | | 1999 | Encounter | FAMILY EMERGENCY | [address] | | | | | C[address] | [facility] | | | | | [facility] | [place] [address] | | | | | [place] | [phone] | | | | | [address] | | | | | | [phone] | | | +--------+ + + + [...] | | | | | | [place] [address] | | | | | | [phone] | | | | | | | | +--------+---------+ + + + documented as of this encounter Visit Diagnoses Not on filedocumented in this encounter"
--- OUTSIDE RECORDS SUMMARY | ~2019-12-23 | XMS | Encounter Summary ---
Demographics + + + | Address | [address] | | | [place] [address] | + + + | Home Phone | | + + + | Preferred Language | Unknown | + + + | Marital Status | | + + + | Amish Affiliation | Unknown | + + + | Race | Unknown | + + + | Ethnic Group | Unknown | + + + Author + + + | Author | [facility] | | | and [place] | + + + | Organization | [facility] | | | and [place] | + + + | Address | Unknown | + + + | Phone | Unavailable | + + + Support + + + + + | Name | Relationship | Address | Phone | + + + + + | Tam Lou | ECON | [address] | | | | | [place] [address] | | + + + + + | Cristal Yu | ECON | Unknown | | + + + + + Care Team Providers + +------+ + | Care Coordinating Producer Name | Role | Phone | + +------+ + PCP | Unavailable | + +------+ + Encounter Details +--------+ + + + + | Date | Type | Department | Care Team | Description | +--------+ + + + + | 08/25/ | Hospital | [facility] | Seun Raygoza, | | | 2001 | Encounter | FAMILY EMERGENCY | [address] | | | | | C[address] | [facility] | | | | | [facility] | [place] [address] | | | | | [place] | [phone] | | | | | [address] | | | | | | [phone] | | | +--------+ + + + [...] | | | | | | [place] [address] | | | | | | [phone] | | | | | | | | +--------+---------+ + + + documented as of this encounter Visit Diagnoses Not on filedocumented in this encounter"
--- OUTSIDE RECORDS SUMMARY | ~2019-12-23 | XMS | Encounter Summary ---
Demographics + + + | Address | [address] | | | [place] [address] | + + + | Home Phone | | + + + | Preferred Language | Unknown | + + + | Marital Status | | + + + | Orthodoxy Affiliation | Unknown | + + + | Race | Unknown | + + + | Ethnic Group | Unknown | + + + Author + + + | Author | [facility] | | | and [place] | + + + | Organization | [facility] | | | and [place] | + + + | Address | Unknown | + + + | Phone | Unavailable | + + + Support + + + + + | Name | Relationship | Address | Phone | + + + + + | Tam Lou | ECON | [address] | | | | | [place] [address] | | + + + + + | Cristal Yu | ECON | Unknown | | + + + + + Care Team Providers + +------+ + | Care Collet Making Machine Operator Name | Role | Phone | + +------+ + | Pcp, Prov Inactive | PCP | | + +------+ + Encounter Details +--------+ + + + + | Date | Type | Department | Care Team | Description | +--------+ + + + + | 01/04/ | Home Care | [facility] | Marva Sifuentes, | SN REPEAT VISIT | | 2018 | Visit | [address] | [place] | | | | | [place], [place] | | | | | | [address] | | | | | | [phone] | | | +--------+ + + + [...] | Blood Pressure | 138/84 | 01/04/2018 2:00 PM | | | | | PDT | | + + + + + | Pulse | 88 | 01/04/2018 2:00 PM | | | | | PDT | | + + + + + | Temperature | 98.9 C (210 F) | 01/04/2018 2:00 PM | | | | | PDT | | + + + + + | Respiratory Rate | 16 | 01/04/2018 2:00 PM | | | | | PDT [...] Description | +--------+---------+ + + + | 07/16/ | Office | Pulmonology | Leo, | | | 2019 | Visit | | Daphne Angelo, | | | | | | MD [address] | | | | | | [place], | | | | | | [place] [address] | | | | | | [phone] | | | | | | | | +--------+---------+ + + + documented as of this encounter Visit Diagnoses Not on filedocumented in this encounter Home Health Visit - Care Plan + + | Visit Type - SN - REPEAT VISIT | | Discipline - Fdc | + + + + +--------+--------+-------+ + | Problem | Description | Start | Status | Goals | Interventio | | | | Date | | | ns | + + +--------+--------+-------+ + | HH PULSE OXIMETRY | | | | - | 1 problem | | Disciplines: | | 7/12/2 | Active | | | | Fdc | | 018 | | | interventio [...] 018 | | | interventio | | Fdc | | | | | n | [...] | | Active | | | | Fdc | | 018 | | | interventio [...] Respiratory Status | | | - | 1 problem | | Disciplines: | | | Active | | | | Fdc | | 018 | | | interventio [...] Wound Management | | | - | 8 problem | | Disciplines: | | | Active | | | | Fdc | | 018 | | | interventio [...] + | HH PULSE OXIMETRY | Problem: HH PULSE | | | | | Description: [...] | | + + +--------+--------+ + | Skilled assessment | Problem: Wound | | | See clinical | | pain Description: | Management | Comple | | assessment in today's | | Assess location, | | jermaine | | contact. | | intensity on 1-10 | | | | | | pain scale and | | | | | | quality of pain | | | | | | every visit. | | | | | + + +--------+--------+ + | Wound care | Problem: Wound | | | Cleanse edmund wound bed | | Description: | Management | Comple | | and dehisced region | | Cleanse edmund wound | | jermaine | | with NS, pat dry. Okay | | bed and dehisced | | | | to pack lightly depth | | region with NS, pat | | | | of wound bed with | | dry. Okay to pack | | | | 06/20-06/18 in packing strip | | lightly depth of | | | | Cover with clean dry | | wound bed with | | | | dressing and secure. | | 06/20-06/18 in packing | | | | Change daily and PRN. | | strip per Cover | | | | | | with clean dry | | | | | | dressing and secure. | | | | | | Change daily and | | | | | | PRN. Erika/MD | | | | | | Jamel/Marva Sifuentes | | | | | | RN PVNA | | | | | + + +--------+--------+ + | HH Assess Lower | Problem: Wound | | | | | Extremities for Skin | Management | Comple | | | | Integrity | | jermaine | | | | Description: | | | | | | Assess lower | | | | | | extremities for | | | | | | sensation lesions, | | | | | | skin integrity, and | | | | | | instruct | | | | | | patient/caregiver in | | | | | | proper foot care. | | | | | + + +--------+--------+ + | HH Assess | Problem: Wound | | | | | Wound/Skin For | Management | Comple | | | | Progression | | jermaine | | | | Description: | | | | | | Assess wound and/or | | | | | | skin for healing | | | | | | progression. | | | | | + + +--------+--------+ + | HH Instruct on | Problem: Wound | | | | | Signs of Infection | Management | Comple | | | | Description: | | jermaine | | | | Instruct | | | | | | patient/caregiver in | | | | | | signs and symptoms | | | | | | of infection and | | | | | | when to report to | | | | | | skilled | | | | | | nurse/physician. | | | | | + + +--------+--------+ + | HH Measure Wound | Problem: Wound | | | | | Description: | Management | Comple | | | | Measure wound | | jermaine | | | | weekly. | | | | | + + +--------+--------+ + | Wound care | Problem: Wound | | | Dressing change toABD | | Description: | Management | Comple | | surgical site wound # 1 | | -Wound Type:Surgical | | jermaine | | and #2 abdomen performed | | ABD wound. Wound | | | | by SN or Other: with | | care:Assess daily, | | | | instructions/demonstrati | | keep dry | | | | on to spouse and | | dressing.(Dressing | | | | daughter. Old dressing | | supplies may | | | | removed. Well tolerated | | increase or decrease | | | | by patient.. Site | | per wound needs) | | | | Irrigate with, saline, | | | | | | aseptic cleanser. Patted | | | | | | dry. Applied dry and 4 | | | | | | x 4 with rolled gauzed | | | | | | to left lateral side of | | | | | | wound. Covered with | | | | | | Exudry dressing.. | | | | | | Secured with Other: | | | | | | Medfix tape. See Wound | | | | | | Assessment form for | | | | | | measurements and status | | | | | | of wound. | + + +--------+--------+ + | Wound care | Problem: Wound | | | | | Description: | Management | Schedu | | | | Starter Wound care | | led | | | | supplies | | | | | + + +--------+--------+ + documented in this encounter"
--- OUTSIDE RECORDS SUMMARY | ~2019-12-23 | XMS | Encounter Summary ---
Demographics + + + | Address | [address] | | | [place] [address] | + + + | Home Phone | | + + + | Preferred Language | Unknown | + + + | Marital Status | | + + + | Caodaism Affiliation | Unknown | + + + | Race | Unknown | + + + | Ethnic Group | Unknown | + + + Author + + + | Author | [facility] | | | and [place] | + + + | Organization | [facility] | | | and [place] | + + + | Address | Unknown | + + + | Phone | Unavailable | + + + Support + + + + + | Name | Relationship | Address | Phone | + + + + + | Tam Lou | ECON | [address] | | | | | [place] [address] | | + + + + + | Cristal Yu | ECON | Unknown | | + + + + + Care Team Providers + +------+ + | Care Vending Machine Assembler Name | Role | Phone | + +------+ + PCP | Unavailable | + +------+ + Encounter Details +--------+ + + + + | Date | Type | Department | Care Team | Description | +--------+ + + + + | 06/04/ | Hospital | [facility] | Jose Cordon, | | | 1999 | Encounter | FAMILY EMERGENCY | [address] | | | | | [address] | [facility] | | | | | [facility] | [place] [address] | | | | | [place] | [phone] | | | | | [address] | | | | | | [phone] | | | +--------+ + + + [...] | | | | | | [place] [address] | | | | | | [phone] | | | | | | | | +--------+---------+ + + + documented as of this encounter Visit Diagnoses Not on filedocumented in this encounter"
--- OUTSIDE RECORDS SUMMARY | ~2019-12-23 | XMS | Encounter Summary ---
Demographics + + + | Address | [address] | | | [place] [address] | + + + | Home Phone | | + + + | Preferred Language | Unknown | + + + | Marital Status | | + + + | Jain Affiliation | Unknown | + + + | Race | Unknown | + + + | Ethnic Group | Unknown | + + + Author + + + | Author | [facility] | | | and [place] | + + + | Organization | [facility] | | | and [place] | + + + | Address | Unknown | + + + | Phone | Unavailable | + + + Support + + + + + | Name | Relationship | Address | Phone | + + + + + | Tam Lou | ECON | [address] | | | | | [place] [address] | | + + + + + | Cristal Yu | ECON | Unknown | | + + + + + Care Team Providers + +------+ + | Care Tooth Cutter Spur Name | Role | Phone | + +------+ + | Pcp, Prov Inactive | PCP | | + +------+ + Encounter Details +--------+ + + + + | Date | Type | Department | Care Team | Description | +--------+ + + + + | 01/03/ | Home Care | [facility] | Marva Sifuentes, | CASE COMMUNICATION | | 2018 | Visit | [address] | [place] | | | | | [place], [place] | | | | | | [address] | | | | | | [phone] | | | +--------+ + + + [...] | | | | | | [place] [address] | | | | | | [phone] | | | | | | | | +--------+---------+ + + + documented as of this encounter Visit Diagnoses Not on filedocumented in this encounter"
--- OUTSIDE RECORDS SUMMARY | ~2019-12-23 | XMS | Encounter Summary ---
Demographics + + + | Address | [address] | | | [place] [address] | + + + | Home Phone | | + + + | Preferred Language | Unknown | + + + | Marital Status | | + + + | Scientology Affiliation | Unknown | + + + | Race | Unknown | + + + | Ethnic Group | Unknown | + + + Author + + + | Author | [facility] | | | and [place] | + + + | Organization | [facility] | | | and [place] | + + + | Address | Unknown | + + + | Phone | Unavailable | + + + Support + + + + + | Name | Relationship | Address | Phone | + + + + + | Tam Lou | ECON | [address] | | | | | [place] [address] | | + + + + + | Cristal Yu | ECON | Unknown | | + + + + + Care Team Providers + +------+ + | Care Service Station Helper Name | Role | Phone | + +------+ + PCP | Unavailable | + +------+ + Encounter Details +--------+ + + + + | Date | Type | Department | Care Team | Description | +--------+ + + + + | 07/02/ | Hospital | [facility] | ArgenisJasmeet F | | | 2000 | Encounter | FAMILY GENERIC | MD | | | | | CONVERSION | | | | | | DEPARTMENT [address] | | | | | | [facility] | | | | | | [place] | | | | | | [address] | | | | | | [phone] | | | +--------+ + + + [...] | | | | | | [place] | | | | | | [place] [address] | | | | | | [phone] | | | | | | | | +--------+---------+ + + + documented as of this encounter Visit Diagnoses Not on filedocumented in this encounter"
--- OUTSIDE RECORDS SUMMARY | ~2019-12-23 | XMS | Clinical Summary ---
Demographics + + + | Address | [address] | | | [place] [address] | + + + | Home Phone | | + + + | Preferred Language | Unknown | + + + | Marital Status | | + + + | Zoroastrianism Affiliation | Unknown | + + + | Race | Unknown | + + + | Ethnic Group | Unknown | + + + Author + + + | Author | [facility] | | | and [place] | + + + | Organization | [facility] | | | and [place] | + + + | Address | Unknown | + + + | Phone | Unavailable | + + + Support + + + + + | Name | Relationship | Address | Phone | + + + + + | Tam Lou | ECON | [address] | | | | | [place] [address] | | + + + + + | Cristal Yu | ECON | Unknown | | + + + + + Care Team Providers + +------+ + | Care Geoint Analyst Name | Role | Phone | + +------+ + | Luisa Ni | PCP | Unavailable | | Health Hand Singer | | | + +------+ + Allergies + + + + + + | Active Allergy | Reactions | Severity | Noted | Comments | | | | | Date | | + + + + + + | Sulfa Antibiotics | Rash | Low | 09/26/19 | | | | | | 11 | | + + + + + + Medications + + + +---------+------+------+-------+ | Medication | Sig | Dispensed | Refills | Star | End | Statu | | | | | | t | Date | s | | | | | | Date | | | + + + +---------+------+------+-------+ | omeprazole | 1 TABLET by mouth | | 0 | | | Activ | | (PRILOSEC) 20 mg | twice daily-LAST | | | 01/03 | | e | | [facility] | REFILL NEED VISIT | | | 12 | | | | | and LABS | | | | | | + + + +---------+------+------+-------+ | albuterol (PROAIR | 2 puffs every 4-6 | | 0 | 11/0 | | Activ | | HFA) 90 mcg/puff | hours as needed for | | | 7/20 | | e | | inhaler | asthma | | | 11 | | | + + + +---------+------+------+-------+ | LOSARTAN POTASSIUM | Take 25 mg by mouth | | 0 | | | Activ | | PO | Daily. | | | | | e | + + + +---------+------+------+-------+ | oxyCODONE | Take 1-3 tablets by | 30 | 0 | 07/1 | | Activ | | (ROXICODONE) 5 mg | mouth every 4 hours | tablet | | 1/20 | | e | | tablet | as needed for Pain. | | | 18 | | | + + + +---------+------+------+-------+ | benzonatate | Take 1 capsule by | 30 | 0 | 07/1 | | Activ | | (TESSALON) 100 mg | mouth 3 times daily | capsule | | 1/20 | | e | | capsule | as needed for Cough. | | | 18 | | | + + + +---------+------+------+-------+ | nicotine | Place 1 patch onto | 21 | 0 | 07/1 | | Activ | | (NICODERM) 14 mg/24 | the skin Daily as | patch | | 1/20 | | e | | hr | needed for Nicotine | | | 18 | | | | | Craving. | | | | | | + + + +---------+------+------+-------+ | docusate sodium | Take 100 mg by mouth | | 0 | 07/1 | | Activ | | (COLACE) 100 mg | Twice daily as | | | 2/20 | | e | | capsule | needed for | | | 18 | | | | | Constipation. | | | | | | + + + +---------+------+------+-------+ Active Problems + + + | Problem | Noted Date | + + + | Acute pulmonary insufficiency following nonthoracic surgery | 12/25/2017 | + + + | Recurrent incisional hernia with incarceration | 12/21/2017 | + + + | OBESITY, MORBID | 05/09/2011 | + + + | PRURITUS, EARS | 05/09/2011 | + + + | Obesity | 04/23/2011 | + + + + + | Overview: RAFAEL [id number] Decision | + + + + + | MARCUS STRAIN, RIGHT | 04/23/2011 | + + + | EUSTACHIAN TUBE DYSFUNCTION, BILATERAL | 04/23/2011 | + + + | HYPERCHOLESTEROLEMIA | 01/11/2010 | + + + | ASTHMA | 02/28/2009 | + + + | PROTEINURIA | 02/03/2009 | + + + | Hypertension | 01/12/2008 | + + + | Tobacco abuse | | + + + Social History + + [...] | Blood Pressure | 154/92 | 01/07/2018 10:00 AM | | | | | PDT | | + + + + + | Pulse | 85 | 01/05/2018 2:30 PM | | | | | PDT | | + + + + + | Temperature | 36.9 C (98.5 F) | 01/07/2018 10:00 AM | | | | | PDT | | + + + + + | Respiratory Rate | 18 | 01/07/2018 10:00 AM | | | | | PDT [...] | 112.5 kg (248 lb) | 01/03/2018 3:00 PM | | | | | PDT | | + + + + + | Height | 171.5 cm (5' 7.5") | 12/26/2017 11:00 AM | | | | | PDT | | + + + + + | Body Mass Index | 38.27 | 12/26/2017 11:00 AM | | | | | PDT | | + + + + + Plan of Treatment +--------+---------+ + + + [...] [place], | | | | | | [place] [address] | | | | | | [phone] | | | | | | | | +--------+---------+ + + + + + + + + | Health Maintenance | Due Date | Last | Comments | | | | Done | | + + + + + | Vaccine: | | | | | Pneumococcal 19-64 | 4 | | | | (1 of 1 - PPSV23) | | | | + + + + + | Vaccine: | | | | | Dtap/Tdap/Td (1 - | 7 | | | | Tdap) | | | | + + + + + | Breast Cancer | | | | | Screening | 3 | | | + + + + + | Cervical Cancer | | 12/27/19 | | | Screening (Pap) | 6 | 11 | | + + + + + | Colorectal Cancer | | | | | Screening | 8 | | | | (Colonoscopy) | | | | + + + + + | Vaccine: Zoster (1 | | | | | of 2) | 8 | | | + + + + + | Vaccine: Influenza | | | | | (#1) | 0 | | | + + + + + Implants + +-------+--------+ +--------+--------+--------+ | Implanted | Type | Area | Manufacture | Device | Shelf | Model | | | | | r | | Expira | / | | | | | | Identi | tion | Serial | | | | | | fier | Date | / Lot | + +-------+--------+ +--------+--------+--------+ | Xgrft Strtce [id number] [id number] - | Graft | N/A: | ALLERGAN - | | 07/17/ | [id number] | | [id number]: Qty: 1 on | | Abdome | ALLG | | 2020 | 2P | | 12/21/2017 by Miguel Angel Mccullough | | n | | | | /[id number] | | MD Km at [facility] | | | | | | [address] / | | [facility] | | | | | | | + +-------+--------+ +--------+--------+--------+ Results Not on filefrom Last 3 Months Insurance + +--------+ +--------+ +---------+--------+ | Payer | Benefi | Subscriber | Effect | Phone | Address | Type | | | t Plan | ID | chantelle | | | | | | / | | Dates | | | | | | Group | | | | | | + +--------+ +--------+ +---------+--------+ | BCBS | BCBS | [id number] | 06/17/19 | | | PPO | | | [place]OS | [id number] | 18-Pre | | | | | | PPO | | sent | | | | + +--------+ +--------+ +---------+--------+ | [place] | BCBS | [id number] | 06/17/19 | [phone] | | [place]PO | | | [place] | [id number] | 18-Pre | 9 | | | | | | | sent | | | | + +--------+ +--------+ +---------+--------+ | [employer]AN | MODA | [id number] | 09/16/19 | [phone] | | Medica | | MEDICAID HMO | HEALTH | | 20-Pre | 1 | | id | | | MDCD | | sent | | | | | | [place] | | | | | | + +--------+ +--------+ +---------+--------+ + +--------+ +--------+ + + | Guarantor Name | Accoun | Relation to | Date | Phone | Billing Address | | | t Type | Patient | of | | | | | | | | | | + +--------+ +--------+ + + | Katie Lou | Person | Self | [birth year] | [address] | | | al/Fam | | 1969 | [phone] | [place] | | | [place] | | | 6 (Home) | [phone] | + +--------+ +--------+ + + | Katie Lou | Person | Self | [birth year] | [address] | | | al/Fam | | 1969 | [phone] | [place] [address] | | | [place] | | | [place] (Home) | | + +--------+ +--------+ + + | Katie Lou | Person | Self | [birth year] | | [address] | | | al/Fam | | 1969 | [phone] | [place] [address] | | | [place] | | | 6 (Home) | | + +--------+ +--------+ + + Advance Directives + + + + + | Type | Date Recorded | Patient | Explanation | | | | Theatrical Performer | | + + + + + | Power of | | | | | Associate Manager Affiliate Marketing | | | | + + + + + | Advance | 12/20/2017 7:44 | | | | Directive | PM | | | + + + + + + + + + + | Code Status | Date | Date | Comments | | | Activated | Inactivated | | + + + + + | Full Code | 12/21/2017 | 12/25/2017 | | | | 6:21 AM | 4:40 PM | | + + + + +
--- OUTSIDE RECORDS SUMMARY | ~2019-12-23 | XMS | Encounter Summary ---
Demographics + + + | Address | [address] | | | [place] [address] | + + + | Home Phone | | + + + | Preferred Language | Unknown | + + + | Marital Status | | + + + | Lutheran Affiliation | Unknown | + + + | Race | Unknown | + + + | Ethnic Group | Unknown | + + + Author + + + | Author | [facility] | | | and [place] | + + + | Organization | [facility] | | | and [place] | + + + | Address | Unknown | + + + | Phone | Unavailable | + + + Support + + + + + | Name | Relationship | Address | Phone | + + + + + | Tam Lou | ECON | [address] | | | | | [place] [address] | | + + + + + | Cristal Yu | ECON | Unknown | | + + + + + Care Team Providers + +------+ + | Care Radio Engineering Teacher Name | Role | Phone | + +------+ + PCP | Unavailable | + +------+ + Encounter Details +--------+ + + + + | Date | Type | Department | Care Team | Description | +--------+ + + + + | 04/29/ | Hospital | [facility] | [address] | | | 2001 - | Encounter | [facility] | [address] | | | | | [address] [place] [place] | | | 04/30/ | | [address] | [address] | | | 2001 | | [place] | [phone] | | | | | [address] | | | | | | [phone] | | | +--------+ + + + [...] | | | | | | [place] [address] | | | | | | [phone] | | | | | | | | +--------+---------+ + + + documented as of this encounter Visit Diagnoses Not on filedocumented in this encounter"
--- OUTSIDE RECORDS SUMMARY | ~2019-12-23 | XMS | Encounter Summary ---
Demographics + + + | Address | [address] | | | [place] [address] | + + + | Home Phone | | + + + | Preferred Language | Unknown | + + + | Marital Status | | + + + | Anabaptism Affiliation | Unknown | + + + | Race | Unknown | + + + | Ethnic Group | Unknown | + + + Author + + + | Author | [facility] | | | and [place] | + + + | Organization | [facility] | | | and [place] | + + + | Address | Unknown | + + + | Phone | Unavailable | + + + Support + + + + + | Name | Relationship | Address | Phone | + + + + + | Tam Lou | ECON | [address] | | | | | [place] [address] | | + + + + + | Cristal Yu | ECON | Unknown | | + + + + + Care Team Providers + +------+ + | Care Firearms Expert Name | Role | Phone | + +------+ + PCP | Unavailable | + +------+ + Encounter Details +--------+ + + + + | Date | Type | Department | Care Team | Description | +--------+ + + + + | 10/26/ | Hospital | [facility] | Efrem Hurley MD | | | 2010 | Encounter | FAMILY EMERGENCY | [address] | | | | | CENTER [address] [place], [place] | | | | [address] | [address] | | | | | [place], [place] | | | | | | [address] | | | | | | [phone] | | | +--------+ + + + [...] ED Notes Chris Painting PA-C - 04/22/2013 1:31 AM PST DATE OF EMERGENCY CENTER EVALUATION: 10/26/2010 CHIEF COMPLAINT: Back pain. HISTORY OF PRESENT ILLNESS: This 40-year-old female presents with upper back pain for the past 4 days. She denies any recent activity or injury that may have attributed to her sympt oms. The pain is intermittent. It has a pleuritic character. She has a "dull ache" type of pain. Denies any pain, numbness, or weakness radiating down the extremities. PAST MEDICAL HISTORY: Significant for ovarian cyst, tubal ligation, carpal tunnel, right e lbow surgery x2, abnormal creatinine level. ALLERGIES: SULFA. MEDICATIONS: Atrovent, hydrochlorothiazide, Prilosec, propranolol. PHYSICAL EXAM: VITALS SIGNS: Temperature 98.2, respirations 16, pulse 81, blood pressure 140/82, O2 satur ation 99% on room air, within normal limits. GENERAL: The patient sitting on exam bed in no acute distress. NECK: Vertebral column in anatomical alignment. Nontender. No paraspinous muscle tenderness. Has full range of motion of the neck. CHEST: Lung pedersen clear to auscu ltation. CARDIAC: Regular rate and rhythm. No murmur. BACK: Vertebral column in anatomical alignment. Nontender. There is right paraspinous musc le tenderness extending to the medial border of the scapula. No spasm noted. Rest of the ba ck exam is unremarkable. EXTREMITIES: Full range of motion of the arms and legs. Strong circulating nurse to the hands. NEUROLOGIC: DTRs equally normal to upper and lower extremities bilaterally. DIAGNOSIS: Thoracic paraspinous muscle strain. PLAN: The patient is to be off work for 2 days. Flexeril 10 mg, 1 t.i.d. p.r.n., #20. Ibup rofen or Tylenol for mild pain. Muscle strain sheet given. Percocet 7.5/325 mg, 1 to 2 q.4- 6h. p.r.n. pain, #15. Patient is to follow up with her primary care provider in one week if not better, or sooner if symptoms worsen. Chris Painting PA-C AM:red Job ID:[id number] Doc ID:[id number] cc: Electronically Signed 10/29/10 1543 SHE[address] DEBR A L : 66 | Signed MR# [id number] ACCT# [id number] | ADM 10/26/10 DS 10/26/10 DEP ER | SHELBI Watson | [facility] ES: [place] R pt [phone] | EMERGENCY CENTER THIS REPORT IS CONFID [...] [place], | | | | | | [place] [address] | | | | | | [phone] | | | | | | | | +--------+---------+ + + + documented as of this encounter Visit Diagnoses Not on filedocumented in this encounter
--- OUTSIDE RECORDS SUMMARY | ~2019-12-23 | XMS | Encounter Summary ---
Demographics + + + | Address | [address] | | | [place] [address] | + + + | Home Phone | | + + + | Preferred Language | Unknown | + + + | Marital Status | | + + + | Jain Affiliation | Unknown | + + + | Race | Unknown | + + + | Ethnic Group | Unknown | + + + Author + + + | Author | [facility] | | | and [place] | + + + | Organization | [facility] | | | and [place] | + + + | Address | Unknown | + + + | Phone | Unavailable | + + + Support + + + + + | Name | Relationship | Address | Phone | + + + + + | Tam Lou | ECON | [address] | | | | | [place] [address] | | + + + + + | Cristal Yu | ECON | Unknown | | + + + + + Care Team Providers + +------+ + | Care Wealth Management Consultant Name | Role | Phone | + +------+ + PCP | Unavailable | + +------+ + Encounter Details +--------+ + + + + | Date | Type | Department | Care Team | Description | +--------+ + + + + | 09/25/ | Hospital | [facility] | [place], | | | 2002 | Encounter | FAMILY EMERGENCY | MD Rufina Rowe | | | | | [place] [address] | | | | | [facility] | [place] [address] | | | | | [place] | [phone] | | | | | [address] | | | | | | [phone] | | | +--------+ + + + [...] DR | | | | | | [place], | | | | | | [place] [address] | | | | | | [phone] | | | | | | | | +--------+---------+ + + + documented as of this encounter Visit Diagnoses Not on filedocumented in this encounter"
--- OUTSIDE RECORDS SUMMARY | ~2019-12-23 | XMS | Encounter Summary ---
Demographics + + + | Address | [address] | | | [place] [address] | + + + | Home Phone | | + + + | Preferred Language | Unknown | + + + | Marital Status | | + + + | Bahai Affiliation | Unknown | + + + | Race | Unknown | + + + | Ethnic Group | Unknown | + + + Author + + + | Author | [facility] | | | and [place] | + + + | Organization | [facility] | | | and [place] | + + + | Address | Unknown | + + + | Phone | Unavailable | + + + Support + + + + + | Name | Relationship | Address | Phone | + + + + + | Tam Lou | ECON | [address] | | | | | [place] [address] | | + + + + + | Cristal Yu | ECON | Unknown | | + + + + + Care Team Providers + +------+ + | Care Comb Capper Name | Role | Phone | + +------+ + PCP | Unavailable | + +------+ + Encounter Details +--------+ + + + + | Date | Type | Department | Care Team | Description | +--------+ + + + + | 03/04/ | Hospital | [facility] | Kiera Garcia, | | | 2008 | Encounter | FAMILY EMERGENCY | [address] | | | | [place] [address] | [facility] | | | | | [facility] | [place] [address] | | | | | [place] | [phone] | | | | | [address] | | | | | | [phone] | | | +--------+ + + + [...] documented as of this encounter ED Notes Kiera Garcia MD - 04/22/2013 9:55 AM PST DATE OF EMERGENCY CENTER EVALUATION: 03/04/2009 CHIEF COMPLAINT: Difficulty breathing. HISTORY OF PRESENT ILLNESS: This 39-year-old female has been ill for a couple of weeks wi th cold symptoms and cough with scant sputum production. She has a history of asthma and wheeler s been wheezing as well. She is quite dyspneic on exertion. 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 She saw her physician last week and was started on a Z-Alejandro on Saturday. On Saturday she had a chest x-ray and a prescription for prednisone was ordered, her last does she took this morn ing. She has used her albuterol three times so far this morning and does not really feel li ke it is helping her. REVIEW OF SYSTEMS CARDIOVASCULAR: She feels lightheaded only during a long coughing spell. ENT: She has nasa l congestion. A total of 10 systems are reviewed and are negative or noncontributory except as above. PAST MEDICAL HISTORY 1.Ovarian cysts. 2.Carpal tunnel syndrome. 3.Exercise-induced asthma. 4.Tubal ligation. 5.Elbow surgery. SOCIAL HISTORY: The patient smokes. Her Primary communication and outreach manager is Dr. Signleton. MEDICATIONS: Albuterol, lansoprazole, Propranolol, Azithromycin. ALLERGIES: SULFA. PHYSICAL EXAMINATION GENERAL: This is an obese, middle-aged female, sitting quietly on the gurney. VITAL SIGNS: Temperature is 97.6 degrees Fahrenheit. BP 127/79. Heart rate 79.Respirations 20. Pulse ox imetry 93% on room air. HEENT: The oropharynx is mildly injected. Mucous membranes are somewhat sticky. NECK: Supple, there is no lymphadenopathy or jugular venous distension. CHEST: Symmetric e xcursion with respirations. She has prolonged expiratory phase and inspiratory and expirato ry wheezes throughout, no rales. No use of accessory muscles. HEART: Regular, normal S1, S2, no murmurs, gallops, or rubs. ABDOMEN: The abdomen has acti ve bowel sounds and is soft and nontender without masses. SKIN: [place], warm and dry. She has no lower extremity edema. IRAJ LOU : 66 | Signed MR# [id number] ACCT# [id number] | ADM 03/04/09 DS 03/04/09 DEP ER | Kiera Garcia | [facility] ES: [place] pt [phone] | EMERGENCY CENTER THIS REPORT IS CONFID ENTIAL AND NOT TO BE RELEASED WITHOUT PROPER AUTHORIZATION. EMERGENCY DEPARTMENT COURSE/MEDICAL DECISION MAKING: The patient was seen and examined. I reviewed her chest x-ray which was obtained on the of this month. It was read by the r adiologist as demonstrating minimal patchy air space disease at the left base, which might be consistent with pneumonia. It is not that impressive to my eye. This patient has a history of exercise-induced asthma. I think she may have some bronchosp asm with her acute bronchitis/pneumonia; or potentially she could have some underlying COPD , since she is a long-time smoker. I encouraged her to work hard at smoking cessation, part icularly during this acute illness. I am going to give her a prescription for prednisone so that she can taper off and have a bit more of a prolonged course. I had the respiratory therapist come and use a small volume nebulizer with her and after two treatments she was actually moving quite a bit more air a nd had only rare expiratory wheezes. She is feeling somewhat better and feels ready for dis charge home. IMPRESSION 1.Exacerbation of mild, intermittent asthma. 2.Possible underlying chronic obstructive pulmonary disease. 3.Acute bronchitis vs pneumon ia. DISPOSITION 1.Discharge home. 2.She was given a prescription for Atrovent which she can add to her albuterol I did not r ecommend its use regularly and not as a rescue inhaler. 3.She was provided with a spacer to use with her albuterol, which she can continue to use on a p.r.n. basis. 4.Prednisone on a tapering course. 5.Finish the Z-Alejandro. 6.Return here if she worsens. 7.Follow up with her physician next week if not improving. Kiera Garcia MD LAB:sbt Job ID:[id number] Doc ID:[id number] cc: Jose Singleton Jr., MD Digitally authenticated 03/22/09 1009 Kiera Garcia IRAJ LOU : 66 | Signed MR# [id number] ACCT# [id number] | ADM 03/04/09 DS 03/04/09 DEP ER | Kiera Garcia | [facility] ES: B R pt [phone] | EMERGENCY CENTER THIS REPORT IS CONFID ENTIAL AND NOT TO BE RELEASED WITHOUT PROPER AUTHORIZATION. documented in this encounter Plan of Treatment +--------+---------+ + + + | Date | Type | Specialty | Care Team | Description | +--------+---------+ + + + | 12/30/ | Office | Pulmonology | [facility], | | | 2019 | Visit | | Daphne Angelo, | | | | | | MD [address] | | | | | | [place], | | | | | | [place] [address] | | | | | | [phone] | | | | | | | | +--------+---------+ + + + documented as of this encounter Visit Diagnoses Not on filedocumented in this encounter"
--- OUTSIDE RECORDS SUMMARY | ~2019-12-23 | XMS | Encounter Summary ---
Demographics + + + | Address | [address] | | | [place] [address] | + + + | Home Phone | | + + + | Preferred Language | Unknown | + + + | Marital Status | | + + + | Scientology Affiliation | Unknown | + + + | Race | Unknown | + + + | Ethnic Group | Unknown | + + + Author + + + | Author | [facility] | | | and [place] | + + + | Organization | [facility] | | | and [place] | + + + | Address | Unknown | + + + | Phone | Unavailable | + + + Support + + + + + | Name | Relationship | Address | Phone | + + + + + | Tam Lou | ECON | [address] | | | | | [place] [address] | | + + + + + | Cristal Yu | ECON | Unknown | | + + + + + Care Team Providers + +------+ + | Care Virtualization Engineer Name | Role | Phone | + +------+ + | Marimar Hoyt | PCP | | + +------+ + Reason for Referral Physical Medicine (Routine) +--------+ + + + + + | Status | Reason | Specialty | Diagnoses / | Referred By | Referred To | | | | | Procedures | Contact | Contact | +--------+ + + + + + | Closed | Specialty | Physical | Diagnoses | Hoyt, | | | | Services | Therapy | Bilateral | Marimar S, | | | | Required | | shoulder | [address] [facility] | | | | | | pain | [address] | | | | | | | [address] | | | | | | | [address] | | | | | | | [place] | | | | | | | [address] | | | | | | | Phone: | | | | | | | [phone] | | | | | | | Fax: | | | | | | | [phone] | | +--------+ + + + + + Reason for Visit + + + | Reason | Comments | + + + | Establish Care | | + + + Encounter Details +--------+---------+ + + + | Date | Type | Department | Care Team | Description | +--------+---------+ + + + | 12/10/ | Office | [facility] | Marimar Hoyt, | Healthcare | | 2012 | Visit | [facility] [place] [address] | [address] | maintenance (Primary | | | | [address] | Dx); Iron | | | | [address] [place], [place] | [place], [place] | deficiency anemia; | | | | [address] | [address] | Renal insufficiency; | | | | [phone] | [phone] | Hypertension; | | | | | | Bilateral shoulder | | | | | | pain; Asthma | +--------+---------+ + + + Social History [...] + + + | Blood Pressure | 130/80 | 12/10/2012 10:42 AM | | | | | PDT | | + + + + + | Pulse | 68 | 12/10/2012 10:42 AM | | | | | PDT | | + + + + + | Temperature | 36.8 C (98.2 F) | 12/10/2012 10:42 AM | | | | | PDT | | + + + + + | Respiratory Rate | 18 | 12/10/2012 10:42 AM | | | | | PDT | | + + + + + | Oxygen Saturation | - | - | | + + + + + | Inhaled Oxygen | - | - | | | Concentration | | | | + + + + + | Weight | 122.5 kg (270 lb 2 | 12/10/2012 10:42 AM | | | | oz) | PDT | | + + + + + | Height | 172.7 cm (5' 8") | 12/10/2012 10:42 AM | | | | | PDT | | + + + + + | Body Mass Index | 41.07 | 12/10/2012 10:42 AM | | | | | PDT | | + + + + + documented in this encounter Patient Instructions Patient Instructions Marimar Hoyt ARNP - 12/10/2012 11:02 AM [facility] [address] [address] [phone] documented in this encounter Progress Notes Marimar Hoyt ARNP - 12/10/2012 1:16 PM PDTFormatting of this note might be different fr om the original. Subjective: Patient ID: Katie Lou is a 42 y.o. female. HPI Patient's medications, allergies, past medical, surgical, social and family histories were reviewed and updated as appropriate. Katie is here today to re-establish care. Moved to [facility] for a year or so, is now back and would like to re-establish care. Her concerns today are: 1) asthma, uses proventil prn. 2) tinea pedis, uses clotrimazole topically. 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 Full ROM. Worse after doing activities with her arms raised for prolonged period of time. Denies crepitus or loss of strength. 4) gerd. Last endoscopy was 2-3 years ago. Takes prilosec. 5) insomnia, takes ambien. 6) history of anemia. Denies history of colonoscopy or evaluation. 7) reports history of renal insufficiency and has been cautioned to stay away from nsaids. 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 LMP 2 days ago. Has a bilateral tubal ligation. Sexually active with . Review of Systems 12 systems reviewed today, pertinent positives as described in HPI. Objective: Physical Exam Vitals reviewed. Constitutional: She appears well-developed and well-nourished. No distress. HENT: Head: Normocephalic and atraumatic. Right Ear: External ear normal. Left Ear: External ear normal. Nose: Nose normal. Mouth/Throat: Oropharynx is clear and moist. Eyes: Conjunctivae normal and EOM are normal. Pupils are equal, round, and reactive to ligh t. Neck: Normal range of motion. No thyromegaly present. Cardiovascular: Normal rate, regular rhythm and normal heart sounds. Pulmonary/Chest: Effort normal and breath sounds normal. Musculoskeletal: Normal range of motion. Right shoulder: Normal. Left shoulder: Normal. Lymphadenopathy: She has no cervical adenopathy. Assessment: 1. Healthcare maintenance KARLA Digital Screening Bilateral, TSH, Reflex Free T4 2. Iron deficiency anemia CBC with Differential 3. Renal insufficiency Comprehensive Metabolic Panel 4. Hypertension Comprehensive Metabolic Panel, Lipid Panel 5. Bilateral shoulder pain Ambulatory referral to Physical Therapy 6. Asthma Referral to physical therapy for shoulder pain. I did not prescribe anything for her today . Await labs and advise. No changes to current medications. Advised her to schedule annual exam. Plan: documented in this e ncounter Plan of Treatment +--------+---------+ + + + | Date | Type | Specialty | Care Team | Description | +--------+---------+ + + + | 12/30/ | Office | Pulmonology | [facility], | | | 2019 | Visit | | Daphne Angelo, | | | | | | MD [address] | | | | | | [place], | | | | | | [place] [address] | | | | | | [phone] | | | | | | | | +--------+---------+ + + + + +---------+--------+ + + | Name | Type | Priori | Associated Diagnoses | Order Schedule | | | | ty | | | + +---------+--------+ + + | KARLA Digital | Imaging | Routin | Healthcare | Ordered: 12/10/2012 | | Screening Bilateral | | e | maintenance | | + +---------+--------+ + + + + +--------+ + + | Name | Type | Priori | Associated Diagnoses | Order Schedule | | | | ty | | | + + +--------+ + + | Ambulatory referral | Outpatient | Routin | Bilateral shoulder | Ordered: 12/10/2012 | | to Physical Therapy | Referral | e | pain | | + + +--------+ + + documented as of this encounter Procedures + +--------+ + + + | Procedure Name | Priori | Date/Time | Associated Diagnosis | Comments | | | ty | | | | + +--------+ + + + | LIPID PANEL | Routin | 12/10/2012 | Hypertension | Results for this | | | e | 11:12 AM | | procedure are in the | | | | PDT | | results section. | + +--------+ + + + | TSH, REFLEX FREE T4 | Routin | 12/10/2012 | Healthcare | Results for this | | | e | 11:12 AM | maintenance | procedure are in the | | | | PDT | | results section. | + +--------+ + + + | CBC WITH | Routin | 12/10/2012 | Iron deficiency | Results for this | | DIFFERENTIAL | e | 11:12 AM | anemia | procedure are in the | | | | PDT | | results section. | + +--------+ + + + | COMPREHENSIVE | Routin | 12/10/2012 | Renal | Results for this | | METABOLIC PANEL | e | 11:12 AM | insufficiency | procedure are in the | | | | PDT | Hypertension | results section. | + +--------+ + + + documented in this encounter Results Lipid Panel (12/10/2012 11:12 AM PDT) + + + + + + | Component | Value | Ref Range | Performed | Pathologist | | | | | At | Signature | + + + + + + | Cholesterol | 145 | <200 mg/dL | [facility] | | | | | | [place] | | + + + + + + | Triglycerid | 186 (H) | <150 mg/dL | [facility] | | | es | | | [place] | | + + + + + + | HDL | 30 (L)Comment: For | >39 mg/dL | [facility] | | | | specific risk assessment | | [place] | | | | criteria, see our test | | | | | | directory | | | | | | at([facility]). | | | | + + + + + + | LDL, | 78Comment: The LDL goal | <100 mg/dL | [facility] | | | Calculated | varies from 70 to 160 | | [place] | | | | depending on the | | | | | | clinical riskcategory. | | | | | | For specific risk | | | | | | assessment criteria, see | | | | | | our testdirectory at | | | | | | ([facility]).Testing | | | | | | Performed: [facility], [address] | | | | | [address], [place] | | | | | | [address] | | | | + + + + + + + + | Specimen | + + | Blood specimen | | (specimen) | + + + + + | Narrative | Performed At | + + + | Patient Not Fasting | [place] | + + + + + + + + | Performing | Address | City/State/Zipcode | Phone Number | | Organization | | | | + + + + + | [place] | [address] | [place] [address] | | + + + + + TSH, Reflex Free T4 (12/10/2012 11:12 AM PDT) + + + + + + | Component | Value | Ref Range | Performed | Pathologist | | | | | At | Signature | + + + + + + | TSH | 1.72Comment: Testing | 0.34 - 4.82 | [facility] | | | | Performed: [facility] | [facility] | [place] | | | | [address] [address] [address] | | | | | | [place] | | | | | | [address] | | | | + + + + + + + + | Specimen | + + | Blood specimen | | (specimen) | + + + + + + + | Performing | Address | City/State/Zipcode | Phone Number | | Organization | | | | + + + + + | [facility] [place] | [address] | [place] [address] | | + + + + + Comprehensive Metabolic Panel (12/10/2012 11:12 AM PDT) + + + + + + | Component | Value | Ref Range | Performed | Pathologist | | | | | At | Signature | + + + + + + | Na | 142 | 135 - 146 | [facility] | | | | | mmol/L | [place] | | + + + + + + | K | 4.2 | 3.6 - 5.2 | [facility] | | | | | mmol/L | [place] | | + + + + + + | Cl | 105 | 98 - 109 mmol/L | [facility] | | | | | | [place] | | + + + + + + | CO2 | 31 | 21 - 32 mmol/L | [facility] | | | | | | [place] | | + + + + + + | Glucose | 104 (H)Comment: Impaired | 65 - 99 mg/dL | [facility] | | | | fasting glucose: 100 to | | [place] | | | | 125 mg/dL. | | | | + + + + + + | BUN | 10 | 7 - 23 mg/dL | [facility] | | | | | | [place] | | + + + + + + | Creatinine | 0.83 | 0.40 - 1.00 | [facility] | | | | | mg/dL | [place] | | + + + + + + | Calcium | 8.6 | 8.5 - 10.5 | [facility] | | | | | mg/dL | [place] | | + + + + + + | Total | 6.2 (L) | 6.3 - 8.0 g/dL | [facility] | | | Protein | | | [place] | | + + + + + + | Albumin | 3.2 (L) | 3.5 - 5.0 g/dL | [facility] | | | | | | [place] | | + + + + + + | Bilirubin | 0.3 | 0.1 - 1.5 mg/dL | [facility] | | | Total | | | [place] | | + + + + + + | Alkaline | 31 (L) | 40 - 135 U/L | [facility] | | | Phosphatase | | | [place] | | + + + + + + | AST | 7 | 5 - 40 U/L | [facility] | | | | | | [place] | | + + + + + + | ALT | 29 | 10 - 65 U/L | [facility] | | | | | | [place] | | + + + + + + | Anion Gap | 6 | 5 - 16 mmol/L | [facility] | | | | | | [place] | | + + + + + + | BUN/Creatin | 12.0 | 10.0 - 20.0 | [facility] | | | ine Ratio | | Ratio | [place] | | + + + + + + | Globulin | 3.0 | 1.8 - 4.3 g/dL | [facility] | | | | | | [place] | | + + + + + + | Albumin/Krista | 1.1Comment: NOTE NEW | 0.8 - 2.8 Ratio | [facility] | | | bulin Ratio | REFERENCE RANGE | | [place] | | + + + + + + | Estimated | >60Comment: GFR <60: | >60 | [facility] | | | GFR | Chronic kidney disease, | ml/min/1.73m2 | [place] | | | | if found over a 3 month | | | | | | period.GFR <15: Kidney | | | | | | failure.For | | | | | | Americans, multiply the | | | | | | calculated GFR by | | | | | | 1.210Testing Performed: | | | | | | [facility], | | | | | | [address], | | | | | | [place] [address] | | | | + + + + + + + + | Specimen | + + | Blood specimen | | (specimen) | + + + + + + + | Performing | Address | City/State/Zipcode | Phone Number | | Organization | | | | + + + + + | [facility] [place] | [address] | [place] [address] | | + + + + + CBC with Differential (12/10/2012 11:12 AM PDT) + + + + + + | Component | Value | Ref Range | Performed | Pathologist | | | | | At | Signature | + + + + + + | White Blood | 6.6 | 4.0 - 11.0 K/uL | [facility] | | | Cells | | | [place] | | + + + + + + | Red Blood | 4.74 | 3.80 - 5.20 | [facility] | | | Cells | | M/uL | [place] | | + + + + + + | Hemoglobin | 13.9 | 11.6 - 15.5 | [facility] | | | | | g/dL | [place] | | + + + + + + | Hematocrit | 42.2 | 35.0 - 46.0 % | [facility] | | | | | | [place] | | + + + + + + | MCV | 89.1 | 80.0 - 100.0 fL | [facility] | | | | | | [place] | | + + + + + + | MCH | 29.4 | 27.0 - 34.0 pg | [facility] | | | | | | [place] | | + + + + + + | MCHC | 33.0 | 32.0 - 35.5 | [facility] | | | | | g/dL | [place] | | + + + + + + | RDW-CV | 15.3 (H) | 11.0 - 15.0 % | [facility] | | | | | | [place] | | + + + + + + | Platelet | 168 | 150 - 400 K/uL | [facility] | | | Count | | | [place] | | + + + + + + | % | 66.9 | 40.0 - 80.0 % | [facility] | | | Neutrophils | | | [place] | | + + + + + + | % | 24.3 | 15.0 - 45.0 % | [facility] | | | Lymphocytes | | | [place] | | + + + + + + | % Monocytes | 5.0 | 0.0 - 12.0 % | [facility] | | | | | | [place] | | + + + + + + | % | 3.5 | 0 - 7 % | [facility] | | | Eosinophils | | | [place] | | + + + + + + | % Basophils | 0.3 | 0 - 2 % | [facility] | | | | | | [place] | | + + + + + + | Absolute | 4.40 | 2.0 - 7.3 K/uL | [facility] | | | Neutrophils | | | [place] | | + + + + + + | Absolute | 1.60 | 1.0 - 3.4 K/uL | [facility] | | | Lymphocytes | | | [place] | | + + + + + + | Absolute | 0.30 | 0.0 - 0.8 K/uL | [facility] | | | Monocytes | | | [place] | | + + + + + + | Absolute | 0.20 | 0.0 - 0.5 K/uL | [facility] | | | Eosinophils | | | [place] | | + + + + + + | Absolute | 0.00 | 0.0 - 0.1 K/uL | [facility] | | | Basophils | | | [place] | | + + + + + + | Differentia | Automated | | [facility] | | | l Type | | | [place] | | + + + + + + | Platelet | Estimate normal | | [facility] | | | Morphology | | | [place] | | + + + + + + | RBC | NormalComment: Testing | | [facility] | | | Morphology | Performed: [facility] | | [place] | | | | [facility] [address] | | | | | | [place] | | | | | | [address] | | | | + + + + + + + + | Specimen | + + | Blood specimen | | (specimen) | + + + + + + + | Performing | Address | City/State/Zipcode | Phone Number | | Organization | | | | + + + + + | [facility] | [address] | [place] [address] | | + + + + + documented in this encounter Visit Diagnoses + + | Diagnosis | + + | Healthcare maintenance - Primary Routine general medical examination at [facility] | | facility | + + | Iron deficiency anemia Iron deficiency anemia, unspecified | + + | Renal insufficiency Unspecified disorder of kidney and ureter | + + | Hypertension Unspecified essential hypertension | + + | Bilateral shoulder pain Pain in joint, shoulder region | + + | Asthma Unspecified asthma | + + documented in this encounter
--- OUTSIDE RECORDS SUMMARY | ~2019-12-23 | XMS | Encounter Summary ---
Demographics + + + | Address | [address] | | | [place] [address] | + + + | Home Phone | | + + + | Preferred Language | Unknown | + + + | Marital Status | | + + + | Congregational Affiliation | Unknown | + + + | Race | Unknown | + + + | Ethnic Group | Unknown | + + + Author + + + | Author | [facility] | | | and [place] | + + + | Organization | [facility] | | | and [place] | + + + | Address | Unknown | + + + | Phone | Unavailable | + + + Support + + + + + | Name | Relationship | Address | Phone | + + + + + | Tam Lou | ECON | [address] | | | | | [place] [address] | | + + + + + | Cristal Yu | ECON | Unknown | | + + + + + Care Team Providers + +------+ + | Care Ophthalmic Surgical Assistant Name | Role | Phone | + +------+ + PCP | Unavailable | + +------+ + Encounter Details +--------+ + + + + | Date | Type | Department | Care Team | Description | +--------+ + + + + | 01/02/ | Hospital | [facility] | [facility] [place], | | | 2008 | Encounter | [facility] | [address] | | | | [address] | [facility] | | | | | [facility] | [place] [address] | | | | | [place] | [phone] | | | | | [address] | | | | | | [phone] | | | +--------+ + + + [...] documented as of this encounter ED Notes Laine MichelMAT - 04/22/2013 10:43 AM PST DATE OF EMERGENCY CENTER EVALUATION: 01/02/2009 CHIEF COMPLAINT: Is right ear pain. HISTORY OF PRESENT ILLNESS: The patient arrives to the emergency room with complaints of r ight ear pain. She states that she noticed the pain yesterday starting after she had been s wimming with her children. She denies any fever or chills, neck pain, headache, chest pain, shortness of breath, back pain, flank pain, or burning or pain with urination. She states that she has noticed some discharge from that right ear and was concerned that she may be developing infection. PAST MEDICAL HISTORY: Significant for ovarian cyst, carpal tunnel syndrome, abnormal creat inine level. PAST SURGICAL HISTORY: Significant for tubal ligation and elbow surgery. MEDICATIONS: Inderal, Prevacid and albuterol. ALLERGIES: Include sulfa. REVIEW OF SYSTEMS: A review of systems was obtained today. Eight systems were reviewed, al l of which were negative or noncontributory except for the above stated complaint. OBJECTIVE: VITAL SIGNS: Temperature is 98.3, respirations 16, pulse of 82, blood pressure 143/92, O2 sat is 99% on room air. GENERAL: This is an alert, cooperative 38-year-old female, who is nontoxic in appearance. SKIN: [place], warm, and, dry. There is noted redness to the right ear around the tragus thro ugh the anterior tragus notch, down to the mobile region. She does have a yellowish dischar ge coming from the ear. There are no other lesions or rashes noted. HEENT: EYES: Pupils are equal and reactive to light and accommodation. Conjunctiva are jose ar. There is no icterus or pallor noted. EARS: The left external canal is patent. The TM is pearly mattson in color with positive light reflex. There is no perforation or retraction not ed. The right canal is erythematous and swollen. There is yellow discharge coming from the ear. Upon examination of the tympanic membrane, it is noted to be erythematous and bulging at this time. THROAT: The oral mucosa is pink and moist. Uvula is midline. There is no red ness or discharge noted to the posterior oropharynx. NECK: Supple, nontender. Trachea is midline. There is no thyromegaly or nuchal rigidity pr esent. CHEST AND THORAX: Respirations regular, nonlabored. Lung sounds are a diminished with expi ratory wheezes throughout. CARDIOVASCULAR: Regular rate and rhythm. Upon auscultation, S1 and S2 are heard without th e presence of murmurs, clicks, gallops, or rubs noted. EMERGENCY ROOM COURSE: The patient was given 2 Lortab 7.5/500 for her pain IRAJ LOU : 66 | Signed MR# [id number] ACCT# [id number] | ADM 01/02/09 DS 01/02/09 DEP ER | MAT Servin | [facility] ES: B R pt [phone] | EMERGENCY CENTER THIS REPORT IS CONFID ENTIAL AND NOT TO BE RELEASED WITHOUT PROPER AUTHORIZATION. and discomfort. IMPRESSION: 1. Otitis media. 2. Otitis externa. PLAN: Since she is starting to develop secondary cellulitis down through her ear, I am goi ng to put her on Augmentin 875 mg twice a day for the next 10 days and further more will do Cortisporin drops, 5 drops to the affected ear 4 times a day for 7 days. I have written a prescription for Lortab 7.5/500 mg she can have 1 or 2 every 6 hours as needed for pain, #2 0 prescribed. Risks and benefits were discussed with her. At this time, she is to return he re for new or worsening symptoms, increasing redness, fever or uncontrolled pain. The isidra ent states she understands this plan of care, has no questions or concerns and is now disch arged in stable condition. MAT Abdul CDS:alex Job ID:[id number] Doc ID:[id number] cc: Digitally authenticated 01/04/09 1213 MAT Servin DEBR A L : 66 | Signed MR# [id number] ACCT# [id number] | ADM 01/02/09 DS 01/02/09 DEP ER | MAT Servin | [facility] ES: B R pt [id number] | EMERGENCY CENTER THIS REPORT IS CONFID [...] | | | | | | [place] [address] | | | | | | [phone] | | | | | | | | +--------+---------+ + + + documented as of this encounter Visit Diagnoses Not on filedocumented in this encounter"
--- OUTSIDE RECORDS SUMMARY | ~2019-12-23 | XMS | Encounter Summary ---
Demographics + + + | Address | [address] | | | [place] [address] | + + + | Home Phone | | + + + | Preferred Language | Unknown | + + + | Marital Status | | + + + | Anabaptist Affiliation | Unknown | + + + | Race | Unknown | + + + | Ethnic Group | Unknown | + + + Author + + + | Author | [facility] | | | and [place] | + + + | Organization | [facility] | | | and [place] | + + + | Address | Unknown | + + + | Phone | Unavailable | + + + Support + + + + + | Name | Relationship | Address | Phone | + + + + + | Tam Lou | ECON | [address] | | | | | [place] [address] | | + + + + + | Cristal Yu | ECON | Unknown | | + + + + + Care Team Providers + +------+ + | Care Telephone Maintenance Mechanic Name | Role | Phone | + +------+ + PCP | Unavailable | + +------+ + Encounter Details +--------+ + + + + | Date | Type | Department | Care Team | Description | +--------+ + + + + | 01/31/ | Hospital | [facility] | [address] | | | 2001 | Encounter | [facility] | [address] | | | | | [address] | [address] [place] | | | | | [address] | [address] | | | | | [place] | [phone] | | | | | [address] | | | | | | [phone] | | | +--------+ + + + [...] | | | | | | [place], | | | | | | [place] [address] | | | | | | [phone] | | | | | | | | +--------+---------+ + + + documented as of this encounter Visit Diagnoses Not on filedocumented in this encounter"
--- OUTSIDE RECORDS SUMMARY | ~2019-12-23 | XMS | Encounter Summary ---
Demographics + + + | Address | [address] | | | [place] [address] | + + + | Home Phone | | + + + | Preferred Language | Unknown | + + + | Marital Status | | + + + | Druze Affiliation | Unknown | + + + | Race | Unknown | + + + | Ethnic Group | Unknown | + + + Author + + + | Author | [facility] | | | and [place] | + + + | Organization | [facility] | | | and [place] | + + + | Address | Unknown | + + + | Phone | Unavailable | + + + Support + + + + + | Name | Relationship | Address | Phone | + + + + + | Tam Lou | ECON | [address] | | | | | [place] [address] | | + + + + + | Cristal Yu | ECON | Unknown | | + + + + + Care Team Providers + +------+ + | Care Harness Inspector Name | Role | Phone | + +------+ + PCP | Unavailable | + +------+ + Encounter Details +--------+ + + + + | Date | Type | Department | Care Team | Description | +--------+ + + + + | 09/02/ | Hospital | [facility] | [facility], | | | 2004 | Encounter | FAMILY EM[facility]GENCY | [address] | | | | | [place] [address] | [facility] | | | | | [facility] | [place] [address] | | | | | [place] | [phone] | | | | | [address] | | | | | | [phone] | | | +--------+ + + + [...] | | | | | | [place] [address] | | | | | | [phone] | | | | | | | | +--------+---------+ + + + documented as of this encounter Visit Diagnoses Not on filedocumented in this encounter"
--- OUTSIDE RECORDS SUMMARY | ~2019-12-23 | XMS | Encounter Summary ---
Demographics + + + | Address | [address] | | | [place] [address] | + + + | Home Phone | | + + + | Preferred Language | Unknown | + + + | Marital Status | | + + + | Confucianism Affiliation | Unknown | + + + | Race | Unknown | + + + | Ethnic Group | Unknown | + + + Author + + + | Author | [facility] | | | and [place] | + + + | Organization | [facility] | | | and [place] | + + + | Address | Unknown | + + + | Phone | Unavailable | + + + Support + + + + + | Name | Relationship | Address | Phone | + + + + + | Tam Lou | ECON | [address] | | | | | [place] [address] | | + + + + + | Cristal Yu | ECON | Unknown | | + + + + + Care Team Providers + +------+ + | Care Capital Markets Specialist Name | Role | Phone | + +------+ + | Pcp, Prov Inactive | PCP | | + +------+ + Encounter Details +--------+ + + + + | Date | Type | Department | Care Team | Description | +--------+ + + + + | 12/28/ | Home Care | [facility] | Maxine Pruitt RN | CASE COMMUNICATION | | 2018 | Visit | [address] | | | | | | [place], [place] | | | | | | [address] | | | | | | [phone] | | | +--------+ + + + [...] | | | | | | [place] [address] | | | | | | [phone] | | | | | | | | +--------+---------+ + + + documented as of this encounter Visit Diagnoses Not on filedocumented in this encounter"
--- OUTSIDE RECORDS SUMMARY | ~2019-12-23 | XMS | Encounter Summary ---
Demographics + + + | Address | [address] | | | [place] [address] | + + + | Home Phone | | + + + | Preferred Language | Unknown | + + + | Marital Status | | + + + | Restorationist Affiliation | Unknown | + + + | Race | Unknown | + + + | Ethnic Group | Unknown | + + + Author + + + | Author | [facility] | | | and [place] | + + + | Organization | [facility] | | | and [place] | + + + | Address | Unknown | + + + | Phone | Unavailable | + + + Support + + + + + | Name | Relationship | Address | Phone | + + + + + | Tam Lou | ECON | [address] | | | | | [place] [address] | | + + + + + | Cristal Yu | ECON | Unknown | | + + + + + Care Team Providers + +------+ + | Care Appeals Representative Name | Role | Phone | + +------+ + | Pcp, Prov Inactive | PCP | | + +------+ + Encounter Details +--------+ + + + + | Date | Type | Department | Care Team | Description | +--------+ + + + + | 01/03/ | Home Care | [facility] | Marva Sifuentes, | SN REPEAT VISIT | | 2018 | Visit | [address] | [place] | | | | | [place], [place] | | | | | | [address] | | | | | | [phone] | | | +--------+ + + + [...] + | Blood Pressure | 138/70 | 01/03/2018 3:00 PM | | | | | PDT | | + + + + + | Pulse | 74 | 01/03/2018 3:00 PM | | | | | PDT | | + + + + + | Temperature | 98.8 C (209.8 F) | 01/03/2018 3:00 PM | | | | | PDT | | + + + + + | Respiratory Rate | 16 | 01/03/2018 3:00 PM | | | [...] [place], | | | | | | [place] [address] | | | | | | [phone] | | | | | | | | +--------+---------+ + + + documented as of this encounter Visit Diagnoses Not on filedocumented in this encounter Home Health Visit - Care Plan + + | Visit Type - SN - REPEAT VISIT | | Discipline - Longterm | + + + + +--------+--------+-------+ + | Problem | Description | Start | Status | Goals | Interventio | | | | Date | | | ns | + + +--------+--------+-------+ + | HH PULSE OXIMETRY | | | | - | 1 problem | | Disciplines: | | | Active | | | | Longterm | | 018 | | | interventio [...] | | Active | | | | Longterm | | 018 | | | interventio [...] | | Active | | | | Longterm | | 018 | | | interventio [...] +--------+--------+ + | Monitor and | Problem: HH SHARED | | | | | Address [...] Management | Comple | | | | Starter Wound care | | jermaine | | | | supplies | | [...] | + + +--------+--------+ + | HH Post Surgical | Problem: Wound | | | | | Wound Care | Management | Comple | | | | Description: Post | | jermaine | | | | surgical wound | | | | | | care:Dry dressing | | | | | | change with wound | | | | | | assessment daily. | | | | | | Staple/suture | | | | | | removal and apply | | | | | | steri-strips: date | | | | | | at MD f/u 2 weeks. . | | | | | + + +--------+--------+ + | Wound care | Problem: Wound | | | Dressing change to ABD | | Description: | Management | Comple | | woundabdomen performed | | -Wound Type:Surgical | | jermaine | | by SN. Old dressing | | ABD wound. Wound | | | | removed. Well tolerated | | care:Assess daily, | | | | by patient.. Site | | keep dry | | | | Irrigate with, saline. | | dressing.(Dressing | | | | Patted dry. Applied | | supplies may | | | | Other: packing strip | | increase or decrease | | | | (AMD) to wound depth. | | per wound needs) | | | | Covered wound bed with | | | | | | rolled gauze, Exudry | | | | | | Large and secured with | | | | | | Medfix tape. See Wound | | | | | | Assessment form for | | | | | | measurements and status | | | | | | of wound. | + + +--------+--------+ + | Wound care | Problem: Wound | | | | | Description: | Management | Schedu | | | | Cleanse edmund wound | | led | | | | bed and dehisced | | | | | | region with NS, pat | | | | | | dry. Okay to pack | | | | | | lightly depth of | | | | | | wound bed with | | | | | | 1/4-1/2 in packing | | | | | [...]
--- OUTSIDE RECORDS SUMMARY | ~2019-12-23 | XMS | Encounter Summary ---
Demographics + + + | Address | [address] | | | [place] [address] | + + + | Home Phone | | + + + | Preferred Language | Unknown | + + + | Marital Status | | + + + | Buddhism Affiliation | Unknown | + + + | Race | Unknown | + + + | Ethnic Group | Unknown | + + + Author + + + | Author | [facility] | | | and [place] | + + + | Organization | [facility] | | | and [place] | + + + | Address | Unknown | + + + | Phone | Unavailable | + + + Support + + + + + | Name | Relationship | Address | Phone | + + + + + | Tam Lou | ECON | [address] | | | | | [place] [address] | | + + + + + | Cristal Yu | ECON | Unknown | | + + + + + Care Team Providers + +------+ + | Care Refrigeration System Installer Name | Role | Phone | + +------+ + PCP | Unavailable | + +------+ + Encounter Details +--------+ + + + + | Date | Type | Department | Care Team | Description | +--------+ + + + + | 08/23/ | Hospital | [facility] | Gil Davalos, | | | 2006 | Encounter | FAMILY EMERGENCY | MD [address] | | | | | C[address] | [place], [place] | | | | | [place] | [phone] | | | | | [place], [place] | | | | | | [address] | | | | | | [phone] | | | +--------+ + + + [...] | | | | | | [place] [address] | | | | | | [phone] | | | | | | | | +--------+---------+ + + + documented as of this encounter Visit Diagnoses Not on filedocumented in this encounter"
--- OUTSIDE RECORDS SUMMARY | ~2019-12-23 | XMS | Encounter Summary ---
Demographics + + + | Address | [address] | | | [place] [address] | + + + | Home Phone | | + + + | Preferred Language | Unknown | + + + | Marital Status | | + + + | Jewish Affiliation | Unknown | + + + | Race | Unknown | + + + | Ethnic Group | Unknown | + + + Author + + + | Author | [facility] | | | and [place] | + + + | Organization | [facility] | | | and [place] | + + + | Address | Unknown | + + + | Phone | Unavailable | + + + Support + + + + + | Name | Relationship | Address | Phone | + + + + + | Tam Lou | ECON | [address] | | | | | [place] [address] | | + + + + + | Cristal Yu | ECON | Unknown | | + + + + + Care Team Providers + +------+ + | Care Frame Feeder Name | Role | Phone | + +------+ + PCP | Unavailable | + +------+ + Encounter Details +--------+ + + + + | Date | Type | Department | Care Team | Description | +--------+ + + + + | 06/25/ | Hospital | [facility] | ArgenisJasmeet F | | | 2000 | Encounter | FAMILY LABOR AND | MD | | | | | [address] | | | | | | [address] | | | | | | [place] | | | | | | [address] | | | | | | [phone] | | | +--------+ + + + [...] | | | | | | [place] [address] | | | | | | [phone] | | | | | | | | +--------+---------+ + + + documented as of this encounter Visit Diagnoses Not on filedocumented in this encounter"
--- OUTSIDE RECORDS SUMMARY | ~2019-12-23 | XMS | Encounter Summary ---
Demographics + + + | Address | [address] | | | [place] [address] | + + + | Home Phone | | + + + | Preferred Language | Unknown | + + + | Marital Status | | + + + | Worship Affiliation | Unknown | + + + | Race | Unknown | + + + | Ethnic Group | Unknown | + + + Author + + + | Author | [facility] | | | and [place] | + + + | Organization | [facility] | | | and [place] | + + + | Address | Unknown | + + + | Phone | Unavailable | + + + Support + + + + + | Name | Relationship | Address | Phone | + + + + + | Tam Lou | ECON | [address] | | | | | [place] [address] | | + + + + + | Cristal Yu | ECON | Unknown | | + + + + + Care Team Providers + +------+ + | Care Market Stall Vendor Name | Role | Phone | + +------+ + | Christofer Strickland MD | PCP | | + +------+ + Encounter Details +--------+ + + + + | Date | Type | Department | Care Team | Description | +--------+ + + + + | 07/18/ | Abstract | [place] [facility] | DATA MIGRATION [facility] | | | 2012 | | Conversion Location | SR | | | | | [address] | | | | | | [place], [place] | | | | | | [address] | | | | | | [phone] | | | +--------+ + + + [...] + + + | Blood Pressure | 108/74 | 09/07/2011 12:00 AM | | | | | PDT | | + + + + + | Pulse | - | - | | + + + + + | Temperature | - | - | | + + + + + | Respiratory Rate | - | - | | + + + + + | Oxygen Saturation | - | - | | + + + + + | Inhaled Oxygen | - | - | | | Concentration | | | | + + + + + | Weight | 123.6 kg (272 lb 8 | 09/07/2011 12:00 AM | | | | oz) | PDT | | + + + + + | Height | 171.5 cm (5' 7.5") | 09/07/2011 12:00 AM | | | | | PDT | | + + + + + | Body Mass Index | 42.05 | 09/07/2011 12:00 AM | | | | | PDT [...] [place], | | | | | | [place] [address] | | | | | | [phone] | | | | | | | | +--------+---------+ + + + documented as of this encounter Procedures + +--------+ + + + | Procedure Name | Priori | Date/Time | Associated Diagnosis | Comments | | | ty | | | | + +--------+ + + + | PAP SMEAR | Routin | 12/26/2010 | | Results for this | | | e | 12:00 AM | | procedure are in the | | | | PDT | | results section. | + +--------+ + + + documented in this encounter Results Pap Smear (12/26/2010 12:00 AM PDT) + + | Specimen | + + | | + + + + + | Narrative | Performed At | + + + | | | + + + documented in this encounter Visit Diagnoses Not on filedocumented in this encounter
--- OUTSIDE RECORDS SUMMARY | ~2019-12-23 | XMS | Encounter Summary ---
Demographics + + + | Address | [address] | | | [place] [address] | + + + | Home Phone | | + + + | Preferred Language | Unknown | + + + | Marital Status | | + + + | Advent Affiliation | Unknown | + + + | Race | Unknown | + + + | Ethnic Group | Unknown | + + + Author + + + | Author | [facility] | | | and [place] | + + + | Organization | [facility] | | | and [place] | + + + | Address | Unknown | + + + | Phone | Unavailable | + + + Support + + + + + | Name | Relationship | Address | Phone | + + + + + | Tam Lou | ECON | [address] | | | | | [place] [address] | | + + + + + | Cristal Yu | ECON | Unknown | | + + + + + Care Team Providers + +------+ + | Care Form Grader Name | Role | Phone | + +------+ + PCP | Unavailable | + +------+ + Encounter Details +--------+ + + + + | Date | Type | Department | Care Team | Description | +--------+ + + + + | 08/10/ | Hospital | [facility] | Carlos Borrego, | | | 2002 | Encounter | FAMILY EMERGENCY | [address] | | | | | [place] [address] | [facility] | | | | | [facility] | [place] [address] | | | | | [place], [place] | [phone] | | | | | [address] | | | | | | [phone] | | | +--------+ + + + [...] | | | | | | [place] [address] | | | | | | [phone] | | | | | | | | +--------+---------+ + + + documented as of this encounter Visit Diagnoses Not on filedocumented in this encounter"
--- OUTSIDE RECORDS SUMMARY | ~2019-12-23 | XMS | Encounter Summary ---
Demographics + + + | Address | [address] | | | [place] [address] | + + + | Home Phone | | + + + | Preferred Language | Unknown | + + + | Marital Status | | + + + | Taoism Affiliation | Unknown | + + + | Race | Unknown | + + + | Ethnic Group | Unknown | + + + Author + + + | Author | [facility] | | | and [place] | + + + | Organization | [facility] | | | and [place] | + + + | Address | Unknown | + + + | Phone | Unavailable | + + + Support + + + + + | Name | Relationship | Address | Phone | + + + + + | Tam Lou | ECON | [address] | | | | | [place] [address] | | + + + + + | Cristal Yu | ECON | Unknown | | + + + + + Care Team Providers + +------+ + | Care Drilling Field Operator Name | Role | Phone | + +------+ + PCP | Unavailable | + +------+ + Encounter Details +--------+ + + + + | Date | Type | Department | Care Team | Description | +--------+ + + + + | 09/09/ | Hospital | [facility] | Vin[place], | | | 2000 | Encounter | FAMILY EMERGENCY | MD Rufina Rowe | | | | | [address] | | | | | [facility] | [place] [address] | | | | | [place] | [phone] | | | | | [address] | | | | | | [phone] | | | +--------+ + + + [...] | | | | | | [place] [address] | | | | | | [phone] | | | | | | | | +--------+---------+ + + + documented as of this encounter Visit Diagnoses Not on filedocumented in this encounter"
--- OUTSIDE RECORDS SUMMARY | ~2019-12-23 | XMS | Encounter Summary ---
Demographics + + + | Address | [address] | | | [place] [address] | + + + | Home Phone | | + + + | Preferred Language | Unknown | + + + | Marital Status | | + + + | Yazidi Affiliation | Unknown | + + + | Race | Unknown | + + + | Ethnic Group | Unknown | + + + Author + + + | Author | [facility] | | | and [place] | + + + | Organization | [facility] | | | and [place] | + + + | Address | Unknown | + + + | Phone | Unavailable | + + + Support + + + + + | Name | Relationship | Address | Phone | + + + + + | Tam Lou | ECON | [address] | | | | | [place] [address] | | + + + + + | Cristal Yu | ECON | Unknown | | + + + + + Care Team Providers + +------+ + | Care Nurse Executive Name | Role | Phone | + +------+ + PCP | Unavailable | + +------+ + Encounter Details +--------+ + + + + | Date | Type | Department | Care Team | Description | +--------+ + + + + | 08/26/ | Hospital | [facility] | Charan Gutierrez, | | | 1997 - | Encounter | FAMILY EMERGENCY | [address] | | | | | [place] [address] | [place] [address] | | | 08/27/ | | [place] | [phone] | | | 1997 | | [place], [place] | | | | | | [address] | | | | | | [phone] | | | +--------+ + + + [...] [place], | | | | | | [place] [address] | | | | | | [phone] | | | | | | | | +--------+---------+ + + + documented as of this encounter Visit Diagnoses Not on filedocumented in this encounter"
--- OUTSIDE RECORDS SUMMARY | ~2019-12-23 | XMS | Encounter Summary ---
Demographics + + + | Address | [address] | | | [place] [address] | + + + | Home Phone | | + + + | Preferred Language | Unknown | + + + | Marital Status | | + + + | Spiritism Affiliation | Unknown | + + + | Race | Unknown | + + + | Ethnic Group | Unknown | + + + Author + + + | Author | [facility] | | | and [place] | + + + | Organization | [facility] | | | and [place] | + + + | Address | Unknown | + + + | Phone | Unavailable | + + + Support + + + + + | Name | Relationship | Address | Phone | + + + + + | Tam Lou | ECON | [address] | | | | | [place] [address] | | + + + + + | Cristal Yu | ECON | Unknown | | + + + + + Care Team Providers + +------+ + | Care Laundry Equipment Operator Name | Role | Phone | + +------+ + PCP | Unavailable | + +------+ + Encounter Details +--------+ + + + + | Date | Type | Department | Care Team | Description | +--------+ + + + + | 07/26/ | Hospital | [facility] | Efrem Hurley MD | | | 2006 | Encounter | FAMILY EMERGENCY | [address] | | | | | CENTER [address] [place], [place] | | | | | [address] | [address] | | | | | [place], [place] | | | | | | [address] | | | | | | [phone] | | | +--------+ + + + [...] | | | | | | [place] [address] | | | | | | [phone] | | | | | | | | +--------+---------+ + + + documented as of this encounter Visit Diagnoses Not on filedocumented in this encounter"
--- OUTSIDE RECORDS SUMMARY | ~2019-12-23 | XMS | Encounter Summary ---
Demographics + + + | Address | [address] | | | [place] [address] | + + + | Home Phone | | + + + | Preferred Language | Unknown | + + + | Marital Status | | + + + | Sikhism Affiliation | Unknown | + + + | Race | Unknown | + + + | Ethnic Group | Unknown | + + + Author + + + | Author | [facility] | | | and [place] | + + + | Organization | [facility] | | | and [place] | + + + | Address | Unknown | + + + | Phone | Unavailable | + + + Support + + + + + | Name | Relationship | Address | Phone | + + + + + | Tam Lou | ECON | [address] | | | | | [place] [address] | | + + + + + | Cristal Yu | ECON | Unknown | | + + + + + Care Team Providers + +------+ + | Care Inspector Poising Name | Role | Phone | + +------+ + | Pcp, Prov Inactive | PCP | | + +------+ + Encounter Details +--------+ + + + + | Date | Type | Department | Care Team | Description | +--------+ + + + + | 01/07/ | Home Care | [facility] | Payal Smith, | SN DISCHARGE ([place]AS[place]) | | 2018 | Visit | [address] | [place] | | | | | [place], [place] | | | | | | [address] | | | | | | [phone] | | | +--------+ + + + [...] [place], | | | | | | [place] [address] | | | | | | [phone] | | | | | | | | +--------+---------+ + + + documented as of this encounter Visit Diagnoses Not on filedocumented in this encounter Home Health Visit - Care Plan + + | Visit Type - SN - OAGAURAV D/C | | Discipline - Intermediate | + + + + +--------+--------+-------+ + | Problem | Description | Start | Status | Goals | Interventio | | | | Date | | | ns | + + +--------+--------+-------+ + | HH PULSE OXIMETRY | | | | - | 1 problem | | Disciplines: | | | Resolv | | | | Intermediate | | 018 | ed on | | interventio | | | | | | | n | | | | | 018 | | scheduled/d | | | | | | | ocumented | | | | | | | in this | | | | | | | visit | + + +--------+--------+-------+ + | HH SHARED DIABETIC | Diabetic foot care | | | - | 1 problem | | FOOT CARE | | | Resolv | | | | Disciplines: | | 018 | ed on | | interventio | | Intermediate | | | | | n | | | | | 018 | | scheduled/d | | | | | | | ocumented | | | | | | | in this | | | | | | | visit | + + +--------+--------+-------+ + | HH SHARED FALLS | Falls | | | - | 1 problem | | Disciplines: | | | Resolv | | | | Intermediate | | 018 | ed on | | interventio | | | | | | | n | | | | | 018 | | scheduled/d | | | | | | | ocumented | | | | | | | in this | | | | | | | visit | + + +--------+--------+-------+ + | HH SHARED PAIN | Pain | | | - | 1 problem | | Disciplines: | | | Resolv | | | | Intermediate | | 018 | ed on | | interventio | | | | | | | n | | | | | 018 | | scheduled/d | | | | | | | ocumented | | | | | | | in this | | | | | | | visit | + + +--------+--------+-------+ + | Respiratory Status | Respiratory Status | | | - | 2 problem | | Disciplines: | | | Resolv | | | | Intermediate | | 018 | ed on | | interventio | | | | | | | ns | | | | | 018 | | scheduled/d | | | | | | | ocumented | | | | | | | in this | | | | | | | visit | + + +--------+--------+-------+ + | Wound Management | Wound Management | | | - | 10 | | Disciplines: | | | Resolv | | problem | | Intermediate | | 018 | ed on | | interventio | | | | | | | ns | | | | | 018 | | scheduled/d | | | | [...] +--------+--------+ + | Diabetic Foot | Problem: HH SHARED | | | | | Assessment [...] | | + + +--------+--------+ + | Instruct in Fall | Problem: SHARED | | | | | Prevention | FALLS | Comple | | | | Description: | | jermaine | | | | Instruct the patient | | | | | | and/or caregiver in | | | | | | fall prevention | | | | | | strategies. | | | | | + + [...] | + + +--------+--------+ + | HH INSTRUCT ON | Problem: Wound | | | | | DAILY SKIN | Management | Comple | | | | INSPECTION | | jermaine | | | | Description: | | | | | | Instruct | | | | | | patient/caregiver in | | | | | | daily inspection of | | | | | | skin and care | | | | | | including proper | | | | | | positioning for | | | | | | pressure | | | | | | redistribution. | | | | | + + [...] daily, | | | | patient.. Site aseptic | | keep dry | | | | cleanser. Patted dry. | | dressing.(Dressing | | | | Packing strip into pt's | | supplies may | | | | left side of incision. | | increase or decrease | | | | Applied dry 4 x 4 gauze | | per wound needs) | | | | and exudry. Secured with | | | | | | cloth tape. See Wound | | | | [...]
--- OUTSIDE RECORDS SUMMARY | ~2019-12-23 | XMS | Encounter Summary ---
Demographics + + + | Address | [address] | | | [place] [address] | + + + | Home Phone | | + + + | Preferred Language | Unknown | + + + | Marital Status | | + + + | Gnosticist Affiliation | Unknown | + + + | Race | Unknown | + + + | Ethnic Group | Unknown | + + + Author + + + | Author | [facility] | | | and [place] | + + + | Organization | [facility] | | | and [place] | + + + | Address | Unknown | + + + | Phone | Unavailable | + + + Support + + + + + | Name | Relationship | Address | Phone | + + + + + | Tam Lou | ECON | [address] | | | | | [place] [address] | | + + + + + | Cristal Yu | ECON | Unknown | | + + + + + Care Team Providers + +------+ + | Care Carpet Layer Name | Role | Phone | + +------+ + PCP | Unavailable | + +------+ + Encounter Details +--------+ + + + + | Date | Type | Department | Care Team | Description | +--------+ + + + + | 06/30/ | Hospital | [facility] | Jasmeet More F | | | 2000 - | Encounter | FAMILY LABOR AND | MD | | | | | DEL[address] | | | | [address]/ | | [address] | | | | 2000 | | [place] | | | | | | [address] | | | | | | [phone] | | | +--------+ + + + [...] | | | | | | [place] [address] | | | | | | [phone] | | | | | | | | +--------+---------+ + + + documented as of this encounter Visit Diagnoses Not on filedocumented in this encounter"
--- OUTSIDE RECORDS SUMMARY | ~2019-12-23 | XMS | Encounter Summary ---
Demographics + + + | Address | [address] | | | [place] [address] | + + + | Home Phone | | + + + | Preferred Language | Unknown | + + + | Marital Status | | + + + | Hoahaoism Affiliation | Unknown | + + + | Race | Unknown | + + + | Ethnic Group | Unknown | + + + Author + + + | Author | [facility] [place] | | | and [place] | + + + | Organization | [facility] | | | and [place] | + + + | Address | Unknown | + + + | Phone | Unavailable | + + + Support + + + + + | Name | Relationship | Address | Phone | + + + + + | Tam Lou | ECON | [address] | | | | | [place] [address] | | + + + + + | Cristal Yu | ECON | Unknown | | + + + + + Care Team Providers + +------+ + | Care Elementary Math Tutor Name | Role | Phone | + +------+ + PCP | Unavailable | + +------+ + Encounter Details +--------+ + + + + | Date | Type | Department | Care Team | Description | +--------+ + + + + | 10/04/ | Hospital | [facility] | Conversion | | | 2009 | Encounter | FAMILY EMERGENCY | Transaction, | | | | | CENTER [address] | Provider Unknown | | | | | [place] | | | | | | [place] | (Fax) | | | | | [address] | | | | | | [phone] | | | +--------+ + + + [...] | | | | | | [place] [address] | | | | | | [phone] | | | | | | | | +--------+---------+ + + + documented as of this encounter Visit Diagnoses Not on filedocumented in this encounter"
--- OUTSIDE RECORDS SUMMARY | ~2019-12-23 | XMS | Encounter Summary ---
Demographics + + + | Address | [address] | | | [place] [address] | + + + | Home Phone | | + + + | Preferred Language | Unknown | + + + | Marital Status | | + + + | Temple Affiliation | Unknown | + + + | Race | Unknown | + + + | Ethnic Group | Unknown | + + + Author + + + | Author | [facility] [place] | | | and [place] | + + + | Organization | [facility] [place] | | | and [place] | + + + | Address | Unknown | + + + | Phone | Unavailable | + + + Support + + + + + | Name | Relationship | Address | Phone | + + + + + | Tam Lou | ECON | [address] | | | | | [place] [address] | | + + + + + | Cristal Yu | ECON | Unknown | | + + + + + Care Team Providers + +------+ + | Care Car Greaser Name | Role | Phone | + +------+ + PCP | Unavailable | + +------+ + Encounter Details +--------+ + + + + | Date | Type | Department | Care Team | Description | +--------+ + + + + | 03/31/ | Hospital | [facility] | [address] | | | 2001 - | Encounter | [facility] AND | [address] | | | | | [address] | [address] [place] | | | 04/01/ | | [address] | [address] | | | 2001 | | [place] | [phone] | | | | | [address] | | | | | | [phone] | | | +--------+ + + + [...] | 12/30/ | Office | Pulmonology | eLo, | | | 2019 | Visit | | Daphne Angelo, | | | | | | MD [address] | | | | | | [place], | | | | | | [place] [address] | | | | | | [phone] | | | | | | | | +--------+---------+ + + + documented as of this encounter Visit Diagnoses Not on filedocumented in this encounter"
--- OUTSIDE RECORDS SUMMARY | ~2019-12-23 | XMS | Encounter Summary ---
Demographics + + + | Address | [address] | | | [place] [address] | + + + | Home Phone [...] | Author | [facility] | | | and [place] | + + + | Organization | [facility] | | | and [place] | + + + | Address | Unknown | + + + | Phone | Unavailable | + + + Support + + + + + | Name | Relationship | Address | Phone | + + + + + | Tam Lou | ECON | [address] | | | | | [place] [address] | | + + + + + | Cristal Yu | ECON | Unknown | | + + + + + Care Team Providers + +------+ + | Care Lion Trainer Name | Role | Phone | + +------+ + PCP | Unavailable | + +------+ + Encounter Details +--------+ + + + + | Date | Type | Department | Care Team | Description | +--------+ + + + + | 06/12/ | Hospital | [facility] | Abdulaziz Michel MD | | | 2004 | Encounter | FAMILY EMERGENCY | [address] | | | | | CENTER [address] [place], [place] | | | | | [address] | [address] | | | | | [place], [place] | | | | | | [address] | | | | | | [phone] | | | +--------+ + + + [...] | | | | | | [place] [address] | | | | | | [phone] | | | | | | | | +--------+---------+ + + + documented as of this encounter Visit Diagnoses Not on filedocumented in this encounter"
--- OUTSIDE RECORDS SUMMARY | ~2019-12-23 | XMS | Encounter Summary ---
Demographics + + + | Address | [address] | | | [place] [address] | + + + | Home Phone | | + + + | Preferred Language | Unknown | + + + | Marital Status | | + + + | Scientologist Affiliation | Unknown | + + + | Race | Unknown | + + + | Ethnic Group | Unknown | + + + Author + + + | Author | [facility] [place] | | | and [place] | + + + | Organization | [facility] [place] | | | and [place] | + + + | Address | Unknown | + + + | Phone | Unavailable | + + + Support + + + + + | Name | Relationship | Address | Phone | + + + + + | Tam Lou | ECON | [address] | | | | | [place] [address] | | + + + + + | Cristal Yu | ECON | Unknown | | + + + + + Care Team Providers + +------+ + | Care Review Coordinator Name | Role | Phone | + +------+ + PCP | Unavailable | + +------+ + Encounter Details +--------+ + + + + | Date | Type | Department | Care Team | Description | +--------+ + + + + | 10/01/ | Hospital | [facility] | Seun Raygoza, | | | 2003 | Encounter | FAMILY EMERGENCY | [address] | | | | | CENTER [address] | [facility] | | | | | [facility] | [place] [address] | | | | | [place] | [phone] | | | | | [address] | | | | | | [phone] | | | +--------+ + + + [...] | | | | | | [place] [address] | | | | | | [phone] | | | | | | | | +--------+---------+ + + + documented as of this encounter Visit Diagnoses Not on filedocumented in this encounter"
--- OUTSIDE RECORDS SUMMARY | ~2019-12-23 | XMS | Encounter Summary ---
Demographics + + + | Address | [address] | | | [place] [address] | + + + | Home Phone | | + + + | Preferred Language | Unknown | + + + | Marital Status | | + + + | Moravian Affiliation | Unknown | + + + | Race | Unknown | + + + | Ethnic Group | Unknown | + + + Author + + + | Author | [facility] | | | and [place] | + + + | Organization | [facility] [place] | | | and [place] | + + + | Address | Unknown | + + + | Phone | Unavailable | + + + Support + + + + + | Name | Relationship | Address | Phone | + + + + + | Tam Lou | ECON | [address] | | | | | [place] [address] | | + + + + + | Cristal Yu | ECON | Unknown | | + + + + + Care Team Providers + +------+ + | Care Feed Mixer Helper Name | Role | Phone | + +------+ + PCP | Unavailable | + +------+ + Encounter Details +--------+ + + + + | Date | Type | Department | Care Team | Description | +--------+ + + + + | 11/06/ | Hospital | [facility] | Vinay [place], | | | 2003 | Encounter | FAMILY EMERGENCY | MD Rufina Rowe | | | | | [place] [address] | | | | | [facility] | [place] | | | | | [place] | [phone] | | | | | [address] | | | | | | [phone] | | | +--------+ + + + [...] | | | | | | [place] [address] | | | | | | [phone] | | | | | | | | +--------+---------+ + + + documented as of this encounter Visit Diagnoses Not on filedocumented in this encounter"
--- OUTSIDE RECORDS SUMMARY | ~2019-12-23 | XMS | Encounter Summary ---
Demographics + + + | Address | [address] | | | [place] [address] | + + + | Home Phone | | + + + | Preferred Language | Unknown | + + + | Marital Status | | + + + | Cheondoism Affiliation | Unknown | + + + | Race | Unknown | + + + | Ethnic Group | Unknown | + + + Author + + + | Author | [facility] [place] | | | and [place] | + + + | Organization | [facility] [place] | | | and [place] | + + + | Address | Unknown | + + + | Phone | Unavailable | + + + Support + + + + + | Name | Relationship | Address | Phone | + + + + + | Tam Lou | ECON | [address] | | | | | [place] [address] | | + + + + + | Cristal Yu | ECON | Unknown | | + + + + + Care Team Providers + +------+ + | Care Interpreter Deaf Name | Role | Phone | + +------+ + PCP | Unavailable | + +------+ + Encounter Details +--------+ + + + + | Date | Type | Department | Care Team | Description | +--------+ + + + + | 03/03/ | Hospital | [facility] | Severiano Kay MD | | | 2007 | Encounter | FAMILY EMERGENCY | [address] | | | | | CENTER [address] [place], [place] | | | | | [address] | [address] | | | | | [place], [place] | | | | | | [address] | | | | | | [phone] | | | +--------+ + + + [...] documented as of this encounter ED Notes Severiano Kay MD - 04/22/2013 6:16 PM PST DATE OF EMERGENCY CENTER EVALUATION: 03/03/2007 22:55:00 CHIEF COMPLAINT: 37 year old female comes to the Emergency Room with a chief complaint of sinus problems. HISTORY OF PRESENT ILLNESS: This is a female who has been having some ongoing sinus problems for the last two days, pr ogressively gotten worse. She was put on Biaxin a few days ago, on Saturday. She is just wheeler ving increase of pain. She denies any fevers, chills, nausea or vomiting. CURRENT MEDICATIONS: 1. Inderal which she did not take today. 2. Prevacid. 3. Dulcolax. 4. Proventil. 5. Biaxin. 6. Claritin. ALLERGIES: SULFA, MOBIC, AUGMENTIN CAUSES YEAST INFECTIONS. PERTINENT PAST MEDICAL HISTORY: Ovarian cyst. Tubal ligation. Carpal tunnel. Elbow surgery. REVIEW OF SYSTEMS: Seven systems reviewed and except for that mentioned above, they are noncontributory of candice macdonald. PHYSICAL EXAMINATION: GENERAL APPEARANCE: Shows a female who is alert, oriented, nontoxic appearing. VITAL SIGNS: Stable. Temp 97.5, pulse 74, respirations 20, BP 190/115. She has not take n her blood pressure medication tonight. 02 sat is 97% on room air. HEENT: Tenderness over her frontal and maxillary sinus cavities. Pressure when she leans forward. Turbinates are red, swollen, injected. Yellow nasal discharge noted. Oropharyn x was clear. Uvula is midline. NECK: Supple. CORE: Regular rate and rhythm. LUNGS: Clear to percussion and auscultation. Good inspiratory and expiratory breath soun ds. IMPRESSION: Sinusitis. PLAN: Continue with her Biaxin until gone. Will start her on Lortab 7.5 mg., 1 q. 4 hrs. prn pa in. Prednisone 15 mg. b.i.d., X3 days. Warm compresses to the area. Follow-up with family doctor in 1-2 days for a recheck. Sooner back to IRAJ LOU : 66 | MR# [id number] | ADM 03/03/07 DS 03/03/07 DEP ER | Severiano Kay MD | [facility] ES: Y R pt [phone] | EMERGENCY CENTER THIS REPORT IS CONFID ENTIAL AND NOT TO BE RELEASED WITHOUT PROPER AUTHORIZATION. the Emergency Room if starts having increase of sinus pressure, congestion, fevers, chills , headaches, dizziness, or any other problems. Dictated by Gil Mclaughlin PA-C for: Severiano Kay MD PN:brinda Job ID:[id number] Doc ID:[id number] cc: Digitally authenticated 03/24/07 0854 MD RUBÉN JainNESIRAJ : 66 | MR# [id number] | ADM 03/03/07 DS 03/03/07 DEP ER | Severiano Kay MD | [facility] ES: Y R pt [phone] | EMERGENCY CENTER THIS REPORT IS CONFID [...] [place], | | | | | | [place] [address] | | | | | | [phone] | | | | | | | | +--------+---------+ + + + documented as of this encounter Visit Diagnoses Not on filedocumented in this encounter"
--- OUTSIDE RECORDS SUMMARY | ~2019-12-23 | XMS | Encounter Summary ---
Demographics + + + | Address | [address] | | | [place] [address] | + + + | Home Phone | | + + + | Preferred Language | Unknown | + + + | Marital Status | | + + + | Restorationism Affiliation | Unknown | + + + | Race | Unknown | + + + | Ethnic Group | Unknown | + + + Author + + + | Author | [facility] | | | and [place] | + + + | Organization | [facility] | | | and [place] | + + + | Address | Unknown | + + + | Phone | Unavailable | + + + Support + + + + + | Name | Relationship | Address | Phone | + + + + + | Tam Lou | ECON | [address] | | | | | [place] [address] | | + + + + + | Cristal Yu | ECON | Unknown | | + + + + + Care Team Providers + +------+ + | Care Primer Waterproofing Machine Operator Name | Role | Phone | + +------+ + PCP | Unavailable | + +------+ + Encounter Details +--------+ + + + + | Date | Type | Department | Care Team | Description | +--------+ + + + + | 03/29/ | Hospital | [facility] | [address] | | | 2001 | Encounter | [facility] AND | [address] | | | | | [address] | [address] [place] | | | | | [address] | [address] | | | | | [place] | [phone] | | | | | [address] | | | | | | [phone] | | | +--------+ + + + [...] | 12/30/ | Office | Pulmonology | [place], | | | 2019 | Visit | | Daphne Angelo, | | | | | | MD [address] | | | | | | [place], | | | | | | [place] [address] | | | | | | [phone] | | | | | | | | +--------+---------+ + + + documented as of this encounter Visit Diagnoses Not on filedocumented in this encounter"
--- OUTSIDE RECORDS SUMMARY | ~2019-12-23 | XMS | Encounter Summary ---
Demographics + + + | Address | [address] | | | [place] [address] | + + + | Home Phone | | + + + | Preferred Language | Unknown | + + + | Marital Status | | + + + | Anabaptism Affiliation | Unknown | + + + | Race | Unknown | + + + | Ethnic Group | Unknown | + + + Author + + + | Author | [facility] [place] | | | and [place] | + + + | Organization | [facility] | | | and [place] | + + + | Address | Unknown | + + + | Phone | Unavailable | + + + Support + + + + + | Name | Relationship | Address | Phone | + + + + + | Tam Lou | ECON | [address] | | | | | [place] [address] | | + + + + + | Cristal uY | ECON | Unknown | | + + + + + Care Team Providers + +------+ + | Care Assistant Prosecuting Attorney Name | Role | Phone | + +------+ + PCP | Unavailable | + +------+ + Encounter Details +--------+ + + + + | Date | Type | Department | Care Team | Description | +--------+ + + + + | 02/07/ | Hospital | [facility] | Juan Antonio Spann, | | | 2000 | Encounter | [facility] | MD [address] | | | | | EMERGENCY CENTER | [address] | | | | | [address] | [place] [address] | | | | | [place], [place] | [phone] | | | | | [address] | | | | | | [phone] | | | +--------+ + + + [...] | | | | | | [place] [address] | | | | | | [phone] | | | | | | | | +--------+---------+ + + + documented as of this encounter Visit Diagnoses Not on filedocumented in this encounter"
--- OUTSIDE RECORDS SUMMARY | ~2019-12-23 | XMS | Encounter Summary ---
Demographics + + + | Address | [address] | | | [place] [address] | + + + | Home Phone | | + + + | Preferred Language | Unknown | + + + | Marital Status | | + + + | Evangelical Affiliation | Unknown | + + + | Race | Unknown | + + + | Ethnic Group | Unknown | + + + Author + + + | Author | [facility] | | | and [place] | + + + | Organization | [facility] | | | and [place] | + + + | Address | Unknown | + + + | Phone | Unavailable | + + + Support + + + + + | Name | Relationship | Address | Phone | + + + + + | Tam Lou | ECON | [address] | | | | | [place] [address] | | + + + + + | Cristal Yu | ECON | Unknown | | + + + + + Care Team Providers + +------+ + | Care Research Biostatistician Name | Role | Phone | + +------+ + | Pcp, Prov Inactive | PCP | | + +------+ + Encounter Details +--------+ + + + + | Date | Type | Department | Care Team | Description | +--------+ + + + + | 12/26/ | Home Care | [facility] | Marva Sifuentes, | CASE COMMUNICATION | | 2018 | Visit | [address] [place] | | | | | [place], [place] | | | | | | [address] | | | | | | [phone] | | | +--------+ + + + [...] | | | | | | [place] [address] | | | | | | [phone] | | | | | | | | +--------+---------+ + + + documented as of this encounter Visit Diagnoses Not on filedocumented in this encounter"
--- OUTSIDE RECORDS SUMMARY | ~2019-12-23 | XMS | Encounter Summary ---
Demographics + + + | Address | [address] | | | [place] [address] | + + + | Home Phone [...] + | Author | [facility] | | | and [place] | + + + | Organization | [facility] | | | and [place] | + + + | Address | Unknown | + + + | Phone | Unavailable | + + + Support + + + + + | Name | Relationship | Address | Phone | + + + + + | Tam Lou | ECON | [address] | | | | | [place] [address] | | + + + + + | Cristal Yu | ECON | Unknown | | + + + + + Care Team Providers + +------+ + | Care Roadmaster Name | Role | Phone | + +------+ + PCP | Unavailable | + +------+ + Encounter Details +--------+ + + + + | Date | Type | Department | Care Team | Description | +--------+ + + + + | 09/16/ | Hospital | [facility] | Severiano Kay MD | | | 2010 | Encounter | FAMILY EMERGENCY | [address] | | | | | CENTER [address] [place], [place] | | | | | [address] | [address] | | | | | [place], [place] | | | | | | [address] | | | | | | [phone] | | | +--------+ + + + [...] ED Notes Severiano Kay MD - 04/22/2013 2:06 AM PST DATE OF EMERGENCY CENTER EVALUATION: 09/16/2010 CHIEF COMPLAINT: 40-year-old female comes to emergency room with a chief complaint of sinu s pressure, congestion, cough, sore throat, going on for 4 days, progressively has gotten worse in the last 24 hours. She denies any fevers, chills, denies any headache. She denies any nausea, vomiting. Denies any chest pain. She denies abdominal discomfort. MEDICATIONS: She is currently on Atrovent, hydrochlorothiazide, Prilosec. ALLERGIES: SULFA. PAST MEDICAL HISTORY: Pertinent for ovarian cysts, tubal ligation, carpal tunnel, reflux. SOCIAL HISTORY: Positive smoker. REVIEW OF SYSTEMS: 7 systems reviewed and except for that mentioned above, noncontributory or negative. PHYSICAL EXAMINATION: GENERAL APPEARANCE: Shows a female who is alert and oriented, nontoxic looking. VITAL SIGNS: Stable. Temperature 97.9, pulse 99, respirations 20, blood pressure 145/87. 0 2 sat is 96% on room air. Weight was 250 pounds. HEENT: Right ear was slightly retracted, f luid noted behind it. She has point tenderness on palpation of frontal and maxillary sinus cavities. Pressure when she leans forward. Left ear was clear. Oropharynx is clear. Uvula i s midline. NECK: Supple. Full range of motion. COR: Regular rate and rhythm. LUNGS: Clear to A&P. ABDOMEN: Soft, nontender. SKIN: Warm to touch and hydrated. Good skin turgor. No petechiae. IMPRESSION: Sinusitis. PLAN: Zithromax to use as directed. Try pevf-xve-kefwweq Sudafed for congestion. Lots of l iquids. Rest. Followup with family doctor in 3 or 4 days for recheck. Sooner back to the em ergency room if she starts having increase of sinus pressure, congestion, cough, fever, chi lls, or any other issues. NASIR Magallon for: Severiano Kay MD PN:jana Job ID:[id number] Doc ID:[id number] cc: IRAJ LOU : 66 | Signed MR# [id number] ACCT# [id number] | ADM 09/16/10 DS 09/16/10 DEP ER | Severiano Kay MD | [facility] ES: B [address] pt [phone] | EMERGENCY CENTER THIS REPORT IS CONFID ENTIAL AND NOT TO BE RELEASED WITHOUT PROPER AUTHORIZATION. Electronically Signed 09/20/10 1231 MD NUSRAT Jain DEBR A L : 66 | Signed MR# [id number] ACCT# [id number] | ADM 09/16/10 DS 09/16/10 DEP ER | Severiano Kay MD | [facility] ES: B R pt [phone] | EMERGENCY CENTER THIS REPORT IS CONFID [...] [place], | | | | | | [place] [address] | | | | | | [phone] | | | | | | | | +--------+---------+ + + + documented as of this encounter Visit Diagnoses Not on filedocumented in this encounter"
--- OUTSIDE RECORDS SUMMARY | ~2019-12-23 | XMS | Encounter Summary ---
Demographics + + + | Address | [address] | | | [place] [address] | + + + | Home Phone | | + + + | Preferred Language | Unknown | + + + | Marital Status | | + + + | Anglican Affiliation | Unknown | + + + | Race | Unknown | + + + | Ethnic Group | Unknown | + + + Author + + + | Author | [facility] | | | and [place] | + + + | Organization | [facility] | | | and [place] | + + + | Address | Unknown | + + + | Phone | Unavailable | + + + Support + + + + + | Name | Relationship | Address | Phone | + + + + + | Tam Lou | ECON | [address] | | | | | [place] [address] | | + + + + + | Cristal Yu | ECON | Unknown | | + + + + + Care Team Providers + +------+ + | Care Gl Accountant Name | Role | Phone | + +------+ + PCP | Unavailable | + +------+ + Encounter Details +--------+ + + + + | Date | Type | Department | Care Team | Description | +--------+ + + + + | 03/14/ | Hospital | [facility] | Kiera Auguste MD | | | 2008 | Encounter | [facility] | [address] | | | | | CENTER [address] [place], [place] | | | | | [address] | [address] | | | | | [place], [place] | | | | | | [address] | | | | | | [phone] | | | +--------+ + + + [...] as of this encounter ED Notes Kiera Auguste MD - 04/22/2013 2:11 PM PST DATE OF EMERGENCY CENTER EVALUATION: 03/14/2008 CHIEF COMPLAINT: Neck pain. HISTORY OF PRESENT ILLNESS: This is a 38-year-old female who 3 days ago awakened with left sided neck discomfort. She describes it going from the left side top of her neck down to the upper 50% of her back ove r to her shoulder. This is worse with movement. It does improve slightly during the day if she stretches it out. Yesterday was the worst day and she just didn't want to put up with it again today. She denies any known trauma. She denies any numbness, tingling, weakness in her arm. She denies any associated chest pain, fevers, chills. She does cough slightly se condary to her chronic smokers cough. No changes in that has been noted. She has had a [address] xray within the year and continues to follow-up with Dr. Singleton for her smoking. Ther e has been no acute weight losses. PAST MEDICAL HISTORY: Significant for mild hypertension, GE reflux disease, emphysema. MEDICATIONS: 1. Inderal. 2. Prevacid. 3. Dulcolax. 4. Proventil. ALLERGIES: 1. Sulfa. 2. Mobic. 3. Augmentin. She can take anti-inflammatories. PAST SURGICAL HISTORY: Tubal ligation, carpal tunnel surgery, elbow surgery-what sounds like a transposition of t he ulnar nerve. REVIEW OF SYSTEMS: Ten systems reviewed, negative or noncontributory except as noted in the "History of Prese nt Illness". SOCIAL HISTORY: She is her with her and smokes a pack per day. PHYSICAL EXAMINATION: VITAL SIGNS: Sats are 95% on room air. Blood pressure 156/95, pulse 75, respirations 16, temp is 97.6. GEN: She describes her pain as a 6/10. HEENT: Head is normocephalic, atraumatic. Pupils are equal, round and reactive. Sclera ani cteric. Conjunctiva normal. TMs are clear, nares patent. Throat reveals mucous membranes w hich are moist. Tongue and uvula both IRAJ LOU : 68 | Signed MR# [id number] ACCT# [id number] | ADM 03/14/08 DS 03/14/08 DEP ER | Kiera Auguste MD | [facility] ES: Nghia R pt [id number] | EMERGENCY CENTER THIS REPORT IS CONFID ENTIAL AND NOT TO BE RELEASED WITHOUT PROPER AUTHORIZATION. midline. NECK: No evidence of pain on axial loading. She has no midline tenderness. The left cervi frank spine musculature, mostly the trapezius are markedly tender throughout its upper distri bution over to the shoulder. There was no lymphadenopathy, thyromegaly, masses or bruits. S he has minimal discomfort moving her head to the left, however, stretching that trapezius m uscle and looking to the right is worse. Looking down really did not have a substantial a mount of pain. LUNGS: Clear to auscultation bilaterally, symmetrical chest excursion. Good effort. HEART: Regular rate and rhythm without any gross murmur. Normal S1 and S2. No evidence o f S3 or S4. NEURO: Cranial nerves 2-12 are grossly intact. She is awake, alert, oriented X3. SKIN: No other rashes or lesions. EMERGENCY DEPARTMENT COURSE: I think this is a trapezius muscle strain. She has had no acute trauma, likely this was j ust sleeping on it wrong. We are in the early phase of this, will go ahead and give her a s hot of Norflex and p.o. Percocet. I have discussed with her that if she suddenly changes he r sensation or ability to move that arm then she needs to follow-up immediately. If this pe rsists, would strongly encourage a chest xray although I don't suspect a cancerous or lyti c lesions would be causing this. PT may be of some assistance in the next week if she is n ot better but can follow-up with Dr. Singleton. IMPRESSION: Trapezius strain, left. PLAN: Percocet 10/325, 1/2 to 1 q.4-6h. prn pain. Flexeril 10 mg, p.o. t.i.d. prn spasm. Motri n or Aleve as labeled. Alternate cool and warm with gentle range of motion exercises. Ret urn immediately for change in sensation or other complications. Discharged with stable dilip l signs. Kiera Auguste MD LAB:lr Job ID:[id number] Doc ID:[id number] cc:Jose Singleton Jr., MD Digitally authenticated 03/15/08 1740 MD NUSRAT Cheung DEBR A L : 66 | Signed MR# [id number] ACCT# [id number] | ADM 03/14/08 DS 03/14/08 DEP ER | Kiera Auguste MD | [facility] ES: B R pt [id number] | EMERGENCY CENTER THIS REPORT IS CONFID ENTIAL AND NOT TO BE RELEASED WITHOUT PROPER AUTHORIZATION. documented in this encounter Plan of Treatment +--------+---------+ + + + | Date | Type | Specialty | Care Team | Description | +--------+---------+ + + + | 12/30/ | Office | Pulmonology | [facility], | | | 2019 | Visit | | Daphne Angelo, | | | | | | [address] | | | | | | [place], | | | | | | [place] [address] | | | | | | [phone] | | | | | | | | +--------+---------+ + + + documented as of this encounter Visit Diagnoses Not on filedocumented in this encounter
--- OUTSIDE RECORDS SUMMARY | ~2019-12-23 | XMS | Encounter Summary ---
Demographics + + + | Address | [address] | | | [place] [address] | + + + | Home Phone | | + + + | Preferred Language | Unknown | + + + | Marital Status | | + + + | Congregational Affiliation | Unknown | + + + | Race | Unknown | + + + | Ethnic Group | Unknown | + + + Author + + + | Author | [facility] | | | and [place] | + + + | Organization | [facility] | | | and [place] | + + + | Address | Unknown | + + + | Phone | Unavailable | + + + Support + + + + + | Name | Relationship | Address | Phone | + + + + + | Tam Lou | ECON | [address] | | | | | [place] [address] | | + + + + + | Cristal Yu | ECON | Unknown | | + + + + + Care Team Providers + +------+ + | Care Senior Information Developer Name | Role | Phone | + +------+ + PCP | Unavailable | + +------+ + Encounter Details +--------+ + + + + | Date | Type | Department | Care Team | Description | +--------+ + + + + | 05/20/ | Hospital | [facility] | Jasmeet More | | | 2000 - | Encounter | [facility] | | | | | | [address] | | | | 05/21/ | | [place], [place] | | | | 2000 | | [address] | | | | | | [phone] | | | +--------+ + + + [...] | | | | | | [place] [address] | | | | | | [phone] | | | | | | | | +--------+---------+ + + + documented as of this encounter Visit Diagnoses Not on filedocumented in this encounter"
--- OUTSIDE RECORDS SUMMARY | ~2019-12-23 | XMS | Encounter Summary ---
Demographics + + + | Address | [address] | | | [place] [address] | + + + | Home Phone | | + + + | Preferred Language | Unknown | + + + | Marital Status | | + + + | Mormon Affiliation | Unknown | + + + | Race | Unknown | + + + | Ethnic Group | Unknown | + + + Author + + + | Author | [facility] | | | and [place] | + + + | Organization | [facility] | | | and [place] | + + + | Address | Unknown | + + + | Phone | Unavailable | + + + Support + + + + + | Name | Relationship | Address | Phone | + + + + + | Tam Lou | ECON | [address] | | | | | [place] [address] | | + + + + + | Cristal Yu | ECON | Unknown | | + + + + + Care Team Providers + +------+ + | Care Income Tax Analyst Name | Role | Phone | + +------+ + | Pcp, Prov Inactive | PCP | | + +------+ + Reason for Visit + + + | Reason | Comments | + + + | Abdominal Pain | | + + + | Post-op Problem | | + + + Encounter Details +--------+ + + + + | Date | Type | Department | Care Team | Description | +--------+ + + + + | 12/20/ | Emergency | [facility] | Jayden Sow | Incarcerated ventral | | 2018 - | | [facility] | MD [address] | hernia (Primary Dx) | | | | CENTER [address] | [address] | | | 12/21/ | | [address] [place], [place] | [place], [place] [address] | | | 2017 | | [address] | [phone] | | | | | [phone] | | | +--------+ + + + [...] + + + | Blood Pressure | 150/92 | 12/21/2017 1:01 AM | | | | | PDT | | + + + + + | Pulse | 88 | 12/21/2017 1:01 AM | | | | | PDT | | + + + + + | Temperature | 36.7 C (98.1 F) | 12/20/2017 6:48 PM | | | | | PDT | | + + + + + | Respiratory Rate | 16 | 12/20/2017 6:48 PM | | | | | PDT | | + + + + + | Oxygen Saturation | 92% | 12/21/2017 1:01 AM | | | | | PDT | | + + + + + | Inhaled Oxygen | - | - | | | Concentration | | | | + + + + + | Weight | 114.3 kg (252 lb) | 12/20/2017 6:48 PM | | | | | PDT | | + + + + + | Height | 172.7 cm (5' 8") | 12/20/2017 6:48 PM | | | | | PDT | | + + + + + | Body Mass Index | 38.32 | 12/20/2017 6:48 PM | | | | | PDT | | + + + + + documented in this encounter Medications at Time [...] + + documented as of this encounter Consult Notes Usama Acosta, - 12/20/2017 10:23 PM PDTFormatting of this note might be diffe rent from the original. General Surgery Consult REASON FOR CONSULTATION: Ventral hernia PROVIDER REQUESTING CONSULT: Dr. Jayden Sow HISTORY OF PRESENT ILLNESS Katie Lou is a 47 y.o. female with a fairly complex surgical history. On November 14, and [place] by a [facility] surgeon, she underwent a umbilical herniorrhaphy with mesh. Postop eratively, she traveled toward [facility] and stopped in [place] on postoperative d ay 1. At this point, her hernia had recurred she was taken immediately to the operating adam and underwent a primary repair. She remained in [place], and while in inpatient in the [place], on postoperative day 3 from her original surgery she eviscerated and was taken back to [facility] operating room as third time for repair. The way the hernia was repaired on the third rou nd is unclear. She had done reasonably well since being discharged from [facility] until recently. She is staying at a local campground and although she does intermittently e xperienced sharp pain with a Valsalva maneuver, today the pain became very crampy and focal immediately deep to her transverse incision. Pain was described as constant. She had some associated nausea but did not vomit. She denies fevers. She has had some intermittent diar carolynn and constipation. Her last bowel movement was this morning and was loose. She denies black or bloody stools. In the ED, she underwent a workup that included a CBC. Her white blood cell count slightly elevated at 11. She then underwent a CT of her abdomen pelvis. CT reveals a sizable ventr al defect through which extends fairly significant volume of small bowel. There there is in flammation and fluid within the hernia itself. The bowel wall appears thickened. PAST MEDICAL HISTORY Past Medical History: Diagnosis Date Asthma Gastroesophageal reflux Hypertension Obesity Prediabetes PAST SURGICAL HISTORY Past Surgical History: Procedure Laterality Date CARPAL TUNNEL RELEASE Bilateral TUBAL LIGATION UMBILICAL HERNIA REPAIR Done 4 times MEDICATIONS No current facility-administered medications for this encounter. Current Outpatient Prescriptions Medication Sig Dispense Refill albuterol (PROAIR HFA) 90 mcg/puff inhaler 2 puffs every 4-6 hours as needed for asthm a LOSARTAN POTASSIUM PO Take by mouth. omeprazole (PRILOSEC) 20 mg TBEC 1 TABLET by mouth twice daily-LAST REFILL NEED VISIT a nd LABS ALLERGIES Allergies Allergen Reactions Sulfa Antibiotics Rash SOCIAL HISTORY Social History Social History Marital status: Spouse name: N/A Number of children: N/A Years of education: N/A Occupational History Not on file. Social History Main Topics Smoking status: Current Every Day Smoker Packs/day: 0.50 Years: 25.00 Types: Cigarettes Smokeless tobacco: Never Used Alcohol use Yes Comment: Rare Drug use: No Sexual activity: Not on file Other Topics Concern Not on file Social History Narrative No narrative on file FAMILY HISTORY History reviewed. No pertinent family history. REVIEW OF SYSTEMS CONSTITUTIONAL Denies recent unintentional weight loss. NEUROLOGIC Denies ever having had a stroke or seizure. CARDIOVASCULAR Denies ever having had a previous [place], DVT, or PE. PULMONARY Denies the use of a CPAP or supplemental oxygen. GASTROINTESTINAL Denies ever having had hepatitis. INTEGUMENTARY Denies tattoos. HEMATOLOGIC Denies bleeding tendencies and has never had a blood transfusion. ALL OTHER SYSTEMS ARE REVIEWED AND ARE NEGATIVE PHYSICAL EXAM Vital Signs on Arrival: Temp: 36.7 C (98.1 F) BP: (!) 154/98 Pulse: 96 Resp: 16 SpO2: 96 % on BMI: Body mass index is 38.32 kg/m. CONSTITUTIONAL Initial impression is that the patient appears of stated age and is in no acute distress. PSYCHIATRIC Patient has an appropriate mood and affect. NEUROLOGIC Extraocular muscles are intact and patient moves all four extremities. There are no appar ent focal deficits. HEENT Mucus membranes are moist. Sclera are non-icteric. CARDIOVASCULAR Heart is regular rate and rhythm. There are no murmurs, rubs, or gallops. There is no pr etibial edema. PULMONARY Lungs are clear to auscultation bilaterally without wheeze, rales, or ronchi. There are n o retractions. ABDOMEN Soft, nondistended. She has no tenderness laterally. She is mildly tender directly over the hernia. It is not reducible. There is some erythema at the incision. There is no drai nage. BREAST Deferred. GENITOURINARY Deferred. INTEGUMENTARY Warm and dry. PERTINENT LABS Recent Labs Lab 12/20/171923 WBC 11.0* HGB 13.2 HCT 43.2 PLT 282 Recent Labs Lab 12/20/171923 NA 136 K 3.3 CL 100 CO2 31 BUN 13 CREA 1.10 GLU 137* CALCIUM 8.5 BILITOT 0.2 AST 14 ALT 18 ALKPHOS 22* ALBUMIN 2.7* ADDITIONAL STUDIES Microbiology Results (72 hrs) No results found for the last [address] of her abdomen pelvis as described in the HPI ASSESSMENT Ventral incisional hernia, recurrent, strangulated PLAN At this point, the patient is nontoxic. Given the inflammatory changes on the CT imaging, I do believe this hernia should be repaired urgently. Unfortunately, she is extremely high risk for recurrence given her obesity, hypertension, diabetes, smoking history. She is also failed 3 relatively recent hernia repairs. It is my opinion that she would benefit best from an open repair with retrorectus placement of a biologic mesh. I recognize that opinion may vary between surgeons. Unfortunately, ho wever we do not have biologic mesh at this facility and as such, I feel that she would benef it from transfer to a higher level of care. I spoke with Dr. Mccullough [facility] in [place]. I shared my ration javier for reaching the conclusion I did and he verbalized understanding of this and a willingn ess to accept this patient in transfer. Additionally, the patient is requesting [facility] t she has a support system with family in this area. At this point, we are arranging transport. Electronically signed by: Usama Acosta DO 12/20/2017 22:28 This note was transcribed using voice recognition software; there may be speech recognition errors which escaped detection during perforating. documented in this encounter ED Notes Deborah Cat RN - 12/20/2017 8:37 PM PDTMD consulting with surgeon. Electronically sig mónica by Deborah Cat RN at 12/20/2017 8:37 PM PDTJayden Sow MD - 12/20/2017 7: [address] [facility] Emergency Department Provider Note Name: Katie Lou Date: 12/20/2017 : 1970 Room Number: ED09 PCP: Michael Asher Pcp ED COURSE Patient was seen and evaluated in room 9. Differential diagnosis include, but are not limit ed to: recurrence of abdominal Wall hernia hernia, incisional infection, small bowel obstruc tion,and gastroenteritis . The history and physical exam were completed and there was some indication of decreased bow el tones and fullness and tenderness in the area of the recent repaired anterior ventral her cullen. A CT scan of the abdomen was obtained which showed recurrent ventral hernia with the p resence of significant length of small bowel that appears to show some wall thickening rob pacheco is her first indication of early ischemia. Surgical consultation with Danyel Acosta D.O. general surgeon was obtained and although he felt that patient's required surgical interv ention might be successfully performed here at [facility]- he currently lacked the right porcine al lograft material and was concerned that patient had no family support in this area, causing her to request transfer to [place]. Decision was made to seek transfer to [facility] in [place] and a Dr. Mccullough surgeon will be the accepting physician. Clinical Impression and Plan Final diagnoses: Incarcerated ventral hernia ED Prescriptions None Extended ED Note CC: Chief Complaint Patient presents with Abdominal Pain Post-op Problem Method of Arrival: walk-in History obtained from: Patient HPI: Katie Lou is a 47 y.o. female who presents to the Emergency Department with abdominal pain and cramping along a previous surgical site on the lower abdomen. Patient reports three hernia surgeries within 1 week at the start of the month. On november 14 (5 weeks ago) patient had her first hernia surgery performed in [place], [place]. The following day, patient traveled [facility], where her hernia blew out , and she needed emergency surgery to repair it . 2 days later, her hernia repair malfunctioned again, and was repaired surgically the same day. She states that her pain is exacerbated when she coughs and also when she lays down at night. Today, patient feels nauseated and is experiencing abdominal cramping and a sharp jose antonio n along the incision site. Patient denies fever. Review of Systems Review of Systems Constitutional: Negative for fever. HENT: Negative for tinnitus. Eyes: Negative for visual disturbance. Respiratory: Negative for shortness of breath. Cardiovascular: Negative for chest pain. Gastrointestinal: Positive for abdominal pain and nausea. Negative for vomiting. Genitourinary: Negative for dysuria. Musculoskeletal: Negative for arthralgias and myalgias. Skin: Negative for rash. Neurological: Negative for headaches. Except as above, all other systems were reviewed and are negative Physical Exam Pulse: 96- Resp: 16- BP: (!) 154/98 - SpO2: 96 % - Temp: 36.7 C (98.1 F) Physical Exam Constitutional: She is oriented to person, place, and time. She appears well-developed and well-nourished. No distress. HENT: Head: Normocephalic and atraumatic. Cardiovascular: Normal rate, regular rhythm and normal heart sounds. No murmur heard. Pulmonary/Chest: Effort normal and breath sounds normal. No respiratory distress. She has n o wheezes. She has no rales. Abdominal: Soft. Bowel sounds are decreased. No obvious herniations along suture line, but mild tenderness slightly L of midline along t he incision. Neurological: She is alert and oriented to person, place, and time. Skin: Skin is warm and dry. She is not diaphoretic. Psychiatric: She has a normal mood and affect. Her behavior is normal. LAB VALUES Recent Results (from the past 24 hour(s)) CBC with Differential Collection Time: 12/20/17 19:24 Result Value Ref Range WBC 11.0 (H) 4.3 - 10.4 K/uL RBC 5.32 (H) 4.12 - 5.30 M/uL Hgb 13.2 12.4 - 15.7 g/dL Hct 43.2 37.7 - 47.0 % MCV 81.2 (L) 82.0 - 97.0 fL MCH 24.8 (L) 27.1 - 32.3 pg MCHC 30.6 (L) 32.0 - 36.9 g/dL RDW-CV 16.5 0.0 - 17.0 % Platelet Count 282 150 - 450 K/uL MPV 11.0 9.4 - 12.3 fL % Neutrophils 66.2 42.0 - 76.0 % % Lymphocytes 22.4 20.0 - 40.0 % % Monocytes 6.0 3.0 - 13.0 % % Eosinophils 4.5 0.0 - 7.0 % % Basophils 0.5 0.0 - 2.0 % % Immature granulocytes 0.4 0.0 - 0.5 % Absolute Neutrophils 7.27 2.50 - 8.50 K/uL Absolute Lymphocytes 2.45 1.00 - 3.80 K/uL Absolute Monocytes 0.66 0.00 - 0.80 K/uL Absolute Eosinophils 0.49 0.00 - 0.70 K/uL Absolute Basophils 0.05 0.00 - 0.20 K/uL Absolute Imm. Granulocytes 0.04 0.00 - 0.15 K/UL nRBC 0 0 - 0 per 100 WBC's NRBC ABS 0.00 0.00 - 0.01 K/UL Comprehensive Metabolic Panel Collection Time: 12/20/17 19:24 Result Value Ref Range NA 136 132 - 143 mmol/L K 3.3 3.3 - 4.9 mmol/L CL 100 95 - 108 mmol/L CO2 31 23 - 34 mmol/L ANION GAP 5 (L) 7 - 16 mmol/L GLUCOSE 137 (H) 70 - 110 mg/dL BUN 13 5 - 26 mg/dL Creatinine, Serum/Plasma 1.10 0.60 - 1.30 mg/dL eGFR if not 53 (L) >=60 mL/min/1.73m2 CALCIUM 8.5 8.3 - 10.0 mg/dL ALBUMIN 2.7 (L) 3.0 - 4.5 g/dL Bilirubin Total 0.2 0.0 - 1.2 mg/dL Total protein 6.4 (L) 6.6 - 8.5 g/dL AST 14 0 - 38 U/L ALT 18 14 - 59 U/L ALK PHOS 22 (L) 46 - 116 U/L GLOBULIN 3.7 g/dL Albumin/Globulin ratio 0.7 BUN/CREA 11.8 7.0 - 24.0 Lipase Collection Time: 12/20/17 19:24 Result Value Ref Range LIPASE 144 73 - 393 U/L Radiological Studies CT Abdomen Pelvis w Contrast (Results Pending) Past Medical, Surgical, Social, and Family History Past Medical History: Diagnosis Date Asthma Gastroesophageal reflux Hypertension Obesity Prediabetes Past Surgical History: Procedure Laterality Date CARPAL TUNNEL RELEASE Bilateral TUBAL LIGATION UMBILICAL HERNIA REPAIR Done 4 times Social History Substance Use Topics Smoking status: Current Every Day Smoker Packs/day: 0.50 Years: 25.00 Types: Cigarettes Smokeless tobacco: Never Used Alcohol use Yes Comment: Rare Discharge Medication List as of 12/21/2017 1:20 CONTINUE these medications which have NOT CHANGED Details albuterol (PROAIR HFA) 90 mcg/puff inhaler 2 puffs every 4-6 hours as needed for asthma LOSARTAN POTASSIUM PO Take by mouth.Historical Med omeprazole (PRILOSEC) 20 mg TBEC 1 TABLET by mouth twice daily-LAST REFILL NEED VISIT and L ABS This document serves as a record of the serviced and decision personally performed by Jayden Sow MD. It was created on their behalf by Dayday Curtis, a trained medical scri be. The creation of this document is based on the provider's statements to the medical scrib e. Parts of this note may have been created using [employer] which is a voice recognition software . It inherently makes mistakes with substitution of words that sound similar. Jayden Sow MD 12/21/17 [id number] Marie Toney RN - 12/20/2017 6:42 PM PDTPt reports sharp, cramping pain at surgery site on low abdomen . Hernia repair in [place] beginning of November.Electronically signed by AMADO Mancera 12/20/2017 6:46 PM PDTdocumented in this encounter Plan of Treatment [...] | | | | | | [place] [id number] | | | | | | [phone] | | | | | | | | +--------+---------+ + + + + +------+--------+ + + | Name | Type | Priori | Associated Diagnoses | Date/Time | | | | ty | | | + +------+--------+ + + | ED INFORMATION | PHOEBE | Routin | | 12/20/2017 6:37 PM | | EXCHANGE | | e | [...] this | | EXTERNAL SCAN | | 12:00 AM | | procedure are in the | | | | PDT | | results section. | + +--------+ + + + | IMAGING REPORT - | | 12/24/2017 | | Results for this | | EXTERNAL SCAN | | 12:00 AM | | procedure are in the | | | | PDT | | results section. | + +--------+ + + + | CT ABDOMEN PELVIS W | STAT | 12/20/2017 | | Results for this | | CONTRAST | | 7:55 PM | | procedure are in the | | | | PDT | | results section. | + +--------+ + + + | CBC WITH | STAT | 12/20/2017 | | Results for this | | DIFFERENTIAL | | 7:24 PM | | procedure are in the | | | | PDT | | results section. | + +--------+ + + + | LIPASE | STAT | 12/20/2017 | | Results for this | | | | 7:24 PM | | procedure are in the | | | | PDT | | results section. | + +--------+ + + + | COMPREHENSIVE | STAT | 12/20/2017 | | Results for this | | METABOLIC PANEL | | 7:24 PM | | procedure are in the | | | | PDT | | results section. | + +--------+ + + + | ED INFORMATION | Routin | 12/20/2017 | | | | EXCHANGE | e | 6:37 PM | | | | | | PDT | | | + +--------+ + + + +---+--------+ | | | | | Proced | | | ure | | | Note - | | | [facility], | | | Lab In | | | | | | Hlseve | | | n - | | | | | | 2017 | | | 6:38 | | | PM PDT | | | | | | Format | | | ting | | | of | | | this | | | note | | | might | | | be | | | differ | | | ent | | | from | | | the | | | origin | | | al.MAICO | | | E?NOTI | | | FICATI | | | ON?/ | | | | | | 8 | | | 18:37? | | | LOU | | | , | | | KATIE | | | L?MRN: | | | | | | [id number] | | | [id number] | | | ecurit | | | y | | | Events | | | [...] | | | 2018 | | | [place] | | | | | | Region [...] | | | 2018 | | | [place] | | | | | | Region [...] | | al 1 | | | [place] | | | [...] | | +---+--------+ documented in this encounter Results IMAGING REPORT - EXTERNAL SCAN (12/24/2017 12:00 AM PDT) + + + | Narrative | Performed At | + + + | Ordered by an | | | unspecified provider. | | + + + IMAGING REPORT - EXTERNAL SCAN (12/24/2017 12:00 AM PDT) + + + | Narrative | Performed At | + + + | Ordered by an | | | unspecified provider. | | + + + CT Abdomen Pelvis w Contrast (12/20/2017 7:55 PM PDT) + + | Specimen | + + | | + + + + + | Impressions | Performed At | + + + | IMPRESSION: 1. Ventral wall hernia containing nondilated small | [facility] | | bowel loops. The small-bowel loops do demonstrate wall thickening | | | with adjacent edema. This finding could relate to infectious, | | | inflammatory, and/or ischemic process. Surgical consult recommended. | | | Hemorrhage within this bowel could result in similar appearance. | | | 2. Bilateral hip joint degenerative changes. 3. Facet degenerative | | | changes lower lumbar spine. 4. Atherosclerosis coronary arteries. 5. | | | Incompletely imaged soft tissue attenuation right breast. This | | | finding could relate to unremarkable breast parenchyma however breast | | | lesion not excluded. Diagnostic mammogram recommended. 6. Bilateral | | | adrenal nodules. Findings are nonspecific but most commonly | | | associated with adenoma. Recommend CT abdomen without and with | | | contrast to further characterize the lesions. . Dictated by: | | | Jose Jeronimo Electronically Signed by: Jose Jeronimo on | | | 12/21/2017 7:52 AM | | + + + + + [...] Genitourinary: The kidneys enhance symmetrically. No solid enhancing | | | renal lesion, hydronephrosis, or calcified collecting system calculi | | | are seen. No focal bladder wall thickening. The uterus is present | | | and appears within normal volume. A radiopaque structure is | | | present in the region of the right fallopian to. Ovaries appear | | | within normal volume.. Gastrointestinal: A ventral wall hernia is | | | present with origin of approximately 18 cm. Loops of distal small | | | bowel into the hernia defect. Bowel wall thickening is present with | | | adjacent edema. Maximal caliber of bowel loops is approximately 2.3 | | | cm. Distinct twisting/volvulus appearance involving the loops of | | | bowel not clearly demonstrated. A few colonic diverticula present | | | without CT finding and diverticulitis. The liver, gallbladder, | | | spleen, and pancreas appear within normal limits. At the left | | | adrenal gland a hypoattenuating 11 mm nodule is noted with attenuation | | | of 18. At the right adrenal gland a 1.7 cm hypoattenuating nodule | | | is noted with attenuation of 45. Also present is additional | | | approximate 8 mm nodule. Musculoskeletal: Facet degenerative | | | changes L5-S1. Endplate degenerative spurring lower thoracic spine. | | | At the left acetabulum approximate 8 mm sclerotic nodules noted too | | | small to characterize but most typically associated benign process | | | such as bone island. Subchondral cyst formation present at the | | | acetabulum bilaterally.. Retroperitoneum: Normal aorta. No | | | adenopathy.. Lung base: Heart size normal. No lobar | | | consolidation or nodule.. Atherosclerosis coronary arteries. | | | Partially imaged asymmetric soft tissue of approximately 7 mm noted | | | lateral right breast incompletely imaged. | | + + + + + | Procedure Note | + + | [place], Rad Results In - 12/21/2017 7:55 AM PDT EXAMINATION: CT ABDOMEN PELVIS W | [...] | | | + +---------+ + + Lipase (12/20/2017 7:24 PM PDT) + +-------+ + + + | Component | Value | Ref Range | Performed | Pathologist | | | | | At | Signature | + +-------+ + + + | Lipase | 144 | 73 - 393 U/L | [facility] | | | | [facility] | | | | | | [facility] | | + +-------+ + + + + + | Specimen | + + | Blood | + + + + + + + | Performing | Address | City/State/Zipcode | Phone Number | | Organization | | | | + + + + + | [facility] | [address] | [place] | [phone] | | [facility] | | [address] | | + + + + + Comprehensive Metabolic Panel (12/20/2017 7:24 PM PDT) + + + + + + | Component | Value | Ref Range | Performed | Pathologist | | | | | At | Signature | + + + + + + | Na | 136 | 132 - 143 | [facility] | | | | | mmol/L | [facility] | | | | | | [facility] | | + + + + + + | K | 3.3 | 3.3 - 4.9 | [facility] | | | | | mmol/L | [facility] | | | | | | [facility] | | + + + + + + | Cl | 100 | 95 - 108 mmol/L | [facility] | | | | | [facility] | | + + + + + + | CO2 | 31 | 23 - 34 mmol/L | [facility] | | [facility] | | + + + + + + | Anion Gap | 5 (L) | 7 - 16 mmol/L | [facility] | [facility] | | | [facility] | | + + + + + + | Glucose | 137 (H) | 70 - 110 mg/dL | [facility] | [facility] | | | | | | [facility] | | + + + + + + | BUN | 13 | 5 - 26 mg/dL | [facility] | [facility] | | | | | [facility] | | + + + + + + | Creatinine | 1.10 | 0.60 - 1.30 | [facility] | | | | | mg/dL | [facility] | | | | | | [facility] | | + + + + + + | eGFR if not | 53 (L)Comment: | >=60 | [facility] | | | | GLOMERULAR FILTRATION | mL/min/1.73m2 | [facility] | | | STATELESS | RATE,ESTIMATED | | [facility]OSPITAL | | | | mL/min/[id number] than | | LABORATORY | | | | 60 Chronic kidney | | | | | | disease,if found over a | | | | | | 3-month period.Less than | | | | | | 15 Kidney failureFor | | | | | | | | | | | | Americans,multiply the | | | | | | calculated GFR by 1.21. | | | | | | | | | | + + + + + + | Calcium | 8.5 | 8.3 - 10.0 | [facility] | | | | | mg/dL | [facility] | | | | | | [facility] | | + + + + + + | Albumin | 2.7 (L) | 3.0 - 4.5 g/dL | [facility] | | | | | [facility] | | | | | | [facility] | | + + + + + + | Bilirubin | 0.2 | 0.0 - 1.2 mg/dL | [facility] | | | Total | | | [facility] | | | | | | [facility] | | + + + + + + | Total | 6.4 (L) | 6.6 - 8.5 g/dL | [facility] | | | Protein | | | [facility] | [facility] | | | | | | [facility] | | + + + + + + | AST | 14 | 0 - 38 U/L | [facility] | | | | [facility] | | | | | | [facility] | | + + + + + + | ALT | 18 | 14 - 59 U/L | [facility] | | | | [facility] | | | | | | [facility] | | + + + + + + | Alkaline | 22 (L) | 46 - 116 U/L | [facility] | | | Phosphatase | | | [facility] | | | | | [facility] | | + + + + + + | Globulin | 3.7 | g/dL | [facility] | | | | | | [facility] | | | | | | [facility] | | + + + + + + | Albumin/Krista | 0.7 | | [facility] | | | bulin Ratio | | | [facility] | | | | [facility] | | + + + + + + | BUN/Creatin | 11.8 | 7.0 - 24.0 | [facility] | | | ine Ratio | | | [facility] | | | | | [facility] | | + + + + + + + + | Specimen | + + | Blood | + + + + + + + | Performing | Address | City/State/Zipcode | Phone Number | | Organization | | | | + + + + + | [facility] | [address] | [place] | [phone] | | [facility] | | [address] | | + + + + + CBC with Differential (12/20/2017 7:24 PM PDT) + + + + + + | Component | Value | Ref Range | Performed | Pathologist | | | | | At | Signature | + + + + + + | White Blood | 11.0 (H) | 4.3 - 10.4 K/uL | [facility] | | | Cells | | | [facility] | | | | | | [facility] | | + + + + + + | Red Blood | 5.32 (H) | 4.12 - 5.30 | [facility] | | | Cells | | M/uL | [facility] | | | | | [facility] | | + + + + + + | Hemoglobin | 13.2 | 12.4 - 15.7 | [facility] | | | | | g/dL | [facility] | [facility] | | | [facility] | | + + + + + + | Hct | 43.2 | 37.7 - 47.0 % | [facility] | | | | | | [facility] | | [facility] | | + + + + + + | MCV | 81.2 (L) | 82.0 - 97.0 fL | [facility] | | | | | [facility] | | + + + + + + | MCH | 24.8 (L) | 27.1 - 32.3 pg | [facility] | | | | | [facility] | [facility] | | + + + + + + | MCHC | 30.6 (L) | 32.0 - 36.9 | [facility] | | | | | g/dL | [facility] | | | [facility] | | + + + + + + | RDW-CV | 16.5 | 0.0 - 17.0 % | [facility] | | | | | | [facility] | [facility] | | + + + + + + | Platelet | 282 | 150 - 450 K/uL | [facility] | | | Count | | | [facility] | [facility] | [facility] | | + + + + + + | MPV | 11.0 | 9.4 - 12.3 fL | [facility] | | | | | | [facility] | | [facility] | | + + + + + + | % | 66.2 | 42.0 - 76.0 % | [facility] | | | Neutrophils | | | [facility] | | | | | | [facility] | | + + + + + + | % | 22.4 | 20.0 - 40.0 % | [facility] | | | Lymphocytes | | | [facility] | | | | | | [facility] | | + + + + + + | % Monocytes | 6.0 | 3.0 - 13.0 % | [facility] | | | | | | [facility] | | | | | | [facility] | | + + + + + + | % | 4.5 | 0.0 - 7.0 % | [facility] | | | Eosinophils | | | [facility] | | | | | | [facility] | | + + + + + + | % Basophils | 0.5 | 0.0 - 2.0 % | [facility] | | | | | [facility] | | | | | | [facility] | | + + + + + + | % Immature | 0.4 | 0.0 - 0.5 % | [facility] | | | Granulocyte | | | [facility] | | | [facility] | | | [facility] | | | | | | [facility] | | + + + + + + | Absolute | 7.27 | 2.50 - 8.50 | [facility] | | | Neutrophils | | K/uL | [facility] | | | | | | [facility] | | + + + + + + | Absolute | 2.45 | 1.00 - 3.80 | [facility] | | | Lymphocytes | | K/uL | [facility] | | | | | | [facility] | | + + + + + + | Absolute | 0.66 | 0.00 - 0.80 | [facility] | | | Monocytes | | K/uL | [facility] | | | | | | [facility] | | + + + + + + | Absolute | 0.49 | 0.00 - 0.70 | [facility] | | | Eosinophils | | K/uL | [facility] | | | | | | [facility] | | + + + + + + | Absolute | 0.05 | 0.00 - 0.20 | [facility] | | | Basophils | | K/uL | [facility] | | | | | | [facility] | | + + + + + + | Absolute | 0.04 | 0.00 - 0.15 | [facility] | | | Immature | | K/UL | [facility] | | | Granulocyte | | | [facility] | | | s | | | LABORATORY | | + + + + + + | % nRBC | 0 | 0 - 0 per 100 | [facility] | | | | | WBC's | [facility] | | | | | | [facility] | | + + + + + + | Absolute | 0.00 | 0.00 - 0.01 | [facility] | | | nRBC | | K/UL | [facility] | | | | | | [facility] | | + + + + + + + + | Specimen | + + | Blood | + + + + + + + | Performing | Address | City/State/Zipcode | Phone Number | | Organization | | | | + + + + + | [facility] | [address] | [place] | [phone] | | [facility] | | [address] | | + + + + + documented in this encounter Visit Diagnoses + + | Diagnosis | + + | Incarcerated ventral hernia - Primary Ventral hernia, unspecified, with obstruction | + + documented in this encounter Administered Medications + +--------+ +---------+------+------+ | Medication Order | MAR | Action | Dose | Rate | Site | | | Action | Date | | | | + +--------+ +---------+------+------+ | iopamidol (ISOVUE-300) 300 | Given | 12/21/19 | 100 mLs | | | | mg/mL injection 100 mL 100 mL, | | 18 7:56 | | | | | Intravenous, ONCE PRN, Other, | | PM PDT | | | | | Starting Sat12/20/17 at 1956, For | | | | | | | 1 dose, Cat Scanner | | | | | | + +--------+ +---------+------+------+ +---+---+ | | | +---+---+ documented in this encounter
--- OUTSIDE RECORDS SUMMARY | ~2019-12-23 | XMS | Encounter Summary ---
Demographics + + + | Address | [address] | | | [place] [address] | + + + | Home Phone | | + + + | Preferred Language | Unknown | + + + | Marital Status | | + + + | Scientologist Affiliation | Unknown | + + + | Race | Unknown | + + + | Ethnic Group | Unknown | + + + Author + + + | Author | [facility] | | | and [place] | + + + | Organization | [facility] | | | and [place] | + + + | Address | Unknown | + + + | Phone | Unavailable | + + + Support + + + + + | Name | Relationship | Address | Phone | + + + + + | Tam Lou | ECON | [address] | | | | | [place] [address] | | + + + + + | Cristal Yu | ECON | Unknown | | + + + + + Care Team Providers + +------+ + | Care Sales Supervisor Name | Role | Phone | + [...] 12/21/ | Anesthesia | [facility] | Arlyn Sutherland | | | 2017 | Event | [facility] | MD Alej[address] | | | | | OP [address] | [place] | | | | | [place] | [address] | | | | | [address] | | | | | | [phone] | [place], | | | | | | [place] | | | | | | [place] [address] | | | | | | [phone] | | | | | | | | +--------+ + + [...] +----+---+ + + | | 0 | | | | | 8 | | | | | 0 | | | | | 2 | | | +----+---+ + + | [...] +----+---+ + + | | 0 | [place] | | | | 8 | 43-degrees [...] +----+---+ + + | | 1 | [place] off | | | | 0 | [...] 4 mg | + + + | [id number] mg/mL | 60 mg | + + [...] + + + | Periph | 12/20/17; 1925; Right; | 12/20/171925 by | 12/23/1712 by | | eral | Antecubital; [id number] | Deborah Cat RN | Deloris Hsieh, | | IV | catheter system; 20 gauge; | | RN | | | Hematology, Chemistry; 0; site [...] Date: 12/21/17; | 12/21/17818 by | 12/21/17 1045 by | | | Placement Time: 818 (created via | Tom Cortez CRNA | Tmo Cortez CRNA | | | procedure documentation); [...] + + + | Urethr | 12/21/17; 08; indicated due to | 12/21/17 0825 by [...] | | +--------+ + + + | Read | 12/21/17; 1059; abdomen; changed | 12/21/17 1059 by | 12/23/17 0000 by | | only - | to different LDA type; 12/23/17 | Elena Bello RN | Maday Arndt RN | | | | | | | Incisi | | | | | on | | | | +--------+ + + + documented in this encounter Social History + + [...] + + documented as of this encounter OR Notes Anesthesia Postprocedure Evaluation - Arlyn Sutherland MD - 12/21/2017 11:52 AM PDTForma tting of this note might be different from the original. ANESTHESIA POSTANESTHESIA EVALUATION Katie Lou 47 y.o. female 1970 [id number] Procedure(s) ILEOCOLIC RESECTION; IMPLANTATION OF BIOLOGIC MESH; PLACEMENT OF VAC (N/A Abd omen) Cooperates? Yes Mental Status Performs simple tasks. Respiratory Satisfactory - Airway patent (self maintained). Cardiovascular Satisfactory - Blood pressure and heart rate acceptable Temperature Satisfactory Pain Satisfactory N/V Control Satisfactory Hydration Satisfactory - No signs of dehydration Complications None apparent Vitals: 12/21/17 1119 12/21/17 1120 12/21/17 1131 BP: 194/86 (!) 195/92 (!) 182/96 Pulse: 81 82 85 Temp: Resp: 12 12 12 SpO2: 95% 95% 95% Electronically signed by Arlyn Sutherland MD 12/21/2017 11:52 [facility] nesthesia Procedure Notes - Tom Cortez CRNA - 12/21/2017 8:30 AM PDTAss ociated Order(s): ANE AIRWAY NOTEAnesthesia Airway Placement 12/21/2017 8:19 Preprocedure check: patient identified, oxygen, airway assessed, suction, airway equipment checked and patient reassessment prior to induction Rapid Sequence Induction: no Mask ventilation: easy Successful technique: videoscope Laryngoscope blade size: 3 Airway grade: 1 (Full view of glottis) Other equipment: stylette Attempts: 1 Airway type: endotracheal Size: 7 Cuffed: cuffed Route, reference point: right side of mouth Tube depth: 21 cm Tube secured with: adhesive tape Trauma: none Tube placement verification: bilateral chest rise, equal bilateral breath sounds, carbon di oxide detection and video laryngoscope Performing provider: TOM CORTEZ Electronically Signed by: Tom Cortez CRNA ES[facility] date/time: 8:30 nesthesia Procedur e Tom Rojas CRNA - 12/21/2017 8:18 AM PDTAssociated Order(s): ANE PERIPHERAL IV LINE NOTE Intravenous Line Placement 12/21/2017 8:18 Indication: routine patient was: under GA Side: right Vein location: wrist Size: 18 g Localization technique: landmark Securement: transparent dressing Placed by: ARLYN SUTHERLAND Electronically Signed by: SWATHI Galindo date/time: 12/21/2017 8:18 nesthesia Preproce dure Evaluation - Arlyn Sutherland MD - 12/21/2017 7:20 AM PDTFormatting of this note mi ght be different from the original. ANESTHESIA PREANESTHESIA EVALUATION Katie Lou 47 y.o. female 1970 [id number] Procedure(s): REPAIR HERNIA VENTRAL (N/A Abdomen) Medical history, anesthesia, medications, allergy, NPO status verified histories reviewed. Labs reviewed. Review of Systems / Med History Anesthesia History No anesthesia complications. Cardiovascular Negative except where noted below. (+) hypertension(-) CAD, past NM, CHF (-) dysrhythmias , Exercise tolerance >4 METS Pulmonary (+) asthma (No current symptoms), smoking history (Current every day smoker)(-) recent URI, pneumonia Neurology Negative except where noted below. (-) seizures, CVA Renal (+) acute renal failure (GFR in the 50's) Gastrointestinal/Hepatic Incarcerated ventral hernia . (+) reflux/GERD (No symptoms), hyperlipidemia Endocrine (+) Diabetes ("Prediabetes"): type 2, NIDDM (+) obesity: BMI (30-39) Other (-) anemia, thrombocytopenia, coagulopathy Physical Exam Airway MP III, TM >3 FB, Mouth opening >2 FB. Neck: full ROM, extends >30 degrees. Dental ; (+) missing teeth. CV cardiovascular normal Pulm Clear to auscultation bilaterally. Neuro Grossly normal. Anesthesia Plan ASA 3E Type: General. Induction: Intravenous. Potential problems: None anticipated. Monitors: Standard ASA monitors. Consent statement:Anesthetic plan, alternatives, risks and benefits discussed with patient. . Consenting person understands and agrees to proceed. PARQ. Electronically Signed by: MD Shanae Johns date/time: 12/21/2017 8:00 documented in this encounter Plan of Treatment [...] | | | | | | [place] [address] | | | | | | [phone] | | | | | | | [...] for this | | | e | 8:30 AM | | procedure are in the | | | | PDT | | results section. | + +--------+ + + + | ANE PERIPHERAL IV | Routin | 12/21/2017 | | Results for this | | LINE NOTE | e | 8:18 AM | | procedure are in the | | | | PDT | | results section. | + +--------+ + + + documented in this encounter Results Anesthesia Airway Note (12/21/2017 8:30 AM PDT) + + + | Narrative [...] Signed by: | | | Tom Cortez CRNA ESig | | | date/time: 12/21/2017 8:30 | | + + + + + | Procedure Note | + + | Tom Cortez CRNA - 12/21/2017 8:30 AM PDT Anesthesia Airway Placement12/21/2017 | | 8:19Preprocedure [...] | laryngoscopePerforming provider: TOM CORTEZElectronically Signed by: SWATHI Jeffrey date/time: 12/21/2017 8:30 | |Attempts: 1 | [...] + + Anesthesia Peripheral IV Note (12/21/2017 8:18 AM PDT) + + + | Narrative | Performed At | + + + | Tom Cortez CRNA 12/21/2017 8:18 Intravenous Line | | | Placement 12/21/2017 8:18 Indication: routine patient was: under | | | GA Side: right Vein location: wrist Size: 18 g Localization | | | technique: landmark Securement: transparent dressing Placed by: | | | ARLYN SUTHERLAND Electronically Signed by: Tom Cortez | | Jesus Jolly date/time: 12/21/2017 8:18 | | | | | + + + + ------+ | Procedure Note | + ------+ | Tom Cortez CRNA - 12/21/2017 8:18 AM PDT Intravenous Line Placement12/21/2017 | | 8:18Indication: routinepatient was: under GASide: rightVein location: wristSize: 18 g | | Localization technique: landmarkSecurement: transparent dressingPlaced by: ARLYN SUTHERLAND | | ALEJANDRAElectronically Signed by: Tom Cortez CRNA [facility] date/time: | | 12/21/2017 8:18 | |patient was: under GA | |Side: right | |Vein location: wrist | |Size: 18 g | |Localization technique: landmark | |Securement: transparent dressing | |Placed by: ARLYN SUTHERLAND | | | | | |Electronically Signed by: Tom Cortez CRNA [facility] date/time: 12/21/2017 8:18 | + ------+ documented in this encounter Visit Diagnoses Not on filedocumented in this encounter Administered Medications + +--------+ +---------+------+------+ | Medication Order | MAR | Action | Dose | Rate | Site | | | Action | Date | | | | + +--------+ +---------+------+------+ | albuterol 90 mcg/puff inhaler | Given | 12/22/19 | 4 puffs | | | | Inhalation, PRN, Shortness of | | 18 8:03 | | | | | Breath, Starting 12/21/17 at | | AM PDT | | | | | 0803, Anesthesia Intra-op | | | | | | + +--------+ +---------+------+------+ +---+---+ | | | +---+---+ + +-------+ +-----+---+---+ | ceFAZolin (ANCEF, KEFZOL) | Given | 12/22/19 | 3 g | | | | injection Intravenous, PRN, | | 18 8:28 | | | | | Starting 12/21/17 at 0828, | | AM PDT | | | | | Anesthesia Intra-op | | | | | | + +-------+ +-----+---+---+ +---+---+ | | | +---+---+ + +-------+ +------+---+---+ | dexamethasone (DECADRON) 10 | Given | 12/22/19 | 8 mg | | | | mg/mL injection Intravenous, | | 18 8:28 | | | | | PRN, Starting 12/21/17 at 0828, | | AM PDT | | | | | Anesthesia Intra-op | | | | | | + +-------+ +------+---+---+ +---+---+ | | | +---+---+ + +-------+ +--------+---+---+ | fentaNYL (PF) injection | Given | 12/22/19 | 50 mcg | | | | Intravenous, PRN, Pain, Starting | | 18 9:01 | | | | | 12/21/17 at 0808, Anesthesia | | AM PDT | | | | | Intra-op | | | | | | + +-------+ +--------+---+---+ +-------+ +--------+---+---+ | Given | 12/22/19 | 25 mcg | | | | | 18 8:59 | | | | | | AM PDT | | | | +-------+ +--------+---+---+ | Given | 12/22/19 | 25 mcg | | | | | 18 8:54 | | | | | | AM PDT | | | | +-------+ +--------+---+---+ +---+---+ | | | +---+---+ + +-------+ +--------+---+---+ | HYDROmorphone (DILAUDID) 2 | Given | 12/22/19 | 0.5 mg | | | | mg/mL injection Intravenous, | | 18 10:51 | | | | | PRN, Pain, Starting 12/21/17 at | | AM PDT | | | | | 0903, Anesthesia Intra-op | | | | | | + +-------+ +--------+---+---+ +-------+ +---------+---+---+ | Given | 12/22/19 | 0.25 mg | | | | | 18 10:29 | | | | | | AM PDT | | | | +-------+ +---------+---+---+ | Given | 12/22/19 | 0.25 mg | | | | | 18 10:09 | | | | | | AM PDT | | | | +-------+ +---------+---+---+ +---+---+ | | | +---+---+ + +-------+ +-------+---+---+ | ketamine 10 mg/mL injection | Given | 12/22/19 | 25 mg | | | | Intravenous, PRN, Starting Sat | | 18 9:22 | | | | | 12/21/17 at 0820, Anesthesia | | AM PDT | | | | | Intra-op | | | | | | + +-------+ +-------+---+---+ +-------+ +-------+---+---+ | Given | 12/22/19 | 35 mg | | | | | 18 8:20 | | | | | | AM PDT | | | | +-------+ +-------+---+---+ +---+---+ | | | +---+---+ + +---------+ +---+---+---+ | lactated ringers (LR) infusion | New Bag | 12/22/19 | | | | | Intravenous, CONTINUOUS PRN, | | 18 9:31 | | | | | Starting 12/21/17 at 0803, | | AM PDT | | | | | Anesthesia Intra-op | | | | | | + +---------+ +---+---+---+ +---------+ +---+---+---+ | New Bag | 12/22/19 | | | | | | 18 8:03 | | | | | | AM PDT | | | | +---------+ +---+---+---+ +---+---+ | | | +---+---+ + +-------+ +--------+---+---+ | lidocaine (PF) 2% injection | Given | 12/22/19 | 100 mg | | | | Intravenous, PRN, Starting Sat | | 18 8:13 | | | | | 12/21/17 at 0813, Anesthesia | | AM PDT | | | | | Intra-op | | | | | | + +-------+ +--------+---+---+ +---+---+ | | | +---+---+ + +-------+ +-------+---+---+ | lidocaine (PF) 4% injection | Given | 12/22/19 | 4 mLs | | | | PRN, Starting 12/21/17 at 0819, | | 18 8:19 | | | | | Anesthesia Intra-op | | AM PDT | | | | + +-------+ +-------+---+---+ +---+---+ | | | +---+---+ + +-------+ +------+---+---+ | ondansetron (ZOFRAN) injection | Given | 12/22/19 | 4 mg | | | | Intravenous, PRN, Nausea, | | 18 10:20 | | | | | Vomiting, Starting 12/21/17 at | | AM PDT | | | | | 1020, Anesthesia Intra-op | | | | | | + +-------+ +------+---+---+ +---+---+ | | | +---+---+ + +-------+ +-------+---+---+ | propofol (DIPRIVAN) injection | Given | 12/22/19 | 50 mg | | | | Intravenous, PRN, Starting Sat | | 18 10:31 | | | | | 12/21/17 at 0813, Anesthesia | | AM PDT | | | | | Intra-op | | | | | | + +-------+ +-------+---+---+ +-------+ +-------+---+---+ | Given | 12/22/19 | 50 mg | | | | | 18 10:25 | | | | | | AM PDT | | | | +-------+ +-------+---+---+ | Given | 12/22/19 | 50 mg | | | | | 18 10:20 | | | | | | AM PDT | | | | +-------+ +-------+---+---+ +---+---+ | | | +---+---+ + +-------+ +------+---+---+ | rocuronium (ZEMURON) injection | Given | 12/22/19 | 5 mg | | | | Intravenous, PRN, Ventilator | | 18 10:09 | | | | | Dyssynchrony, Starting 12/21/17 | | AM PDT | | | | | at 0813, Anesthesia Intra-op | | | | | | + +-------+ +------+---+---+ +-------+ +-------+---+---+ | Given | 12/22/19 | 5 mg | | | | | 18 9:42 | | | | | | AM PDT | | | | +-------+ +-------+---+---+ | Given | 12/22/19 | 10 mg | | | | | 18 9:01 | | | | | | AM PDT | | | | +-------+ +-------+---+---+ +---+---+ | | | +---+---+ + +-------+ +--------+---+---+ | sugammadex (BRIDION) injection | Given | 12/22/19 | 250 mg | | | | Intravenous, PRN, Starting Sat | | 18 10:39 | | | | | 12/21/17 at 1039, Anesthesia | | AM PDT | | | | | Intra-op | | | | | | + +-------+ +--------+---+---+ +---+---+ | | | +---+---+ documented in this encounter
--- OUTSIDE RECORDS SUMMARY | ~2019-12-23 | XMS | Encounter Summary ---
Demographics + + + | Address | [address] | | | [place] [address] | + + + | Home Phone | | + + + | Preferred Language | Unknown | + + + | Marital Status | | + + + | Christian Affiliation | Unknown | + + + | Race | Unknown | + + + | Ethnic Group | Unknown | + + + Author + + + | Author | [facility] | | | and [place] | + + + | Organization | [facility] | | | and [place] | + + + | Address | Unknown | + + + | Phone | Unavailable | + + + Support + + + + + | Name | Relationship | Address | Phone | + + + + + | Tam Lou | ECON | [address] | | | | | [place] [address] | | + + + + + | Cristal Yu | ECON | Unknown | | + + + + + Care Team Providers + +------+ + | Care Jtac Name | Role | Phone | + [...] | | | | | | [place] | | | | | | [address] | | | | | | [phone] | | | +--------+ + + + [...] | | | | | | [place] [address] | | | | | | [phone] | | | | | | | | +--------+---------+ + + + documented as of this encounter Visit Diagnoses Not on filedocumented in this encounter"
--- OUTSIDE RECORDS SUMMARY | ~2019-12-23 | XMS | Encounter Summary ---
Demographics + + + | Address | [address] | | | [place] [address] | + + + | Home Phone | | + + + | Preferred Language | Unknown | + + + | Marital Status | | + + + | Mosque Affiliation | Unknown | + + + | Race | Unknown | + + + | Ethnic Group | Unknown | + + + Author + + + | Author | [facility] | | | and [place] | + + + | Organization | [facility] | | | and [place] | + + + | Address | Unknown | + + + | Phone | Unavailable | + + + Support + + + + + | Name | Relationship | Address | Phone | + + + + + | Tam Lou | ECON | [address] | | | | | [place] [address] | | + + + + + | Cristal Yu | ECON | Unknown | | + + + + + Care Team Providers + +------+ + | Care Precision Devices Inspector/Tester Name | Role | Phone | + +------+ + PCP | Unavailable | + +------+ + Encounter Details +--------+ + + + + | Date | Type | Department | Care Team | Description | +--------+ + + + + | 01/31/ | Hospital | [facility] | Conversion | | | 2001 | Encounter | [facility] | Transaction, | | | | | C[address] | Provider Unknown | | | | | [address] | | | | | | [place] | | | | | | [address] | | | | | | [phone] | | | +--------+ + + + [...] | | | | | | [place] [address] | | | | | | [phone] | | | | | | | | +--------+---------+ + + + documented as of this encounter Visit Diagnoses Not on filedocumented in this encounter"
--- OUTSIDE RECORDS SUMMARY | ~2019-12-23 | XMS | Encounter Summary ---
Demographics + + + | Address | [address] | | | [place] [address] | + + + | Home Phone | | + + + | Preferred Language | Unknown | + + + | Marital Status | | + + + | Gnosticism Affiliation | Unknown | + + + | Race | Unknown | + + + | Ethnic Group | Unknown | + + + Author + + + | Author | [facility] | | | and [place] | + + + | Organization | [facility] | | | and [place] | + + + | Address | Unknown | + + + | Phone | Unavailable | + + + Support + + + + + | Name | Relationship | Address | Phone | + + + + + | Tam Lou | ECON | [address] | | | | | [place] [address] | | + + + + + | Cristal Yu | ECON | Unknown | | + + + + + Care Team Providers + +------+ + | Care Supervisor [place] Name | Role | Phone | + +------+ + PCP | Unavailable | + +------+ + Encounter Details +--------+ + + + + | Date | Type | Department | Care Team | Description | +--------+ + + + + | 05/13/ | Hospital | [facility] | Seth Abdi MD | | | 2002 | Encounter | [facility] | [address] | | | | | [address] [place], [place] | | | | | [address] | [address] | | | | | [place], [place] | | | | | | [address] | | | | | | [phone] | | | +--------+ + + + [...] | | | | | | [place] [address] | | | | | | [phone] | | | | | | | | +--------+---------+ + + + documented as of this encounter Visit Diagnoses Not on filedocumented in this encounter"
--- OUTSIDE RECORDS SUMMARY | ~2019-12-23 | XMS | Encounter Summary ---
Demographics + + + | Address | [address] | | | [place] [address] | + + + | Home Phone | | + + + | Preferred Language | Unknown | + + + | Marital Status | | + + + | Baptism Affiliation | Unknown | + + + | Race | Unknown | + + + | Ethnic Group | Unknown | + + + Author + + + | Author | [facility] | | | and [place] | + + + | Organization | [facility] | | | and [place] | + + + | Address | Unknown | + + + | Phone | Unavailable | + + + Support + + + + + | Name | Relationship | Address | Phone | + + + + + | Tam Lou | ECON | [address] | | | | | [place] [address] | | + + + + + | Cristal Yu | ECON | Unknown | | + + + + + Care Team Providers + +------+ + | Care Heel Attacher Wood Name | Role | Phone | + +------+ + PCP | Unavailable | + +------+ + Encounter Details +--------+ + + + + | Date | Type | Department | Care Team | Description | +--------+ + + + + | 03/15/ | Hospital | [facility] | [address] | | | 2001 | Encounter | [facility] | [address] | | | | | [address] [place] | | | | | [address] | [address] | | | | | [place] | [phone] | | | | | [address] | | | | | | [phone] | | | +--------+ + + + [...] [place], | | | | | | [place] [address] | | | | | | [phone] | | | | | | | | +--------+---------+ + + + documented as of this encounter Visit Diagnoses Not on filedocumented in this encounter"
--- OUTSIDE RECORDS SUMMARY | ~2019-12-23 | XMS | Encounter Summary ---
Demographics + + + | Address | [address] | | | [place] [address] | + + + | Home Phone | | + + + | Preferred Language | Unknown | + + + | Marital Status | | + + + | Holiness Affiliation | Unknown | + + + | Race | Unknown | + + + | Ethnic Group | Unknown | + + + Author + + + | Author | [facility] | | | and [place] | + + + | Organization | [facility] | | | and [place] | + + + | Address | Unknown | + + + | Phone | Unavailable | + + + Support + + + + + | Name | Relationship | Address | Phone | + + + + + | Tam Lou | ECON | [address] | | | | | [place] [address] | | + + + + + | Cristal Yu | ECON | Unknown | | + + + + + Care Team Providers + +------+ + | Care Unloader Operator Name | Role | Phone | [...] 12/21/ | Surgery | [facility]EN[facility] SERRANO | Dorian Burks MD | ILEOCOLIC RESECTION; | | 2018 | | [facility] | [address] | IMPLANTATION OF | | | | OP [address] | [place] [address] | BIOLOGIC MESH; | | | | [place] | [phone] | PLACEMENT OF VAC | | | | [address] | | | | | | [phone] | | | +--------+---------+ + + + [...] + + + | Blood Pressure | 159/95 | 12/21/2017 7:42 AM | | | | | PDT | | + + + + + | Pulse | 82 | 12/21/2017 7:42 AM | | | | | PDT | | + + + + + | Temperature | 36.3 C (97.4 F) | 12/21/2017 7:42 AM | | | | | PDT | | + + + + + | Respiratory Rate | 20 | 12/21/2017 7:42 AM | | | | | PDT | | + + + + + | Oxygen Saturation | 94% | 12/21/2017 7:42 AM | | | | | PDT [...] might be differ ent from the original. [facility] Surgery Discharge Summary Patient Name: Wale Lou [...] Signed by: Usama Almodovar MD, 12/25/2017 17:59 [facility] 8: 43 AM PDT Associated attestation - [...] sent through Care Everywhere.Abdomen: Incisi on Care (Belarusian)Post Op Wound Check, General (Belarusian)documented in this encounter Medications at Time of [...] Huffman RN - 12/25/2017 9:22 AM PDT [facility] Wound, Ostomy, & Continence Nursing Note [...] family. 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 Electronically signed by: RT Aroldo 12/24/2017 13:05 Marimar Hall MSW - 0 12/24/2017 12:25 PM PDTPer rounds, pt may need wound care post DC. Sticky note placed on олег rt requesting MD enter order if so. Usama Nascimento MD - 12/24/2017 8:50 AM PDT [facility] General Surgery/Trauma Team Progress Note Admission [...] incisional hernia. This was repaired electively [place]. On November 15 she had [...] was seen by a surgeon back in [place] last week with another failur e of her repair and a palpable hernia. The decision was made not to treat it the given her recent history. She then was traveling to [place] and developed another incarcerated herni a with pain and nausea. She was seen by a surgeon there who felt the best operation for he r would be a retro-rectus repair with Stratticewhich was not available at his small hospit al. She has some family in [place] and requested transfer here. On 12/21 she [...] Signed by: Usama Almodovar MD, 12/24/2017 8:50 [facility] from 7am-5pm (hospital employees only) Associated attestation [...] might be different fr om the original. [facility] Wound, Ostomy, & Continence Nursing Note [...] MD - 12/23/2017 9:02 A M PDT [facility] General Surgery/Trauma Team Progress Note Admission [...] incisional hernia. This was repaired electively [place]. On November 15 she had [...] was seen by a surgeon back in [place] last week with another failur e of her repair and a palpable hernia. The decision was made not to treat it the given her recent history. She then was traveling to [place] and developed another incarcerated herni a with pain and nausea. She was seen by a surgeon there who felt the best operation for he r would be a retro-rectus repair with Stratticewhich was not available at his small hospit ri. She has some family in [place] and requested transfer here. On 12/21 she [...] Signed by: Usama Almodovar MD, 12/23/2017 9:02 [facility] from 7am-5pm (hospital employees only) Associated attestation [...] might be different from the origi nal. [facility] General Surgery/Trauma Team Progress Note Admission [...] incisional hernia. This was repaired electively in [place] on November 14. On November 15 she [...] was seen by a surgeon back in [place] last week with another failure of her repair and a palpable hernia. The decision was made not to treat it the given her recent h istory. She then was traveling to [place] and developed another incarcerated hernia with jose antonio n and nausea. She was seen by a surgeon there who felt the best operation for her would be a retro-rectus repair with Strattice which was not available at his small hospital. She has some family in [place] and requested transfer here. On 12/21 she [...] Signed by: Usama Almodovar MD, 12/22/2017 8:24 [facility] from 7am-5pm (hospital employees only) Associated attestation [...] 0330, came via [facility] from [place]. Here for lower abd pain/biological mess placement [...] by Solange Kruse Report handoff given to [address] [place] [address] AMADO Narvaez RN has completed admission flow sheet except for shift assessment, fall risk, marga assessment. Solange FISCHER has also completed N/A Information for admission documentation was received from patient Patient is A+O dosanto dean in this encounter H&P Notes Dorian Burks MD - 12/21/2017 7:59 AM PDT [facility] ADMIT HISTORY AND PHYSICAL Primary Care Physician: [...] hernia. This was r epaired electively in [place] on November 14. With the permission of her surgery and she left the following day to head to [place] for some vacation with her family. When she was in [facility] on November 15 she had a cough and felt a pop with recurrence of her hernia. She was taken to surgery there and the mesh was removed and a primary repair performed. 2 days following that operation she eviscerated and was taken back to surgery for another repair w hich I believe was done bilaterally. She spent a few days in the ICU due to difficulty with ventilation postoperatively but eventually was discharged. She was seen by a surgeon back in [place] last week with another failure of her repair and a palpable hernia. The decision was made not to treat it the given her recent history. She then was traveling to [place] and developed another incarcerated hernia with pain and nausea. She was seen by a surgeon faye page who felt the best operation for her would be a retro-rectus repair with Strattice which wa s not available at his small hospital. She has some family in [place] and requested transfe r here. At the [...] 11.0 12/20/2017 Imaging: CT scan done in [place] I was able to review. This shows an 11 cm fascial defect a bout a 20 cm hernia containing small bowel which is a bit thickened. There is mildly dilate d small bowel loops proximal to this but no complete obstruction visible. Electronically Signed by: Dorian Burks MD, 12/21/2017 7:59 [facility] 8: 06 AM PDTdocumented in this encounter [...] bedside. WC transport notified for transport to [facility] pharmacy and then to main doors for discharge to [facility]. Patient aware of need to roller picker Rx in outpatient pharmacy. Electronically signed by Rosamaria Boucher RN at 12/25 2:24 PM PDTPlan of Rosamaria Ospina RN - 12/25/2017 1:17 PM Agustin Hanks calling in nicotine patch order to outpatient pharmacy. O2 at bedside. Medications deli blake to room except nicotine patches. Patient to roller picker at time of discharge. Electronical ly signed by Rosamaria Boucher RN at 12/25/2017 1:22 PM PDTPlan of Rosamaria Ospina RN - 12/25/2017 12:49 PM Agustin BEST [...] Note Room #724/724-02 ISO: None Item for boulevard glassware replacer Comments Shift Summary Ashlee is a/o. CARITO [...] Height: Component Value Date/Time POCGLU 147 (H) 12/24/20172057 POCGLU 110 (H) 12/24/2017 1727 POCGLU 95 [...] Communication (pending/call needed?) lan of Care - Sgsofiya Heather, CAMPAIGN MARKETING MANAGER - 12/24/2017 7:57 PM PDTProblem: Patient Care [...] therapy. lan of Care - Jannette Juárez, SENIOR GEOLOGIST - 12/24/2017 4:13 PM PDTProblem: Patient Care [...] trailer, to live in a tent in [facility]) # of Stairs to Enter Home: 3 ; Rail: ; # of Stairs Within Home: 0 Additional Information: Currently living in travel trailer. Reports she can stay at parent s' for a week or two. Parent's home is handicap accessible; no conerns. To return to living in [facility] in [facility] and use outhouse/public restrooms. Prior level of [...] Sidelying: Goal Status: continued, progressing Level of [place]: independent Transfers Comments: Bed to Chair: minimal assist (75% patient effort) Chair to Bed: minimal assist (75% patient effort) Utilizing: none Sit to Stand: stand by assist Stand to Sit: stand by assist Utilizin wheeled walker (FWW) Status: continued, progressing [place] Level: independent Gait Comments: Level of Assist: contact guard assist Utilizes: 2 wheeled walker (FWW) Distance: 150ft Goal Status: continued, progressing Goal: independent Device: none Distance: 200' Stairs Comments: nt on eval # of stairs: Handrail Location: Level of [place]: Utilizes: Technique: Maintain WB Status: STG Status: not addressed Level of [place]: modified independent # of stairs: 3 Utilizes: [...] Note Room #724/724-02 ISO: None Item for boulevard glassware replacer Comments Shift Summary A/O x4. WOUNDS VAC [...] (pending/call needed?) lan of Care - Yvette Shabazz, OT Student - 12/24/2017 10:30 AM PDT [...] reports needing to return to work in [employer] will stay in tent. Pt currently unsafe [...] to live in a ten t in [facility]) Home Accessibility: ; Equipment used at home: no; Additional Information: Currently living in travel trailer. Reports she can stay at parents' for a week or two. Parent's home is [place] dic[place] accessible; no conerns. To return to living in tent in [facility] and use outhouse/pub lic restrooms. Prior level of function: indep without AD Cognition: Orientation: oriented x 4 Attention: Arousal level: opens eyes spontaneously Behavior: cooperative Follows instruction and answers questions: Personal Safety: Short Term/Retirement Memory: Vision Vision Comments: ROM Comments: LUE ROM: WFL RUE ROM: WFL Strength General information: LUE: WFL RUE: WFL Sensation General Information: LUE light touch: RUE light touch: Coordination BUE: RUE Coordination: LUE Coordination: Binu: Patient Status/Goals: Reflects last filed data of patient status; may be from multiple contributors. Bed Mobility Supine to Sit Level of [place]: stand by assist Assistive Device: HOB elevated, bed rails Sit to Supine Level of [place]: stand by assist Assistive Device: HOB elevated, bed rails Transfers Sit to Stand Level of independence: stand by assist Assistive Device: 2 wheeled walker (FWW) Stand to Sit Level of independence: stand by assist Assistive Device: 2 wheeled walker (FWW) Toilet Level of [place]: supervised Assistive Device: 2 wheeled walker (FWW) Walk-in Shower Level of [place]: contact guard assist Assistive Device: 2 wheeled walker (FWW) Tub Transfer Level of [place]: Assistive Device: ADL Comments: Bathing Level of [place]: Assistive Device: Position: . Upper body dressing Level of [place]: Assistive Device: Position: Lower body dressing Level of [place]: stand by assist Assistive Device: none Position: supported sitting (in bed, HOB elevated) Toilet training Level of [place]: contact guard assist Assistive Device: none Position: Grooming Level of [place]: stand by assist Assistive Device: none Position: standing Eating/self-feeding Level of [place]: Assistive Device: Position: IADL: Activity Tolerance: poor [...] at 12/24/2017 1028 Electronically signed by: Yvette Shabazz, OT Student 12/25/2017 10:47 I have reviewed [...] Note Room #724/724-02 ISO: None Item for boulevard glassware replacer Comments Shift Summary Pt remains A&O, has [...] 3. MD Communication (pending/call needed?) lan of [facility], Carlos Huynh RRT - 12/24/2017 12:26 AM [...] continue current therapy. Goal Evaluation: lan of [facility] Luisa goodwin RN - 12/23/2017 10:24 PM PDTFormatting of [...] Note Room #724/724-02 ISO: None Item for boulevard glassware replacer Comments Shift Summary A/O X4. Minimum assist. [...] Note Room #724/724-02 ISO: None Item for boulevard glassware replacer Comments Shift Summary Pt A&O, needs assistance [...] chair for approx 10 minut es. Pain 6 abd. Currently in trailer but may prefer [...] to Sidelying: Goal Status: new Level of [place]: supv Transfers Comments: Bed to Chair: minimal assist (75% patient effort) Chair to Bed: minimal assist (75% patient effort) Utilizing: none Sit to Stand: minimal assist (75% patient effort) Stand to Sit: minimal assist (75% patient effort) Utilizing: (rail and pillow in chair) Status: new [place] Level: supv Gait Comments: Level of Assist: minimal assist (75% patient effort) Utilizes: none Distance: 3 Goal Status: new Goal: gait without AD Device: none Distance: 250 Stairs Comments: nt on eval # of stairs: Handrail Location: Level of [place]: Utilizes: Technique: Maintain WB Status: STG Status: new Level of [place]: supv # of stairs: 3 Utilizes: rail Balance Comments: Sitting Balance Static: fair balance Dynamic: fair balance Standing Balance Static: fair balance Dynamic: fair balance Additional Goals: Goal #1: bed mob with supv,good body mech Status: new Goal #2: transfers with supv Status: new Goal #3: gait 250 ft without AD Status: new Electronically signed by: Angélica Cooney PT 12/23/2017 12:12 Thank you for requesting [...] Note Room #724/724-02 ISO: None Item for boulevard glassware replacer Comments Shift Summary Pt continually wanted Morphine [...] Note Room #724/724-02 ISO: None Item for boulevard glassware replacer Comments Shift Summary Still having issues with [...] RA at baseline but requiring 5L/NC to nika ntain sats at >90% especially while sleeping. [...] 3. MD Communication (pending/call needed?) lan of Rowan Christiansen, CAMPAIGN MARKETING MANAGER - 12/22/2017 8:43 AM PDTFormatting of this note might be different f rom the original. RESPIRATORY PROTOCOL Admitting Diagnosis: INCARCERATED VENTRAL HERNIA Recurrent incisional hernia with incarceration Scrap Piler: None Respiratory History: Asthma Allergies: Allergies Allergen [...] Note Room #724/724-02 ISO: None Item for boulevard glassware replacer Comments Shift Summary Pt alert and oriented. [...] OT [] ST [] RT [x] Vitals: 12/21/17201212/21/17 2323 12/22/17 0002 12/22/17 0037 BP: (!) [...] Communication (pending/call needed?) lan of Care - Vicente mann, Darby Workman RN - 12/21/2017 4:54 PM PDTFormatting of this note might be different from t he original. Problem: Patient Care Overview (Adult) Goal: Care Team Goals & Evaluation PROBLEM-RELATED GOALS: STRATEGY TO ACHIEVE GOALS: RESTRAINT-RELATED GOALS: STRATEGIES TO ACHIEVE RESTRAINT GOALS: Outcome: Unchanged Goal Evaluation: 7N Nursing Progress Note Room #724/724-02 ISO: None Item for boulevard glassware replacer Comments Shift Summary Surgery today to repair [...] MD Communication (pending/call needed?) p Note - Bax, Dorian Barbour MD - 12/21/2017 10:50 AM [facility] Operative Note Pt. Name/Age/: Wale Lou 47 y.o. 1970 [facility]. Record Number: [id number] Date of admission: 12/21/2017 Date of Operation/Procedure: 12/21/2017 Preoperative Diagnosis: Multiply recurrent incisional hernia with incarceration Morbid obesity Tobacco use Postoperative Diagnosis: Same Procedure: Repair of incarcerated, multiply recurrent incisional hernia Ileocolic resection including 18 inches of ileum and cecum Implantation of biologic mesh Application of VAC dressing Surgeon: Dorian Burks MD Anesthesia Provider(s): Anesthesiologist: Everardo Beard MD SPORTS UMPIRE (Medically Directed): Jennie Miller CRNA; Janak Harmon [...] repaired primarily in the midline with interrupted juxqyu-wy-vegtf #1 PDS s uture and a 10 [...] was then closed vertically with #1 PDS qncxqd-ub-pyhzr sutures. It appeared that previously the hernia [...] Signed by: Dorian Burks MD, 12/21/2017 10:50 [facility] documented in this enc ounter Plan of [...] [place]YE, | | | | | | [place] [address] | | | | | | [phone] | | | | | | | [...] | | | POC | Performed by [facility] [address] | [address] | | | | [address] [place], [place] | | HEART | | | | [address] | | MEDICAL | | | | [...] [address] | [place] [address] | | | [facility] | | | | | NAVEEN [...] | | | POC | Performed by [facility] [address] | | [address] | | | | [address] [place], [place] | | HEART | | | | [address] | | MEDICAL | | | | [...] [address] | [place] [address] | | | [facility] | [...] | | | POC | Performed by [facility] [address] | | [address] | | | | [address] [place], [place] | | HEART | | | | [address] | | MEDICAL | | | | [...] [address] | [place] [address] | | | [facility] | | | | | LABORATORY [...] | [facility] | | | POC | [facility] [address], | | SACRED | | | | [place] [address] | | HEART | | | |Performed by [facility] [address], [place] [address] | | MEDICAL | | | | [...] + | [facility] [address]CR[address] | [address] | [place] [address] | | | [facility] | | | | [...] | | | POC | Performed by [facility] [address] | | [address] | | | | [address], [place] | | HEART | | | | [address] | | MEDICAL | | | | [...] | + + + + + | NURIARENEEVilla FAJARDOZACHERY | [address] | [place] [address] | | | [facility] | | | | | LABORATORY [...] | | | POC | Performed by [facility] [address] | | [address]CR[address] | | | | [address] [place] | | HEART | | | | [address] | | MEDICAL | | | | [...] + + | [facility] [address] | [address] | [place], [place] | | | HEART [facility] | | | | [...] | [facility] | | | POC | [facility] [address], | | SACRED | | | | [place] | | HEART | | | |Performed by [facility] [address], [place], [place] | | MEDICAL | | | [...] + + | BRENDA SERRANO | [address] | [place] [address] | | | [facility] | | | | | LABORATORY [...] | [facility] | | | POC | [facility] [address], | | SACRED | | | | [place] [address] | | HEART | | | |Performed by [facility] [address], [place] [address] | | MEDICAL | | | | [...] + + | BRENDA SERRANO | [address] | [place] [address] | | | [facility] | | | | | LABORATORY [...] | [facility] | | | POC | [facility] [address], | | SACRED | | | | [place] [address] | | HEART | | | |Performed by [facility] [address], [place] [address] | | MEDICAL | | | | [...] [address] | [place] [address] | | | [facility] | | | | | LABORATORY [...] | JTE | | | POC | Performed by [facility] [address] | | [address] | | | | [address] [place], [place] | | HEART | | | | [address] | | MEDICAL | | | | [...] + | BRENDA SERRANO | [address] | [place] [address] | | | [facility] | | | | | LABORATORY [...] | | | POC | Performed by [facility] [address] | | [address]CR[address] | | | | [address] [place] | | HEART | | | | [address] | | MEDICAL | | | | [...] | [address] | [place] | | | [facility] | | | | | LABORATORY [...] | [facility] | | | POC | [facility] [address], | | SACRED | | | | [place] | | HEART | | | |Performed by [facility] [address], [place] [address] | | MEDICAL | | | | [...] + | BRENDA SERRANO | [address] | [place] [address] | | | HE[facility] MEDICAL CENTER | [...] | [facility] | | | POC | [facility] [address], | | SACRED | | | | [place] [address] | | HEART | | | |Performed by [facility] [address], [place] [address] | | MEDICAL | | | | [...] + | BRENDA SERRANO | [address] | [place] [address] | | | [facility] | | | | | LABORATORY [...] | | MEDICAL | | | | [address], | | CENTER | | | | [place] [address] | | LABORATORY | | | | [...] + + | BRENDA SACRZACHERY | [address] | [place] [address] | | | [facility] | | | | | NAVEEN GRACIA | | | | + + + [...] [facility] | | | | by [facility] [address] [place], | | SACRED | | | | [place] [address] | | HEART | | | |Performed by [facility] [address], [place], [place] | | MEDICA L | | | [...] + | BRENDA SERRANO | [address] | [place] [address] | | | HEART MEDICAL CENTER | [...] | | | POC | Performed by [facility] [address] | | SACR[address] | | | | [address] [place] | | HEART | | | | [address] | | MEDICAL | | | | [...] + + | BRENDA SERRANO | [address] | [place] [address] | | | [facility] | | | | | LABORATORY [...] | | | POC | Performed by [facility] [address] | | SACRED [...] SACRED | [address] | [place] [address] | | | HEART MEDICAL CENTER | [...] | | | POC | Performed by [facility] [address] | | [address]CR[address] | | | | [address] [place], [place] | | HEART | | | | [address] | | MEDICAL | | | | [...] + + | BRENDA SERRANO | [address] | [place] [address] | | | [facility] | | | | | LABORATORY CERNER | | | | + + + + + Tissue Request For Pathology (12/21/2017 9:36 AM PDT) + + | Specimen | + + | | + + + +--------- --------+ | Narrative | Ivon Jimenez | + +--------- --------+ | | [facility] | | [facility] | | : 1970 AGE: 47 years SEX: Female | MEDICAL CENTER | | | LABORATO RY | | Acct: [id number] Location: | [facility] | | [facility]; [facility]; 724-02 Case #: | | | [id number] Ordering: DORIAN BURKS MD | | | Client: [facility] | | | Copy To: [...] 12/24/2017 12:59 pmPerforming | | | Location: [facility], | | | [facility] [address]XQCIMMV:The clinical and surgical history of a | [...] colonic margin; "A3-A4" random | | | sales representative leather goods sections of small bowel wall.MS/SH07MICROSCOPIC | | [...] + | BRENDA SERRANO | [address] | [place] [address] | | | [facility] | | | | | [facility] | | | | + + + + + ECG 12 lead (12/21/2017 8:03 AM PDT) + + | Specimen | + + | | + + + + + | Narrative | Performed At | + + + | HEART RATE:77 | [facility] | | bpmRR Interval:779 msAtrial Rate:77 msP-R Interval:180 msP | TRACEMASTER | | Duration:184 msP Horizontal [place]:20 degP Front [place]:67 degQ Onset:508 | | | msQRSD Interval:82 msQT Interval:392 msQTcB:444 msQTcF:426 msQRS | | | Horizontal [place]:-33 degQRS [place]:29 degI-40 Horizontal [place]:-2 degI-40 | | | Front [place]:30 degT-40 Horizontal [place]:-48 degT-40 Front [place]:26 degT | | | Horizontal [place]:59 degT Wave [place]:64 degS-T Horizontal [place]:75 degS-T | | | Front [place]:72 degSeverity:- NORMAL ECG -INTERP:SINUS | | | RHYTHMElectronically signed by: Juan Antonio CASTILLO 12-21-2017 15:31:08 | | |QT Interval:392 ms | | |QTcB:444 ms | | |QTcF:426 ms | | |QRS Horizontal [place]:-33 deg | | |QRS [place]:29 deg | | |I-40 Horizontal [place]:-2 deg | | |I-40 Front [place]:30 deg | | |T-40 Horizontal [place]:-48 deg | | |T-40 Front [place]:26 deg | | |T Horizontal [place]:59 deg | | |T Wave [place]:64 deg | | |S-T Horizontal [place]:75 deg | | |S-T Front [place]:72 deg | | |Severity:- NORMAL ECG - | | |INTERP:SINUS RHYTHM | | |Electronically signed by: Juan Antonio CASTILLO 12-21-2017 15:31:08 | | + + + + + + + + | Performing | Address | City/State/Zipcode | Phone Number | | Organization | | | | + + + + + | [facility] | [address] | [place] [address] | [phone] | + + + + + documented [...] PDT | | | | | Starting [place] 12/22/17 at 1331 | | | | [...] PDT | | | | | Starting [place] 12/22/17 at 1331 | | | | [...]
--- OUTSIDE RECORDS SUMMARY | ~2019-12-23 | XMS | Encounter Summary ---
Demographics + + + | Address | [address] | | | [place] [address] | + + + | Home Phone | | + + + | Preferred Language | Unknown | + + + | Marital Status | | + + + | Mandaen Affiliation | Unknown | + + + | Race | Unknown | + + + | Ethnic Group | Unknown | + + + Author + + + | Author | [facility] | | | and [place] | + + + | Organization | [facility] | | | and [place] | + + + | Address | Unknown | + + + | Phone | Unavailable | + + + Support + + + + + | Name | Relationship | Address | Phone | + + + + + | Tam Lou | ECON | [address] | | | | | [place] [address] | | + + + + + | Cristal Yu | ECON | Unknown | | + + + + + Care Team Providers + +------+ + | Care Steel Analyst Name | Role | Phone | + +------+ + | Pcp, Prov Inactive | PCP | | + +------+ + Encounter Details +--------+ + + + + | Date | Type | Department | Care Team | Description | +--------+ + + + + | 12/31/ | Home Care | [facility] | Marva Sifuentes, | TELEPHONE ENCOUNTER | | 2018 | Visit | [address] | [place] | | | | | [place], [place] | | | | | | [address] | | | | | | [phone] | | | +--------+ + + + [...] Angelo, | | | | | | [address] | | | | | | [place], | | | | | | [place] [address] | | | | | | [phone] | | | | | | | | +--------+---------+ + + + documented as of this encounter Visit Diagnoses Not on filedocumented in this encounter"
--- OUTSIDE RECORDS SUMMARY | ~2019-12-23 | XMS | Encounter Summary ---
Demographics + + + | Address | [address] | | | [place] [address] | + + + | Home Phone | | + + + | Preferred Language | Unknown | + + + | Marital Status | | + + + | Nondenominational Affiliation | Unknown | + + + | Race | Unknown | + + + | Ethnic Group | Unknown | + + + Author + + + | Author | [facility] | | | and [place] | + + + | Organization | [facility] | | | and [place] | + + + | Address | Unknown | + + + | Phone | Unavailable | + + + Support + + + + + | Name | Relationship | Address | Phone | + + + + + | Tam Lou | ECON | [address] | | | | | [place] [address] | | + + + + + | Cristal Yu | ECON | Unknown | | + + + + + Care Team Providers + +------+ + | Care Therapeutic Assistant Name | Role | Phone | [...] Services | Recurrent | Sriram J, | [address] | | | Required | | incisional | PA-C [address] | | | | | hernia with | [address] | [place] | | | | | incarceratio | [facility], | [place], [place] | | | | | n | [place] [address] | [address] | | | | | | Phone: | Phone: | | | | | | [phone] | [phone] | | | | | | Fax: | Fax: | | | | | | [phone] | [phone] | +--------+ + + + + + Encounter Details +--------+ + + + + | Date | Type | Department | Care Team | Description | +--------+ + + + + | 12/26/ | Home Care | [facility] | Sriram Saldaña | SN SOC ([place]) | | 2018 | Visit | [address] | [address] | | | | | [place], [place] | [address] | | | | | [address] | [place] [address] | | | | | [phone] | [phone] | | | | | | | [...] + | Blood Pressure | 148/82 | 12/26/2017 11:00 AM | | | | | PDT | | + + + + + | Pulse | 83 | 12/26/2017 11:00 AM | | | | | PDT | | + + + + + | Temperature | 36.4 C (97.5 F) | 12/26/2017 11:00 AM | | | | | PDT | | + + + + + | Respiratory Rate | 16 | 12/26/2017 11:00 AM | | | | | PDT | | + + + + + | Oxygen Saturation | - | - | | + + + + + | Inhaled Oxygen | - | - | | | Concentration | | | | + + + + + | Weight | 116.1 kg (256 lb) | 12/26/2017 11:00 AM | | | | | PDT | | + + + + + | Height | 171.5 cm (5' 7.5") | 12/26/2017 11:00 AM | | | | | PDT | | + + + + + | Body Mass Index | 39.5 | 12/26/2017 11:00 AM | | | [...] | | | | | [address] | | | | | | [place], | | | | | | [place] [address] | | | | | | [phone] | | | | | | | | +--------+---------+ + + + + + +--------+ + + [...] + | Visit Type - SN - OASIS START OF CARE | | Discipline - Correction | + [...] 10 | | Disciplines: | | | Active | | problem | | Correction | | 018 | [...] | Comple | | abdomen performed by SN | | -Wound Type:Surgical | | jermaine | | or Other: family member. | | ABD wound. Wound | | | | Old dressing removed. | | care:Assess daily, | | | | Well tolerated by | | keep dry | | | | patient.. Site Irrigate | | dressing.(Dressing | | | | with, saline edmund wound. | | supplies may | | | | Patted dry. Applied | | increase or decrease | | | | dry, sterile and 4 x 4 | | per wound needs) | | | | gauze. Secured with | | | | | | Other: Medfi tape. See | | | | | | Wound Assessment form | | | | | | for measurements and | | | | | | status of wound. | + + +--------+--------+ + documented in this encounter
--- OUTSIDE RECORDS SUMMARY | ~2019-12-23 | XMS | Encounter Summary ---
Demographics + + + | Address | [address] | | | [place] [address] | + + + | Home Phone | | + + + | Preferred Language | Unknown | + + + | Marital Status | | + + + | Hoahaoism Affiliation | Unknown | + + + | Race | Unknown | + + + | Ethnic Group | Unknown | + + + Author + + + | Author | [facility] | | | and [place] | + + + | Organization | [facility] | | | and [place] | + + + | Address | Unknown | + + + | Phone | Unavailable | + + + Support + + + + + | Name | Relationship | Address | Phone | + + + + + | Tam Lou | ECON | [address] | | | | | [place] [address] | | + + + + + | Cristal Yu | ECON | Unknown | | + + + + + Care Team Providers + +------+ + | Care Toy Designer Name | Role | Phone | + +------+ + PCP | Unavailable | + +------+ + Encounter Details +--------+ + + + + | Date | Type | Department | Care Team | Description | +--------+ + + + + | 01/22/ | Hospital | [facility] | Seun Raygoza, | | | 1999 | Encounter | FAMILY EM[facility]Y | [address] | | | | C[address] | [facility] | | | | | [facility] | [place] [address] | | | | | [place] | [phone] | | | | | [address] | | | | | | [phone] | | | +--------+ + + + [...] | | | | | | [place] [address] | | | | | | [phone] | | | | | | | | +--------+---------+ + + + documented as of this encounter Visit Diagnoses Not on filedocumented in this encounter"
--- OUTSIDE RECORDS SUMMARY | ~2019-12-23 | XMS | Encounter Summary ---
Demographics + + + | Address | [address] | | | [place] [address] | + + + | Home Phone | | + + + | Preferred Language | Unknown | + + + | Marital Status | | + + + | Restorationism Affiliation | Unknown | + + + | Race | Unknown | + + + | Ethnic Group | Unknown | + + + Author + + + | Author | [facility] | | | and [place] | + + + | Organization | [facility] | | | and [place] | + + + | Address | Unknown | + + + | Phone | Unavailable | + + + Support + + + + + | Name | Relationship | Address | Phone | + + + + + | Tam Lou | ECON | [address] | | | | | [place] [address] | | + + + + + | Cristal Yu | ECON | Unknown | | + + + + + Care Team Providers + +------+ + | Care Hydraulic Miner Blasting Name | Role | Phone | + +------+ + PCP | Unavailable | + +------+ + Encounter Details +--------+ + + + + | Date | Type | Department | Care Team | Description | +--------+ + + + + | 05/25/ | Hospital | [facility] | Preston Mott MD | | | 2007 | Encounter | FAMILY GENERIC | retired | | | | | CONVERSION | | | | | | DEPARTMENT [address] | | | | | [address] | | | | | | [address] [place], [place] | | | | | | [address] | | | | | | [phone] | | | +--------+ + + + [...] documented as of this encounter Miscellaneous Notes Op Note - Preston Mott MD - 04/22/2013 1:24 PM PST DATE: 05-25-08 SURGEON: Preston Mott MD PREOPERATIVE DIAGNOSIS: Incarcerated umbilical hernia. POSTOPEARTIVE DIAGNOSIS: Same OPERATION: Vrhh-xynn-ilcrp repair of incarcerated umbilical hernia. INDICATIONS: Patient is a 38 year old woman who presented with a two month history of an umbilical bulge with increasing tenderness. There had been no history of chronic cough, con stipation, urinary hesitancy, or signs or symptoms of strangulation. Physical examination d emonstrated an incarcerated, partially strangulated umbilical hernia. SURGICAL FINDINGS: There was an incarcerated umbilical hernia which demonstrated venous s tasis due to the incarceration. PROCEDURE: The patient was prepped and draped in the usual manner and under general anest hesia, a transverse incision was made overlying the superior portion of the umbilicus. Diss ection was carried down and around the herniated tissue. The tissue was partially resected and replaced within the abdominal cavity. This allowed mobilization of the herniated materi al. The edges of this fascia were cleared for a distance of at least 1 cm in all direction s. Repair of the hernia was accomplished transversely by running a suture of 0 Prolene, chelle wing the inferior edge of the fascia beneath the superior edge. This was accomplished in a running fashion. Another running suture was used to approximate the superior edge of the fa scial defect to the surface of the inferior edge. This created a "nacn-okgy-wddpu" type of overlap of the linea alba and the fascial edges. The dermis of the umbilicus was then sutu red to the fascia with 3-0 PDS. Skin was re-approximated with janina. Preston Mott MD BAB:guy Job ID:[id number] Doc ID:[id number] cc:Preston Mott MD, <Dictator> Jose Singleton Jr., MD Digitally authenticated 06/16/08 1103 MD NUSRAT Krause DEBR A L : 68 | Signed MR# [id number] ACCT# [id number] | ADM DS REG SDC | Preston Mott MD | [facility] ES: B R pt [id number] | OPERATIVE REPORT THIS REPORT IS CONFID ENTIAL AND NOT TO BE RELEASED WITHOUT PROPER AUTHORIZATION. Goranous - Preston Mott MD - 3 1:24 PM KATIE SPENCE [facility] [place] OP IVY-OPERATIVE RECORD UN# [id number] AC# [id number] ADM DATE 05/25/2008 Page 1 Patient Nam e: KATIE LOU Unit#: [id number] Procedure(s ): HERNIA REPAIR UMBILICAL Surgery Phan e: 05/25/2008 OR Room: [facility] Case Type: ELECTIVE ASA: 2 Site Initialed? YES Surgeon 1: Preston Mott MD Assist: Procedure(s ): UMBILICAL HERNIA REPAIR Anesthesia Type: GENERAL ANESTHESIA MD: Adrián Giron KEYBOARD INSTRUMENT TUNER: SHREE YOUNG CRNA Pre-OP Diagnosis: UMBILICAL HERNIA Initial Skin In tegrity WNL? N Comment: PT. STATES BRUISED BUTTOCKS Position 1 Devices OR Staff Privileged Staff SUPINE PILLOWS CINDY HUITRON RN ARMBOARDS SHREE YOUNG CRNA WRIST PADS SAFETY STRAP - BELT Other: Other: Comment:PT. ASSISTED TO OR TABLE SUPINE ARMS EXTENDED LESS Comment:THAN 90 D EGREES ON WELL PADDED ARMBOARDS. Temperature Control Methods: WARM I V SOLUTIONS Temperature Control Methods: WARM BLANKETS Tourniq uets: N Anti-embolitic Therapy: N ESU: Y Unit #: 104 Pad Location: THIGH L/R: R Comment/Applied by: MARCIN Urinary Catheter Inserted: N Cathether in Place on Arrival: N Shave Prep in OR: N Shave Type: Surgical Prep: Y "Time Out" Patient, Procedure and Site Confirmed At: 1459 Solution:DURAPR EP Site:ABDOMEN - NIPPLES TO MID THIGH By: CINDY TALAVERA Laser: N Allergies: See patient chart/MAR Irrigations Applicable: N Medications Applicable: N Comment: Intra-op X-rays: N Implants: N Specimens: N Drains N Packing: N Type: KATIE LOU [facility] [place] OP IVY-OPERATIVE RECORD UN# [id number] # [id number] ADM DATE 05/25/2008 Page 2 Dressings: Y Gauze Tape Steristrips ABD Telfa Tegaderm Peripad Cotton Roll Y Y Fluffs Webril Kerlix Pam Xerofor m Adaptic Coban Vickey Cell Saver: N Unit #: Amount Reinfused: Counts Applicable: Y Count: INITIAL COUNT Result: DONE Count: FIRST COUNT Result: CORRECT Count: FINAL COUNT Result: CORRECT RN: CINDY TALAVERA RN Scrub: BALWINDER DALAL IRON MINER BLASTING RN: CINDY TALAVERA RN Scrub: BALWINDER DALAL IRON MINER BLASTING RN: CINDY TALAVERA RN Scrub: BALWINDER DALAL IRON MINER BLASTING Surgeon Notified of Count Results: Y Post-Op Diagnosis: SAME Transferred to : PACU PHASE 1 Mode: STRETCHER Pt free from periop injury: Y Comment: Belongings: GLASSES Disposition: TO PACU WITH PATIENT Instruments Flashe d? N Autoclave Number: Time in Room: 1449 Procedure Start: 1502 Wound Class: 01 Last Procedure End: 1524 Usman e out Room: 1529 Pre-op Antibi:N Time Adm: Med Given IVPB: Comment: Delay: NA Delay Comment: NA Staff: CINDY TALAVERA sludge control operator: BALWINDER DALAL CST Staff: OMID HERNANDEZ Time In Time Out Role: FIRST FOREST FIRE EQUIPMENT OPERATOR Time In Time Out R ole: FIRST SCRUB Time In Time Out Role: SECOND SCRUB All pedersen reviewed and updated as necessary. Y Circulating RN beckaatdean e Printed 05/25/2008 1530 Signature indicates verification of information in al l pedersen. End of Document documentkaylee stratton in this encounter Plan of Treatment +--------+---------+ + + + | Date | Type | Specialty | Care Team | Description | +--------+---------+ + + + | 12/30/ | Office | Pulmonology | [facility], | | | 2019 | Visit | | Daphne Angelo, | | | | | | MD [address] | | | | | | [place], | | | | | | [place] [address] | | | | | | [phone] | | | | | | | | +--------+---------+ + + + documented as of this encounter Visit Diagnoses Not on filedocumented in this encounter
--- OUTSIDE RECORDS SUMMARY | ~2019-12-23 | XMS | Encounter Summary ---
Demographics + + + | Address | [address] | | | [place] [address] | + + + | Home Phone [...] | Author | [facility] | | | and [place] | + + + | Organization | [facility] | | | and [place] | + + + | Address | Unknown | + + + | Phone | Unavailable | + + + Support + + + + + | Name | Relationship | Address | Phone | + + + + + | Tam Lou | ECON | [address] | | | | | [place] [address] | | + + + + + | Cristal Yu | ECON | Unknown | | + + + + + Care Team Providers + +------+ + | Care Grain Handler Name | Role | Phone | + +------+ + PCP | Unavailable | + +------+ + Encounter Details +--------+ + + + + | Date | Type | Department | Care Team | Description | +--------+ + + + + | 07/24/ | Hospital | [facility] | Seth Abdi MD | | | 2001 | Encounter | FAMILY EMERGENCY | [address] | | | | | CENTER [address] [place], [place] | | | | | [address] | [address] | | | | | [place], [place] | | | | | | [address] | | | | | | [phone] | | | +--------+ + + + [...] | | | | | | [place] [address] | | | | | | [phone] | | | | | | | | +--------+---------+ + + + documented as of this encounter Visit Diagnoses Not on filedocumented in this encounter"
[~2019-12-23 13:17] MED LIST changes: +HYDROCHLOROTH12.5 M1; +INDOMETHACIN25 MG PO; +KLOR-CON 1010 MEQ PO
[2019-12-23] MEDS ORDERED: AMLODIPINE BESY10 MG PO (13:24)
[2019-12-23] MEDS ORDERED: CETIRIZINE HCL10 MG PO (13:24)
[2019-12-23] MEDS ORDERED: SPIRIVA RESPIMAT4 G1 INH (13:24)
== END 2019-12-23 14:26 | disposition home or self-care (01) ==
LOC: ED 13:17
PROC: 0HQNXZZ Repair Left Foot Skin, External Approach (ICD-10-PCS; principal; 2019-12-23)
DX: S91.312A Laceration without foreign body, left foot, initial encounter (principal); I10 Essential (primary) hypertension; K21.9 Gastro-esophageal reflux disease without esophagitis; F17.200 Nicotine dependence, unspecified, uncomplicated; Z23 Encounter for immunization; Z88.2 Allergy status to sulfonamides; Z79.899 Other long term (current) drug therapy; X58.XXXA Exposure to other specified factors, initial encounter
CPT/HCPCS: 12002; 90471; 90715; 99282-25